=== PATIENT | female | born 2000 | race Caucasian/White ===

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

== ENCOUNTER 2019-08-23 23:10 | Emergency (ER) | payer OTHER ==
[2019-08-23 23:21] VITALS: BP 138/72; PULSE 56; RESP 18; TEMP 98
[2019-08-23] MEDS ORDERED: predniSONE 20 MG TAB PO STA (23:42)
[2019-08-23] MEDS ORDERED: ACETAMINOPHEN TAB 325 MG TAB PO STA (23:43)
[2019-08-23] MEDS ORDERED: IBUPROFEN 400 MG TAB PO STA (23:43)
--- NOTE | 2019-08-23 23:59 | XR ---
EXAMINATION TYPE: XR pelvis AP view DATE OF EXAM: 08/23/2019 COMPARISON: NONE HISTORY: Fall in the ice. Pain. TECHNIQUE: Single view FINDINGS: Pelvic ring is intact. Proximal femurs and hip joints appear normal. Sacroiliac joints appe ar normal. IMPRESSION: Normal pelvis.
--- NOTE | 2019-08-24 | XR ---
EXAMINATION TYPE: XR lumbar spine 2 or 3V DATE OF EXAM: 08/23/2019 COMPARISON: NONE HISTORY: Fall on the ice. Pain. TECHNIQUE: 3 views FINDINGS: Lumbar vertebra have normal alignment. Posterior elements are intact. Sacroiliac joints killian ear normal. There is no compression fracture. IMPRESSION: Negative lumbar spine exam. No fracture.
--- NOTE | 2019-08-24 00:02 | ED ---
Lower Extremity Injury HPI - General Chief Complaint: Extremity Injury, Lower Stated Complaint: Bilateral Leg Pain Time Seen by Provider: 08/23/19 23:34 Source: patient Mode of arrival: ambulatory Limitations: no limitations - History of Present Illness Initial Comments: 18-year-old female presenting today for low back pain pain that radiates down both legs. Patient states that she felt ice a week ago. She states the past 2 days she has had pain that radiates down the legs to the toes. Patient denies any hip knee ankle pain. Denies any injury to the neck or upper back. Patient denies any nausea vomiting headaches. Patient denies loss of bowel bladder control urinary retention loss of sensation weakness the lower extremity guardian who is bedside states she has been walking a week and has not made any complaints until tonight. She denies any new injuries trauma or falls. Denies fevers. Patient denies history of IV drug use. Remaining review of systems negative upon arrival patient appears well no signs acute distress she is able 20 without difficulty. Patient's guardian is concerned patient is malingering. - Related Data Home Medications Medication Instructions Recorded Confirmed ARIPiprazole [Abilify] 15 mg PO HS 05/04/17 05/04/17 Citalopram Hydrobromide [CeleXA] 20 mg PO HS 05/04/17 05/04/17 medroxyPROGESTERone [Depo-Provera] 150 mg IM Q84D 05/04/17 05/04/17 Previous Rx's Medication Instructions Recorded Clotrimazole Cream [Lotrimin Cream] 1 applic TOPICAL BID 14 Days #1 04/18/18 tube Allergies Allergy/AdvReac Type Severity Reaction Status Date / Time amphetamine [From Adderall] AdvReac Unknown Verified 03/17/18 19:03 dextroamphetamine AdvReac Unknown Verified 03/17/18 19:03 [From Adderall] Review of Systems ROS Statement: Those systems with pertinent positive or pertinent negative responses have been documented in the HPI. ROS Other: All systems not noted in ROS Statement are negative. Past Medical History Past Medical History: No Reported History History of Any Multi-Drug Resistant Organisms: None Reported Past Surgical History: No Surgical Hx Reported Past Psychological History: ADD/ADHD, Anxiety, Bipolar, Depression, PTSD Smoking Status: Current every day smoker Past Alcohol Use History: Rare Past Drug Use History: None Reported General Exam - General Exam Comments Initial Comments: General: The patient is awake and alert, in no distress, and does not appear acutely ill. Eye: +3mm pupils are equal, round and reactive to light, extra-ocular movements are intact. No nystagmus. There is normal conjunctiva bilaterally. No signs of icterus. Neck: The neck is supple, there is no tenderness or JVD. Cardiovascular: There is a regular rate and rhythm. No murmur, rub or gallop is appreciated. Respiratory: Lungs are clear to auscultation, respirations are non-labored, breath sounds are equal. No wheezes, stridor, rales, or rhonchi. Musculoskeletal: Normal inspection cervical thoracic and lumbar spine no ecc hymosis or areas of swelling. There is mild midline tenderness to palpation of the upper lumbar spine. Paravertebral tenderness in of the lumbar spine no tenderness midline or paravertebral the thoracic or cervical spine. Normal ROM of the lower extremity bilaterally, no tenderness. Negative logroll negative straight leg raise Strength 5/5 of the lower extremity is equal comparison bilaterally, patient is able to ambulate and weight-bear without difficulty. Sensation intact of the lower extremity is equal comparison bilaterally. DP pulses equal bilaterally 2+. NO lower extremity swelling. Neurological: A&O x 3. CN II-XII intact grossly, There are no obvious motor or sensory deficits. Coordination appears grossly intact. Speech is normal. Skin: Skin is warm and dry and no rashes or lesions are noted. Psychiatric: Cooperative, appropriate mood & affect, normal judgment. Limitations: no limitations Course Vital Signs 08/23/19 23:14 Temperature 98.0 F Pulse Rate 56 L Respiratory 18 Rate Blood Pressure 138/72 Medical Decision Making - Medical Decision Making 18-year-old female presents today for chief complaint of bilateral leg pain and low back pain after fall. X-ray negative for osseous process. Patient is neurovascularly intact. No signs clinically or on history taking cauda equina. Patient denies any loss of bowel bladder control. Patient provided steroid and Tylenol in the emergency department. I recommend outpatient primary care follow-up in 2 days return parameters as discussed with patient's guardian for loss of bowel bladder control urinary retention loss of sensation or weakness of the lower extremities as well as any vomiting or fevers. Both patient and guarding around these return Torres patient was discharged appearing well Disposition Clinical Impression: Low back pain, Fall, Radiculopathy, Bilateral leg pain Disposition: HOME SELF-CARE Condition: Good Instructions (If sedation given, give patient instructions): Lumbar Radiculopathy (ED) Additional Instructions: Please use medication as discussed. Please follow-up with family doctor in the next 2 days. Please return to emergency room if the symptoms increase or worsen or for any other concerns. Is patient prescribed a controlled substance at d/c from ED?: No Referrals: None,Stated [REFERRING] - 1-[address] [facility] [NON-STAFF] - 1-2 days Time of Disposition: 00:02
== END 2019-08-24 00:15 | disposition home or self-care (01) ==
LOC: EEVIPCON 23:10 → EC 23:10
DX: M54.10 Radiculopathy, site unspecified (principal); F41.9 Anxiety disorder, unspecified; F32.9 Major depressive disorder, single episode, unspecified; F43.10 Post-traumatic stress disorder, unspecified; F17.200 Nicotine dependence, unspecified, uncomplicated; Z79.3 Long term (current) use of hormonal contraceptives; Z79.899 Other long term (current) drug therapy; Z88.8 Allergy status to other drugs, medicaments and biological substances
CPT/HCPCS: 72100; 72170; 99283

== ENCOUNTER 2020-02-16 01:02 | Emergency (ER) | payer MEDICARE, OTHER ==
[2020-02-16 01:17] VITALS: TEMP 98.1
--- NOTE | 2020-02-16 01:33 | ED ---
Abdominal Pain HPI - General Chief Complaint: Abdominal Pain Stated Complaint: abd pain Time Seen by Provider: 02/16/20 01:11 Source: patient, EMS, RN notes reviewed, old records reviewed Mode of arrival: EMS Limitations: no limitations - History of Present Illness Initial Comments: This is a 19-year-old female DF for evaluation of suprapubic abdominal pain. Some dysuria. Mild nausea no vomiting no fevers. No recent change in bowel habits. No change in medications patient does admit to positive sexual activity patient is no significant medical history takes no medications except psychiatric medications MD Complaint: abdominal pain -: days(s) Location: suprapubic Radiation: suprapubic Migration to: suprapubic Severity: moderate Severity scale (1-10): 7 Quality: aching Consistency: constant Improves With: nothing Worsens With: nothing Associated Symptoms: nausea, dysuria - Related Data Home Medications Medication Instructions Recorded Confirmed ARIPiprazole [Abilify] 15 mg PO HS 05/04/17 05/04/17 Citalopram Hydrobromide [CeleXA] 20 mg PO HS 05/04/17 05/04/17 medroxyPROGESTERone [Depo-Provera] 150 mg IM Q84D 05/04/17 05/04/17 Previous Rx's Medication Instructions Recorded Clotrimazole Cream [Lotrimin Cream] 1 applic TOPICAL BID 14 Days #1 04/18/18 tube Nitrofurantoin Monohyd/M-Cryst 100 mg PO Q12HR #14 cap 02/16/20 [Macrobid] Allergies Allergy/AdvReac Type Severity Reaction Status Date / Time amphetamine [From Adderall] AdvReac Unknown Verified 02/16/20 01:12 dextroamphetamine AdvReac Unknown Verified 02/16/20 01:12 [From Adderall] Review of Systems ROS Statement: Those systems with pertinent positive or pertinent negative responses have been documented in the HPI. ROS Other: All systems not noted in ROS Statement are negative. Past Medical History Past Medical History: No Reported History History of Any Multi-Drug Resistant Organisms: None Reported Past Surgical History: No Surgical Hx Reported Past Psychological History: ADD/ADHD, Anxiety, Bipolar, Depression, PTSD Smoking Status: Never smoker Past Alcohol Use History: Rare Past Drug Use History: None Reported General Exam Limitations: no limitations General appearance: alert, in no apparent distress, anxious Head exam: Present: atraumatic, normocephalic, normal inspection Eye exam: Present: normal appearance, PERRL, EOMI. Absent: scleral icterus, conjunctival injection, periorbital swelling ENT exam: Present: normal exam, mucous membranes moist Neck exam: Present: normal inspection. Absent: tenderness, meningismus, lymphadenopathy Respiratory exam: Present: normal lung sounds bilaterally. Absent: respiratory distress, wheezes, rales, rhonchi, stridor Cardiovascular Exam: Present: normal rhythm, tachycardia, normal heart sounds. Absent: systolic murmur, diastolic murmur, rubs, gallop, clicks GI/Abdominal exam: Present: soft, normal bowel sounds. Absent: distended, tenderness, guarding, rebound, rigid Extremities exam: Present: normal inspection, full ROM, normal capillary refill. Absent: tenderness, pedal edema, joint swelling, calf tenderness Back exam: Present: normal inspection Neurological exam: Present: alert, oriented X3, CN II-XII intact Psychiatric exam: Present: normal affect, normal mood Skin exam: Present: warm, dry, intact, normal color. Absent: rash Course Vital Signs 02/16/20 02/16/20 01:12 02:35 Temperature 98.1 F 98.1 F Pulse Rate 117 H 99 Respiratory 16 17 Rate Blood Pressure 138/91 121/70 O2 Sat by Pulse 96 97 Oximetry - Reevaluation(s) Reevaluation #1: Medical record is reviewed Patient symptoms are resolved Patient informed results were discharge Medical Decision Making - Medical Decision Making 19 female DF for evaluation of abdominal pain positive urinary tract infection place on antibiotics and can be discharged home - Lab Data Lab Results 02/16/20 02/16/20 02/16/20 Range/Units 01:27 01:27 01:51 Urine Color Yellow Urine Appearance Cloudy H (Clear) Urine pH 6.5 (5.0-8.0) Ur Specific [place] 1.013 (1.001-1.035) Urine Protein 1+ H (Negative) Urine Glucose (UA) Negative (Negative) Urine Ketones Negative (Negative) Urine Blood Small H (Negative) Urine Nitrite Negative (Negative) Urine Bilirubin Negative (Negative) Urine Urobilinogen <2.0 (<2.0) mg/dL Ur Leukocyte Esterase Large H (Negative) Urine RBC 25 H (0-5) /hpf Urine WBC >182 H (0-5) /hpf Urine WBC Clumps Moderate H (None) /hpf Ur Squamous Epith Cells 12 H (0-4) /hpf Urine Bacteria Rare H (None) /hpf Urine Yeast (Budding) Many H (None) /hpf Urine HCG, Qual Not Detected (Not Detectd) Chlamydia Source Urine Chlamydia DNA (PCR) Negative (Neg,Equiv) N. gonorrhoeae Source Urine N.gonorrhoeae DNA Probe Negative (Neg,Equiv) Disposition Clinical Impression: Abdominal pain, UTI (urinary tract infection) Disposition: HOME SELF-CARE Condition: Good Instructions (If sedation given, give patient instructions): Urinary Tract Infection in Women (ED), Abdominal Pain (ED) Prescriptions: Nitrofurantoin Monohyd/M-Cryst [Macrobid] 100 mg PO Q12HR #14 cap Is patient prescribed a controlled substance at d/c from ED?: No Referrals: Ahsan Tomlinson MD [Primary Care Provider] - 1-2 days
[2020-02-16 01:37] LABS: Appearance,Urine Cloudy (Clear); Bacteria,Urine Rare /hpf; Bilirubin,Urine Negative (Negative); Blood,Urine Small (Negative); Budding Yeast,Urine Many /hpf; Color,Urine Yellow; Glucose,Urine (UA) Negative (Negative); Ketones,Urine Negative (Negative); Leukocyte Esterase,Urine Large (Negative); Nitrite,Urine Negative (Negative); PH, Urine 6.5 (5.0-8.0); Protein,Urine 1+ (Negative); RBC,Urine 25 /hpf (0-5); Specific Gravity,Urine 1.013 (1.001-1.035); Squamous Epithelial Cell,Urine 12 /hpf (0-4); Urobilinogen,Urine <2.0 mg/dL (<2.0); WBC,Urine >182 /hpf (0-5)
--- NOTE | 2020-02-16 02:05 | XR ---
EXAMINATION TYPE: XR KUB DATE OF EXAM: 02/16/2020 COMPARISON: NONE HISTORY: Abdominal pain TECHNIQUE: 2 views FINDINGS: There is no sign of intestinal obstruction or pneumoperitoneum. Fecal pattern is normal. Th ere is no evidence of a mass. There are no pathologic calcifications over the kidneys. Lung bases are clear. IMPRESSION: Nonacute abdomen.
[2020-02-16] MEDS ORDERED: NITROFURANTOIN MONOHYD/M-CRYST 100 MG CAP PO STA (02:06)
[2020-02-16] MEDS ORDERED: cefTRIAXone 250 MG VIAL IM STA (02:06)
[2020-02-16] MEDS ORDERED: AZITHROMYCIN 500 MG TAB PO STA (02:06)
[2020-02-16 02:39] VITALS: BP 121/70; PULSE 99; RESP 17
[2020-02-18 15:49] LABS: C. trachomatis,PCR Negative (Neg,Equiv); Chlamydia trachomatis Source Urine; N. gonorrhoeae,PCR Negative (Neg,Equiv); Neisseria Source Urine
== END 2020-02-16 02:39 | disposition home or self-care (01) ==
LOC: EC 01:02
DX: N39.0 Urinary tract infection, site not specified (principal); R11.0 Nausea; F41.9 Anxiety disorder, unspecified; F32.9 Major depressive disorder, single episode, unspecified; F43.10 Post-traumatic stress disorder, unspecified; Z79.3 Long term (current) use of hormonal contraceptives; Z79.899 Other long term (current) drug therapy; Z88.8 Allergy status to other drugs, medicaments and biological substances
CPT/HCPCS: 81001; 81025; 87491; 87591; 87086; 87077; 87186; 74018; 99284; 96372; J0696

== ENCOUNTER 2020-04-23 17:44 | Emergency (ER) | payer MEDICARE, OTHER ==
--- NOTE | 2020-04-23 17:52 | ED ---
Psych HPI - General Stated Complaint: Mental Health Time Seen by Provider: 04/23/20 17:44 Source: patient, EMS, RN notes reviewed Mode of arrival: EMS - History of Present Illness Initial Comments: This is a 19-year-old female with a history depression who states she's been feeling depressed and suicidal for past 2 days. She does state that his multiple issues involved and is no particular she was setting it off. She denies any drugs or alcohol. She is also not sure when her last menstrual. Was but denies any possibility . No Other complaints at this time MD Complaint: suicidal ideation, feels depressed - Related Data Home Medications Medication Instructions Recorded Confirmed ARIPiprazole [Abilify] 15 mg PO HS 05/04/17 05/04/17 Citalopram Hydrobromide [CeleXA] 20 mg PO HS 05/04/17 05/04/17 medroxyPROGESTERone [Depo-Provera] 150 mg IM Q84D 05/04/17 05/04/17 Previous Rx's Medication Instructions Recorded Clotrimazole Cream [Lotrimin Cream] 1 applic TOPICAL BID 14 Days #1 04/18/18 tube Nitrofurantoin Monohyd/M-Cryst 100 mg PO Q12HR #14 cap 02/16/20 [Macrobid] Allergies Allergy/AdvReac Type Severity Reaction Status Date / Time amphetamine [From Adderall] AdvReac Unknown Verified 04/23/20 17:59 dextroamphetamine AdvReac Unknown Verified 04/23/20 17:59 [From Adderall] Review of Systems ROS Statement: Those systems with pertinent positive or pertinent negative responses have been documented in the HPI. ROS Other: All systems not noted in ROS Statement are negative. Past Medical History Past Medical History: No Reported History History of Any Multi-Drug Resistant Organisms: None Reported Past Surgical History: No Surgical Hx Reported Past Psychological History: ADD/ADHD, Anxiety, Bipolar, Depression, PTSD Smoking Status: Never smoker Past Alcohol Use History: Rare Past Drug Use History: None Reported General Exam - General Exam Comments Initial Comments: Is a well-developed well-nourished awake alert oriented 3 female General appearance: alert, in no apparent distress Head exam: Present: atraumatic, normocephalic, normal inspection Eye exam: Present: normal appearance, PERRL, EOMI. Absent: scleral icterus, conjunctival injection, periorbital swelling ENT exam: Present: normal exam, mucous membranes moist Neck exam: Present: normal inspection. Absent: tenderness, meningismus, lymphadenopathy Respiratory exam: Present: normal lung sounds bilaterally. Absent: respiratory distress, wheezes, rales, rhonchi, stridor Cardiovascular Exam: Present: regular rate, normal rhythm, normal heart sounds. Absent: systolic murmur, diastolic murmur, rubs, gallop, clicks GI/Abdominal exam: Present: soft, normal bowel sounds. Absent: distended, tenderness, guarding, rebound, rigid Extremities exam: Present: normal inspection, full ROM, normal capillary refill. Absent: tenderness, pedal edema, joint swelling, calf tenderness Back exam: Present: normal inspection Neurological exam: Present: alert, oriented X3, CN II-XII intact Psychiatric exam: Present: depressed, flat affect, suicidal ideation Skin exam: Present: warm, dry, intact, normal color. Absent: rash Course Vital Signs 04/23/20 17:56 Temperature 98.2 F Pulse Rate 114 H Respiratory 18 Rate Blood Pressure 133/86 O2 Sat by Pulse 92 L Oximetry Medical Decision Making - Medical Decision Making The patient was evaluated by the psychiatric service found not to be wrist herself or anyone else he will be discharged with outpatient treatment plan - Lab Data Lab Results 04/23/20 04/23/20 Range/Units 18:55 18:55 Urine HCG, Qual Not Detected (Not Detectd) Urine Opiates Screen Not Detected (NotDetected) Ur Oxycodone Screen Not Detected (NotDetected) Urine Methadone Screen Not Detected (NotDetected) Ur Propoxyphene Screen Not Detected (NotDetected) Ur Barbiturates Screen Not Detected (NotDetected) U Tricyclic Antidepress Not Detected (NotDetected) Ur Phencyclidine Scrn Not Detected (NotDetected) Ur Amphetamines Screen Not Detected (NotDetected) U Methamphetamines Scrn Not Detected (NotDetected) U Benzodiazepines Scrn Not Detected (NotDetected) Urine Cocaine Screen Not Detected (NotDetected) U Marijuana (THC) Screen Not Detected (NotDetected) Disposition Clinical Impression: Depression, Adjustment reaction of adult life Disposition: HOME SELF-CARE Condition: Good Instructions (If sedation given, give patient instructions): Depression (ED), Mood Disorders (ED), Stress (ED) Is patient prescribed a controlled substance at d/c from ED?: No Referrals: Ahsan Tomlinson MD [Primary Care Provider] - 1-2 days
[2020-04-23 18:00] VITALS: BP 133/86; RESP 18; TEMP 98.2
[2020-04-23 19:33] LABS: Amphetamine Screen,Urine Not Detected (NotDetected); Barbiturate Screen,Urine Not Detected (NotDetected); Benzodiazepines Screen,Urine Not Detected (NotDetected); Cocaine Screen,Urine Not Detected (NotDetected); Methadone Screen, Urine Not Detected (NotDetected); Opiate Screen,Urine Not Detected (NotDetected); Oxycodone Screen, Urine Not Detected (NotDetected); Phencyclidine Screen,Urine Not Detected (NotDetected); Tricyclic Antidepressant,Urine Not Detected (NotDetected); Urn Cannabinoid Scrn Not Detected (NotDetected)
[2020-04-23 20:29] VITALS: PULSE 102
== END 2020-04-23 20:28 | disposition home or self-care (01) ==
LOC: EC 17:44
DX: F43.20 Adjustment disorder, unspecified (principal); F31.9 Bipolar disorder, unspecified; R45.851 Suicidal ideations; F43.10 Post-traumatic stress disorder, unspecified; F41.9 Anxiety disorder, unspecified; Z79.899 Other long term (current) drug therapy; Z79.3 Long term (current) use of hormonal contraceptives; Z88.8 Allergy status to other drugs, medicaments and biological substances
CPT/HCPCS: 80306; 81025; 99285

== ENCOUNTER 2020-05-07 19:20 | Emergency (ER) | payer MEDICARE, OTHER ==
[2020-05-07 19:39] VITALS: BP 139/90; PULSE 109; RESP 20; TEMP 98.5
[2020-05-07 20:05] LABS: Appearance,Urine Clear (Clear); Bacteria,Urine Rare /hpf; Bilirubin,Urine Negative (Negative); Blood,Urine Moderate (Negative); Color,Urine Yellow; Glucose,Urine (UA) Negative (Negative); Ketones,Urine Negative (Negative); Leukocyte Esterase,Urine Negative (Negative); Mucus,Urine Rare /hpf; Nitrite,Urine Negative (Negative); Protein,Urine Negative (Negative); RBC,Urine 1 /hpf (0-5); Squamous Epithelial Cell,Urine 3 /hpf (0-4); Urobilinogen,Urine <2.0 mg/dL (<2.0); WBC,Urine 3 /hpf (0-5)
--- NOTE | 2020-05-07 20:39 | XR ---
EXAMINATION TYPE: XR lumbar spine 2 or 3V DATE OF EXAM: 05/07/2020 COMPARISON: 08/23/2019 HISTORY: Back pain TECHNIQUE: 3 views FINDINGS: Lumbar vertebra have normal spacing and alignment. Posterior elements are intact. Sacroilia c joints appear normal. There is no evidence of a fracture. IMPRESSION: Normal lumbar spine exam.
--- NOTE | 2020-05-07 20:48 | ED ---
Back Pain HPI - General Chief Complaint: Back Pain/Injury Stated Complaint: Back Pain Time Seen by Provider: 05/07/20 19:24 Source: EMS Limitations: no limitations - History of Present Illness Initial Comments: 19YO female presenting today for cc of test, low back pain. States she always has low back pain but wanted to be sure that today it is not due to . she states she stopped taking her birthday control a few days ago because she wanted to be . she states she started to have light bleeding and wanted to be sure this was no due to either.patient has no lose bowel bladder control, no falls or trauma. denies IVDU, fevers, cancer. 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 Patient denies loss of sensation or weakness of the lE. Patient has no additional complaints and appears well nontoxic on arrival. - Related Data Home Medications Medication Instructions Recorded Confirmed ARIPiprazole [Abilify] 15 mg PO HS 05/04/17 05/04/17 Citalopram Hydrobromide [CeleXA] 20 mg PO HS 05/04/17 05/04/17 medroxyPROGESTERone [Depo-Provera] 150 mg IM Q84D 05/04/17 05/04/17 Previous Rx's Medication Instructions Recorded Clotrimazole Cream [Lotrimin Cream] 1 applic TOPICAL BID 14 Days #1 04/18/18 tube Nitrofurantoin Monohyd/M-Cryst 100 mg PO Q12HR #14 cap 02/16/20 [Macrobid] Allergies Allergy/AdvReac Type Severity Reaction Status Date / Time amphetamine [From Adderall] AdvReac Unknown Verified 05/07/20 19:30 dextroamphetamine AdvReac Unknown Verified 05/07/20 19:30 [From Adderall] Review of Systems ROS Statement: Those systems with pertinent positive or pertinent negative responses have been documented in the HPI. ROS Other: All systems not noted in ROS Statement are negative. Past Medical History Past Medical History: No Reported History History of Any Multi-Drug Resistant Organisms: None Reported Past Surgical History: No Surgical Hx Reported Past Psychological History: ADD/ADHD, Anxiety, Bipolar, Depression, PTSD Smoking Status: Never smoker Past Alcohol Use History: Rare Past Drug Use History: None Reported General Exam - General Exam Comments Initial Comments: General: The patient is awake and alert, in no distress, and does not appear acutely ill. Eye: Pupils are equal, round and reactive to light, extra-ocular movements are intact. No nystagmus. There is normal conjunctiva bilaterally. No signs of icterus. Cardiovascular: There is a regular rate and rhythm. No murmur, rub or gallop is appreciated. Respiratory: Lungs are clear to auscultation, respirations are non-labored, breath sounds are equal. No wheezes, stridor, rales, or rhonchi. Gastrointestinal: Soft, non-distended, non-tender abdomen without masses or organomegaly noted. There is no rebound or guarding present Musculoskeletal: Normal ROM, no tenderness. Strength 5/5. Sensation intact. Radial pulses equal bilaterally 2+. Neurological: A&O x 3. CN II-XII intact, There are no obvious motor or sensory deficits. Coordination appears grossly intact. Speech is normal. Skin: Skin is warm and dry and no rashes or lesions are noted. Psychiatric: Cooperative, appropriate mood & affect, normal judgment. Limitations: no limitations Course Vital Signs 05/07/20 19:31 Temperature 98.5 F Pulse Rate 109 H Respiratory 20 Rate Blood Pressure 139/90 O2 Sat by Pulse 98 Oximetry Medical Decision Making - Medical Decision Making XR (-) No PE findings or history concerning for cauda equina. Patient HCG (-). Patietn discharged appearing well, guardian contacted by nurse Jones. Patient agreeable to care plan as well as attending Dr. Horner - Lab Data Lab Results 05/07/20 05/07/20 Range/Units 19:44 19:47 Urine Color Yellow Urine Appearance Clear (Clear) Urine pH 6.0 (5.0-8.0) Ur Specific [place] 1.020 (1.001-1.035) Urine Protein Negative (Negative) Urine Glucose (UA) Negative (Negative) Urine Ketones Negative (Negative) Urine Blood Moderate H (Negative) Urine Nitrite Negative (Negative) Urine Bilirubin Negative (Negative) Urine Urobilinogen <2.0 (<2.0) mg/dL Ur Leukocyte Esterase Negative (Negative) Urine RBC 1 (0-5) /hpf Urine WBC 3 (0-5) /hpf Ur Squamous Epith Cells 3 (0-4) /hpf Urine Bacteria Rare H (None) /hpf Urine Mucus Rare H (None) /hpf Urine HCG, Qual Not Detected (Not Detectd) Disposition Clinical Impression: Low back pain, Concern about unplanned without diagnosis Disposition: HOME SELF-CARE Condition: Good Instructions (If sedation given, give patient instructions): Acute Low Back Pain (ED) Additional Instructions: Please use medication as discussed. Please follow-up with family doctor in the next 2 days of symptoms have not improved. Please return to emergency room if the symptoms increase or worsen or for any other concerns. Is patient prescribed a controlled substance at d/c from ED?: No Referrals: None,Stated [Primary Care Provider] - 1-2 days Time of Disposition: 20:49
== END 2020-05-07 21:01 | disposition home or self-care (01) ==
LOC: EC 19:20 → EEVIPCON 19:20 → EC 21:01
DX: M54.5 Low back pain (principal); F31.9 Bipolar disorder, unspecified; F41.9 Anxiety disorder, unspecified; F43.10 Post-traumatic stress disorder, unspecified; Z79.3 Long term (current) use of hormonal contraceptives; Z79.899 Other long term (current) drug therapy; Z88.8 Allergy status to other drugs, medicaments and biological substances
CPT/HCPCS: 72100; 81001; 81025; 99284

== ENCOUNTER 2020-05-17 21:10 | Emergency (ER) | payer MEDICARE, OTHER ==
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
[2020-05-17 23:04] VITALS: BP 127/73; PULSE 78; RESP 18; TEMP 98.6
== END 2020-05-17 22:46 | disposition home or self-care (01) ==
LOC: EC 21:10
DX: R45.851 Suicidal ideations (principal); F31.9 Bipolar disorder, unspecified; F43.10 Post-traumatic stress disorder, unspecified; F41.9 Anxiety disorder, unspecified; Z79.899 Other long term (current) drug therapy; Z79.3 Long term (current) use of hormonal contraceptives; Z88.8 Allergy status to other drugs, medicaments and biological substances
CPT/HCPCS: 99285

== ENCOUNTER 2020-05-24 18:38 | Emergency (ER) | payer MEDICARE, OTHER ==
[2020-05-24 19:29] VITALS: RESP 18
[2020-05-24] MEDS ORDERED: SODIUM CHLORIDE 0.9% 500 ML 500 ML IV STA (19:55)
--- NOTE | 2020-05-24 20:10 | ED ---
General Adult HPI - General Chief complaint: Recheck/Abnormal Lab/Rx Stated complaint: Seizures Time Seen by Provider: 05/24/20 19:33 Source: EMS, RN notes reviewed, old records reviewed Mode of arrival: EMS Limitations: no limitations - History of Present Illness Initial comments: 19-year-old female patient ED for evaluation of seizures. Patient reports that the last year she has been multiple having tonic-clonic seizures which she believes are related to the psychiatric medications Celexa that she takes. Patient reports that she has never been diagnosed with a seizure and is not on any antiepileptics.she reports that she had a witnessed tonic-clonic seizure today of unknown duration. Reports that she had a very small amount of urinary incontinence during this period. She denies hitting her head or neck. Denies any other complaints. Systemic: Pt denies fatigue, fever/chills, rash. Pt denies weakness, night sweats, weight loss. Neuro: Pt denies headache, visual disturbances, syncope or pre-syncope. HEENT: Pt denies ocular discharge or irritation, otalgia, rhinorrhea, pharyngitis or notable lymphadenopathy. Cardiopulmonary: Pt denies chest pain, SOB, heart palpitations, dyspnea on exertion. Abdominal/GI: Pt denies abdominal pain, n/v/d. : Pt denies dysuria, burning w/ urination, frequency/urgency. Denies new onset urinary or bowel incontinence. MSK: Pt denies myalgia, loss of strength or function in extremities. Neuro: Pt denies new onset weakness, paresthesias. - Related Data Home Medications Medication Instructions Recorded Confirmed ARIPiprazole [Abilify] 15 mg PO HS 05/04/17 05/17/20 Chlorhexidine Gluconate [Peridex] 15 ml PO BID 05/17/20 05/17/20 Ciprofloxacin HCl [Cipro] 500 mg PO Q12HR 05/17/20 05/17/20 Citalopram Hydrobromide [CeleXA] 40 mg PO DAILY 05/17/20 05/17/20 Cyclobenzaprine [Flexeril] 5 mg PO Q4H PRN 05/17/20 05/17/20 Isibloom 1 tab PO DAILY 05/17/20 05/17/20 Omeprazole 20 mg PO DAILY 05/17/20 05/17/20 Prazosin [Minipress] 1 mg PO BID 05/17/20 05/17/20 metroNIDAZOLE [Flagyl] 500 mg PO TID 05/17/20 05/17/20 Allergies Allergy/AdvReac Type Severity Reaction Status Date / Time amphetamine [From Adderall] AdvReac Unknown Verified 05/24/20 19:29 dextroamphetamine AdvReac Unknown Verified 05/24/20 19:29 [From Adderall] Review of Systems ROS Statement: Those systems with pertinent positive or pertinent negative responses have been documented in the HPI. ROS Other: All systems not noted in ROS Statement are negative. Past Medical History Past Medical History: No Reported History History of Any Multi-Drug Resistant Organisms: None Reported Past Surgical History: No Surgical Hx Reported Past Psychological History: ADD/ADHD, Anxiety, Bipolar, Depression, PTSD Smoking Status: Current every day smoker Past Alcohol Use History: Rare Past Drug Use History: None Reported General Exam - General Exam Comments Initial Comments: Constitutional: NAD, AOX3, Pt has pleasant affect. HEENT: NC/AT, trachea midline, neck supple, no lymphadenopathy. Posterior pharynx non erythematous, without exudates. External ears appear normal, without discharge. Mucous membranes moist. Eyes PERRLA, EOM intact. There is no scleral icterus. No pallor noted. Cardiopulmonary: RRR, no murmurs, rubs or gallops, no JVD noted. Lungs CTAB in anterior and posterior méndez. No peripheral edema. Abdominal exam: Abdomen soft and non-distended. Abdomen non-tender to palpation in all 4 quadrants. Bowel sounds active in LLQ. No hepatosplenomegaly. No ecchymosis Neuro: CN II-XII intact. No nuchal rigidity. No raccon eyes, no cordoba sign, no hemotympanum. No cervical spinal tenderness. MSK: Full active ROM in upper and lower extremities, 5/5 stregnth. Limitations: no limitations Course Vital Signs 05/24/20 05/24/20 19:26 21:45 Temperature 98.1 F Pulse Rate 98 80 Respiratory 18 18 Rate Blood Pressure 140/91 130/69 O2 Sat by Pulse 97 98 Oximetry Medical Decision Making - Medical Decision Making 19-year-old female patient to ED for evaluation of seizure. Patient port that she had a witnessed tonic-clonic seizure. Patient reports that for the last year since she has been on Celexa she has had multiple tonic-clonic seizures. Reports that she never sought treatment for this. She states that she never d iagnosed with a seizure disorder. Patient ports that she had a tonic clonic seizures today unknown duration was witnessed. Patient would not oriented 3. Neurologic exam is intact. Laboratory investigations mild cytosis PTT brain negative. EKG nonischemic. Patient placed on 1 g of Keppra. Will be transferred to [facility] for neurology evaluation. Legal guardian was contacted and is in agreement. Case discussed with Dr Chowdary. Accepting physician Dr. Aleman, Odalis Sheldon. - Lab Data Result diagrams: 05/24/20 20:12 05/24/20 20:12 Lab Results 05/24/20 05/24/20 05/24/20 Range/Units 20:12 20:12 20:12 WBC 13.9 H (4.0-11.0) k/uL RBC 4.88 (3.80-5.40) m/uL Hgb 14.4 (11.4-16.0) gm/dL Hct 44.7 (34.0-46.0) % MCV 91.6 (80.0-100.0) fL MCH 29.4 (25.0-35.0) pg MCHC 32.1 (31.0-37.0) g/dL RDW 13.6 (11.5-15.5) % Plt Count 466 H (150-450) k/uL Neutrophils % 62 % Lymphocytes % 30 % Monocytes % 3 % Eosinophils % 3 % Basophils % 0 % Neutrophils # 8.6 H (1.3-7.7) k/uL Lymphocytes # 4.2 (1.0-4.8) k/uL Monocytes # 0.4 (0-1.0) k/uL Eosinophils # 0.4 (0-0.7) k/uL Basophils # 0.1 (0-0.2) k/uL Sodium 137 (137-145) mmol/L Potassium 4.5 (3.5-5.1) mmol/L Chloride 105 (98-107) mmol/L Carbon Dioxide 25 (22-30) mmol/L Anion Gap 7 mmol/L BUN 9 (7-17) mg/dL Creatinine 0.84 (0.52-1.04) mg/dL Est GFR (CKD-EPI)AfAm >90 (>60 ml/min/1.73 sqM) Est GFR (CKD-EPI)NonAf >90 (>60 ml/min/1.73 sqM) Glucose 117 H (74-99) mg/dL Plasma Lactic Acid Danny (0.7-2.0) mmol/L Calcium 9.6 (8.4-10.2) mg/dL Total Bilirubin 0.2 (0.2-1.3) mg/dL AST 16 (14-36) U/L ALT 14 (4-34) U/L Alkaline Phosphatase 87 (38-126) U/L Total Protein 7.2 (6.3-8.2) g/dL Albumin 4.1 (3.5-5.0) g/dL Urine Color Light Yellow Urine Appearance Cloudy H (Clear) Urine pH 7.0 (5.0-8.0) Ur Specific [place] 1.007 (1.001-1.035) Urine Protein Negative (Negative) Urine Glucose (UA) Negative (Negative) Urine Ketones Negative (Negative) Urine Blood Negative (Negative) Urine Nitrite Negative (Negative) Urine Bilirubin Negative (Negative) Urine Urobilinogen <2.0 (<2.0) mg/dL Ur Leukocyte Esterase Negative (Negative) Urine WBC 1 (0-5) /hpf Ur Squamous Epith Cells 2 (0-4) /hpf Amorphous Sediment Few H (None) /hpf Urine Bacteria Occasional H (None) /hpf Urine Mucus Rare H (None) /hpf Urine HCG, Qual (Not Detectd) Urine Opiates Screen Not Detected (NotDetected) Ur Oxycodone Screen Not Detected (NotDetected) Urine Methadone Screen Not Detected (NotDetected) Ur Propoxyphene Screen Not Detected (NotDetected) Ur Barbiturates Screen Not Detected (NotDetected) U Tricyclic Antidepress Not Detected (NotDetected) Ur Phencyclidine Scrn Not Detected (NotDetected) Ur Amphetamines Screen Not Detected (NotDetected) U Methamphetamines Scrn Not Detected (NotDetected) U Benzodiazepines Scrn Not Detected (NotDetected) Urine Cocaine Screen Not Detected (NotDetected) U Marijuana (THC) Screen Not Detected (NotDetected) 05/24/20 05/24/20 Range/Units 20:12 20:12 WBC (4.0-11.0) k/uL RBC (3.80-5.40) m/uL Hgb (11.4-16.0) gm/dL Hct (34.0-46.0) % MCV (80.0-100.0) fL MCH (25.0-35.0) pg MCHC (31.0-37.0) g/dL RDW (11.5-15.5) % Plt Count (150-450) k/uL Neutrophils % % Lymphocytes % % Monocytes % % Eosinophils % % Basophils % % Neutrophils # (1.3-7.7) k/uL Lymphocytes # (1.0-4.8) k/uL Monocytes # (0-1.0) k/uL Eosinophils # (0-0.7) k/uL Basophils # (0-0.2) k/uL Sodium (137-145) mmol/L Potassium (3.5-5.1) mmol/L Chloride (98-107) mmol/L Carbon Dioxide (22-30) mmol/L Anion Gap mmol/L BUN (7-17) mg/dL Creatinine (0.52-1.04) mg/dL Est GFR (CKD-EPI)AfAm (>60 ml/min/1.73 sqM) Est GFR (CKD-EPI)NonAf (>60 ml/min/1.73 sqM) Glucose (74-99) mg/dL Plasma Lactic Acid Danny 0.9 (0.7-2.0) mmol/L Calcium (8.4-10.2) mg/dL Total Bilirubin (0.2-1.3) mg/dL AST (14-36) U/L ALT (4-34) U/L Alkaline Phosphatase (38-126) U/L Total Protein (6.3-8.2) g/dL Albumin (3.5-5.0) g/dL Urine Color Urine Appearance (Clear) Urine pH (5.0-8.0) Ur Specific [place] (1.001-1.035) Urine Protein (Negative) Urine Glucose (UA) (Negative) Urine Ketones (Negative) Urine Blood (Negative) Urine Nitrite (Negative) Urine Bilirubin (Negative) Urine Urobilinogen (<2.0) mg/dL Ur Leukocyte Esterase (Negative) Urine WBC (0-5) /hpf Ur Squamous Epith Cells (0-4) /hpf Amorphous Sediment (None) /hpf Urine Bacteria (None) /hpf Urine Mucus (None) /hpf Urine HCG, Qual Not Detected (Not Detectd) Urine Opiates Screen (NotDetected) Ur Oxycodone Screen (NotDetected) Urine Methadone Screen (NotDetected) Ur Propoxyphene Screen (NotDetected) Ur Barbiturates Screen (NotDetected) U Tricyclic Antidepress (NotDetected) Ur Phencyclidine Scrn (NotDetected) Ur Amphetamines Screen (NotDetected) U Methamphetamines Scrn (NotDetected) U Benzodiazepines Scrn (NotDetected) Urine Cocaine Screen (NotDetected) U Marijuana (THC) Screen (NotDetected) - EKG Data -: EKG Interpreted by Me (and Dr Chowdary) EKG Comments: ventricular rate 78, OK interval 134, QRS 70, QT/QTC 388/442. Normal sinus rhythm, normal EKG, no concern for acute ischemia at this time. Disposition Clinical Impression: Seizure Disposition: OTHER INSTITUTION NOT DEFINED Condition: Serious Is patient prescribed a controlled substance at d/c from ED?: No Referrals: Patrica Camacho MD [Primary Care Provider] - 1-2 days - Out of Hospital Transfer - Req. Specs Out of Hospital Transfer - Requested Specifics: Other Emergency Center ([facility])
[2020-05-24] MEDS ORDERED: levETIRAcetam IV 1,000 MG in SALINE 1 100ML.BAG IVPB STA (20:25)
[2020-05-24 20:40] LABS: Basophils # (A) 0.1 k/uL (0-0.2); Basophils % (A) 0 %; Eosinophils # (A) 0.4 k/uL (0-0.7); Eosinophils % (A) 3 %; HCT 44.7 % (34.0-46.0); HGB 14.4 gm/dL (11.4-16.0); Lymphocytes # (A) 4.2 k/uL (1.0-4.8); Lymphocytes % (A) 30 %; MCH 29.4 pg (25.0-35.0); MCHC 32.1 g/dL (31.0-37.0); MCV 91.6 fL (80.0-100.0); Mean Platelet Volume 6.1; Monocytes # (A) 0.4 k/uL (0-1.0); Monocytes % (A) 3 %; Neutrophils # (A) 8.6 k/uL (1.3-7.7); Neutrophils % (A) 62 %; Platelet Count 466 k/uL (150-450); RBC 4.88 m/uL (3.80-5.40); RDW 13.6 % (11.5-15.5); WBC 13.9 k/uL (4.0-11.0)
[2020-05-24 20:43] LABS: Amorphous Sediment,Urine Few /hpf; Appearance,Urine Cloudy (Clear); Bacteria,Urine Occasional /hpf; Bilirubin,Urine Negative (Negative); Blood,Urine Negative (Negative); Color,Urine Light Yellow; Glucose,Urine (UA) Negative (Negative); Ketones,Urine Negative (Negative); Leukocyte Esterase,Urine Negative (Negative); Mucus,Urine Rare /hpf; Nitrite,Urine Negative (Negative); Protein,Urine Negative (Negative); Specific Gravity,Urine 1.007 (1.001-1.035); Squamous Epithelial Cell,Urine 2 /hpf (0-4); Urobilinogen,Urine <2.0 mg/dL (<2.0); WBC,Urine 1 /hpf (0-5)
[2020-05-24 20:52] LABS: ALT 14 U/L (4-34); AST 16 U/L (14-36); African American GFR (CKD) >90 (>60 ml/min/1.73 sqM); Albumin 4.1 g/dL (3.5-5.0); Alkaline Phosphatase 87 U/L (38-126); Amphetamine Screen,Urine Not Detected (NotDetected); Anion Gap 7 mmol/L; Barbiturate Screen,Urine Not Detected (NotDetected); Benzodiazepines Screen,Urine Not Detected (NotDetected); Blood Urea Nitrogen 9 mg/dL (7-17); Calcium 9.6 mg/dL (8.4-10.2); Carbon Dioxide 25 mmol/L (22-30); Chloride 105 mmol/L (98-107); Cocaine Screen,Urine Not Detected (NotDetected); Glucose 117 mg/dL (74-99); Methadone Screen, Urine Not Detected (NotDetected); Non-African American GFR(CKD) >90 (>60 ml/min/1.73 sqM); Opiate Screen,Urine Not Detected (NotDetected); Oxycodone Screen, Urine Not Detected (NotDetected); Phencyclidine Screen,Urine Not Detected (NotDetected); Potassium 4.5 mmol/L (3.5-5.1); Sodium 137 mmol/L (137-145); Total Bilirubin 0.2 mg/dL (0.2-1.3); Total Protein 7.2 g/dL (6.3-8.2); Tricyclic Antidepressant,Urine Not Detected (NotDetected); Urn Cannabinoid Scrn Not Detected (NotDetected)
--- NOTE | 2020-05-24 21:20 | CT ---
EXAMINATION TYPE: CT brain wo con DATE OF EXAM: 05/24/2020 COMPARISON: None HISTORY: seizure CT DLP: 1099.4 mGycm Automated exposure control for dose reduction was used. Ventricles and sulci appear normal. There is no mass effect nor midline shift. There is no sign of in tracranial hemorrhage. Calvarium is intact. There is no evidence of cerebral edema. IMPRESSION: Normal unenhanced head CT scan.
[2020-05-24 23:32] VITALS: BP 120/76; PULSE 71; TEMP 98.4
== END 2020-05-24 23:32 | disposition other institution (70) ==
LOC: EC 18:38
DX: R56.9 Unspecified convulsions (principal); F41.9 Anxiety disorder, unspecified; F31.9 Bipolar disorder, unspecified; F43.10 Post-traumatic stress disorder, unspecified; F90.9 Attention-deficit hyperactivity disorder, unspecified type; F17.200 Nicotine dependence, unspecified, uncomplicated; Z79.899 Other long term (current) drug therapy; Z88.8 Allergy status to other drugs, medicaments and biological substances
CPT/HCPCS: 36415; 93005; 80053; 83605; 85025; 81001; 81025; 80306; 70450; 99285; 96365; 96361; J1953

== ENCOUNTER 2020-05-26 15:21 | Emergency (ER) | payer MEDICARE, OTHER ==
[2020-05-26] MEDS ORDERED: SODIUM CHLORIDE 0.9% 1,000 ML IV STA (15:44)
--- NOTE | 2020-05-26 15:48 | ED ---
Seizure HPI - General Chief Complaint: Seizure Stated Complaint: seizures Time Seen by Provider: 05/26/20 15:44 Source: patient, Caregiver Mode of arrival: ambulatory Limitations: no limitations - History of Present Illness Initial Comments: Patient is a 19-year-old female with psychiatric a presenting to the emergency department with a chief complaint of a seizure. Patient states that she was in emergency department 3 days ago with transfer to [facility] for further evaluation. Patient states she was started on an anti-epilepsy medi cation in addition to her Celexa that she takes for depression. Patient states she was discharged from the hospital around noon today, and then developed 3 seizures while she was back to the [facility] home. Patient states that this was witnessed by her friend and she had what appeared to be tonic-clonic seizures. Patient unaware how long they lasted nor did her friend. Patient said she felt tired after. Denies any urination while having the supposes seizures. I spoke with the patient's guardian,China Ibarra, who states that the patient has questionable seizures. Patient had EEG testing at [facility] and there is no concrete decision regarding epilepsy or actual seizures. The guardian also requested EPS evaluation due to the patient's psychiatric history. I also spoke with the [facility] facility staff was supposedly witnessed the seizure and apparently the patient was sunshine back on the bed and waving her hand only with no tonic-clonic activity. This lasted for less than 5 minutes and the patient had no postictal activity. - Related Data Home Medications Medication Instructions Recorded Confirmed ARIPiprazole [Abilify] 15 mg PO DAILY@0800 05/04/17 05/26/20 Chlorhexidine Gluconate [Peridex] 15 ml PO BID@0800,209905/17/20 05/26/20 Citalopram Hydrobromide [CeleXA] 40 mg PO DAILY@0800 05/17/20 05/26/20 Cyclobenzaprine [Flexeril] 10 mg PO HS@2100 PRN 05/17/20 05/26/20 Isibloom 1 tab PO DAILY@0800 05/17/20 05/26/20 Omeprazole 20 mg PO BID@0800,2100 05/17/20 05/26/20 Prazosin [Minipress] 2 mg PO HS@2100 05/17/20 05/26/20 Calcium Carbonate [Calcium] 600 mg PO DAILY@0800 05/26/20 05/26/20 Cholecalciferol [Vitamin D3 (25 5,000 unit PO DAILY@0800 05/26/20 05/26/20 Mcg = 1000 Iu)] Cyclobenzaprine [Flexeril] 5 mg PO TID PRN 05/26/20 05/26/20 Ibuprofen [Motrin] 800 mg PO TID-W/MEALS PRN 05/26/20 05/26/20 Allergies Allergy/AdvReac Type Severity Reaction Status Date / Time amphetamine [From Adderall] AdvReac Unknown Verified 05/26/20 17:55 dextroamphetamine AdvReac Unknown Verified 05/26/20 17:55 [From Adderall] Review of Systems ROS Statement: Those systems with pertinent positive or pertinent negative responses have been documented in the HPI. ROS Other: All systems not noted in ROS Statement are negative. Past Medical History Past Medical History: No Reported History History of Any Multi-Drug Resistant Organisms: None Reported Past Surgical History: No Surgical Hx Reported Past Psychological History: ADD/ADHD, Anxiety, Bipolar, Depression, PTSD Smoking Status: Current every day smoker Past Alcohol Use History: Rare Past Drug Use History: Marijuana General Exam Limitations: no limitations General appearance: alert, in no apparent distress, obese Head exam: Present: atraumatic, normocephalic, normal inspection Eye exam: Present: normal appearance, PERRL, EOMI Pupils: Present: normal accommodation ENT exam: Present: normal exam, normal oropharynx (No signs of trauma to the tongue), mucous membranes moist, TM's normal bilaterally, normal external ear exam Neck exam: Present: normal inspection, tenderness, full ROM Respiratory exam: Present: normal lung sounds bilaterally. Absent: respiratory distress, wheezes, rales, rhonchi, stridor, chest wall tenderness, accessory muscle use Cardiovascular Exam: Present: regular rate, normal rhythm, normal heart sounds GI/Abdominal exam: Present: soft. Absent: distended, tenderness, guarding Extremities exam: Present: normal inspection, full ROM, normal capillary refill. Absent: tenderness, pedal edema, joint swelling Back exam: Present: normal inspection, full ROM. Absent: tenderness, CVA tenderness (R), CVA tenderness (L) Neurological exam: Present: alert, oriented X3, CN II-XII intact, normal gait Psychiatric exam: Present: normal affect, normal mood Skin exam: Present: warm, dry, intact, normal color. Absent: rash Course Vital Signs 05/26/20 05/26/20 15:32 18:14 Temperature 98.5 F 98.1 F Pulse Rate 129 H 86 Respiratory 20 18 Rate Blood Pressure 116/87 124/74 O2 Sat by Pulse 99 100 Oximetry Medical Decision Making - Medical Decision Making Patient is a 19-year-old female presenting to the emergency department with a chief complaint of seizures. Physical examination is unremarkable. There is no signs of trauma to the tongue after disposes seizures. Patient did not lose bladder control during his seizures either. I spoke with the guardian, [facility] facility staff who witnessed the apparent seizure in reviewed the discharge papers from [facility]. CBC and CMP is unremarkable. Lactic acid within normal limits. 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 Patient was evaluated per the request of the guardian. EPS value the patient. Patient was cleared for discharge. She already has an appointment with neurology in 2 weeks per the [facility] staff manager pet who I spoke on the phone with. Strict return parameters were thoroughly discussed the patient is understanding and agreeable. Case discussed with physician. - Lab Data Result diagrams: 05/26/20 16:21 05/26/20 16:21 Lab Results 05/26/20 05/26/20 05/26/20 Range/Units 16:21 16:21 16:21 WBC 13.7 H (4.0-11.0) k/uL RBC 4.90 (3.80-5.40) m/uL Hgb 15.1 (11.4-16.0) gm/dL Hct 44.6 (34.0-46.0) % MCV 90.9 (80.0-100.0) fL MCH 30.7 (25.0-35.0) pg MCHC 33.8 (31.0-37.0) g/dL RDW 13.1 (11.5-15.5) % Plt Count 432 (150-450) k/uL Neutrophils % 69 % Lymphocytes % 24 % Monocytes % 3 % Eosinophils % 3 % Basophils % 1 % Neutrophils # 9.4 H (1.3-7.7) k/uL Lymphocytes # 3.3 (1.0-4.8) k/uL Monocytes # 0.4 (0-1.0) k/uL Eosinophils # 0.4 (0-0.7) k/uL Basophils # 0.1 (0-0.2) k/uL Sodium 137 (137-145) mmol/L Potassium 4.0 (3.5-5.1) mmol/L Chloride 105 (98-107) mmol/L Carbon Dioxide 24 (22-30) mmol/L Anion Gap 8 mmol/L BUN 12 (7-17) mg/dL Creatinine 0.95 (0.52-1.04) mg/dL Est GFR (CKD-EPI)AfAm >90 (>60 ml/min/1.73 sqM) Est GFR (CKD-EPI)NonAf 87 (>60 ml/min/1.73 sqM) Glucose 118 H (74-99) mg/dL Plasma Lactic Acid Danny 1.5 (0.7-2.0) mmol/L Calcium 10.2 (8.4-10.2) mg/dL Total Bilirubin 0.2 (0.2-1.3) mg/dL AST 17 (14-36) U/L ALT 17 (4-34) U/L Alkaline Phosphatase 98 (38-126) U/L Total Protein 7.7 (6.3-8.2) g/dL Albumin 4.4 (3.5-5.0) g/dL Disposition Clinical Impression: Seizure Disposition: HOME SELF-CARE Condition: Stable Instructions (If sedation given, give patient instructions): Recurrent Seizures in Adults (ED) Additional Instructions: Follow-up with neurology. Return to emergency department if symptoms worsen. Continue taking antiepileptic prescribed medication. Is patient prescribed a controlled substance at d/c from ED?: No Referrals: Patrica Camacho MD [Primary Care Provider] - 1-2 days Time of Disposition: 18:05
[2020-05-26 16:30] LABS: Basophils # (A) 0.1 k/uL (0-0.2); Basophils % (A) 1 %; Eosinophils # (A) 0.4 k/uL (0-0.7); Eosinophils % (A) 3 %; HCT 44.6 % (34.0-46.0); HGB 15.1 gm/dL (11.4-16.0); Lymphocytes # (A) 3.3 k/uL (1.0-4.8); Lymphocytes % (A) 24 %; MCH 30.7 pg (25.0-35.0); MCHC 33.8 g/dL (31.0-37.0); MCV 90.9 fL (80.0-100.0); Mean Platelet Volume 6.1; Monocytes # (A) 0.4 k/uL (0-1.0); Monocytes % (A) 3 %; Neutrophils # (A) 9.4 k/uL (1.3-7.7); Neutrophils % (A) 69 %; Platelet Count 432 k/uL (150-450); RDW 13.1 % (11.5-15.5); WBC 13.7 k/uL (4.0-11.0)
[2020-05-26 16:38] LABS: ALT 17 U/L (4-34); AST 17 U/L (14-36); African American GFR (CKD) >90 (>60 ml/min/1.73 sqM); Albumin 4.4 g/dL (3.5-5.0); Alkaline Phosphatase 98 U/L (38-126); Anion Gap 8 mmol/L; Blood Urea Nitrogen 12 mg/dL (7-17); Calcium 10.2 mg/dL (8.4-10.2); Carbon Dioxide 24 mmol/L (22-30); Chloride 105 mmol/L (98-107); Glucose 118 mg/dL (74-99); Non-African American GFR(CKD) 87 (>60 ml/min/1.73 sqM); Sodium 137 mmol/L (137-145); Total Bilirubin 0.2 mg/dL (0.2-1.3); Total Protein 7.7 g/dL (6.3-8.2)
[2020-05-26 18:25] VITALS: BP 124/74; PULSE 86; RESP 18; TEMP 98.1
== END 2020-05-26 18:33 | disposition home or self-care (01) ==
LOC: EC 15:21
DX: R56.9 Unspecified convulsions (principal); F17.200 Nicotine dependence, unspecified, uncomplicated; F41.9 Anxiety disorder, unspecified; E66.9 Obesity, unspecified; F31.9 Bipolar disorder, unspecified; F90.9 Attention-deficit hyperactivity disorder, unspecified type; Z79.899 Other long term (current) drug therapy; Z88.8 Allergy status to other drugs, medicaments and biological substances; Z68.34 Body mass index [BMI] 34.0-34.9, adult
CPT/HCPCS: 36415; 80053; 83605; 85025; 93005; 96360; 99284

== ENCOUNTER 2020-05-27 16:06 | Emergency (ER) | payer MEDICARE, OTHER ==
[2020-05-27 16:13] VITALS: RESP 18
[2020-05-27] MEDS ORDERED: SODIUM CHLORIDE 0.9% 500 ML 500 ML IV STA (16:22)
[2020-05-27] MEDS ORDERED: LORazepam 2 MG/ML INJ IV STA (16:22)
[2020-05-27 18:04] LABS: Glucose,Whole Blood 113 mg/dL (75-99)
--- NOTE | 2020-05-27 18:08 | ED ---
General Adult HPI - General Chief complaint: Seizure Stated complaint: seizures Time Seen by Provider: 05/27/20 16:14 Source: patient, EMS, RN notes reviewed, old records reviewed Mode of arrival: EMS Limitations: no limitations - History of Present Illness Initial comments: 19-year-old female patient past history of psychiatric disorder and possible seizure disorder presents to ED for evaluation. Patient reportedly had a seizure at home. Denies hitting her head or her neck. She does have a legal guardian. Patient's legal guardian is requesting that they do an EPS evaluation because there is some question regarding the seizure is true or psychiatric in nature. Patient seen in this emergency department yesterday for the same compl aint. Denies any acute complaints and is alert and oriented 3. Systemic: Pt denies fatigue, fever/chills, rash. Pt denies weakness, night sweats, weight loss. Neuro: Pt denies headache, visual disturbances, syncope or pre-syncope. HEENT: Pt denies ocular discharge or irritation, otalgia, rhinorrhea, pharyngitis or notable lymphadenopathy. Cardiopulmonary: Pt denies chest pain, SOB, heart palpitations, dyspnea on exertion. Abdominal/GI: Pt denies abdominal pain, n/v/d. : Pt denies dysuria, burning w/ urination, frequency/urgency. Denies new onset urinary or bowel incontinence. MSK: Pt denies myalgia, loss of strength or function in extremities. Neuro: Pt denies new onset weakness, paresthesias. - Related Data Home Medications Medication Instructions Recorded Confirmed ARIPiprazole [Abilify] 15 mg PO DAILY@0800 05/04/17 05/26/20 Chlorhexidine Gluconate [Peridex] 15 ml PO BID@0800,209905/17/20 05/26/20 Citalopram Hydrobromide [CeleXA] 40 mg PO DAILY@0800 05/17/20 05/26/20 Cyclobenzaprine [Flexeril] 10 mg PO HS@2100 PRN 05/17/20 05/26/20 Isibloom 1 tab PO DAILY@0800 05/17/20 05/26/20 Omeprazole 20 mg PO BID@0800,2100 05/17/20 05/26/20 Prazosin [Minipress] 2 mg PO HS@2100 05/17/20 05/26/20 Calcium Carbonate [Calcium] 600 mg PO DAILY@0800 05/26/20 05/26/20 Cholecalciferol [Vitamin D3 (25 5,000 unit PO DAILY@0800 05/26/20 05/26/20 Mcg = 1000 Iu)] Cyclobenzaprine [Flexeril] 5 mg PO TID PRN 05/26/20 05/26/20 Ibuprofen [Motrin] 800 mg PO TID-W/MEALS PRN 05/26/20 05/26/20 Allergies Allergy/AdvReac Type Severity Reaction Status Date / Time amphetamine [From Adderall] AdvReac Unknown Verified 05/26/20 17:55 dextroamphetamine AdvReac Unknown Verified 05/26/20 17:55 [From Adderall] Review of Systems ROS Statement: Those systems with pertinent positive or pertinent negative responses have been documented in the HPI. ROS Other: All systems not noted in ROS Statement are negative. Past Medical History Past Medical History: No Reported History History of Any Multi-Drug Resistant Organisms: None Reported Past Surgical History: No Surgical Hx Reported Past Psychological History: ADD/ADHD, Anxiety, Bipolar, Depression, PTSD Smoking Status: Current every day smoker Past Alcohol Use History: Rare Past Drug Use History: Marijuana General Exam - General Exam Comments Initial Comments: Constitutional: NAD, AOX3, Pt has pleasant affect. HEENT: NC/AT, trachea midline, neck supple, no lymphadenopathy. External ears appear normal, without discharge. Mucous membranes moist. Eyes PERRLA, EOM intact. There is no scleral icterus. No pallor noted. Cardiopulmonary: RRR, no murmurs, rubs or gallops, no JVD noted. Lungs CTAB in anterior and posterior méndez. No peripheral edema. Abdominal exam: Abdomen soft and non-distended. Abdomen non-tender to palpation in all 4 quadrants. Bowel sounds active in LLQ. No hepatosplenomegaly. No ecchymosis Neuro: CN II-XII intact. No nuchal rigidity. No raccon eyes, no cordoba sign, no hemotympanum. No cervical spinal tenderness. MSK: Full active ROM in upper and lower extremities, 5/5 stregnth. Limitations: no limitations Course Vital Signs 05/27/20 05/27/20 16:08 18:33 Temperature 98.2 F 99.1 F Pulse Rate 89 85 Respiratory 18 18 Rate Blood Pressure 125/80 129/80 O2 Sat by Pulse 96 98 Oximetry Medical Decision Making - Medical Decision Making 19-year-old female patient ED for possible seizure versus pseudoseizure. I did observe patient with some rhythmic moving of her hands which are not consistent with a tonic-clonic seizure. Upon tactile stimulation patient stopped this was aox 3. No postictal period. Physical exam is otherwise unremarkable. Laboratory investigations reviewed from yesterday. Glucose is 113. EKG is nonischemic. Patient was evaluated EPS may clear her for discharge. Patient will follow up with PCP tomorrow and return to ED with any worsening symptoms. Case discussed with Dr. Vega. - Lab Data Result diagrams: 05/27/20 16:22 05/27/20 16:22 Lab Results 05/27/20 05/27/20 05/27/20 Range/Units 16:22 16:22 18:02 WBC 13.9 H (4.0-11.0) k/uL RBC 4.64 (3.80-5.40) m/uL Hgb 13.9 (11.4-16.0) gm/dL Hct 42.8 (34.0-46.0) % MCV 92.2 (80.0-100.0) fL MCH 29.9 (25.0-35.0) pg MCHC 32.4 (31.0-37.0) g/dL RDW 13.0 (11.5-15.5) % Plt Count 420 (150-450) k/uL Neutrophils % 66 % Lymphocytes % 27 % Monocytes % 3 % Eosinophils % 3 % Basophils % 1 % Neutrophils # 9.2 H (1.3-7.7) k/uL Lymphocytes # 3.7 (1.0-4.8) k/uL Monocytes # 0.4 (0-1.0) k/uL Eosinophils # 0.4 (0-0.7) k/uL Basophils # 0.1 (0-0.2) k/uL Sodium 137 (137-145) mmol/L Potassium 4.1 (3.5-5.1) mmol/L Chloride 106 (98-107) mmol/L Carbon Dioxide 23 (22-30) mmol/L Anion Gap 8 mmol/L BUN 7 (7-17) mg/dL Creatinine 0.69 (0.52-1.04) mg/dL Est GFR (CKD-EPI)AfAm >90 (>60 ml/min/1.73 sqM) Est GFR (CKD-EPI)NonAf >90 (>60 ml/min/1.73 sqM) Glucose 102 H (74-99) mg/dL POC Glucose (mg/dL) 113 H (75-99) mg/dL POC Glu Dock Pumper ID Norman Malhotra Calcium 9.7 (8.4-10.2) mg/dL Total Bilirubin 0.2 (0.2-1.3) mg/dL AST 15 (14-36) U/L ALT 15 (4-34) U/L Alkaline Phosphatase 86 (38-126) U/L Total Protein 7.0 (6.3-8.2) g/dL Albumin 3.9 (3.5-5.0) g/dL - EKG Data -: EKG Interpreted by Me (and Dr. Crawford ) EKG Comments: Ventricular rate 86, AL interval 138, QRS 70, QT/QTc 364/435. Normal sinus rhythm, normal EKG, no concern for acute ischemia. Disposition Clinical Impression: Seizure-like activity Disposition: HOME SELF-CARE Condition: Stable Instructions (If sedation given, give patient instructions): Recurrent Seizures in Adults (ED) Additional Instructions: Follow up with PCP and neurologist tomorrow. Return to ED with any worsening symptoms. Is patient prescribed a controlled substance at d/c from ED?: No Referrals: Patrica Camacho MD [Primary Care Provider] - 1-2 days
[2020-05-27 18:21] LABS: Basophils # (A) 0.1 k/uL (0-0.2); Basophils % (A) 1 %; Eosinophils # (A) 0.4 k/uL (0-0.7); Eosinophils % (A) 3 %; HCT 42.8 % (34.0-46.0); HGB 13.9 gm/dL (11.4-16.0); Lymphocytes # (A) 3.7 k/uL (1.0-4.8); Lymphocytes % (A) 27 %; MCH 29.9 pg (25.0-35.0); MCHC 32.4 g/dL (31.0-37.0); MCV 92.2 fL (80.0-100.0); Mean Platelet Volume 6.3; Monocytes # (A) 0.4 k/uL (0-1.0); Monocytes % (A) 3 %; Neutrophils # (A) 9.2 k/uL (1.3-7.7); Neutrophils % (A) 66 %; Platelet Count 420 k/uL (150-450); RBC 4.64 m/uL (3.80-5.40); WBC 13.9 k/uL (4.0-11.0)
[2020-05-27 18:33] LABS: ALT 15 U/L (4-34); AST 15 U/L (14-36); African American GFR (CKD) >90 (>60 ml/min/1.73 sqM); Albumin 3.9 g/dL (3.5-5.0); Alkaline Phosphatase 86 U/L (38-126); Anion Gap 8 mmol/L; Blood Urea Nitrogen 7 mg/dL (7-17); Calcium 9.7 mg/dL (8.4-10.2); Carbon Dioxide 23 mmol/L (22-30); Chloride 106 mmol/L (98-107); Glucose 102 mg/dL (74-99); Non-African American GFR(CKD) >90 (>60 ml/min/1.73 sqM); Potassium 4.1 mmol/L (3.5-5.1); Sodium 137 mmol/L (137-145); Total Bilirubin 0.2 mg/dL (0.2-1.3)
[2020-05-27 18:35] VITALS: BP 129/80; PULSE 85; TEMP 99.1
== END 2020-05-27 18:34 | disposition home or self-care (01) ==
LOC: EC 16:06
DX: R56.9 Unspecified convulsions (principal); F17.200 Nicotine dependence, unspecified, uncomplicated; F41.9 Anxiety disorder, unspecified; F31.9 Bipolar disorder, unspecified; F90.9 Attention-deficit hyperactivity disorder, unspecified type; F43.10 Post-traumatic stress disorder, unspecified; Z79.899 Other long term (current) drug therapy; Z88.8 Allergy status to other drugs, medicaments and biological substances
CPT/HCPCS: 36415; 80053; 85025; 93005; 96360; 96361; 99285

== ENCOUNTER 2020-05-29 17:34 | Emergency (ER) | payer MEDICARE, OTHER ==
[2020-05-29 18:53] LABS: Glucose,Whole Blood 88 mg/dL (75-99)
[2020-05-29 19:24] LABS: Appearance,Urine Clear (Clear); Bilirubin,Urine Negative (Negative); Blood,Urine Negative (Negative); Color,Urine Light Yellow; Glucose,Urine (UA) Negative (Negative); Ketones,Urine Negative (Negative); Leukocyte Esterase,Urine Negative (Negative); Nitrite,Urine Negative (Negative); PH, Urine 5.5 (5.0-8.0); Protein,Urine Negative (Negative); Specific Gravity,Urine 1.008 (1.001-1.035); Urobilinogen,Urine <2.0 mg/dL (<2.0)
[2020-05-29 19:32] LABS: Amphetamine Screen,Urine Not Detected (NotDetected); Barbiturate Screen,Urine Not Detected (NotDetected); Benzodiazepines Screen,Urine Not Detected (NotDetected); Cocaine Screen,Urine Not Detected (NotDetected); Methadone Screen, Urine Not Detected (NotDetected); Opiate Screen,Urine Not Detected (NotDetected); Oxycodone Screen, Urine Not Detected (NotDetected); Phencyclidine Screen,Urine Not Detected (NotDetected); Tricyclic Antidepressant,Urine Not Detected (NotDetected); Urn Cannabinoid Scrn Not Detected (NotDetected)
--- NOTE | 2020-05-29 19:49 | ED ---
Seizure HPI - General Chief Complaint: Seizure Stated Complaint: Seizures Time Seen by Provider: 05/29/20 18:32 Source: Caregiver Mode of arrival: wheelchair Limitations: physical limitation - History of Present Illness Initial Comments: Patient is a 19-year-old female presenting to the emergency Department with complaints of seizures. This is patient's fourth visit in 6 days for same complaint. Patient's guardian is requesting a psych consultation. She states she is fully awake during these "seizures." She said she gets mad because her mother won't talk to her. Patient has had multiple workups with no acute findings. She denies any suicidal or homicidal thoughts. He denies any pain today, no chest pain, no shortness of breath. She denies any abdominal pain, nausea, vomiting, dizziness. She has no further complaints at this time. Upon arrival to the ER her vitals are stable. - Related Data Home Medications Medication Instructions Recorded Confirmed ARIPiprazole [Abilify] 15 mg PO DAILY@0800 05/04/17 05/26/20 Chlorhexidine Gluconate [Peridex] 15 ml PO BID@0800,209905/17/20 05/26/20 Citalopram Hydrobromide [CeleXA] 40 mg PO DAILY@0800 05/17/20 05/26/20 Cyclobenzaprine [Flexeril] 10 mg PO HS@2100 PRN 05/17/20 05/26/20 Isibloom 1 tab PO DAILY@0800 05/17/20 05/26/20 Omeprazole 20 mg PO BID@0800,2100 05/17/20 05/26/20 Prazosin [Minipress] 2 mg PO HS@2100 05/17/20 05/26/20 Calcium Carbonate [Calcium] 600 mg PO DAILY@0800 05/26/20 05/26/20 Cholecalciferol [Vitamin D3 (25 5,000 unit PO DAILY@0800 05/26/20 05/26/20 Mcg = 1000 Iu)] Cyclobenzaprine [Flexeril] 5 mg PO TID PRN 05/26/20 05/26/20 Ibuprofen [Motrin] 800 mg PO TID-W/MEALS PRN 05/26/20 05/26/20 Allergies Allergy/AdvReac Type Severity Reaction Status Date / Time amphetamine [From Adderall] AdvReac Unknown Verified 05/29/20 17:41 dextroamphetamine AdvReac Unknown Verified 05/29/20 17:41 [From Adderall] Review of Systems ROS Statement: Those systems with pertinent positive or pertinent negative responses have been documented in the HPI. ROS Other: All systems not noted in ROS Statement are negative. Past Medical History Past Medical History: No Reported History Additional Past Medical History / Comment(s): psuedoseizures, History of Any Multi-Drug Resistant Organisms: None Reported Past Surgical History: No Surgical Hx Reported Past Psychological History: ADD/ADHD, Anxiety, Bipolar, Depression, PTSD Smoking Status: Current every day smoker Past Alcohol Use History: Rare Past Drug Use History: Marijuana General Exam - General Exam Comments Initial Comments: GENERAL: Patient is well-developed and well-nourished. Patient is nontoxic and in no acute distress. HEAD: Atraumatic, normocephalic. EYES: Pupils equal round and reactive to light, extraocular movements intact, sclera anicteric, conjunctiva are normal. Eyelids were unremarkable. ENT: TMs normal, nares patent, oropharynx clear without exudates. Moist mucous membranes. NECK: Normal range of motion, supple without lymphadenopathy or JVD. LUNGS: Unlabored respirations. Breath sounds clear to auscultation bilaterally and equal. No wheezes rales or rhonchi. HEART: Regular rate and rhythm without murmurs, rubs or gallops. ABDOMEN: Soft, nontender, normoactive bowel sounds. No guarding, no rebound. No masses appreciated. : Deferred MUSCULOSKELETAL: Normal extremities with adequate strength and normal range of motion, no pitting or edema. No clubbing or cyanosis. NEUROLOGICAL: Patient is alert and oriented x 3. Motor and sensory are also intact. Cranial nerves II through XII grossly intact. Symmetrical smile. Normal speech, normal gait. PSYCH: Normal mood, normal affect. SKIN: Warm, Dry, normal turgor, no rashes or lesions noted. Limitations: physical limitation Course Vital Signs 05/29/20 17:37 Temperature 98.4 F Pulse Rate 103 H Respiratory 18 Rate Blood Pressure 146/91 O2 Sat by Pulse 98 Oximetry Medical Decision Making - Medical Decision Making Patient is a 19-year-old female here for "seizures." This is patient's fourth visit in 6 days for same complaint. She's had multiple workups, transvers to another hospital with no acute findings. People that witnessed these "seizures" states she is fully awake and talking during these episodes. They believe she is making these up for attention. Her caregiver is requesting a psych consult today. She does admit to occasional marijuana use, no alcohol or other drug use. She was evaluated by psych. Patient states she gets mad at because her mother's and talking to her so she does these "episodes." She denies any suicidal or homicidal thoughts. Patient was cleared by psych and is stable for discharge. They discussed many coping techniques. She can follow up with [facility] outpatient or her PCP. Patient is agreement with this plan of care. - Lab Data Lab Results 05/29/20 05/29/20 Range/Units 18:48 18:50 POC Glucose (mg/dL) 88 (75-99) mg/dL POC Glu Plate Preparer ID Bette Peralta Urine Color Light Yellow Urine Appearance Clear (Clear) Urine pH 5.5 (5.0-8.0) Ur Specific Kellogg 1.008 (1.001-1.035) Urine Protein Negative (Negative) Urine Glucose (UA) Negative (Negative) Urine Ketones Negative (Negative) Urine Blood Negative (Negative) Urine Nitrite Negative (Negative) Urine Bilirubin Negative (Negative) Urine Urobilinogen <2.0 (<2.0) mg/dL Ur Leukocyte Esterase Negative (Negative) Urine Opiates Screen Not Detected (NotDetected) Ur Oxycodone Screen Not Detected (NotDetected) Urine Methadone Screen Not Detected (NotDetected) Ur Propoxyphene Screen Not Detected (NotDetected) Ur Barbiturates Screen Not Detected (NotDetected) U Tricyclic Antidepress Not Detected (NotDetected) Ur Phencyclidine Scrn Not Detected (NotDetected) Ur Amphetamines Screen Not Detected (NotDetected) U Methamphetamines Scrn Not Detected (NotDetected) U Benzodiazepines Scrn Not Detected (NotDetected) Urine Cocaine Screen Not Detected (NotDetected) U Marijuana (THC) Screen Not Detected (NotDetected) Disposition Clinical Impression: Seizure-like activity, Anxiety Disposition: HOME SELF-CARE Condition: Stable Instructions (If sedation given, give patient instructions): Normal Exam (ED) Additional Instructions: Please return to the Emergency Department if symptoms worsen or any other concerns. Follow-up the [facility] or PCP. Is patient prescribed a controlled substance at d/c from ED?: No Referrals: Patrica Camacho MD [Primary Care Provider] - 1-2 days
[2020-05-29 21:10] VITALS: BP 139/79; PULSE 85; RESP 16; TEMP 98.1
== END 2020-05-29 21:10 | disposition home or self-care (01) ==
LOC: EC 17:34
DX: F41.9 Anxiety disorder, unspecified (principal); R56.9 Unspecified convulsions; F32.9 Major depressive disorder, single episode, unspecified; F43.10 Post-traumatic stress disorder, unspecified; F17.200 Nicotine dependence, unspecified, uncomplicated; Z79.3 Long term (current) use of hormonal contraceptives; Z79.899 Other long term (current) drug therapy; Z88.8 Allergy status to other drugs, medicaments and biological substances
CPT/HCPCS: 36415; 80306; 81003; 81025; 82075; 99285

== ENCOUNTER 2020-08-06 17:07 | Emergency (ER) | payer MEDICARE, OTHER ==
[2020-08-06 17:28] VITALS: BP 130/64; PULSE 88; RESP 18; TEMP 97.7
--- NOTE | 2020-08-06 17:34 | ED ---
Lower Extremity Injury HPI - General Source: patient, RN notes reviewed Mode of arrival: wheelchair Limitations: no limitations <Dhruv Merlos - Last Filed: 08/06/20 18:09> <Kelly Salgado - Last Filed: 08/10/20 00:13> - General Chief Complaint: Extremity Injury, Lower Stated Complaint: fall/ankle injury Time Seen by Provider: 08/06/20 17:21 - History of Present Illness Initial Comments: This a 19-year-old female presents emergency Department chief complaint left ankle injury. Patient states she twisted her ankle. Patient states that it hurts in the lateral portion of the left ankle no other injuries no foot pain. Patient denies any prior surgeries or fractures or left ankle. (Dhruv Merlos) - Related Data Home Medications Medication Instructions Recorded Confirmed ARIPiprazole [Abilify] 15 mg PO DAILY@0800 05/04/17 05/26/20 Chlorhexidine Gluconate [Peridex] 15 ml PO BID@0800,2100 05/17/20 05/26/20 Citalopram Hydrobromide [CeleXA] 40 mg PO DAILY@0800 05/17/20 05/26/20 Cyclobenzaprine [Flexeril] 10 mg PO HS@2100 PRN 05/17/20 05/26/20 Isibloom 1 tab PO DAILY@0800 05/17/20 05/26/20 Omeprazole 20 mg PO BID@0800,2100 05/17/20 05/26/20 Prazosin [Minipress] 2 mg PO HS@2100 05/17/20 05/26/20 Calcium Carbonate [Calcium] 600 mg PO DAILY@0800 05/26/20 05/26/20 Cholecalciferol [Vitamin D3 (25 5,000 unit PO DAILY@0800 05/26/20 05/26/20 Mcg = 1000 Iu)] Cyclobenzaprine [Flexeril] 5 mg PO TID PRN 05/26/20 05/26/20 Ibuprofen [Motrin] 800 mg PO TID-W/MEALS PRN 05/26/20 05/26/20 Allergies Allergy/AdvReac Type Severity Reaction Status Date / Time amphetamine [From Adderall] AdvReac Unknown Verified 08/06/20 17:21 dextroamphetamine AdvReac Unknown Verified 08/06/20 17:21 [From Adderall] Review of Systems ROS Other: All systems not noted in ROS Statement are negative. <Dhruv Merlos - Last Filed: 08/06/20 18:09> ROS Other: All systems not noted in ROS Statement are negative. <Kelly Salgado - Last Filed: 08/10/20 00:13> ROS Statement: Those systems with pertinent positive or pertinent negative responses have been documented in the HPI. Past Medical History Past Medical History: No Reported History Additional Past Medical History / Comment(s): psuedoseizures, History of Any Multi-Drug Resistant Organisms: None Reported Past Surgical History: No Surgical Hx Reported Past Psychological History: ADD/ADHD, Anxiety, Bipolar, Depression, PTSD Smoking Status: Current every day smoker Past Alcohol Use History: Rare Past Drug Use History: Marijuana <Dhruv Merlos - Last Filed: 08/06/20 18:09> General Exam Limitations: no limitations General appearance: alert, in no apparent distress Head exam: Present: atraumatic, normocephalic, normal inspection Neck exam: Present: normal inspection. Absent: tenderness, meningismus, lymphadenopathy Respiratory exam: Present: normal lung sounds bilaterally. Absent: respiratory distress, wheezes, rales, rhonchi, stridor Cardiovascular Exam: Present: regular rate, normal rhythm, normal heart sounds. Absent: systolic murmur, diastolic murmur, rubs, gallop, clicks Extremities exam: Present: other (Left ankle is tenderness on the lateral malleolar region, mild swelling neurovascular intact no distal foot tenderness no proximal tib-fib tenderness) <Dhruv Merlos - Last Filed: 08/06/20 18:09> Course Vital Signs 08/06/20 17:19 Temperature 97.7 F Pulse Rate 88 Respiratory 18 Rate Blood Pressure 130/64 O2 Sat by Pulse 99 Oximetry Medical Decision Making <Dhruv Merlos - Last Filed: 08/06/20 18:09> <Kelly Salgado - Last Filed: 08/10/20 00:13> - Medical Decision Making X-ray shows no acute osseous lesion. Patient is a left ankle sprain. Patient discharged in stable condition. (Dhruv Merlos) I was available for consultation in the emergency department. The history and physical exam were done by the midlevel provider. I was consulted for this patients care. I reviewed the case with the midlevel provider and based on their presentation of the patient, I agree with the assessment, medical decision making and plan of care as documented. Chart was dictated using [employer] dictation software. Attempts were made to correct any dictation errors however some typographical errors may persist. Patient was seen during a [facility] due to the Covid-19 pa ndemic. (Kelly Salgado) Disposition Is patient prescribed a controlled substance at d/c from ED?: No Time of Disposition: 18:10 <Dhruv Merlos - Last Filed: 08/06/20 18:09> <Kelly Salgado - Last Filed: 08/10/20 00:13> Clinical Impression: Left ankle sprain Disposition: HOME SELF-CARE Condition: Stable Instructions (If sedation given, give patient instructions): Ankle Sprain (ED) Additional Instructions: Please return to the Emergency Department if symptoms worsen or any other concerns. Referrals: Patrica Camacho MD [Primary Care Provider] - 1-2 days Dhruv Renteria DO [Doctor of Osteopathic Medicine] - 1-2 days
--- NOTE | 2020-08-06 18:08 | XR ---
EXAMINATION TYPE: XR ankle complete LT DATE OF EXAM: 08/06/2020 COMPARISON: NONE HISTORY: Pain TECHNIQUE: 3 views FINDINGS: Ankle mortise is anatomic. I see no fracture nor dislocation. IMPRESSION: Negative left ankle exam. No fracture.
== END 2020-08-06 18:39 | disposition home or self-care (01) ==
LOC: EC 17:07
DX: S93.402A Sprain of unspecified ligament of left ankle, initial encounter (principal); F32.9 Major depressive disorder, single episode, unspecified; F43.10 Post-traumatic stress disorder, unspecified; F41.9 Anxiety disorder, unspecified; F17.200 Nicotine dependence, unspecified, uncomplicated; Z79.899 Other long term (current) drug therapy; Z79.3 Long term (current) use of hormonal contraceptives; Z88.8 Allergy status to other drugs, medicaments and biological substances; W19.XXXA Unspecified fall, initial encounter; Y92.009 Unspecified place in unspecified non-institutional (private) residence as the place of occurrence of the external cause
CPT/HCPCS: 99283

== ENCOUNTER 2020-08-21 19:20 | Emergency (ER) | payer MEDICARE, OTHER ==
[2020-08-21 19:34] VITALS: BP 164/90; PULSE 99; RESP 18; TEMP 98
--- NOTE | 2020-08-21 19:52 | ED ---
General Adult HPI - General Chief complaint: Psychiatric Symptoms Stated complaint: Mental health Time Seen by Provider: 08/21/20 19:21 Source: patient, police, EMS Mode of arrival: EMS Limitations: no limitations - History of Present Illness Initial comments: Dictation was produced using [employer] dictation software. please excuse any grammatical, word or spelling errors. This patient was cared for during a federal and state declared state of citlali rgency secondary to Covid 19 Chief Complaint: 19-year-old male presents with suicidal ideation. History of Present Illness: 19-year-old female she is brought in by [place] [employer]. Patient is suicidal because her boyfriend was threatening to break up with her so she went to the bridge and threatened to jump. Patient states she has some chest pain. She is rather a poor historian and uncooperative Unable to obtain secondary to patient being uncooperative PHYSICAL EXAM: General Impression: Alert, tearful, actively crying HEENT: Normocephalic atraumatic, extra-ocular movements intact, pupils equal and reactive to light bilaterally, mucous membranes moist. Cardiovascular: Heart regular rate and rhythm Chest: no retractions, no tachypnea Abdomen: abdomen soft, non-tender, non-distended, no organomegaly Musculoskeletal: Pulses present and equal in all extremities, no peripheral edema Motor: no focal deficits noted Neurological: CN II-XII grossly intact, no focal motor or sensory deficits noted Skin: Intact with no visualized rashes Psych: Crying ED course: 19 y Old female presents with suicidal behavior. Vital signs upon arrival are within acceptable limits. EKG interpretation: Ventricular rate 72, normal sinus rhythm,. 124, QRS 70, QTc 438. No NV prolongation, no QTC prolongation, no ST or T-wave changes noted. Overall, this EKG is unremarkable Abdomen evaluation obtained. Mild leukocytosis of 14.8 likely secondary to stress. Metabolic panel is negative. No acidosis. Urine hCG is negative. Drug screen is negative. Patient was medically for EPS evaluation. EPS recommends discharge. Patient clinically stable. She has outpatient follow-up. - Related Data Home Medications Medication Instructions Recorded Confirmed ARIPiprazole [Abilify] 15 mg PO DAILY@0800 05/04/17 08/21/20 Citalopram Hydrobromide [CeleXA] 40 mg PO DAILY@0800 05/17/20 08/21/20 Cyclobenzaprine [Flexeril] 10 mg PO HS@2099 PRN 05/17/20 08/21/20 Omeprazole 20 mg PO BID@0800,209905/17/20 08/21/20 Prazosin [Minipress] 2 mg PO HS@209905/17/20 08/21/20 Calcium Carbonate [Calcium] 600 mg PO DAILY@0800 05/26/20 08/21/20 Cyclobenzaprine [Flexeril] 5 mg PO TID PRN 05/26/20 08/21/20 Ibuprofen [Motrin] 800 mg PO TID-W/MEALS PRN 05/26/20 08/21/20 Cholecalciferol (Vitamin D3) 125 mcg PO DAILY@0800 08/21/20 08/21/20 [Vitamin D3 (5000 Iu)] Terbinafine 1% Cream [LamISIL] 1 applic TOPICAL HS@209908/21/20 08/21/20 busPIRone HCL 10 mg PO BID@0800,209908/21/20 08/21/20 lamoTRIgine [LaMICtal] 50 mg PO BID@0800,209908/21/20 08/21/20 Allergies Allergy/AdvReac Type Severity Reaction Status Date / Time amphetamine [From Adderall] AdvReac Unknown Verified 08/21/20 20:50 dextroamphetamine AdvReac Unknown Verified 08/21/20 20:50 [From Adderall] Review of Systems ROS Statement: Those systems with pertinent positive or pertinent negative responses have been documented in the HPI. ROS Other: All systems not noted in ROS Statement are negative. Past Medical History Past Medical History: No Reported History Additional Past Medical History / Comment(s): psuedoseizures, History of Any Multi-Drug Resistant Organisms: None Reported Past Surgical History: No Surgical Hx Reported Past Psychological History: ADD/ADHD, Anxiety, Bipolar, Depression, PTSD Smoking Status: Current every day smoker Past Alcohol Use History: Rare Past Drug Use History: Marijuana General Exam Limitations: no limitations Course Vital Signs 08/21/20 19:22 Temperature 98 F Pulse Rate 99 Respiratory 18 Rate Blood Pressure 164/90 O2 Sat by Pulse 99 Oximetry Medical Decision Making - Lab Data Result diagrams: 08/21/20 20:22 08/21/20 20:22 Lab Results 08/21/20 08/21/20 08/21/20 Range/Units 20:22 20:22 20:25 WBC 14.8 H (4.0-11.0) k/uL RBC 4.53 (3.80-5.40) m/uL Hgb 13.6 (11.4-16.0) gm/dL Hct 40.2 (34.0-46.0) % MCV 88.6 (80.0-100.0) fL MCH 30.0 (25.0-35.0) pg MCHC 33.9 (31.0-37.0) g/dL RDW 13.5 (11.5-15.5) % Plt Count 398 (150-450) k/uL MPV 6.4 Neutrophils % 72 % Lymphocytes % 22 % Monocytes % 4 % Eosinophils % 1 % Basophils % 0 % Neutrophils # 10.7 H (1.3-7.7) k/uL Lymphocytes # 3.2 (1.0-4.8) k/uL Monocytes # 0.6 (0-1.0) k/uL Eosinophils # 0.1 (0-0.7) k/uL Basophils # 0.0 (0-0.2) k/uL Sodium 139 (137-145) mmol/L Potassium 4.2 (3.5-5.1) mmol/L Chloride 107 (98-107) mmol/L Carbon Dioxide 24 (22-30) mmol/L Anion Gap 8 mmol/L BUN 10 (7-17) mg/dL Creatinine 0.78 (0.52-1.04) mg/dL Est GFR (CKD-EPI)AfAm >90 (>60 ml/min/1.73 sqM) Est GFR (CKD-EPI)NonAf >90 (>60 ml/min/1.73 sqM) Glucose 113 H (74-99) mg/dL Calcium 9.5 (8.4-10.2) mg/dL Urine HCG, Qual Not Detected (Not Detectd) Urine Opiates Screen (NotDetected) Ur Oxycodone Screen (NotDetected) Urine Methadone Screen (NotDetected) Ur Propoxyphene Screen (NotDetected) Ur Barbiturates Screen (NotDetected) U Tricyclic Antidepress (NotDetected) Ur Phencyclidine Scrn (NotDetected) Ur Amphetamines Screen (NotDetected) U Methamphetamines Scrn (NotDetected) U Benzodiazepines Scrn (NotDetected) Urine Cocaine Screen (NotDetected) U Marijuana (THC) Screen (NotDetected) 08/21/20 Range/Units 20:25 WBC (4.0-11.0) k/uL RBC (3.80-5.40) m/uL Hgb (11.4-16.0) gm/dL Hct (34.0-46.0) % MCV (80.0-100.0) fL MCH (25.0-35.0) pg MCHC (31.0-37.0) g/dL RDW (11.5-15.5) % Plt Count (150-450) k/uL MPV Neutrophils % % Lymphocytes % % Monocytes % % Eosinophils % % Basophils % % Neutrophils # (1.3-7.7) k/uL Lymphocytes # (1.0-4.8) k/uL Monocytes # (0-1.0) k/uL Eosinophils # (0-0.7) k/uL Basophils # (0-0.2) k/uL Sodium (137-145) mmol/L Potassium (3.5-5.1) mmol/L Chloride (98-107) mmol/L Carbon Dioxide (22-30) mmol/L Anion Gap mmol/L BUN (7-17) mg/dL Creatinine (0.52-1.04) mg/dL Est GFR (CKD-EPI)AfAm (>60 ml/min/1.73 sqM) Est GFR (CKD-EPI)NonAf (>60 ml/min/1.73 sqM) Glucose (74-99) mg/dL Calcium (8.4-10.2) mg/dL Urine HCG, Qual (Not Detectd) Urine Opiates Screen Not Detected (NotDetected) Ur Oxycodone Screen Not Detected (NotDetected) Urine Methadone Screen Not Detected (NotDetected) Ur Propoxyphene Screen Not Detected (NotDetected) Ur Barbiturates Screen Not Detected (NotDetected) U Tricyclic Antidepress Not Detected (NotDetected) Ur Phencyclidine Scrn Not Detected (NotDetected) Ur Amphetamines Screen Not Detected (NotDetected) U Methamphetamines Scrn Not Detected (NotDetected) U Benzodiazepines Scrn Not Detected (NotDetected) Urine Cocaine Screen Not Detected (NotDetected) U Marijuana (THC) Screen Not Detected (NotDetected) Disposition Clinical Impression: Suicidal behavior Disposition: HOME SELF-CARE Condition: Good Instructions (If sedation given, give patient instructions): Help Prevent Suicide (ED) Is patient prescribed a controlled substance at d/c from ED?: No Referrals: Patrica Camacho MD [Primary Care Provider] - 1-2 days Time of Disposition: 21:25
[2020-08-21 20:31] LABS: Basophils % (A) 0 %; Eosinophils # (A) 0.1 k/uL (0-0.7); Eosinophils % (A) 1 %; HCT 40.2 % (34.0-46.0); HGB 13.6 gm/dL (11.4-16.0); Lymphocytes # (A) 3.2 k/uL (1.0-4.8); Lymphocytes % (A) 22 %; MCHC 33.9 g/dL (31.0-37.0); MCV 88.6 fL (80.0-100.0); Mean Platelet Volume 6.4; Monocytes # (A) 0.6 k/uL (0-1.0); Monocytes % (A) 4 %; Neutrophils # (A) 10.7 k/uL (1.3-7.7); Neutrophils % (A) 72 %; Platelet Count 398 k/uL (150-450); RBC 4.53 m/uL (3.80-5.40); RDW 13.5 % (11.5-15.5); WBC 14.8 k/uL (4.0-11.0)
[2020-08-21 20:42] LABS: African American GFR (CKD) >90 (>60 ml/min/1.73 sqM); Anion Gap 8 mmol/L; Blood Urea Nitrogen 10 mg/dL (7-17); Calcium 9.5 mg/dL (8.4-10.2); Carbon Dioxide 24 mmol/L (22-30); Chloride 107 mmol/L (98-107); Glucose 113 mg/dL (74-99); Non-African American GFR(CKD) >90 (>60 ml/min/1.73 sqM); Potassium 4.2 mmol/L (3.5-5.1); Sodium 139 mmol/L (137-145)
[2020-08-21 20:44] LABS: Amphetamine Screen,Urine Not Detected (NotDetected); Barbiturate Screen,Urine Not Detected (NotDetected); Benzodiazepines Screen,Urine Not Detected (NotDetected); Cocaine Screen,Urine Not Detected (NotDetected); Methadone Screen, Urine Not Detected (NotDetected); Opiate Screen,Urine Not Detected (NotDetected); Oxycodone Screen, Urine Not Detected (NotDetected); Phencyclidine Screen,Urine Not Detected (NotDetected); Tricyclic Antidepressant,Urine Not Detected (NotDetected); Urn Cannabinoid Scrn Not Detected (NotDetected)
== END 2020-08-21 22:06 | disposition home or self-care (01) ==
LOC: EC 19:20
DX: R45.89 Other symptoms and signs involving emotional state (principal); R07.9 Chest pain, unspecified; D72.829 Elevated white blood cell count, unspecified; Z32.02 Encounter for pregnancy test, result negative; F90.9 Attention-deficit hyperactivity disorder, unspecified type; F41.9 Anxiety disorder, unspecified; F31.9 Bipolar disorder, unspecified; F17.200 Nicotine dependence, unspecified, uncomplicated; Z79.899 Other long term (current) drug therapy; Z88.8 Allergy status to other drugs, medicaments and biological substances
CPT/HCPCS: 36415; 80048; 80306; 81025; 82075; 85025; 93005; 99285

== ENCOUNTER → 2020-09-18 | Outpatient (CLI) | payer MEDICARE, OTHER ==
--- NOTE | 2020-09-19 02:07 | MR ---
EXAMINATION TYPE: MR ankle LT wo con DATE OF EXAM: 09/18/2020 COMPARISON: None HISTORY: Left ankel pain for over a month. Multiplanar multiecho imaging of the left ankle was performed without contrast. Achilles tendon is intact. Plantar fascia appears normal. Ankle mortise is anatomic. There is normal appearance of the medial flexor tendons of the ankle. There is some increased soft tissue fluid signa l posterior to the lower fibula. There is minimal subcutaneous edema over the lateral distal fibula. There is increased fluid signal around the peroneal tendon which also appears to have some small area s of increased fluid signal that is posterior to the lateral malleolus.. There is no evidence of a fr acture. Subtalar joint appears normal. The bones of the midfoot appear intact. Extensor tendons appea r intact. The collateral ligaments are intact. IMPRESSION: Subcutaneous edema and soft tissue edema lateral and posterior to the lower fibula. There is probably some degree of peroneal tendinitis posterior to the lower fibula. No evidence of ligament tear. No fracture.
== END | disposition home or self-care (01) ==
LOC: RADMRIMAIN 20:40
PROVIDERS: ATTEND Orthopaedic Surgery
DX: M79.89 Other specified soft tissue disorders (principal)

== ENCOUNTER 2020-09-27 20:51 | Emergency (ER) | payer MEDICARE, OTHER ==
[2020-09-27 20:59] VITALS: BP 122/86; PULSE 75; RESP 18; TEMP 98
[2020-09-27] MEDS ORDERED: KETOROLAC 15 MG/ML 1 ML VIAL IVP STA (21:33)
[2020-09-27 21:52] LABS: Appearance,Urine Clear (Clear); Bilirubin,Urine Negative (Negative); Blood,Urine Negative (Negative); Color,Urine Yellow; Glucose,Urine (UA) Negative (Negative); Ketones,Urine Negative (Negative); Leukocyte Esterase,Urine Negative (Negative); Nitrite,Urine Negative (Negative); Protein,Urine Negative (Negative); Specific Gravity,Urine 1.018 (1.001-1.035); Urobilinogen,Urine <2.0 mg/dL (<2.0)
--- NOTE | 2020-09-27 22:01 | ED ---
Back Pain HPI - General Chief Complaint: Back Pain/Injury Stated Complaint: back pain Time Seen by Provider: 09/27/20 20:55 Source: EMS Limitations: no limitations - History of Present Illness Initial Comments: 19-year-old female past medical history of pseudoseizures who presents emergency Department report of back pain. Patient reports to 2 weeks worth of lumbar back pain without radiation. Denies any inciting trauma. Denies any associated pain to include abdominal pain. No changes in her bowel or bladder habits. Denies any fevers or chills. She has been taking Motrin without any improvement. No numbness, tingling or weakness into her lower extremities. Denies any chest pain or shortness of breath. Patient denies any IV drug use. No concern for . No saddle anesthesia. No bowel or bladder incontinence. No other alleviating, precipitating or modifying factors - Related Data Home Medications Medication Instructions Recorded Confirmed ARIPiprazole [Abilify] 15 mg PO DAILY@79905/04/17 09/27/20 Citalopram Hydrobromide [CeleXA] 40 mg PO DAILY@79905/17/20 09/27/20 Cyclobenzaprine [Flexeril] 10 mg PO HS@2099 PRN 05/17/20 09/27/20 Omeprazole 20 mg PO BID@799,209905/17/20 09/27/20 Prazosin [Minipress] 2 mg PO HS@209905/17/20 09/27/20 Calcium Carbonate [Calcium] 600 mg PO DAILY@79905/26/20 09/27/20 Cyclobenzaprine [Flexeril] 5 mg PO TID PRN 05/26/20 09/27/20 Ibuprofen [Motrin] 800 mg PO TID-W/MEALS PRN 05/26/20 09/27/20 Cholecalciferol (Vitamin D3) 125 mcg PO DAILY@79908/21/20 09/27/20 [Vitamin D3 (5000 Iu)] Terbinafine 1% Cream [LamISIL] 1 applic TOPICAL HS@209908/21/20 09/27/20 lamoTRIgine [LaMICtal] 50 mg PO BID@08,209908/21/20 09/27/20 Emtricitabine/Tenofovir (Tdf) 1 tab PO DAILY@79909/27/20 09/27/20 [Truvada 200 mg-300 mg Tablet] Isibloom 1 tab PO DAILY@0800 09/27/20 09/27/20 Raltegravir Potassium [Isentress] 400 mg PO BID@0800,2100 09/27/20 09/27/20 busPIRone HCL 15 mg PO BID@0800,2100 09/27/20 09/27/20 Previous Rx's Medication Instructions Recorded Naproxen [Naprosyn] 250 mg PO BID #30 tab 09/27/20 Allergies Allergy/AdvReac Type Severity Reaction Status Date / Time amphetamine [From Adderall] AdvReac Unknown Verified 09/27/20 22:23 dextroamphetamine AdvReac Unknown Verified 09/27/20 22:23 [From Adderall] Review of Systems ROS Statement: Those systems with pertinent positive or pertinent negative responses have been documented in the HPI. ROS Other: All systems not noted in ROS Statement are negative. Past Medical History Past Medical History: No Reported History Additional Past Medical History / Comment(s): psuedoseizures, History of Any Multi-Drug Resistant Organisms: None Reported Past Surgical History: No Surgical Hx Reported Past Psychological History: ADD/ADHD, Anxiety, Bipolar, Depression, PTSD Smoking Status: Current every day smoker Past Alcohol Use History: Rare Past Drug Use History: Marijuana General Exam Limitations: no limitations Course Vital Signs 09/27/20 20:53 Temperature 98 F Pulse Rate 75 Respiratory 18 Rate Blood Pressure 122/86 O2 Sat by Pulse 99 Oximetry Medical Decision Making - Medical Decision Making Upon arrival patient was placed into room 12. A thorough history and physical exam was performed. No signs of saddle anesthesia. Laboratory studies were conducted and reviewed. Patient did go for a lumbar spine and chest x-ray. No acute process identified. Patient is visualized walking around in the emergency department. Requesting something to eat. Patient was given a dose of Toradol reports improvement in her pain. At this time patient will be discharged home with a prescription for Naprosyn. Take it as directed. Patient also has muscle relaxants at home. Follow up with her primary care doctor in 2-4 days. Return to the emergency room for any worsening symptoms. Patient was discharged with the location - Lab Data Lab Results 09/27/20 09/27/20 Range/Units 21:49 21:49 Urine Color Yellow Urine Appearance Clear (Clear) Urine pH 6.0 (5.0-8.0) Ur Specific [place] 1.018 (1.001-1.035) Urine Protein Negative (Negative) Urine Glucose (UA) Negative (Negative) Urine Ketones Negative (Negative) Urine Blood Negative (Negative) Urine Nitrite Negative (Negative) Urine Bilirubin Negative (Negative) Urine Urobilinogen <2.0 (<2.0) mg/dL Ur Leukocyte Esterase Negative (Negative) Urine HCG, Qual Not Detected (Not Detectd) Disposition Clinical Impression: Back pain Disposition: HOME SELF-CARE Condition: Stable Instructions (If sedation given, give patient instructions): Acute Low Back Pain (ED) Additional Instructions: Please take the pain medication as directed. Follow up with your primary care doctor. Return to the emergency room for any new or worsening symptoms Prescriptions: Naproxen [Naprosyn] 250 mg PO BID #30 tab Is patient prescribed a controlled substance at d/c from ED?: No Referrals: Patrica Camacho MD [Primary Care Provider] - 1-2 days Time of Disposition: 22:34
--- NOTE | 2020-09-27 22:14 | XR ---
EXAMINATION TYPE: XR chest 2V DATE OF EXAM: 09/27/2020 COMPARISON: NONE HISTORY: Back pain TECHNIQUE: 2 views FINDINGS: Heart and mediastinum are normal. Lungs are clear. Diaphragm is normal. Bony thorax appears normal. IMPRESSION: Normal chest.
--- NOTE | 2020-09-27 22:16 | XR ---
EXAMINATION TYPE: XR lumbosacral spine min 4V DATE OF EXAM: 09/27/2020 COMPARISON: 05/07/2020 HISTORY: Low back pain for 2 weeks TECHNIQUE: 5 views FINDINGS: Lumbar vertebra have normal alignment. Posterior elements are intact. Disc spaces are bunny l. There is no compression fracture. Sacroiliac joints are normal. IMPRESSION: Negative lumbar spine exam. No fracture. No change.
== END 2020-09-27 22:44 | disposition home or self-care (01) ==
LOC: EC 20:51
DX: M54.5 Low back pain (principal); F17.200 Nicotine dependence, unspecified, uncomplicated; F32.9 Major depressive disorder, single episode, unspecified; F41.9 Anxiety disorder, unspecified; F12.90 Cannabis use, unspecified, uncomplicated; Z79.1 Long term (current) use of non-steroidal anti-inflammatories (NSAID); Z79.899 Other long term (current) drug therapy
CPT/HCPCS: 81003; 81025; 72110; 71046; 99284; 96374; J1885

== ENCOUNTER 2020-09-29 17:42 | Inpatient (IN) | payer MEDICARE, MEDICAID ==
[2020-09-29 19:28] LABS: Basophils # (A) 0.1 k/uL (0-0.2); Basophils % (A) 1 %; Eosinophils # (A) 0.4 k/uL (0-0.7); Eosinophils % (A) 3 %; HCT 39.4 % (34.0-46.0); HGB 13.6 gm/dL (11.4-16.0); Lymphocytes # (A) 3.4 k/uL (1.0-4.8); Lymphocytes % (A) 29 %; MCH 30.4 pg (25.0-35.0); MCHC 34.5 g/dL (31.0-37.0); MCV 88.1 fL (80.0-100.0); Mean Platelet Volume 6.1; Monocytes # (A) 0.5 k/uL (0-1.0); Monocytes % (A) 4 %; Neutrophils # (A) 7.6 k/uL (1.3-7.7); Neutrophils % (A) 63 %; Platelet Count 432 k/uL (150-450); RBC 4.47 m/uL (3.80-5.40); RDW 13.1 % (11.5-15.5)
--- NOTE | 2020-09-29 19:29 | ED ---
Psych HPI - General Chief Complaint: Psychiatric Symptoms Stated Complaint: Suicide Attempt Time Seen by Provider: 09/29/20 17:50 Source: patient, police, EMS Mode of arrival: EMS - History of Present Illness Initial Comments: Patient is a 19-year-old female who presents to the emergency department after she attempted suicide. Patient was at her halfway when she tied a shoelace around her neck. States that she was attempting to kill herself. Patient admits to depression. She denies any headaches or visual changes. No numbness, tingling or weakness in her x-rays. Denies any neck pain. Patient does have ligature manuel around her neck. No other alleviating, Perceptin or modifying factors - Related Data Home Medications Medication Instructions Recorded Confirmed ARIPiprazole [Abilify] 15 mg PO DAILY@0800 05/04/17 09/29/20 Citalopram Hydrobromide [CeleXA] 40 mg PO DAILY@79905/17/20 09/29/20 Cyclobenzaprine [Flexeril] 10 mg PO HS@2099 PRN 05/17/20 09/29/20 Omeprazole 20 mg PO BID@799,209905/17/20 09/29/20 Prazosin [Minipress] 2 mg PO HS@209905/17/20 09/29/20 Calcium Carbonate [Calcium] 600 mg PO DAILY@79905/26/20 09/29/20 Cyclobenzaprine [Flexeril] 5 mg PO TID PRN 05/26/20 09/29/20 Ibuprofen [Motrin] 800 mg PO TID-W/MEALS PRN 05/26/20 09/29/20 Cholecalciferol (Vitamin D3) 125 mcg PO DAILY@0808/21/20 09/29/20 [Vitamin D3 (5000 Iu)] Terbinafine 1% Cream [LamISIL] 1 applic TOPICAL HS@209908/21/20 09/29/20 lamoTRIgine [LaMICtal] 50 mg PO BID@08,209908/21/20 09/29/20 Emtricitabine/Tenofovir (Tdf) 1 tab PO DAILY@0800 09/27/20 09/29/20 [Truvada 200 mg-300 mg Tablet] Isibloom 1 tab PO DAILY@79909/27/20 09/29/20 Raltegravir Potassium [Isentress] 400 mg PO BID@0800,209909/27/20 09/29/20 busPIRone HCL 15 mg PO BID@0800,209909/27/20 09/29/20 Naproxen [Naprosyn] 250 mg PO BID@0800,2100 09/29/20 09/29/20 Allergies Allergy/AdvReac Type Severity Reaction Status Date / Time amphetamine [From Adderall] AdvReac Unknown Verified 09/30/20 00:22 dextroamphetamine AdvReac Unknown Verified 09/30/20 00:22 [From Adderall] Review of Systems ROS Statement: Those systems with pertinent positive or pertinent negative responses have been documented in the HPI. ROS Other: All systems not noted in ROS Statement are negative. Past Medical History Past Medical History: No Reported History Additional Past Medical History / Comment(s): psuedoseizures, History of Any Multi-Drug Resistant Organisms: None Reported Past Surgical History: No Surgical Hx Reported Past Psychological History: ADD/ADHD, Anxiety, Bipolar, Depression, PTSD Smoking Status: Current every day smoker Past Alcohol Use History: Rare Past Drug Use History: Marijuana General Exam Limitations: no limitations General appearance: alert, in no apparent distress Head exam: Present: atraumatic, normocephalic, normal inspection Eye exam: Present: normal appearance, PERRL, EOMI. Absent: scleral icterus, conjunctival injection, periorbital swelling ENT exam: Present: normal exam, mucous membranes moist Neck exam: Present: normal inspection. Absent: tenderness, meningismus, lymphadenopathy Respiratory exam: Present: normal lung sounds bilaterally. Absent: respiratory distress, wheezes, rales, rhonchi, stridor Cardiovascular Exam: Present: regular rate, normal rhythm, normal heart sounds. Absent: systolic murmur, diastolic murmur, rubs, gallop, clicks GI/Abdominal exam: Present: soft, normal bowel sounds. Absent: distended, tende rness, guarding, rebound, rigid Extremities exam: Present: normal inspection, full ROM, normal capillary refill. Absent: tenderness, pedal edema, joint swelling, calf tenderness Back exam: Present: normal inspection Neurological exam: Present: alert, oriented X3, CN II-XII intact Psychiatric exam: Present: depressed Skin exam: Present: warm, dry, intact, abrasion (around neck). Absent: rash Course Vital Signs 09/29/20 09/29/20 09/29/20 17:50 18:07 20:00 Temperature 98.1 F Pulse Rate 107 H Respiratory 18 18 18 Rate Blood Pressure 124/86 O2 Sat by Pulse 97 Oximetry Medical Decision Making - Medical Decision Making Upon arrival patient was placed into room 13. A thorough history and physical exam was performed. Lab studies were conducted and the patient went for CT angiography of her neck. Laboratory studies demonstrate rib fracture in her urine. She was given a dose of Keflex. CTA is negative for any vascular injury. Results are discussed the patient. She is evaluated by EPS and agrees the patient is to be admitted to the mental health unit. Patient was then transferred upstairs in stable condition - Lab Data Result diagrams: 09/30/20 10:42 09/30/20 10:42 Lab Results 09/29/20 09/29/20 09/29/20 Range/Units 19:10 19:10 19:10 WBC (4.0-11.0) k/uL RBC (3.80-5.40) m/uL Hgb (11.4-16.0) gm/dL Hct (34.0-46.0) % MCV (80.0-100.0) fL MCH (25.0-35.0) pg MCHC (31.0-37.0) g/dL RDW (11.5-15.5) % Plt Count (150-450) k/uL MPV Neutrophils % % Lymphocytes % % Monocytes % % Eosinophils % % Basophils % % Neutrophils # (1.3-7.7) k/uL Lymphocytes # (1.0-4.8) k/uL Monocytes # (0-1.0) k/uL Eosinophils # (0-0.7) k/uL Basophils # (0-0.2) k/uL Sodium (137-145) mmol/L Potassium (3.5-5.1) mmol/L Chloride (98-107) mmol/L Carbon Dioxide (22-30) mmol/L Anion Gap mmol/L BUN (7-17) mg/dL Creatinine (0.52-1.04) mg/dL Est GFR (CKD-EPI)AfAm (>60 ml/min/1.73 sqM) Est GFR (CKD-EPI)NonAf (>60 ml/min/1.73 sqM) Glucose (74-99) mg/dL Calcium (8.4-10.2) mg/dL Total Bilirubin (0.2-1.3) mg/dL AST (14-36) U/L ALT (4-34) U/L Alkaline Phosphatase (38-126) U/L Total Protein (6.3-8.2) g/dL Albumin (3.5-5.0) g/dL Urine Color Light Yellow Urine Appearance Cloudy H (Clear) Urine pH 6.5 (5.0-8.0) Ur Specific [place] 1.010 (1.001-1.035) Urine Protein Negative (Negative) Urine Glucose (UA) Negative (Negative) Urine Ketones Negative (Negative) Urine Blood Negative (Negative) Urine Nitrite Negative (Negative) Urine Bilirubin Negative (Negative) Urine Urobilinogen <2.0 (<2.0) mg/dL Ur Leukocyte Esterase Negative (Negative) Urine RBC 1 (0-5) /hpf Urine WBC 1 (0-5) /hpf Ur Squamous Epith Cells 3 (0-4) /hpf Amorphous Sediment Rare H (None) /hpf Urine Bacteria Rare H (None) /hpf Urine Mucus Rare H (None) /hpf Urine HCG, Qual Not Detected (Not Detectd) Urine Opiates Screen Not Detected (NotDetected) Ur Oxycodone Screen Not Detected (NotDetected) Urine Methadone Screen Not Detected (NotDetected) Ur Propoxyphene Screen Not Detected (NotDetected) Ur Barbiturates Screen Not Detected (NotDetected) U Tricyclic Antidepress Not Detected (NotDetected) Ur Phencyclidine Scrn Not Detected (NotDetected) Ur Amphetamines Screen Not Detected (NotDetected) U Methamphetamines Scrn Not Detected (NotDetected) U Benzodiazepines Scrn Not Detected (NotDetected) Urine Cocaine Screen Not Detected (NotDetected) U Marijuana (THC) Screen Not Detected (NotDetected) 09/29/20 09/29/20 Range/Units 19:20 19:20 WBC 12.0 H (4.0-11.0) k/uL RBC 4.47 (3.80-5.40) m/uL Hgb 13.6 (11.4-16.0) gm/dL Hct 39.4 (34.0-46.0) % MCV 88.1 (80.0-100.0) fL MCH 30.4 (25.0-35.0) pg MCHC 34.5 (31.0-37.0) g/dL RDW 13.1 (11.5-15.5) % Plt Count 432 (150-450) k/uL MPV 6.1 Neutrophils % 63 % Lymphocytes % 29 % Monocytes % 4 % Eosinophils % 3 % Basophils % 1 % Neutrophils # 7.6 (1.3-7.7) k/uL Lymphocytes # 3.4 (1.0-4.8) k/uL Monocytes # 0.5 (0-1.0) k/uL Eosinophils # 0.4 (0-0.7) k/uL Basophils # 0.1 (0-0.2) k/uL Sodium 136 L (137-145) mmol/L Potassium 4.2 (3.5-5.1) mmol/L Chloride 104 (98-107) mmol/L Carbon Dioxide 25 (22-30) mmol/L Anion Gap 7 mmol/L BUN 10 (7-17) mg/dL Creatinine 0.82 (0.52-1.04) mg/dL Est GFR (CKD-EPI)AfAm >90 (>60 ml/min/1.73 sqM) Est GFR (CKD-EPI)NonAf >90 (>60 ml/min/1.73 sqM) Glucose 81 (74-99) mg/dL Calcium 9.5 (8.4-10.2) mg/dL Total Bilirubin 0.2 (0.2-1.3) mg/dL AST 18 (14-36) U/L ALT 17 (4-34) U/L Alkaline Phosphatase 84 (38-126) U/L Total Protein 6.8 (6.3-8.2) g/dL Albumin 4.1 (3.5-5.0) g/dL Urine Color Urine Appearance (Clear) Urine pH (5.0-8.0) Ur Specific [place] (1.001-1.035) Urine Protein (Negative) Urine Glucose (UA) (Negative) Urine Ketones (Negative) Urine Blood (Negative) Urine Nitrite (Negative) Urine Bilirubin (Negative) Urine Urobilinogen (<2.0) mg/dL Ur Leukocyte Esterase (Negative) Urine RBC (0-5) /hpf Urine WBC (0-5) /hpf Ur Squamous Epith Cells (0-4) /hpf Amorphous Sediment (None) /hpf Urine Bacteria (None) /hpf Urine Mucus (None) /hpf Urine HCG, Qual (Not Detectd) Urine Opiates Screen (NotDetected) Ur Oxycodone Screen (NotDetected) Urine Methadone Screen (NotDetected) Ur Propoxyphene Screen (NotDetected) Ur Barbiturates Screen (NotDetected) U Tricyclic Antidepress (NotDetected) Ur Phencyclidine Scrn (NotDetected) Ur Amphetamines Screen (NotDetected) U Methamphetamines Scrn (NotDetected) U Benzodiazepines Scrn (NotDetected) Urine Cocaine Screen (NotDetected) U Marijuana (THC) Screen (NotDetected) - EKG Data EKG Comments: EKG demonstrates normal sinus rhythm with a ventricular rate of 94. DC interval 138. QRS 72. QTC 447. No acute ST segment elevations or depressions Disposition Clinical Impression: Suicidal ideation Disposition: TRANSFER TO PSYCH HOSP/UNIT Condition: Serious Is patient prescribed a controlled substance at d/c from ED?: No
[2020-09-29 19:41] LABS: ALT 17 U/L (4-34); AST 18 U/L (14-36); African American GFR (CKD) >90 (>60 ml/min/1.73 sqM); Albumin 4.1 g/dL (3.5-5.0); Alkaline Phosphatase 84 U/L (38-126); Anion Gap 7 mmol/L; Blood Urea Nitrogen 10 mg/dL (7-17); Calcium 9.5 mg/dL (8.4-10.2); Carbon Dioxide 25 mmol/L (22-30); Chloride 104 mmol/L (98-107); Glucose 81 mg/dL (74-99); Non-African American GFR(CKD) >90 (>60 ml/min/1.73 sqM); Potassium 4.2 mmol/L (3.5-5.1); Sodium 136 mmol/L (137-145); Total Bilirubin 0.2 mg/dL (0.2-1.3); Total Protein 6.8 g/dL (6.3-8.2)
[2020-09-29 19:42] LABS: Amorphous Sediment,Urine Rare /hpf; Appearance,Urine Cloudy (Clear); Bacteria,Urine Rare /hpf; Bilirubin,Urine Negative (Negative); Blood,Urine Negative (Negative); Color,Urine Light Yellow; Glucose,Urine (UA) Negative (Negative); Ketones,Urine Negative (Negative); Leukocyte Esterase,Urine Negative (Negative); Mucus,Urine Rare /hpf; Nitrite,Urine Negative (Negative); PH, Urine 6.5 (5.0-8.0); Protein,Urine Negative (Negative); RBC,Urine 1 /hpf (0-5); Squamous Epithelial Cell,Urine 3 /hpf (0-4); Urobilinogen,Urine <2.0 mg/dL (<2.0); WBC,Urine 1 /hpf (0-5)
[2020-09-29 19:43] LABS: Amphetamine Screen,Urine Not Detected (NotDetected); Benzodiazepines Screen,Urine Not Detected (NotDetected); Cocaine Screen,Urine Not Detected (NotDetected); Opiate Screen,Urine Not Detected (NotDetected); Phencyclidine Screen,Urine Not Detected (NotDetected); Tricyclic Antidepressant,Urine Not Detected (NotDetected); Urn Cannabinoid Scrn Not Detected (NotDetected)
[2020-09-29 19:44] LABS: Barbiturate Screen,Urine Not Detected (NotDetected); Methadone Screen, Urine Not Detected (NotDetected); Oxycodone Screen, Urine Not Detected (NotDetected)
[2020-09-29] MEDS ORDERED: CEPHALEXIN 500 MG CAP PO STA (20:15)
--- NOTE | 2020-09-29 20:33 | CT ---
EXAMINATION TYPE: CT angio neck DATE OF EXAM: 09/29/2020 COMPARISON: None HISTORY: Suicide attempt, ligature manuel. CT DLP: 476.3 mGycm Automated exposure control for dose reduction was used. CONTRAST: Performed with IV Contrast, patient injected with 65 mL of Isovue 370. Images obtained from the aortic arch to the sella turcica with IV contrast and 3-D post processed sp ges. There is normal branching pattern of the great vessels on the aortic arch. There is arterial flow in both subclavian arteries. There is arterial flow in the common internal and external carotid arteries bilaterally. There is arterial flow in both vertebral arteries. There is normal contrast opacificati on of the venous sinuses at the skull base. There is arterial flow in the vertebrobasilar artery syst em. I see no evidence of carotid or vertebral artery aneurysm or dissection. The carotid artery bifur cations are widely patent. There is normal contrast opacification of the jugular veins. Cervical soft tissues appear intact. IMPRESSION: Negative CT angiogram of the neck.
[2020-09-29] MEDS ORDERED: MAGNESIUM HYDROXIDE 2,400 MG/10 ML CUP PO PRN (20:38)
[2020-09-29] MEDS ORDERED: LORazepam 2 MG/ML INJ IM PRN (22:00)
[2020-09-29] MEDS ORDERED: HALOPERIDOL LACTATE 5 MG/ML 1 ML VIAL IM PRN (22:00)
[2020-09-29] MEDS ORDERED: haloperidoL 5 MG TAB PO PRN (22:00)
[2020-09-30] MEDS: busPIRone HCl 5 MG TAB PO SCH ×3 (00:25→20:01)
[2020-09-30] MEDS: lamoTRIgine 25 MG TAB PO SCH ×3 (00:25→20:00)
[2020-09-30] MEDS: PRAZOSIN 1 MG CAP PO SCH ×2 (00:26→20:01)
[2020-09-30] MEDS: CYCLOBENZAPRINE 5 MG TAB PO PRN (00:26)
[2020-09-30] MEDS ORDERED: ISIBLOOM PO SCH (08:00)
[2020-09-30] MEDS: CITALOPRAM HYDROBROMIDE 20 MG TAB PO SCH (08:02)
[2020-09-30] MEDS: ARIPiprazole 15 MG TAB PO SCH (08:02)
[2020-09-30] MEDS: CALCIUM CARBONATE 500 MG CHEWABLE PO SCH (08:02)
[2020-09-30] MEDS: CHOLECALCIFEROL 25 MCG (1000 IU) TABLET PO SCH (08:02)
[2020-09-30] MEDS ORDERED: RALTEGRAVIR POTASSIUM 400 MG TABLET PO SCH (09:15)
[2020-09-30] MEDS: DESOGESTREL PO SCH (10:12)
[2020-09-30] MEDS: ETHINYL ESTRADIOL PO SCH (10:12)
[2020-09-30] MEDS: TRUVADA PO SCH (10:12)
[2020-09-30] MEDS: ISENTRESS 400 MG PO SCH ×2 (10:12→19:59)
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
[2020-09-30] MEDS ORDERED: TRUVADA PO SCH ×2 (11:00)
[2020-09-30 11:10] LABS: Basophils % (A) 1 %; Eosinophils # (A) 0.2 k/uL (0-0.7); Eosinophils % (A) 2 %; HCT 40.1 % (34.0-46.0); HGB 13.3 gm/dL (11.4-16.0); Lymphocytes # (A) 2.7 k/uL (1.0-4.8); Lymphocytes % (A) 37 %; MCH 29.9 pg (25.0-35.0); MCHC 33.1 g/dL (31.0-37.0); MCV 90.3 fL (80.0-100.0); Mean Platelet Volume 6.3; Monocytes # (A) 0.3 k/uL (0-1.0); Monocytes % (A) 4 %; Neutrophils % (A) 56 %; Platelet Count 364 k/uL (150-450); RBC 4.44 m/uL (3.80-5.40); RDW 13.3 % (11.5-15.5); WBC 7.2 k/uL (4.0-11.0)
--- NOTE | 2020-09-30 11:18 | P.CONS ---
History of Present Illness - Reason for Consult Consult date: 09/30/20 - History of Present Illness This is a 19-year-old female patient of Dr. Camacho with a past medical history of pseudoseizure, osteopenia, ADHD, anxiety, bipolar, depression, PTSD, current every day smoker since the age of 12 1/2 a pack to 1 pack a day. Patient states that she attempted to hang herself once at school and again at her intermediate due to hating her life. Patient is on prophylactic for prevention of HIV due to a recent rate. She has been taking the medications for the last 2-3 weeks. Patient denies any chest pain, abdominal pain, difficulty breathing, syncope, lightheadedness. Patient denies any nausea vomiting diarrhea or constipation. Urinalysis negative, urine DRUG screen negative. She denies any medical concerns at this time. She IS seen on the mental health unit REVIEW OF SYSTEMS Constitutional: No fever, no chills, no night sweats. Denies weight change. Reports generalized fatigue. Reports daytime sleepiness. EENT: No headache. No blurred vision or double vision, no loss of vision. No loss of Hearing, no ringing in the ears, no dizziness. No nasal drainage or congestion. No epistaxis. No sore throat. Lungs: No shortness of breath, cough, no sputum production. No wheezing. Cardiovascular: No chest pain, no lower extremity edema. No palpitations. No paroxysmal nocturnal dyspnea. No orthopnea. No lightheadedness or dizziness. No syncopal episodes. Abdominal: No abdominal pain. No nausea, vomiting. No diarrhea. No constipation. No bloody or tarry stools.. Reports loss of appetite. Genitourinary: No dysuria, increased frequency, urgency. No urinary retention. Musculoskeletal: No myalgias. No muscle weakness, no gait dysfunction, no frequent falls. No back pain. No neck pain. Integumentary: No wounds, no lesions. No rash or pruritus. Neurologic: No aphasia. No facial droop. No change in mentation. No head injury. No headache. No paralysis. No paresthesia. Psychiatric: Reports depression. Reports anxiety. Reports excessive sleeping. Reports suicidal ideation Endocrine: No abnormal blood sugars. No weight change. No excessive sweating or thirst. No cold intolerance. SOCIAL HISTORY Patient has been a smoking since the age of 12, half a pack to a full pack a day, no illicit drug use, no alcohol use, no marijuana use. Patient is a student and. Patient lives in a intermediate FAMILY HISTORY Mother is 38 healthy, dad is in the 40s is also healthy. Has one brother and sister who are also healthy. She has no children. PHYSICAL EXAMINATION General Appearance: Alert, cooperative, no distress, appears stated age. Neck HEENT: Supple, no lymphadenopathy, no thyroid enlargement, no carotid bruits. Lungs: Clear to auscultation without crackles or wheezes no rhonchi, no deformity. Chest Wall: Chest wall normal expansion with deep inspiration no tenderness and no deformity was found on exam, no costochondral pain or discomfort. Heart: Regular rate and rhythm, S1, S2 normal, no murmur, rub or gallop. Back: Symmetric, no curvature, ROM normal, no CVA tenderness. Abdomen: Soft, non-tender, no rebound or rigidity, no hepatosplenomegaly. Extremities: Extremities normal, atraumatic, no cyanosis or edema. Pulses: 2+ and symmetric. Skin: Skin color, texture, tugor normal, no rashes or lesions. Neurologic: Alert oriented x3 cranial nerves II through XII intact, no motor deficit, no abnormal balance or gait ASSESSMENT AND PLAN 1. Suicidal ideation with suicidal attempt by hanging 2. History of depression 3. History of ADHD 4. History of posttraumatic stress syndrome 5. Osteopenia 6. Developmental disability Discharge plan: Patient to follow-up with Dr. Camacho following discharge from the mental health unit Impression and plan of care have been directed as dictated by the signing physician. Suzette Hawkins nurse practitioner acting as scribe for signing physician. Past Medical History Past Medical History: No Reported History Additional Past Medical History / Comment(s): psuedoseizures, History of Any Multi-Drug Resistant Organisms: None Reported Past Surgical History: No Surgical Hx Reported Past Anesthesia/Blood Transfusion Reactions: No Reported Reaction Past Psychological History: ADD/ADHD, Anxiety, Bipolar, Depression, PTSD Smoking Status: Current every day smoker Past Alcohol Use History: Rare Past Drug Use History: Marijuana Medications and Allergies Home Medications Medication Instructions Recorded Confirmed Type ARIPiprazole [Abilify] 15 mg PO DAILY@0800 05/04/17 09/29/20 History Citalopram Hydrobromide [CeleXA] 40 mg PO DAILY@0800 05/17/20 09/29/20 History Cyclobenzaprine [Flexeril] 10 mg PO HS@2099 PRN 05/17/20 09/29/20 History Omeprazole 20 mg PO BID@0800,209905/17/20 09/29/20 History Prazosin [Minipress] 2 mg PO HS@209905/17/20 09/29/20 History Calcium Carbonate [Calcium] 600 mg PO DAILY@0800 05/26/20 09/29/20 History Cyclobenzaprine [Flexeril] 5 mg PO TID PRN 05/26/20 09/29/20 History Ibuprofen [Motrin] 800 mg PO TID-W/MEALS PRN 05/26/20 09/29/20 History Cholecalciferol (Vitamin D3) 125 mcg PO DAILY@0800 08/21/20 09/29/20 History [Vitamin D3 (5000 Iu)] Terbinafine 1% Cream [LamISIL] 1 applic TOPICAL HS@209908/21/20 09/29/20 History lamoTRIgine [LaMICtal] 50 mg PO BID@0800,209908/21/20 09/29/20 History Emtricitabine/Tenofovir (Tdf) 1 tab PO DAILY@0800 09/27/20 09/29/20 History [Truvada 200 mg-300 mg Tablet] Isibloom 1 tab PO DAILY@0800 09/27/20 09/29/20 History Raltegravir Potassium [Isentress] 400 mg PO BID@0800,209909/27/20 09/29/20 History busPIRone HCL 15 mg PO BID@0800,209909/27/20 09/29/20 History Naproxen [Naprosyn] 250 mg PO BID@0800,209909/29/20 09/29/20 History Allergies Allergy/AdvReac Type Severity Reaction Status Date / Time amphetamine [From Adderall] AdvReac Unknown Verified 09/30/20 00:22 dextroamphetamine AdvReac Unknown Verified 09/30/20 00:22 [From Adderall] Physical Exam Vitals: Vital Signs Temp Pulse Pulse Resp BP BP Pulse Ox 09/30/20 09:30 97.7 F 09/30/20 00:04 97.6 F 102 H 18 113/83 09/29/20 20:00 18 09/29/20 18:07 18 09/29/20 17:50 98.1 F 107 H 18 124/86 97 Intake and Output 09/29/20 09/30/20 09/30/20 22:59 06:59 14:59 Other: Weight 97.522 kg 97.522 kg Results CBC & Chem 7: 09/30/20 10:42 09/29/20 19:20 Labs: Abnormal Lab Results - Last 24 Hours (Table) 09/29/20 09/29/20 09/29/20 Range/Units 19:10 19:20 19:20 WBC 12.0 H (4.0-11.0) k/uL Sodium 136 L (137-145) mmol/L Urine Appearance Cloudy H (Clear) Amorphous Sediment Rare H (None) /hpf Urine Bacteria Rare H (None) /hpf Urine Mucus Rare H (None) /hpf
[2020-09-30 11:24] LABS: ALT 18 U/L (4-34); AST 19 U/L (14-36); African American GFR (CKD) >90 (>60 ml/min/1.73 sqM); Alkaline Phosphatase 80 U/L (38-126); Anion Gap 8 mmol/L; Blood Urea Nitrogen 9 mg/dL (7-17); Calcium 9.6 mg/dL (8.4-10.2); Carbon Dioxide 25 mmol/L (22-30); Chloride 106 mmol/L (98-107); Cholesterol 133 mg/dL (<200); Glucose 125 mg/dL (74-99); HDL Cholesterol 41 mg/dL (40-60); LDL Cholesterol,Calculated 68 mg/dL (0-99); Non-African American GFR(CKD) 89 (>60 ml/min/1.73 sqM); Potassium 4.2 mmol/L (3.5-5.1); Sodium 139 mmol/L (137-145); Total Bilirubin 0.2 mg/dL (0.2-1.3); Total Protein 6.6 g/dL (6.3-8.2); Triglycerides 118 mg/dL (<150)
[2020-09-30] MEDS: IBUPROFEN 800 MG TAB PO PRN ×2 (12:44→20:18)
[2020-10-01] MEDS: CALCIUM CARBONATE 500 MG CHEWABLE PO SCH (08:20)
[2020-10-01] MEDS: busPIRone HCl 5 MG TAB PO SCH ×2 (08:20→21:15)
[2020-10-01] MEDS: CITALOPRAM HYDROBROMIDE 20 MG TAB PO SCH (08:20)
[2020-10-01] MEDS: ARIPiprazole 15 MG TAB PO SCH (08:20)
[2020-10-01] MEDS: DESOGESTREL PO SCH (08:21)
[2020-10-01] MEDS: CHOLECALCIFEROL 25 MCG (1000 IU) TABLET PO SCH (08:21)
[2020-10-01] MEDS: ISENTRESS 400 MG PO SCH ×2 (08:21→21:14)
[2020-10-01] MEDS: lamoTRIgine 25 MG TAB PO SCH ×2 (08:21→21:15)
[2020-10-01] MEDS: ETHINYL ESTRADIOL PO SCH (08:21)
[2020-10-01] MEDS: TRUVADA PO SCH (08:21)
[2020-10-01] MEDS: IBUPROFEN 800 MG TAB PO PRN (08:22)
[2020-10-01] MEDS: CYCLOBENZAPRINE 5 MG TAB PO PRN (11:53)
[2020-10-01] MEDS: ACETAMINOPHEN TAB 325 MG TAB PO PRN (11:53)
[2020-10-01] MEDS: MAG HYDROX/AL HYDROX/SIMETH 30 ML CUP PO PRN (13:36)
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
[2020-10-01] MEDS: PRAZOSIN 1 MG CAP PO SCH (21:15)
[2020-10-02] MEDS: IBUPROFEN 800 MG TAB PO PRN ×2 (08:26→21:32)
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
[2020-10-02] MEDS: busPIRone HCl 5 MG TAB PO SCH ×2 (10:13→21:29)
[2020-10-02] MEDS: ARIPiprazole 15 MG TAB PO SCH (10:13)
[2020-10-02] MEDS: CHOLECALCIFEROL 25 MCG (1000 IU) TABLET PO SCH (10:14)
[2020-10-02] MEDS: CITALOPRAM HYDROBROMIDE 20 MG TAB PO SCH (10:15)
[2020-10-02] MEDS: ISENTRESS 400 MG PO SCH ×2 (10:15→21:30)
[2020-10-02] MEDS: lamoTRIgine 25 MG TAB PO SCH ×2 (10:15→21:29)
[2020-10-02] MEDS: CALCIUM CARBONATE 500 MG CHEWABLE PO SCH (10:15)
[2020-10-02] MEDS: TRUVADA PO SCH (10:16)
[2020-10-02] MEDS: DESOGESTREL PO SCH (10:20)
[2020-10-02] MEDS: ETHINYL ESTRADIOL PO SCH (10:20)
[2020-10-02] MEDS ORDERED: ARIPiprazole 15 MG TAB PO STA (10:58)
[2020-10-02] MEDS: NICOTINE 21MG/24HR PATCH TRANSDERM SCH (11:05)
[2020-10-02] MEDS: LORazepam 1 MG TAB PO PRN (12:47)
[2020-10-02] MEDS ORDERED: ONDANSETRON 4 MG TAB PO PRN (14:40)
[2020-10-02] MEDS: PRAZOSIN 1 MG CAP PO SCH (21:28)
[2020-10-03 03:59] LABS: Urine Alcohol Negative (Negative); Urine Barbiturate Negative (Negative); Urine Cocaine Negative (Negative); Urine Methadone Negative (Negative); Urine Opiates Negative (Negative); Urine Phencyclidine Negative (Negative)
[2020-10-03 07:11] VITALS: RESP 16
[2020-10-03] MEDS: LORazepam 1 MG TAB PO PRN ×2 (07:16→14:38)
[2020-10-03] MEDS: busPIRone HCl 5 MG TAB PO SCH (09:02)
[2020-10-03] MEDS: NICOTINE 21MG/24HR PATCH TRANSDERM SCH (09:02)
[2020-10-03] MEDS: CHOLECALCIFEROL 25 MCG (1000 IU) TABLET PO SCH (09:03)
[2020-10-03] MEDS: ISENTRESS 400 MG PO SCH ×2 (09:04→20:02)
[2020-10-03] MEDS: CITALOPRAM HYDROBROMIDE 20 MG TAB PO SCH (09:04)
[2020-10-03] MEDS: lamoTRIgine 25 MG TAB PO SCH ×2 (09:04→20:02)
[2020-10-03] MEDS: ETHINYL ESTRADIOL PO SCH (09:05)
[2020-10-03] MEDS: TRUVADA PO SCH (09:05)
[2020-10-03] MEDS: DESOGESTREL PO SCH (09:05)
[2020-10-03] MEDS: CALCIUM CARBONATE 500 MG CHEWABLE PO SCH (10:09)
--- NOTE | 2020-10-03 10:32 | P.PN ---
Progress Note - Text Progress Note Date: 10/03/20 Interval History: Patient was seen resting in bed and was agreeable to speak with policy writer sales in her room. The patient states that she is feeling better today. She reports that her anxiety continues to be elevated and that she is experiencing some sedation and side effects of her medications. Despite this, the patient is not reporting any suicidal or homicidal ideation, intention, and/or plan. She denying any self harming urges at this time. She is not reporting any auditory or visual hallucinations. He denies any paranoia or delusions. She is been adherent with medications. The patient states that the weighted blanket is helping her anxiety significantly. The patient states that she is not attending this morning's group because she is feeling tired. Despite this, the patient does not endorse any significant issues with sleep or appetite. She does report that she had nightmares last night. Mental Status Exam: General Appearance: Patient appears to be stated age is alert, directable, and cooperative. The patient has colored hair, obese body habitus, and is dressed in her home close. Behavior: Appropriate eye contact. Patient is lying in bed without any agitated behavior. She is currently covering herself with her weighted blanket. Speech: Patient's speech is nonpressured. Spontaneous, with normal rate, tone, volume, and fluency. Mood/Affect: Mood is mildly improving, affect is congruent and constricted. Suicidality/Homicidality: The patient denies both suicidal or homicidal ideation, intention, and/or plan. Perceptions: Patient denies any visual hallucinations and denies any auditory hallucinations Though content/process: There is no evidence of any delusional thought content and thought process is linear and goal-directed. Memory and concentration: AOX3, grossly intact for the purposes of this session Judgment and insight: Improving mildly Assessment Major depressive disorder, recurrent, severe Posttraumatic stress disorder Developmental disability Plan: -Patient continues to meet criteria for inpatient psychiatric admission for symptom stabilization and safety. Patient has signed adult voluntary form and medication consent and was placed in patient's chart. -Medications: Continue Abilify to 20 mg by mouth daily for mood augmentation Increase BuSpar to 20 mg by mouth twice a day for anxiety Continue citalopram 40 mg by mouth daily for depression/anxiety Continue Lamictal 50 mg by mouth twice a day for mood stabilization Continue prazosin to 4 mg by mouth at bedtime for PTSD related nightmares -When necessary Ativan and Haldol for agitation/aggression. -SW on board for discharge planning. Encouraged the patient to participate in milieu.
[2020-10-03] MEDS: ACETAMINOPHEN TAB 325 MG TAB PO PRN (15:26)
[2020-10-03] MEDS: CYCLOBENZAPRINE 5 MG TAB PO PRN (15:26)
[2020-10-03 15:54] VITALS: BP 124/80; PULSE 108
[2020-10-03] MEDS: MAG HYDROX/AL HYDROX/SIMETH 30 ML CUP PO PRN (18:35)
[2020-10-03] MEDS: PRAZOSIN 1 MG CAP PO SCH (20:01)
[2020-10-03] MEDS: busPIRone HCl 10 MG TAB PO SCH (20:02)
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
[2020-10-04] MEDS: NICOTINE 21MG/24HR PATCH TRANSDERM SCH (09:17)
[2020-10-04] MEDS: DESOGESTREL PO SCH (09:18)
[2020-10-04] MEDS: TRUVADA PO SCH (09:18)
[2020-10-04] MEDS: ETHINYL ESTRADIOL PO SCH (09:18)
[2020-10-04] MEDS: ISENTRESS 400 MG PO SCH (09:18)
[2020-10-04] MEDS: IBUPROFEN 800 MG TAB PO PRN (09:19)
[2020-10-04] MEDS: busPIRone HCl 10 MG TAB PO SCH (09:20)
[2020-10-04] MEDS: CHOLECALCIFEROL 25 MCG (1000 IU) TABLET PO SCH (09:20)
[2020-10-04] MEDS: CITALOPRAM HYDROBROMIDE 20 MG TAB PO SCH (09:20)
[2020-10-04] MEDS: lamoTRIgine 25 MG TAB PO SCH (09:20)
[2020-10-04] MEDS: CALCIUM CARBONATE 500 MG CHEWABLE PO SCH (09:20)
[2020-10-04 12:39] VITALS: TEMP 97.8
== END 2020-10-04 13:00 | disposition home or self-care (01) | DRG 885 ==
LOC: EC 17:42 → 3MHU 20:37
PROVIDERS: ADMIT Psychiatry & Neurology Psychiatry; ATTEND Psychiatry & Neurology Psychiatry
DX: F31.4 Bipolar disorder, current episode depressed, severe, without psychotic features (principal); R45.851 Suicidal ideations; F44.5 Conversion disorder with seizures or convulsions; F43.10 Post-traumatic stress disorder, unspecified; F90.9 Attention-deficit hyperactivity disorder, unspecified type; Z20.822 Contact with and (suspected) exposure to COVID-19; M85.80 Other specified disorders of bone density and structure, unspecified site; F89 Unspecified disorder of psychological development; E66.9 Obesity, unspecified; Z68.32 Body mass index [BMI] 32.0-32.9, adult; F17.210 Nicotine dependence, cigarettes, uncomplicated; Z71.6 Tobacco abuse counseling; Z79.899 Other long term (current) drug therapy; Z79.1 Long term (current) use of non-steroidal anti-inflammatories (NSAID); Z88.8 Allergy status to other drugs, medicaments and biological substances
CPT/HCPCS: 36415; 70498; 71046; 72110; 80053; 80061; 80306; 81001; 81003; 81025; 83036; 84443; 85025; 87635; 93005; 96374; 99284; 99285

== ENCOUNTER 2020-12-28 00:38 | Emergency (ER) | payer MEDICARE, OTHER ==
[2020-12-28] MEDS ORDERED: IBUPROFEN 800 MG TAB PO STA (00:43)
[2020-12-28] MEDS ORDERED: ACETAMINOPHEN TAB 500 MG TAB PO STA (00:43)
--- NOTE | 2020-12-28 00:43 | ED ---
Lower Extremity Injury HPI - General Stated Complaint: Foot Pain Time Seen by Provider: 12/28/20 00:40 - Related Data Home Medications Medication Instructions Recorded Confirmed Cyclobenzaprine [Flexeril] 10 mg PO HS@2100 PRN 05/17/20 09/29/20 Omeprazole 20 mg PO BID@0800,2100 05/17/20 09/29/20 Calcium Carbonate [Calcium] 600 mg PO DAILY@0800 05/26/20 09/29/20 Cyclobenzaprine [Flexeril] 5 mg PO TID PRN 05/26/20 09/29/20 Cholecalciferol (Vitamin D3) 125 mcg PO DAILY@0800 08/21/20 09/29/20 [Vitamin D3 (5000 Iu)] Terbinafine 1% Cream [LamISIL] 1 applic TOPICAL HS@209908/21/20 09/29/20 Emtricitabine/Tenofovir (Tdf) 1 tab PO DAILY@0800 09/27/20 09/29/20 [Truvada 200 mg-300 mg Tablet] Isibloom 1 tab PO DAILY@0800 09/27/20 09/29/20 Raltegravir Potassium [Isentress] 400 mg PO BID@0800,2100 09/27/20 09/29/20 Previous Rx's Medication Instructions Recorded ARIPiprazole [Abilify] 20 mg PO DAILY@0800 30 Days tab 10/04/20 Citalopram Hydrobromide [CeleXA] 40 mg PO DAILY@0800 30 Days tab 10/04/20 Nicotine 21Mg/24Hr Patch [Habitrol] 1 patch TRANSDERM DAILY 30 Days 10/04/20 patch Prazosin [Minipress] 4 mg PO HS@2099 30 Days cap 10/04/20 busPIRone HCl [Buspar] 20 mg PO BID@0800,2100 30 Days tab 10/04/20 lamoTRIgine [LaMICtal] 50 mg PO BID@0800,2100 30 Days tab 10/04/20 Allergies Allergy/AdvReac Type Severity Reaction Status Date / Time amphetamine [From Adderall] AdvReac Unknown Verified 12/28/20 01:14 dextroamphetamine AdvReac Unknown Verified 12/28/20 01:14 [From Adderall] Review of Systems ROS Statement: Those systems with pertinent positive or pertinent negative responses have been documented in the HPI. ROS Other: All systems not noted in ROS Statement are negative. Past Medical History Past Medical History: No Reported History Additional Past Medical History / Comment(s): psuedoseizures, History of Any Multi-Drug Resistant Organisms: None Reported Past Surgical History: No Surgical Hx Reported Past Anesthesia/Blood Transfusion Reactions: No Reported Reaction Past Psychological History: ADD/ADHD, Anxiety, Bipolar, Depression, PTSD Smoking Status: Current every day smoker Past Alcohol Use History: Rare Past Drug Use History: Marijuana Disposition Clinical Impression: Right foot pain, Ankle sprain Disposition: [facility] Instructions (If sedation given, give patient instructions): Ankle Sprain (ED), Foot Sprain (ED), Foot Contusion (ED) Is patient prescribed a controlled substance at d/c from ED?: No Referrals: Patrica Camacho MD [Primary Care Provider] - 1-2 days
--- NOTE | 2020-12-28 01:31 | XR ---
EXAM: XR Right Ankle Complete, 3 or More Views CLINICAL HISTORY: ITS. REASON XR Reason: fall TECHNIQUE: Frontal, lateral and oblique views of the right ankle. COMPARISON: No relevant prior studies available. FINDINGS: Bones/joints: Unremarkable. No acute fracture. No dislocation. Soft tissues: Mild soft tissue edema. No radiopaque foreign body. IMPRESSION: No fracture or dislocation.
--- NOTE | 2020-12-28 01:32 | XR ---
EXAM: XR Right Foot Complete, 3 or More Views CLINICAL HISTORY: ITS. REASON XR Reason: fall TECHNIQUE: Frontal, lateral and oblique views of the right foot. COMPARISON: No relevant prior studies available. FINDINGS: Bones/joints: Unremarkable. No acute fracture. No dislocation. Soft tissues: Mild edema. No radiopaque foreign body. IMPRESSION: No fracture or dislocation.
== END 2020-12-28 02:10 ==
LOC: EC 00:38
DX: S93.401A Sprain of unspecified ligament of right ankle, initial encounter (principal); F32.9 Major depressive disorder, single episode, unspecified; F17.200 Nicotine dependence, unspecified, uncomplicated; F12.90 Cannabis use, unspecified, uncomplicated; X58.XXXA Exposure to other specified factors, initial encounter
CPT/HCPCS: 99283

== ENCOUNTER 2021-01-09 16:21 | Emergency (ER) | payer MEDICARE, OTHER ==
[2021-01-09 16:33] VITALS: BP 136/94; PULSE 98; RESP 18; TEMP 98.6
--- NOTE | 2021-01-09 17:34 | ED ---
Psych HPI - General Source: patient, EMS, RN notes reviewed Mode of arrival: EMS Limitations: no limitations <Dhruv Merlos - Last Filed: 01/09/21 17:33> <Jak Shelby - Last Filed: 01/09/21 20:15> - General Chief Complaint: Psychiatric Symptoms Stated Complaint: Suicidal Time Seen by Provider: 01/09/21 16:25 - History of Present Illness Initial Comments: 20-year-old female presents emergency Department with chief complaint of depression, suicidal ideation. Patient states that she is upset because nita huerta would not give her her phone she states the guarding is taking her formula from her and she wants to talk to somebody in [facility]. Patient states that this makes her very upset. Denies any alcohol or drug use. Patient reportedly attempted to take a shoelace and tried to tie around her neck but never completed this. (Dhruv Merlos) - Related Data Home Medications Medication Instructions Recorded Confirmed Cyclobenzaprine [Flexeril] 10 mg PO HS@209905/17/20 01/09/21 Omeprazole 20 mg PO BID@0800,209905/17/20 01/09/21 Calcium Carbonate [Calcium] 600 mg PO DAILY@0800 05/26/20 01/09/21 Cyclobenzaprine [Flexeril] 5 mg PO TID PRN 05/26/20 01/09/21 Cholecalciferol (Vitamin D3) 125 mcg PO DAILY@0800 08/21/20 01/09/21 [Vitamin D3 (5000 Iu)] Isibloom 1 tab PO DAILY@0800 09/27/20 01/09/21 Ibuprofen [Motrin] 800 mg PO TID-W/MEALS PRN 01/09/21 01/09/21 Prazosin HCl 4 mg PO HS@199901/09/21 01/09/21 Previous Rx's Medication Instructions Recorded ARIPiprazole [Abilify] 20 mg PO DAILY@0800 30 Days tab 10/04/20 Citalopram Hydrobromide [CeleXA] 40 mg PO DAILY@0800 30 Days tab 10/04/20 busPIRone HCl [Buspar] 20 mg PO BID@0800,2099 30 Days tab 10/04/20 lamoTRIgine [LaMICtal] 50 mg PO BID@0800,2099 30 Days tab 10/04/20 Allergies Allergy/AdvReac Type Severity Reaction Status Date / Time amphetamine [From Adderall] AdvReac Unknown Verified 01/09/21 17:21 dextroamphetamine AdvReac Unknown Verified 01/09/21 17:21 [From Adderall] Review of Systems ROS Other: All systems not noted in ROS Statement are negative. <Dhruv Merlos - Last Filed: 01/09/21 17:33> ROS Other: All systems not noted in ROS Statement are negative. <Jak Shelby - Last Filed: 01/09/21 20:15> ROS Statement: Those systems with pertinent positive or pertinent negative responses have been documented in the HPI. Past Medical History Past Medical History: No Reported History Additional Past Medical History / Comment(s): psuedoseizures, History of Any Multi-Drug Resistant Organisms: None Reported Past Surgical History: No Surgical Hx Reported Past Anesthesia/Blood Transfusion Reactions: No Reported Reaction Past Psychological History: ADD/ADHD, Anxiety, Bipolar, Depression, PTSD Smoking Status: Current every day smoker Past Alcohol Use History: Rare Past Drug Use History: Marijuana <Dhruv Merlos - Last Filed: 01/09/21 17:33> General Exam Limitations: no limitations General appearance: alert, in no apparent distress Head exam: Present: atraumatic, normocephalic, normal inspection Eye exam: Present: normal appearance, PERRL, EOMI. Absent: scleral icterus, conjunctival injection, periorbital swelling ENT exam: Present: mucous membranes moist. Absent: normal exam (Poor dentition), normal oropharynx Neck exam: Present: normal inspection, full ROM. Absent: tenderness, meningismus, lymphadenopathy Respiratory exam: Present: normal lung sounds bilaterally. Absent: respiratory distress, wheezes, rales, rhonchi, stridor Cardiovascular Exam: Present: regular rate, normal rhythm, normal heart sounds. Absent: systolic murmur, diastolic murmur, rubs, gallop, clicks Neurological exam: Present: alert Psychiatric exam: Present: agitated Skin exam: Present: warm, dry, intact, normal color. Absent: rash <Dhruv Merlos - Last Filed: 01/09/21 17:33> Course Vital Signs 01/09/21 16:26 Temperature 98.6 F Pulse Rate 98 Respiratory 18 Rate Blood Pressure 136/94 O2 Sat by Pulse 95 Oximetry Medical Decision Making - Lab Data Lab Results 01/09/21 Range/Units 18:07 Urine Opiates Screen Not Detected (NotDetected) Ur Oxycodone Screen Not Detected (NotDetected) Urine Methadone Screen Not Detected (NotDetected) Ur Propoxyphene Screen Not Detected (NotDetected) Ur Barbiturates Screen Not Detected (NotDetected) U Tricyclic Antidepress Not Detected (NotDetected) Ur Phencyclidine Scrn Not Detected (NotDetected) Ur Amphetamines Screen Not Detected (NotDetected) U Methamphetamines Scrn Not Detected (NotDetected) U Benzodiazepines Scrn Not Detected (NotDetected) Urine Cocaine Screen Not Detected (NotDetected) U Marijuana (THC) Screen Not Detected (NotDetected) Disposition <Dhruv Merlos M - Last Filed: 01/09/21 17:33> Is patient prescribed a controlled substance at d/c from ED?: No <Jak Shelby - Last Filed: 01/09/21 20:15> Clinical Impression: Suicidal ideation Disposition: HOME SELF-CARE Condition: Fair Instructions (If sedation given, give patient instructions): Help Prevent Suicide (ED) Referrals: Patrica Camacho MD [Primary Care Provider] - 1-2 days
[2021-01-09 18:33] LABS: Amphetamine Screen,Urine Not Detected (NotDetected); Barbiturate Screen,Urine Not Detected (NotDetected); Benzodiazepines Screen,Urine Not Detected (NotDetected); Cocaine Screen,Urine Not Detected (NotDetected); Methadone Screen, Urine Not Detected (NotDetected); Opiate Screen,Urine Not Detected (NotDetected); Oxycodone Screen, Urine Not Detected (NotDetected); Phencyclidine Screen,Urine Not Detected (NotDetected); Tricyclic Antidepressant,Urine Not Detected (NotDetected); Urn Cannabinoid Scrn Not Detected (NotDetected)
== END 2021-01-09 20:22 | disposition home or self-care (01) ==
LOC: EC 16:21
DX: R45.851 Suicidal ideations (principal); R45.1 Restlessness and agitation; F31.9 Bipolar disorder, unspecified; F41.9 Anxiety disorder, unspecified; F90.9 Attention-deficit hyperactivity disorder, unspecified type; F17.200 Nicotine dependence, unspecified, uncomplicated; F12.90 Cannabis use, unspecified, uncomplicated; Z79.899 Other long term (current) drug therapy
CPT/HCPCS: 80306; 82075; 99285

== ENCOUNTER 2021-02-09 17:04 | Emergency (ER) | payer MEDICARE, OTHER ==
[2021-02-09 17:12] VITALS: RESP 18; TEMP 98.8
[2021-02-09] MEDS ORDERED: SODIUM CHLORIDE 0.9% 1,000 ML IV STA (17:32)
--- NOTE | 2021-02-09 17:37 | ED ---
General Adult HPI - General Chief complaint: Abdominal Pain Stated complaint: abd pain Source: patient, RN notes reviewed, old records reviewed Mode of arrival: EMS Limitations: no limitations - History of Present Illness Initial comments: 20-year-old white female patient presents to the emergency room with complaints of nausea and vomiting for the past 3 days. Patient states that she does have some right lower abdominal pain with vomiting but denies any fevers or diarrhea. States that today she was able to eat a little without vomiting but if she tries to eat more she will vomit. She states that she smokes 4 cigarettes a day, denies any alcohol use, does admit to occasionally smoking marijuana. She states that the only medicine she takes is for her depression and anxiety but she doesn't know the names. She also states she takes control pills. States has not had sexual activity in a month. Denies any vaginal bleeding or vaginal discharge. Patient denies any abdominal surgeries -: days(s) (3) Radiation: abdomen Severity scale (1-10): 9 Quality: aching Consistency: intermittent Improves with: none Worsens with: eating Associated Symptoms: nausea/vomiting Treatments Prior to Arrival: none - Related Data Home Medications Medication Instructions Recorded Confirmed Cyclobenzaprine [Flexeril] 10 mg PO HS@209905/17/20 02/09/21 Omeprazole 20 mg PO BID@08,199905/17/20 02/09/21 Calcium Carbonate [Calcium] 600 mg PO DAILY@0800 05/26/20 02/09/21 Cyclobenzaprine [Flexeril] 5 mg PO TID PRN 05/26/20 02/09/21 Cholecalciferol (Vitamin D3) 125 mcg PO DAILY@0800 08/21/20 02/09/21 [Vitamin D3 (5000 Iu)] Isibloom 1 tab PO DAILY@0800 09/27/20 02/09/21 Ibuprofen [Motrin] 800 mg PO AC-TID PRN 01/09/21 02/09/21 Prazosin HCl 4 mg PO HS@199901/09/21 02/09/21 Citalopram Hydrobromide [CeleXA] 40 mg PO DAILY@0800 02/09/21 02/09/21 busPIRone HCl [Buspar] 20 mg PO BID@08,199902/09/21 02/09/21 guaiFENesin [Mucinex] 600 mg PO Q12H PRN 02/09/21 02/09/21 lamoTRIgine [LaMICtal] 50 mg PO BID@0800,199902/09/21 02/09/21 Previous Rx's Medication Instructions Recorded ARIPiprazole [Abilify] 20 mg PO DAILY@0800 30 Days tab 10/04/20 Allergies Allergy/AdvReac Type Severity Reaction Status Date / Time amphetamine [From Adderall] AdvReac Unknown Verified 02/09/21 20:37 dextroamphetamine AdvReac Unknown Verified 02/09/21 20:37 [From Adderall] Review of Systems ROS Statement: Those systems with pertinent positive or pertinent negative responses have been documented in the HPI. ROS Other: All systems not noted in ROS Statement are negative. Past Medical History Past Medical History: No Reported History Additional Past Medical History / Comment(s): psuedoseizures, History of Any Multi-Drug Resistant Organisms: None Reported Past Surgical History: No Surgical Hx Reported Past Anesthesia/Blood Transfusion Reactions: No Reported Reaction Past Psychological History: ADD/ADHD, Anxiety, Bipolar, Depression, PTSD Smoking Status: Current every day smoker Past Alcohol Use History: Rare Past Drug Use History: Marijuana General Exam Limitations: no limitations General appearance: alert, in no apparent distress Head exam: Present: atraumatic, normocephalic, normal inspection Eye exam: Present: normal appearance, PERRL, EOMI. Absent: scleral icterus, conjunctival injection, periorbital swelling Pupils: Present: normal accommodation ENT exam: Present: normal exam, normal oropharynx, mucous membranes moist Neck exam: Present: normal inspection, full ROM. Absent: tenderness, meningismus, lymphadenopathy, thyromegaly Respiratory exam: Present: normal lung sounds bilaterally. Absent: respiratory distress, wheezes, rales, rhonchi, stridor, chest wall tenderness, accessory muscle use, decreased breath sounds, prolonged expiratory Cardiovascular Exam: Present: normal rhythm, tachycardia, normal heart sounds. Absent: systolic murmur, diastolic murmur, rubs, gallop, clicks GI/Abdominal exam: Present: soft, normal bowel sounds. Absent: distended, tenderness, guarding, rebound, rigid, mass Extremities exam: Present: normal inspection, full ROM, normal capillary refill. Absent: tenderness, pedal edema, joint swelling, calf tenderness Back exam: Present: normal inspection, full ROM. Absent: tenderness, CVA tenderness (R), CVA tenderness (L), muscle spasm, paraspinal tenderness, vertebral tenderness, rash noted Neurological exam: Present: alert, oriented X3, CN II-XII intact Psychiatric exam: Present: normal affect, normal mood Skin exam: Present: warm, dry, intact, normal color. Absent: rash, cyanosis, diaphoretic, erythema, petechiae, pallor, mottled Course Vital Signs 02/09/21 02/09/21 02/09/21 17:08 18:12 20:00 Temperature 98.8 F Pulse Rate 107 H 85 71 Respiratory 18 18 18 Rate Blood Pressure 137/95 143/89 118/77 O2 Sat by Pulse 95 95 Oximetry Medical Decision Making - Medical Decision Making WBC is 16.4, hemoglobin and hematocrit is 14 and 42 respectively, electrolytes are unremarkable. Urine is negative for or UTI. CT the abdomen and pelvis shows a heterogenous bill circumscribed left ovary likely dermoid. Loops of bowel within the abdomen are normal, appendix is normal, liver spleen pancreas gallbladder and adrenal glands are normal. No masses or hydronephrosis cysts or renal stones identified within the kidneys. The right ovary was not visualized on CT. Transvaginal ultrasound shows a heterogeneous left adnexa similar to CT findings. The right ovary is obscured by overlying bowel gas. Upon reevaluation the patient states that she does not have right lower quadrant pain has resolved. She no longer has any nausea. She denies any vaginal discharge or vaginal bleeding. She was offered a pelvic exam which she refused. She was given strict parameters to return to the emergency room for any increasing pain, fevers or return of nausea and vomiting. Case discussed with Dr. Salgado and Dr. Interiano. - Lab Data Result diagrams: 02/09/21 17:52 02/09/21 17:52 Lab Results 02/09/21 02/09/21 02/09/21 Range/Units 17:52 17:52 17:52 WBC 16.4 H (3.8-10.6) k/uL RBC 4.88 (3.80-5.40) m/uL Hgb 14.0 (11.4-16.0) gm/dL Hct 42.6 (34.0-46.0) % MCV 87.3 (80.0-100.0) fL MCH 28.8 (25.0-35.0) pg MCHC 32.9 (31.0-37.0) g/dL RDW 13.8 (11.5-15.5) % Plt Count 399 (150-450) k/uL MPV 6.4 Neutrophils % 67 % Lymphocytes % 25 % Monocytes % 4 % Eosinophils % 2 % Basophils % 1 % Neutrophils # 11.0 H (1.3-7.7) k/uL Lymphocytes # 4.1 (1.0-4.8) k/uL Monocytes # 0.6 (0-1.0) k/uL Eosinophils # 0.4 (0-0.7) k/uL Basophils # 0.1 (0-0.2) k/uL Sodium (137-145) mmol/L Potassium (3.5-5.1) mmol/L Chloride (98-107) mmol/L Carbon Dioxide (22-30) mmol/L Anion Gap mmol/L BUN (7-17) mg/dL Creatinine (0.52-1.04) mg/dL Est GFR (CKD-EPI)AfAm (>60 ml/min/1.73 sqM) Est GFR (CKD-EPI)NonAf (>60 ml/min/1.73 sqM) Glucose (74-99) mg/dL Calcium (8.4-10.2) mg/dL Total Bilirubin (0.2-1.3) mg/dL AST (14-36) U/L ALT (4-34) U/L Alkaline Phosphatase (38-126) U/L Total Protein (6.3-8.2) g/dL Albumin (3.5-5.0) g/dL Amylase (30-110) U/L Lipase (23-300) U/L Urine Color Yellow Urine Appearance Clear (Clear) Urine pH 6.0 (5.0-8.0) Ur Specific [place] 1.035 (1.001-1.035) Urine Protein 1+ H (Negative) Urine Glucose (UA) Negative (Negative) Urine Ketones Negative (Negative) Urine Blood Negative (Negative) Urine Nitrite Negative (Negative) Urine Bilirubin Negative (Negative) Urine Urobilinogen 2.0 (<2.0) mg/dL Ur Leukocyte Esterase Negative (Negative) Urine RBC 2 (0-5) /hpf Urine WBC 1 (0-5) /hpf Ur Squamous Epith Cells 2 (0-4) /hpf Urine Mucus Few H (None) /hpf Urine HCG, Qual Not Detected (Not Detectd) 02/09/21 Range/Units 17:52 WBC (3.8-10.6) k/uL RBC (3.80-5.40) m/uL Hgb (11.4-16.0) gm/dL Hct (34.0-46.0) % MCV (80.0-100.0) fL MCH (25.0-35.0) pg MCHC (31.0-37.0) g/dL RDW (11.5-15.5) % Plt Count (150-450) k/uL MPV Neutrophils % % Lymphocytes % % Monocytes % % Eosinophils % % Basophils % % Neutrophils # (1.3-7.7) k/uL Lymphocytes # (1.0-4.8) k/uL Monocytes # (0-1.0) k/uL Eosinophils # (0-0.7) k/uL Basophils # (0-0.2) k/uL Sodium 140 (137-145) mmol/L Potassium 3.8 (3.5-5.1) mmol/L Chloride 107 (98-107) mmol/L Carbon Dioxide 23 (22-30) mmol/L Anion Gap 10 mmol/L BUN 8 (7-17) mg/dL Creatinine 0.83 (0.52-1.04) mg/dL Est GFR (CKD-EPI)AfAm >90 (>60 ml/min/1.73 sqM) Est GFR (CKD-EPI)NonAf >90 (>60 ml/min/1.73 sqM) Glucose 100 H (74-99) mg/dL Calcium 9.9 (8.4-10.2) mg/dL Total Bilirubin 0.1 L (0.2-1.3) mg/dL AST 18 (14-36) U/L ALT 22 (4-34) U/L Alkaline Phosphatase 118 (38-126) U/L Total Protein 7.1 (6.3-8.2) g/dL Albumin 4.3 (3.5-5.0) g/dL Amylase 50 (30-110) U/L Lipase 79 (23-300) U/L Urine Color Urine Appearance (Clear) Urine pH (5.0-8.0) Ur Specific [place] (1.001-1.035) Urine Protein (Negative) Urine Glucose (UA) (Negative) Urine Ketones (Negative) Urine Blood (Negative) Urine Nitrite (Negative) Urine Bilirubin (Negative) Urine Urobilinogen (<2.0) mg/dL Ur Leukocyte Esterase (Negative) Urine RBC (0-5) /hpf Urine WBC (0-5) /hpf Ur Squamous Epith Cells (0-4) /hpf Urine Mucus (None) /hpf Urine HCG, Qual (Not Detectd) Disposition Clinical Impression: Abdominal pain Disposition: HOME SELF-CARE Condition: Fair Instructions (If sedation given, give patient instructions): Abdominal Pain (ED) Additional Instructions: Return to the emergency room if any increased pain, return of nausea or vomiting, or fever. Is patient prescribed a controlled substance at d/c from ED?: No Referrals: Patrica Camacho MD [Primary Care Provider] - 1-2 days Time of Disposition: 21:38
[2021-02-09 18:21] LABS: Basophils # (A) 0.1 k/uL (0-0.2); Basophils % (A) 1 %; Eosinophils # (A) 0.4 k/uL (0-0.7); Eosinophils % (A) 2 %; HCT 42.6 % (34.0-46.0); Lymphocytes # (A) 4.1 k/uL (1.0-4.8); Lymphocytes % (A) 25 %; MCH 28.8 pg (25.0-35.0); MCHC 32.9 g/dL (31.0-37.0); MCV 87.3 fL (80.0-100.0); Mean Platelet Volume 6.4; Monocytes # (A) 0.6 k/uL (0-1.0); Monocytes % (A) 4 %; Neutrophils % (A) 67 %; Platelet Count 399 k/uL (150-450); RBC 4.88 m/uL (3.80-5.40); RDW 13.8 % (11.5-15.5); WBC 16.4 k/uL (3.8-10.6)
[2021-02-09 18:24] LABS: Appearance,Urine Clear (Clear); Bilirubin,Urine Negative (Negative); Blood,Urine Negative (Negative); Color,Urine Yellow; Glucose,Urine (UA) Negative (Negative); Ketones,Urine Negative (Negative); Leukocyte Esterase,Urine Negative (Negative); Mucus,Urine Few /hpf; Nitrite,Urine Negative (Negative); Protein,Urine 1+ (Negative); RBC,Urine 2 /hpf (0-5); Specific Gravity,Urine 1.035 (1.001-1.035); Squamous Epithelial Cell,Urine 2 /hpf (0-4); WBC,Urine 1 /hpf (0-5)
[2021-02-09 18:31] LABS: ALT 22 U/L (4-34); AST 18 U/L (14-36); African American GFR (CKD) >90 (>60 ml/min/1.73 sqM); Albumin 4.3 g/dL (3.5-5.0); Alkaline Phosphatase 118 U/L (38-126); Amylase 50 U/L (30-110); Anion Gap 10 mmol/L; Blood Urea Nitrogen 8 mg/dL (7-17); Calcium 9.9 mg/dL (8.4-10.2); Carbon Dioxide 23 mmol/L (22-30); Chloride 107 mmol/L (98-107); Glucose 100 mg/dL (74-99); Lipase 79 U/L (23-300); Non-African American GFR(CKD) >90 (>60 ml/min/1.73 sqM); Potassium 3.8 mmol/L (3.5-5.1); Sodium 140 mmol/L (137-145); Total Bilirubin 0.1 mg/dL (0.2-1.3); Total Protein 7.1 g/dL (6.3-8.2)
--- NOTE | 2021-02-09 20:03 | CT ---
EXAMINATION TYPE: CT abdomen pelvis wo con DATE OF EXAM: 02/09/2021 COMPARISON: None INDICATION: abdominal pain and nausea x 2 days. DLP: 776.6 mGycm, Automated exposure control for dose reduction was used. CONTRAST: None Study performed without Oral Contrast TECHNIQUE: Axial images were obtained from above the diaphragm to the pubic rami in the axial plane a t 5 mm thick sections. Reconstructed images are reviewed on the computer in the coronal plane. FINDINGS: Limited CT sections are obtained the lung bases. The lung bases are clear. CT ABDOMEN: Liver: Normal Spleen: Normal Pancreas: Normal Adrenal glands: The adrenal glands are normal. Gallbladder: Decompressed Kidneys: No masses are evident. No hydronephrosis is present. No cysts are present. No renal stone s are identified. Aorta: Normal Inferior vena cava: Normal. CT PELVIS: Loops of bowel within the abdomen and pelvis are normal. Studies without oral contrast limiting b owel evaluation. Appendix: Normal as visualized. Urinary bladder: Normal. Genitourinary structures: Uterus appears normal. Right ovary is not identified. Left ovary is a heter ogenous complex area containing fat and calcium densities and heterogenous. Findings are likely relat ed to a dermoid. Osseous structures: No suspicious lytic or sclerotic lesions. IMPRESSIONS: 1. Heterogenous ill circumscribed left ovary likely a dermoid.
[2021-02-09] MEDS ORDERED: KETOROLAC 15 MG/ML 1 ML VIAL IVP STA (20:08)
[2021-02-09 20:31] VITALS: BP 118/77; PULSE 71
--- NOTE | 2021-02-09 21:19 | US ---
EXAMINATION TYPE: US transvaginal DATE OF EXAM: 02/09/2021 COMPARISON: NONE CLINICAL HISTORY: right lower abd pain. Pain F?u to ct scan TECHNIQUE: Transvaginal (TV). EXAM MEASUREMENTS: Uterus: 6.7 x 3.0 x 3.5 cm Endometrial Stripe: .3 cm Right Ovary: obscured by bowel gas Left Ovary: No ovarian tissue seen due to large complex structure 1. Uterus: Anteverted wnl 2. Endometrium: wnl 3. Right Ovary: Obscured by overlying bowel gas 4. Left Ovary: Obscured by complex area 5. Bilateral Adnexa: Complex structure visualized measuring 6.5 x 5.4 x6.0 cm. 6. Posterior cul-de-sac: wnl IMPRESSION: 1. Heterogenous area within the left adnexa corresponds to the finding on the CT examination. Finding s can be compatible with dermoid.
== END 2021-02-09 21:54 | disposition home or self-care (01) ==
LOC: EC 17:04
DX: R10.31 Right lower quadrant pain (principal); R11.2 Nausea with vomiting, unspecified; F31.9 Bipolar disorder, unspecified; F41.9 Anxiety disorder, unspecified; F90.9 Attention-deficit hyperactivity disorder, unspecified type; F12.90 Cannabis use, unspecified, uncomplicated; F17.210 Nicotine dependence, cigarettes, uncomplicated
CPT/HCPCS: 36415; 80053; 82150; 83690; 85025; 81001; 81025; 76830; 74176; 99284; 96374; 96361 ×2; J1885

== ENCOUNTER 2021-02-27 22:09 | Emergency (ER) | payer MEDICARE, OTHER ==
[2021-02-27 22:18] VITALS: TEMP 98.2
[2021-02-27] MEDS ORDERED: SODIUM CHLORIDE 0.9% 1,000 ML IV STA (22:26)
[2021-02-27 23:19] LABS: ALT 21 U/L (4-34); AST 20 U/L (14-36); African American GFR (CKD) >90 (>60 ml/min/1.73 sqM); Alkaline Phosphatase 102 U/L (38-126); Anion Gap 11 mmol/L; Blood Urea Nitrogen 10 mg/dL (7-17); Calcium 9.8 mg/dL (8.4-10.2); Carbon Dioxide 19 mmol/L (22-30); Chloride 105 mmol/L (98-107); Glucose 114 mg/dL (74-99); Magnesium 1.8 mg/dL (1.6-2.3); Non-African American GFR(CKD) >90 (>60 ml/min/1.73 sqM); Phosphorus 3.7 mg/dL (2.5-4.5); Potassium 3.9 mmol/L (3.5-5.1); Sodium 135 mmol/L (137-145); Total Bilirubin 0.1 mg/dL (0.2-1.3); Total Protein 6.6 g/dL (6.3-8.2)
[2021-02-27 23:27] LABS: Appearance,Urine Cloudy (Clear); Bacteria,Urine Many /hpf; Bilirubin,Urine Negative (Negative); Blood,Urine Negative (Negative); Color,Urine Yellow; Glucose,Urine (UA) Negative (Negative); Ketones,Urine Trace (Negative); Leukocyte Esterase,Urine Moderate (Negative); Mucus,Urine Few /hpf; Nitrite,Urine Positive (Negative); PH, Urine 5.5 (5.0-8.0); Protein,Urine Trace (Negative); RBC,Urine 2 /hpf (0-5); Squamous Epithelial Cell,Urine 24 /hpf (0-4); Urobilinogen,Urine <2.0 mg/dL (<2.0); WBC,Urine 21 /hpf (0-5)
--- NOTE | 2021-02-27 23:40 | ED ---
Seizure HPI - General Chief Complaint: Seizure Stated Complaint: Seizure Time Seen by Provider: 02/27/21 22:26 Source: patient Mode of arrival: ambulatory Limitations: no limitations - History of Present Illness Initial Comments: 20-year-old female with history of seizures presents to emergency department a chief complaint of a seizure. Patient states she lives in [facility] and while she was eating sour patch kids, she felt her vision go dark. States that she "passed out". Patient reports she was down for unknown period of time. States when the ambulance arrived, she felt at her baseline. She denies any biting of the tongue or urinating herself. States she is not taking any medications for seizures. States she has not had a seizure in quite some time. She denies any fevers, chills, cough, URI like symptoms. Denies any urinary or vaginal symptoms. No concern for . - Related Data Home Medications Medication Instructions Recorded Confirmed RX: Cyclobenzaprine [Flexeril] 10 mg PO HS@209905/17/20 02/27/21 RX: Omeprazole 20 mg PO BID@0800,199905/17/20 02/27/21 RX: Calcium Carbonate [Calcium] 600 mg PO DAILY@00 05/26/20 02/27/21 RX: Cyclobenzaprine [Flexeril] 5 mg PO TID PRN 05/26/20 02/27/21 RX: Cholecalciferol (Vitamin D3) 125 mcg PO DAILY@0800 08/21/20 02/27/21 [Vitamin D3 (5000 Iu)] Isibloom 1 tab PO DAILY@79909/27/20 02/27/21 Ibuprofen [Motrin] 800 mg PO AC-TID PRN 01/09/21 02/27/21 RX: Prazosin HCl 4 mg PO HS@199901/09/21 02/27/21 Citalopram Hydrobromide [CeleXA] 40 mg PO DAILY@79902/09/21 02/27/21 RX: busPIRone HCl [Buspar] 20 mg PO BID@0800,199902/09/21 02/27/21 RX: lamoTRIgine [LaMICtal] 50 mg PO BID@0800,199902/09/21 02/27/21 guaiFENesin [Mucinex] 600 mg PO Q12H PRN 02/09/21 02/27/21 Previous Rx's Medication Instructions Recorded RX: ARIPiprazole [Abilify] 20 mg PO DAILY@0800 30 Days tab 10/04/20 Allergies Allergy/AdvReac Type Severity Reaction Status Date / Time amphetamine [From Adderall] AdvReac Unknown Verified 02/27/21 23:06 dextroamphetamine AdvReac Unknown Verified 02/27/21 23:06 [From Adderall] Review of Systems ROS Statement: Those systems with pertinent positive or pertinent negative responses have been documented in the HPI. ROS Other: All systems not noted in ROS Statement are negative. Past Medical History Past Medical History: No Reported History Additional Past Medical History / Comment(s): psuedoseizures, History of Any Multi-Drug Resistant Organisms: None Reported Past Surgical History: No Surgical Hx Reported Past Anesthesia/Blood Transfusion Reactions: No Reported Reaction Past Psychological History: ADD/ADHD, Anxiety, Bipolar, Depression, PTSD Smoking Status: Current every day smoker Past Alcohol Use History: Rare Past Drug Use History: Marijuana General Exam Limitations: no limitations General appearance: alert, in no apparent distress, obese Head exam: Present: atraumatic, normocephalic, normal inspection Eye exam: Present: normal appearance, PERRL, EOMI Pupils: Present: normal accommodation ENT exam: Present: normal exam, normal oropharynx, mucous membranes moist Neck exam: Present: normal inspection, full ROM. Absent: tenderness Respiratory exam: Present: normal lung sounds bilaterally. Absent: respiratory distress Cardiovascular Exam: Present: regular rate, normal rhythm, normal heart sounds. Absent: systolic murmur Extremities exam: Present: normal inspection, full ROM, normal capillary refill. Absent: tenderness, pedal edema, joint swelling, calf tenderness Back exam: Present: normal inspection, full ROM. Absent: tenderness Neurological exam: Present: alert, oriented X3, CN II-XII intact, normal gait Psychiatric exam: Present: normal affect, normal mood Skin exam: Present: warm, dry, intact, normal color Course Vital Signs 02/27/21 22:12 Temperature 98.2 F Pulse Rate 96 Respiratory 18 Rate Blood Pressure 126/74 O2 Sat by Pulse 96 Oximetry Medical Decision Making - Medical Decision Making 20-year-old female with history of seizures presents to emergency department a chief complaint of a seizure. No biting of the tongue. No urinating herself. Patient is alert and oriented 3. Patient was given IV fluids. CBC shows mild leukocytosis of 13.5 K. Lactic acid within normal limits. Not . UA positive for urinary tract infection with elevated leukocyte esterase, white blood cells and positive nitrates. Will give 1 g Rocephin. We'll discharge with Keflex. Strict return parameters were thoroughly discussed with patient is a sitting agreeable. Case discussed with - Lab Data Result diagrams: 02/27/21 22:41 02/27/21 22:41 Lab Results 02/27/21 02/27/21 02/27/21 Range/Units 22:41 22:41 22:41 WBC 15.4 H (3.8-10.6) k/uL RBC 4.41 (3.80-5.40) m/uL Hgb 13.3 (11.4-16.0) gm/dL Hct 39.5 (34.0-46.0) % MCV 89.5 (80.0-100.0) fL MCH 30.0 (25.0-35.0) pg MCHC 33.6 (31.0-37.0) g/dL RDW 13.7 (11.5-15.5) % Plt Count 438 (150-450) k/uL MPV 6.5 Neutrophils % 67 % Lymphocytes % 26 % Monocytes % 4 % Eosinophils % 2 % Basophils % 0 % Neutrophils # 10.3 H (1.3-7.7) k/uL Lymphocytes # 4.0 (1.0-4.8) k/uL Monocytes # 0.5 (0-1.0) k/uL Eosinophils # 0.3 (0-0.7) k/uL Basophils # 0.1 (0-0.2) k/uL Sodium (137-145) mmol/L Potassium (3.5-5.1) mmol/L Chloride (98-107) mmol/L Carbon Dioxide (22-30) mmol/L Anion Gap mmol/L BUN (7-17) mg/dL Creatinine (0.52-1.04) mg/dL Est GFR (CKD-EPI)AfAm (>60 ml/min/1.73 sqM) Est GFR (CKD-EPI)NonAf (>60 ml/min/1.73 sqM) Glucose (74-99) mg/dL Plasma Lactic Acid Danny (0.7-2.0) mmol/L Calcium (8.4-10.2) mg/dL Phosphorus (2.5-4.5) mg/dL Magnesium (1.6-2.3) mg/dL Total Bilirubin (0.2-1.3) mg/dL AST (14-36) U/L ALT (4-34) U/L Alkaline Phosphatase (38-126) U/L Total Protein (6.3-8.2) g/dL Albumin (3.5-5.0) g/dL Urine Color Yellow Urine Appearance Cloudy H (Clear) Urine pH 5.5 (5.0-8.0) Ur Specific [place] 1.030 (1.001-1.035) Urine Protein Trace H (Negative) Urine Glucose (UA) Negative (Negative) Urine Ketones Trace H (Negative) Urine Blood Negative (Negative) Urine Nitrite Positive H (Negative) Urine Bilirubin Negative (Negative) Urine Urobilinogen <2.0 (<2.0) mg/dL Ur Leukocyte Esterase Moderate H (Negative) Urine RBC 2 (0-5) /hpf Urine WBC 21 H (0-5) /hpf Ur Squamous Epith Cells 24 H (0-4) /hpf Urine Bacteria Many H (None) /hpf Urine Mucus Few H (None) /hpf Urine HCG, Qual Not Detected (Not Detectd) 02/27/21 02/27/21 Range/Units 22:41 22:41 WBC (3.8-10.6) k/uL RBC (3.80-5.40) m/uL Hgb (11.4-16.0) gm/dL Hct (34.0-46.0) % MCV (80.0-100.0) fL MCH (25.0-35.0) pg MCHC (31.0-37.0) g/dL RDW (11.5-15.5) % Plt Count (150-450) k/uL MPV Neutrophils % % Lymphocytes % % Monocytes % % Eosinophils % % Basophils % % Neutrophils # (1.3-7.7) k/uL Lymphocytes # (1.0-4.8) k/uL Monocytes # (0-1.0) k/uL Eosinophils # (0-0.7) k/uL Basophils # (0-0.2) k/uL Sodium 135 L (137-145) mmol/L Potassium 3.9 (3.5-5.1) mmol/L Chloride 105 (98-107) mmol/L Carbon Dioxide 19 L (22-30) mmol/L Anion Gap 11 mmol/L BUN 10 (7-17) mg/dL Creatinine 0.80 (0.52-1.04) mg/dL Est GFR (CKD-EPI)AfAm >90 (>60 ml/min/1.73 sqM) Est GFR (CKD-EPI)NonAf >90 (>60 ml/min/1.73 sqM) Glucose 114 H (74-99) mg/dL Plasma Lactic Acid Danny 1.9 (0.7-2.0) mmol/L Calcium 9.8 (8.4-10.2) mg/dL Phosphorus 3.7 (2.5-4.5) mg/dL Magnesium 1.8 (1.6-2.3) mg/dL Total Bilirubin 0.1 L (0.2-1.3) mg/dL AST 20 (14-36) U/L ALT 21 (4-34) U/L Alkaline Phosphatase 102 (38-126) U/L Total Protein 6.6 (6.3-8.2) g/dL Albumin 4.0 (3.5-5.0) g/dL Urine Color Urine Appearance (Clear) Urine pH (5.0-8.0) Ur Specific [place] (1.001-1.035) Urine Protein (Negative) Urine Glucose (UA) (Negative) Urine Ketones (Negative) Urine Blood (Negative) Urine Nitrite (Negative) Urine Bilirubin (Negative) Urine Urobilinogen (<2.0) mg/dL Ur Leukocyte Esterase (Negative) Urine RBC (0-5) /hpf Urine WBC (0-5) /hpf Ur Squamous Epith Cells (0-4) /hpf Urine Bacteria (None) /hpf Urine Mucus (None) /hpf Urine HCG, Qual (Not Detectd) - EKG Data EKG Comments: Sinus rhythm Ventricular rate 97, OK 142, QRS 76, QTC 452. Disposition Clinical Impression: Urinary tract infection Disposition: HOME SELF-CARE Condition: Stable Instructions (If sedation given, give patient instructions): Urinary Tract I nfection in Women (DC) Additional Instructions: Please return to the Emergency Department if symptoms worsen or any other concerns. Is patient prescribed a controlled substance at d/c from ED?: No Referrals: Patrica Camacho MD [Primary Care Provider] - 1-2 days Time of Disposition: 00:20
[2021-02-27 23:55] LABS: Basophils # (A) 0.1 k/uL (0-0.2); Basophils % (A) 0 %; Eosinophils # (A) 0.3 k/uL (0-0.7); Eosinophils % (A) 2 %; HCT 39.5 % (34.0-46.0); HGB 13.3 gm/dL (11.4-16.0); Lymphocytes % (A) 26 %; MCHC 33.6 g/dL (31.0-37.0); MCV 89.5 fL (80.0-100.0); Mean Platelet Volume 6.5; Monocytes # (A) 0.5 k/uL (0-1.0); Monocytes % (A) 4 %; Neutrophils # (A) 10.3 k/uL (1.3-7.7); Neutrophils % (A) 67 %; Platelet Count 438 k/uL (150-450); RBC 4.41 m/uL (3.80-5.40); RDW 13.7 % (11.5-15.5); WBC 15.4 k/uL (3.8-10.6)
[2021-02-28] MEDS ORDERED: cefTRIAXone IN SWFI 1,000 MG/10 ML SYRINGE IVP STA
[2021-02-28 01:24] VITALS: BP 107/65; PULSE 95; RESP 18
== END 2021-02-28 01:32 | disposition home or self-care (01) ==
LOC: EC 22:09
DX: N39.0 Urinary tract infection, site not specified (principal); E66.9 Obesity, unspecified; F31.9 Bipolar disorder, unspecified; F41.9 Anxiety disorder, unspecified; F17.200 Nicotine dependence, unspecified, uncomplicated; F12.90 Cannabis use, unspecified, uncomplicated; Z79.1 Long term (current) use of non-steroidal anti-inflammatories (NSAID); Z79.899 Other long term (current) drug therapy; Z68.35 Body mass index [BMI] 35.0-35.9, adult
CPT/HCPCS: 36415; 80053; 81001; 81025; 83605; 83735; 84100; 85025; 87086; 93005; 96361; 96374; 99285

== ENCOUNTER 2021-02-28 09:19 | Emergency (ER) | payer MEDICARE, OTHER ==
[2021-02-28 09:29] VITALS: RESP 16; TEMP 97.4
[2021-02-28] MEDS ORDERED: SODIUM CHLORIDE 0.9% 1,000 ML IV STA (09:36)
--- NOTE | 2021-02-28 09:41 | ED ---
General Adult HPI - General Chief complaint: Seizure Stated complaint: Seizure Time Seen by Provider: 02/28/21 09:26 Source: patient Mode of arrival: ambulatory Limitations: no limitations - History of Present Illness Initial comments: Patient is a 20-year-old female with history of pseudoseizures, presenting to the emergency department via EMS with complaints of having 3-4 of these episodes prior to arrival. EMS states she was responsive to painful stimuli during these episodes. She describes it as staring off into space and starts to shake. She seems to remember these episodes. She did not have any falls, no tongue biting, no nausea or vomiting. Patient was seen in the ER yesterday for same complaint, diagnosed with the UTI, prescribed Keflex. She has not picked up this medication yet. She denies any fevers or chills, no dizziness or lightheadedness, no chest pain or shortness of breath. She denies any abdominal pain no nausea or vomiting. She has no further complaints. Her vitals are stable upon arrival. - Related Data Home Medications Medication Instructions Recorded Confirmed Cyclobenzaprine [Flexeril] 10 mg PO HS@209905/17/20 02/28/21 Omeprazole 20 mg PO BID@08,199905/17/20 02/28/21 Calcium Carbonate [Calcium] 600 mg PO DAILY@79905/26/20 02/28/21 Cyclobenzaprine [Flexeril] 5 mg PO TID PRN 05/26/20 02/28/21 Cholecalciferol (Vitamin D3) 125 mcg PO DAILY@0800 08/21/20 02/28/21 [Vitamin D3 (5000 Iu)] Isibloom 1 tab PO DAILY@79909/27/20 02/28/21 Ibuprofen [Motrin] 800 mg PO TID-W/MEALS PRN 01/09/21 02/28/21 Prazosin HCl 4 mg PO HS@199901/09/21 02/28/21 Citalopram Hydrobromide [CeleXA] 40 mg PO DAILY@79902/09/21 02/28/21 busPIRone HCl [Buspar] 20 mg PO BID@0800,199902/09/21 02/28/21 guaiFENesin [Mucinex] 600 mg PO Q12H PRN 02/09/21 02/28/21 lamoTRIgine [LaMICtal] 50 mg PO BID@0800,199902/09/21 02/28/21 Sulfamethox-Tmp 800-160Mg [Bactrim 1 tab PO Q12HR 02/28/21 02/28/21 Ds] Previous Rx's Medication Instructions Recorded ARIPiprazole [Abilify] 20 mg PO DAILY@0800 30 Days tab 10/04/20 Allergies Allergy/AdvReac Type Severity Reaction Status Date / Time amphetamine [From Adderall] AdvReac Unknown Verified 02/28/21 10:15 dextroamphetamine AdvReac Unknown Verified 02/28/21 10:15 [From Adderall] Review of Systems ROS Statement: Those systems with pertinent positive or pertinent negative responses have been documented in the HPI. ROS Other: All systems not noted in ROS Statement are negative. Past Medical History Past Medical History: No Reported History Additional Past Medical History / Comment(s): psuedoseizures, History of Any Multi-Drug Resistant Organisms: None Reported Past Surgical History: No Surgical Hx Reported Past Anesthesia/Blood Transfusion Reactions: No Reported Reaction Past Psychological History: ADD/ADHD, Anxiety, Bipolar, Depression, PTSD Smoking Status: Current every day smoker Past Alcohol Use History: Rare Past Drug Use History: Marijuana General Exam - General Exam Comments Initial Comments: GENERAL: Patient is well-developed and well-nourished. Patient is nontoxic and in no acute distress. HEAD: Atraumatic, normocephalic. EYES: Pupils equal round and reactive to light, extraocular movements intact, sclera anicteric, conjunctiva are normal. Eyelids were unremarkable. ENT: TMs normal, nares patent, oropharynx clear without exudates. Moist mucous membranes. NECK: Normal range of motion, supple without lymphadenopathy or JVD. LUNGS: Unlabored respirations. Breath sounds clear to auscultation bilaterally and equal. No wheezes rales or rhonchi. HEART: Regular rate and rhythm without murmurs, rubs or gallops. ABDOMEN: Soft, nontender, normoactive bowel sounds. No guarding, no rebound. No masses appreciated. : Deferred MUSCULOSKELETAL: Normal extremities with adequate strength and normal range of motion, no pitting or edema. No clubbing or cyanosis. NEUROLOGICAL: Patient is alert and oriented x 3. Motor and sensory are also intact. Cranial nerves II through XII grossly intact. Symmetrical smile. Normal speech, normal gait. PSYCH: Normal mood, normal affect. SKIN: Warm, Dry, normal turgor, no rashes or lesions noted. Limitations: no limitations Course Vital Signs 02/28/21 02/28/21 09:24 10:03 Temperature 97.4 F L Pulse Rate 103 H 89 Respiratory 16 16 Rate Blood Pressure 132/83 123/89 O2 Sat by Pulse 99 99 Oximetry EKG Findings - EKG Comments: EKG Findings:: Sinus tach otherwise normal ECG, no signs of acute ST segment elevation. Ventricular rate 102, interval 146, QT 356. Similar to previous on 02/27/2021. Medical Decision Making - Medical Decision Making Patient is a 20-year-old female with history of pseudoseizures, presenting via EMS with a few seizures or episodes this morning. She describes it as staring off into space and then she starts shaking. She seems to remember everything about these episodes, she is not on medication for seizures. She's been evaluated many times in our facility for the seizures, no acute findings. Patient was evaluated yesterday for same complaint, diagnosed the UTI, put on Keflex. Labs today were rechecked, are within normal limits, white count has improved and is now normal. Patient has been resting currently, no seizure activity here. I discussed with her that she is stable for discharge. I did urge her to go chart picker her antibiotic for her UTI. She states she will go pick it up this morning. I recommended following up with her PCP. She is agreeable as planned care and is stable for discharge. Case discussed with Dr. Boyle. - Lab Data Result diagrams: 02/28/21 09:52 02/28/21 09:52 Lab Results 02/28/21 02/28/21 Range/Units 09:52 09:52 WBC 9.6 (3.8-10.6) k/uL RBC 4.47 (3.80-5.40) m/uL Hgb 13.5 (11.4-16.0) gm/dL Hct 39.7 (34.0-46.0) % MCV 89.0 (80.0-100.0) fL MCH 30.2 (25.0-35.0) pg MCHC 34.0 (31.0-37.0) g/dL RDW 13.3 (11.5-15.5) % Plt Count 390 (150-450) k/uL MPV 6.4 Neutrophils % 63 % Lymphocytes % 28 % Monocytes % 3 % Eosinophils % 4 % Basophils % 1 % Neutrophils # 6.1 (1.3-7.7) k/uL Lymphocytes # 2.7 (1.0-4.8) k/uL Monocytes # 0.3 (0-1.0) k/uL Eosinophils # 0.4 (0-0.7) k/uL Basophils # 0.1 (0-0.2) k/uL Sodium 136 L (137-145) mmol/L Potassium 4.1 (3.5-5.1) mmol/L Chloride 108 H (98-107) mmol/L Carbon Dioxide 21 L (22-30) mmol/L Anion Gap 7 mmol/L BUN 7 (7-17) mg/dL Creatinine 0.71 (0.52-1.04) mg/dL Est GFR (CKD-EPI)AfAm >90 (>60 ml/min/1.73 sqM) Est GFR (CKD-EPI)NonAf >90 (>60 ml/min/1.73 sqM) Glucose 105 H (74-99) mg/dL Calcium 9.5 (8.4-10.2) mg/dL Total Bilirubin 0.2 (0.2-1.3) mg/dL AST 21 (14-36) U/L ALT 19 (4-34) U/L Alkaline Phosphatase 98 (38-126) U/L Total Protein 6.2 L (6.3-8.2) g/dL Albumin 3.6 (3.5-5.0) g/dL Disposition Clinical Impression: Pseudoseizure Disposition: HOME SELF-CARE Condition: Stable Instructions (If sedation given, give patient instructions): Normal Exam (ED) Additional Instructions: Please return to the Emergency Department if symptoms worsen or any other concerns. Please chart picker your prescription for your antibiotics, start those today as prescribed. Follow-up with your family doctor. Is patient prescribed a controlled substance at d/c from ED?: No Referrals: Patrica Camacho MD [Primary Care Provider] - 1-2 days Time of Disposition: 10:51
[2021-02-28 10:01] LABS: Basophils # (A) 0.1 k/uL (0-0.2); Basophils % (A) 1 %; Eosinophils # (A) 0.4 k/uL (0-0.7); Eosinophils % (A) 4 %; HCT 39.7 % (34.0-46.0); HGB 13.5 gm/dL (11.4-16.0); Lymphocytes # (A) 2.7 k/uL (1.0-4.8); Lymphocytes % (A) 28 %; MCH 30.2 pg (25.0-35.0); Mean Platelet Volume 6.4; Monocytes # (A) 0.3 k/uL (0-1.0); Monocytes % (A) 3 %; Neutrophils # (A) 6.1 k/uL (1.3-7.7); Neutrophils % (A) 63 %; Platelet Count 390 k/uL (150-450); RBC 4.47 m/uL (3.80-5.40); RDW 13.3 % (11.5-15.5); WBC 9.6 k/uL (3.8-10.6)
[2021-02-28 10:04] VITALS: PULSE 89
[2021-02-28 10:20] LABS: ALT 19 U/L (4-34); AST 21 U/L (14-36); African American GFR (CKD) >90 (>60 ml/min/1.73 sqM); Albumin 3.6 g/dL (3.5-5.0); Alkaline Phosphatase 98 U/L (38-126); Anion Gap 7 mmol/L; Blood Urea Nitrogen 7 mg/dL (7-17); Calcium 9.5 mg/dL (8.4-10.2); Carbon Dioxide 21 mmol/L (22-30); Chloride 108 mmol/L (98-107); Glucose 105 mg/dL (74-99); Non-African American GFR(CKD) >90 (>60 ml/min/1.73 sqM); Potassium 4.1 mmol/L (3.5-5.1); Sodium 136 mmol/L (137-145); Total Bilirubin 0.2 mg/dL (0.2-1.3); Total Protein 6.2 g/dL (6.3-8.2)
[2021-02-28 11:02] VITALS: BP 123/79
== END 2021-02-28 11:11 | disposition home or self-care (01) ==
LOC: EC 09:19
DX: R56.9 Unspecified convulsions (principal); F31.9 Bipolar disorder, unspecified; F41.9 Anxiety disorder, unspecified; F90.9 Attention-deficit hyperactivity disorder, unspecified type; F17.200 Nicotine dependence, unspecified, uncomplicated; F12.90 Cannabis use, unspecified, uncomplicated; Z79.1 Long term (current) use of non-steroidal anti-inflammatories (NSAID); Z79.899 Other long term (current) drug therapy
CPT/HCPCS: 36415; 80053; 85025; 93005; 96360; 99284

== ENCOUNTER 2021-03-04 21:10 | Emergency (ER) | payer MEDICARE, OTHER ==
[2021-03-04 21:18] VITALS: BP 132/84; PULSE 107; RESP 20; TEMP 98.4
--- NOTE | 2021-03-04 21:46 | ED ---
Psych HPI - General Chief Complaint: Psychiatric Symptoms Stated Complaint: Mental health Time Seen by Provider: 03/04/21 21:27 Source: patient Mode of arrival: ambulatory - Related Data Home Medications Medication Instructions Recorded Confirmed Cyclobenzaprine [Flexeril] 10 mg PO HS@209905/17/20 02/28/21 Omeprazole 20 mg PO BID@0800,199905/17/20 02/28/21 Calcium Carbonate [Calcium] 600 mg PO DAILY@0800 05/26/20 02/28/21 Cyclobenzaprine [Flexeril] 5 mg PO TID PRN 05/26/20 02/28/21 Cholecalciferol (Vitamin D3) 125 mcg PO DAILY@0800 08/21/20 02/28/21 [Vitamin D3 (5000 Iu)] Isibloom 1 tab PO DAILY@0800 09/27/20 02/28/21 Ibuprofen [Motrin] 800 mg PO TID-W/MEALS PRN 01/09/21 02/28/21 Prazosin HCl 4 mg PO HS@199901/09/21 02/28/21 Citalopram Hydrobromide [CeleXA] 40 mg PO DAILY@0800 02/09/21 02/28/21 busPIRone HCl [Buspar] 20 mg PO BID@0800,199902/09/21 02/28/21 guaiFENesin [Mucinex] 600 mg PO Q12H PRN 02/09/21 02/28/21 lamoTRIgine [LaMICtal] 50 mg PO BID@0800,199902/09/21 02/28/21 Sulfamethox-Tmp 800-160Mg [Bactrim 1 tab PO Q12HR 02/28/21 02/28/21 Ds] Previous Rx's Medication Instructions Recorded ARIPiprazole [Abilify] 20 mg PO DAILY@0800 30 Days tab 10/04/20 Allergies Allergy/AdvReac Type Severity Reaction Status Date / Time amphetamine [From Adderall] AdvReac Unknown Verified 03/04/21 21:18 dextroamphetamine AdvReac Unknown Verified 03/04/21 21:18 [From Adderall] Review of Systems ROS Statement: Those systems with pertinent positive or pertinent negative responses have been documented in the HPI. ROS Other: All systems not noted in ROS Statement are negative. Past Medical History Past Medical History: No Reported History Additional Past Medical History / Comment(s): psuedoseizures, History of Any Multi-Drug Resistant Organisms: None Reported Past Surgical History: No Surgical Hx Reported Past Anesthesia/Blood Transfusion Reactions: No Reported Reaction Past Psychological History: ADD/ADHD, Anxiety, Bipolar, Depression, PTSD Smoking Status: Current every day smoker Past Alcohol Use History: Rare Past Drug Use History: Marijuana General Exam Limitations: no limitations Course Vital Signs 03/04/21 21:14 Temperature 98.4 F Pulse Rate 107 H Respiratory 20 Rate Blood Pressure 132/84 O2 Sat by Pulse 96 Oximetry Disposition Clinical Impression: Developmental disability, Posttraumatic stress disorder, Major depressive disorder, recurrent episode, severe Disposition: HOME SELF-CARE Condition: Fair Instructions (If sedation given, give patient instructions): Mood Disorders (ED) Is patient prescribed a controlled substance at d/c from ED?: No Referrals: Patrica Camacho MD [Primary Care Provider] - 1-2 days
== END 2021-03-04 22:59 | disposition home or self-care (01) ==
LOC: EC 21:10
DX: F33.2 Major depressive disorder, recurrent severe without psychotic features (principal); F89 Unspecified disorder of psychological development; F43.10 Post-traumatic stress disorder, unspecified; F90.9 Attention-deficit hyperactivity disorder, unspecified type; F41.9 Anxiety disorder, unspecified; F17.200 Nicotine dependence, unspecified, uncomplicated; F12.90 Cannabis use, unspecified, uncomplicated
CPT/HCPCS: 82075; 99284

== ENCOUNTER 2021-04-19 20:03 | Emergency (ER) | payer MEDICARE, OTHER ==
[2021-04-19 20:11] VITALS: BP 124/81; PULSE 97; RESP 18; TEMP 98.1
--- NOTE | 2021-04-19 20:33 | ED ---
Wound/Laceration HPI - General Chief Complaint: Wound/Laceration Stated Complaint: LT foot injury Time Seen by Provider: 04/19/21 20:11 Source: patient, EMS Mode of arrival: EMS Limitations: no limitations - History of Present Illness Initial Comments: 20-year-old female presents to emergency with chief complaint of left foot injury. Patient reports incident occurred about one hour prior to arrival. Patient reports she was walking with her tennis shoes on and stepped on a metal nail. Patient reports he went through the plantar aspect of her foot although she is unaware how deep it actually went. She reports it is painful where the nail went through but she denies any paresthesias and is stable to wiggle her toes without any difficulties. States her tetanus is up-to-date. Patient reports she is on multiple psychiatric medications. - Related Data Home Medications Medication Instructions Recorded Confirmed Cyclobenzaprine [Flexeril] 10 mg PO HS@209905/17/20 02/28/21 Omeprazole 20 mg PO BID@08,199905/17/20 02/28/21 Calcium Carbonate [Calcium] 600 mg PO DAILY@0800 05/26/20 02/28/21 Cyclobenzaprine [Flexeril] 5 mg PO TID PRN 05/26/20 02/28/21 Cholecalciferol (Vitamin D3) 125 mcg PO DAILY@0800 08/21/20 02/28/21 [Vitamin D3 (5000 Iu)] Isibloom 1 tab PO DAILY@0800 09/27/20 02/28/21 Ibuprofen [Motrin] 800 mg PO TID-W/MEALS PRN 01/09/21 02/28/21 Prazosin HCl 4 mg PO HS@199901/09/21 02/28/21 Citalopram Hydrobromide [CeleXA] 40 mg PO DAILY@0800 02/09/21 02/28/21 busPIRone HCl [Buspar] 20 mg PO BID@0800,199902/09/21 02/28/21 guaiFENesin [Mucinex] 600 mg PO Q12H PRN 02/09/21 02/28/21 lamoTRIgine [LaMICtal] 50 mg PO BID@0800,199902/09/21 02/28/21 Sulfamethox-Tmp 800-160Mg [Bactrim 1 tab PO Q12HR 02/28/21 02/28/21 Ds] Previous Rx's Medication Instructions Recorded ARIPiprazole [Abilify] 20 mg PO DAILY@0800 30 Days tab 10/04/20 Ciprofloxacin HCl [Cipro] 500 mg PO Q12HR #14 tablet 04/19/21 Allergies Allergy/AdvReac Type Severity Reaction Status Date / Time amphetamine [From Adderall] AdvReac Unknown Verified 03/04/21 21:18 dextroamphetamine AdvReac Unknown Verified 03/04/21 21:18 [From Adderall] Review of Systems ROS Statement: Those systems with pertinent positive or pertinent negative responses have been documented in the HPI. ROS Other: All systems not noted in ROS Statement are negative. Past Medical History Past Medical History: No Reported History Additional Past Medical History / Comment(s): psuedoseizures, History of Any Multi-Drug Resistant Organisms: None Reported Past Surgical History: No Surgical Hx Reported Past Anesthesia/Blood Transfusion Reactions: No Reported Reaction Past Psychological History: ADD/ADHD, Anxiety, Bipolar, Depression, PTSD Smoking Status: Current every day smoker Past Alcohol Use History: Rare Past Drug Use History: Marijuana General Exam Limitations: no limitations General appearance: alert, in no apparent distress Head exam: Present: atraumatic, normocephalic, normal inspection Eye exam: Present: normal appearance, PERRL, EOMI Pupils: Present: normal accommodation ENT exam: Present: normal exam, normal oropharynx, mucous membranes moist Neck exam: Present: normal inspection, full ROM. Absent: tenderness Respiratory exam: Present: normal lung sounds bilaterally. Absent: respiratory distress, rhonchi, stridor Cardiovascular Exam: Present: regular rate, normal rhythm, normal heart sounds. Absent: systolic murmur Extremities exam: Present: full ROM (Moving toes without difficulties. Sensation intact in the left foot), tenderness (Minimal tenderness at the puncture site), normal capillary refill, other (Palpable DP and PT bilaterally). Absent: normal inspection (Small puncture wound on the plantar aspect of the left foot not bleeding at this time.), pedal edema, joint swelling, calf tenderness Back exam: Present: normal inspection, full ROM Neurological exam: Present: alert, oriented X3 Psychiatric exam: Present: normal affect Skin exam: Present: warm, dry, intact, normal color Course Vital Signs 09/23/21 20:05 Temperature 98.1 F Pulse Rate 97 Respiratory 18 Rate Blood Pressure 124/81 O2 Sat by Pulse 97 Oximetry Medical Decision Making - Medical Decision Making 20-year-old female presents to emergency with chief complaint of left foot injury. On physical examination, the puncture wound is over the midfoot. X-ray reveals a punctate opacity over the first toe. This does not correlate clinically. I suspect this is an artifact, patient did have dirty feet. EKG showed a QT of 430. Considering that the patient is on multiple psychiatric medications I do have concern for QT prolongation considering she will need to be started on a fluoroquinolone. I consulted with inpatient pharmacy who recommended the patient may be admitted for IV antibiotics if she has QT prolongation. I discussed the case with Dr. Ji who believes a 7 day course of fluoroquinolones will be appropriate for the patient. She will be started a seven-day course of ciprofloxacin. Return parameters discussed the pa claudiant was understanding and agreeable. Disposition Clinical Impression: Nail entering through skin Disposition: HOME SELF-CARE Condition: Stable Instructions (If sedation given, give patient instructions): Ciprofloxacin (By mouth) Additional Instructions: Take prescribed medication as directed. Return to emergency department if symptoms worsen. Prescriptions: Ciprofloxacin HCl [Cipro] 500 mg PO Q12HR #14 tablet Is patient prescribed a controlled substance at d/c from ED?: No Referrals: Patrica Camacho MD [Primary Care Provider] - 1-2 days Time of Disposition: 21:19
--- NOTE | 2021-04-19 21:25 | XR ---
EXAMINATION TYPE: XR foot complete LT DATE OF EXAM: 04/19/2021 CLINICAL HISTORY: Stepped on nail. TECHNIQUE: Frontal, lateral, and oblique images of the left foot are obtained. COMPARISON: None FINDINGS: There is no acute fracture/dislocation evident in the left foot. The joint spaces in the left foot appear within normal limits. The overlying soft tissue appears unremarkable. Punctate radiopacity over the soft tissues of the medial first toe. IMPRESSION: There is no acute fracture or dislocation in the left foot. Punctate radiopacity over th e soft tissues of the medial first toe. Correlate for foreign body.
== END 2021-04-19 21:40 | disposition home or self-care (01) ==
LOC: EC 20:03
DX: S91.332A Puncture wound without foreign body, left foot, initial encounter (principal); F90.9 Attention-deficit hyperactivity disorder, unspecified type; F41.9 Anxiety disorder, unspecified; F31.9 Bipolar disorder, unspecified; F43.12 Post-traumatic stress disorder, chronic; F17.200 Nicotine dependence, unspecified, uncomplicated; F12.90 Cannabis use, unspecified, uncomplicated; W45.0XXA Nail entering through skin, initial encounter
CPT/HCPCS: 93005; 99284

== ENCOUNTER 2021-04-25 08:51 | Emergency (ER) | payer MEDICARE, OTHER ==
[2021-04-25 08:59] VITALS: BP 104/70; PULSE 95; RESP 18; TEMP 98.3
--- NOTE | 2021-04-25 09:51 | ED ---
Anxiety HPI - General Chief Complaint: Anxiety Stated Complaint: Possible Seizure Time Seen by Provider: 04/25/21 09:09 Source: patient, EMS, RN notes reviewed Mode of arrival: EMS Limitations: no limitations - History of Present Illness Initial Comments: 20-year-old female presents emergency dept via EMS from school after shaking episode. Patient's guardian states this is a recurrent issue patient has a history of a severe anxiety, pseudoseizures. Patient is asymptomatic currently denies chest pain shortness breath headache dizziness no nausea vomiting has no shaking currently. - Related Data Home Medications: Home Medications Medication Instructions Recorded Confirmed Cyclobenzaprine [Flexeril] 10 mg PO HS@209905/17/20 02/28/21 Omeprazole 20 mg PO BID@0800,199905/17/20 02/28/21 Calcium Carbonate [Calcium] 600 mg PO DAILY@0800 05/26/20 02/28/21 Cyclobenzaprine [Flexeril] 5 mg PO TID PRN 05/26/20 02/28/21 Cholecalciferol (Vitamin D3) 125 mcg PO DAILY@0800 08/21/20 02/28/21 [Vitamin D3 (5000 Iu)] Isibloom 1 tab PO DAILY@0809/27/20 02/28/21 Ibuprofen [Motrin] 800 mg PO TID-W/MEALS PRN 01/09/21 02/28/21 Prazosin HCl 4 mg PO HS@199901/09/21 02/28/21 Citalopram Hydrobromide [CeleXA] 40 mg PO DAILY@0800 02/09/21 02/28/21 busPIRone HCl [Buspar] 20 mg PO BID@08,199902/09/21 02/28/21 guaiFENesin [Mucinex] 600 mg PO Q12H PRN 02/09/21 02/28/21 lamoTRIgine [LaMICtal] 50 mg PO BID@0800,199902/09/21 02/28/21 Sulfamethox-Tmp 800-160Mg [Bactrim 1 tab PO Q12HR 02/28/21 02/28/21 Ds] Previous Rx's Medication Instructions Recorded ARIPiprazole [Abilify] 20 mg PO DAILY@0800 30 Days tab 10/04/20 Ciprofloxacin HCl [Cipro] 500 mg PO Q12HR #14 tablet 04/19/21 Allergies/Adverse Reactions: Allergies Allergy/AdvReac Type Severity Reaction Status Date / Time amphetamine [From Adderall] AdvReac Unknown Verified 04/25/21 08:55 dextroamphetamine AdvReac Unknown Verified 04/25/21 08:55 [From Adderall] Review of Systems ROS Statement: Those systems with pertinent positive or pertinent negative responses have been documented in the HPI. ROS Other: All systems not noted in ROS Statement are negative. Past Medical History Past Medical History: No Reported History Additional Past Medical History / Comment(s): psuedoseizures, History of Any Multi-Drug Resistant Organisms: None Reported Past Surgical History: No Surgical Hx Reported Past Anesthesia/Blood Transfusion Reactions: No Reported Reaction Past Psychological History: ADD/ADHD, Anxiety, Bipolar, Depression, PTSD Smoking Status: Current every day smoker Past Alcohol Use History: None Reported Past Drug Use History: None Reported, Marijuana General Exam Limitations: no limitations General appearance: alert, in no apparent distress Head exam: Present: atraumatic, normocephalic, normal inspection Eye exam: Present: normal appearance, PERRL, EOMI. Absent: scleral icterus, conjunctival injection, periorbital swelling ENT exam: Present: normal exam, mucous membranes moist Neck exam: Present: full ROM Respiratory exam: Present: normal lung sounds bilaterally. Absent: respiratory distress, wheezes, rales, rhonchi, stridor Cardiovascular Exam: Present: regular rate, normal rhythm, normal heart sounds. Absent: systolic murmur, diastolic murmur, rubs, gallop, clicks GI/Abdominal exam: Present: soft, normal bowel sounds. Absent: distended, tenderness, guarding, rebound, rigid Neurological exam: Present: alert Skin exam: Present: warm, dry, intact, normal color. Absent: rash Course Vital Signs 04/25/21 08:55 Temperature 98.3 F Pulse Rate 95 Respiratory 18 Rate Blood Pressure 104/70 O2 Sat by Pulse 95 Oximetry Medical Decision Making - Medical Decision Making Patient acute anxiety, panic attack is asymptomatic we discharged in stable condition. Disposition Clinical Impression: Acute anxiety Disposition: HOME SELF-CARE Condition: Stable Instructions (If sedation given, give patient instructions): Generalized Anxiety Disorder (ED) Additional Instructions: Please return to the Emergency Department if symptoms worsen or any other concerns. Is patient prescribed a controlled substance at d/c from ED?: No Referrals: Patrica Camacho MD [Primary Care Provider] - 1-2 days Time of Disposition: 09:51
== END 2021-04-25 10:05 | disposition home or self-care (01) ==
LOC: EC 08:51
DX: F41.9 Anxiety disorder, unspecified (principal); F90.9 Attention-deficit hyperactivity disorder, unspecified type; F31.9 Bipolar disorder, unspecified; F43.10 Post-traumatic stress disorder, unspecified; F17.200 Nicotine dependence, unspecified, uncomplicated
CPT/HCPCS: 99283

== ENCOUNTER 2021-05-05 19:17 | Emergency (ER) | payer MEDICARE, OTHER ==
[2021-05-05 19:42] VITALS: BP 120/81; PULSE 86; RESP 18; TEMP 98.8
--- NOTE | 2021-05-05 19:53 | ED ---
General Adult HPI - General Chief complaint: Seizure Stated complaint: poss seizure Time Seen by Provider: 05/05/21 19:32 Source: patient Mode of arrival: EMS Limitations: no limitations - History of Present Illness Initial comments: 20-year-old female patient presents to the emergency department today for evaluation of possible seizure. Friend is present and states she took a hit of her nicotine mod twice. States she has never used one before. States this triggered a seizure. States they were able to lower her to the ground, no falls, no injuries. States she had head shaking for about 4 minutes. Patient was brought in by EMS. Patient states she is feeling tired. She denies chance of . Denies any recent illnesses or head injury. Has been taking her medications as directed. She is currently staying at [facility]. - Related Data Home Medications Medication Instructions Recorded Confirmed Cyclobenzaprine [Flexeril] 10 mg PO HS@209905/17/20 02/28/21 Omeprazole 20 mg PO BID@08,199905/17/20 02/28/21 Calcium Carbonate [Calcium] 600 mg PO DAILY@0800 05/26/20 02/28/21 Cyclobenzaprine [Flexeril] 5 mg PO TID PRN 05/26/20 02/28/21 Cholecalciferol (Vitamin D3) 125 mcg PO DAILY@0800 08/21/20 02/28/21 [Vitamin D3 (5000 Iu)] Isibloom 1 tab PO DAILY@0800 09/27/20 02/28/21 Ibuprofen [Motrin] 800 mg PO TID-W/MEALS PRN 01/09/21 02/28/21 Prazosin HCl 4 mg PO HS@199901/09/21 02/28/21 Citalopram Hydrobromide [CeleXA] 40 mg PO DAILY@0800 02/09/21 02/28/21 busPIRone HCl [Buspar] 20 mg PO BID@08,199902/09/21 02/28/21 guaiFENesin [Mucinex] 600 mg PO Q12H PRN 02/09/21 02/28/21 lamoTRIgine [LaMICtal] 50 mg PO BID@0800,199902/09/21 02/28/21 Sulfamethox-Tmp 800-160Mg [Bactrim 1 tab PO Q12HR 02/28/21 02/28/21 Ds] Previous Rx's Medication Instructions Recorded ARIPiprazole [Abilify] 20 mg PO DAILY@0800 30 Days tab 10/04/20 Ciprofloxacin HCl [Cipro] 500 mg PO Q12HR #14 tablet 04/19/21 Allergies Allergy/AdvReac Type Severity Reaction Status Date / Time amphetamine [From Adderall] AdvReac Unknown Verified 04/25/21 08:55 dextroamphetamine AdvReac Unknown Verified 04/25/21 08:55 [From Adderall] Review of Systems ROS Statement: Those systems with pertinent positive or pertinent negative responses have been documented in the HPI. ROS Other: All systems not noted in ROS Statement are negative. Past Medical History Past Medical History: No Reported History Additional Past Medical History / Comment(s): psuedoseizures, History of Any Multi-Drug Resistant Organisms: None Reported Past Surgical History: No Surgical Hx Reported Past Anesthesia/Blood Transfusion Reactions: No Reported Reaction Past Psychological History: ADD/ADHD, Anxiety, Bipolar, Depression, PTSD Smoking Status: Current every day smoker Past Alcohol Use History: None Reported Past Drug Use History: None Reported, Marijuana General Exam Limitations: no limitations General appearance: alert, in no apparent distress, other (This is a well- developed, well-nourished adult female patient in no acute distress. Vital signs upon presentation are temperature 98.8F, pulse 86, respirations 18, blood pressure 120/81, pulse ox 99% on room air.) Eye exam: Present: normal appearance, PERRL, EOMI. Absent: scleral icterus, conjunctival injection, nystagmus, periorbital swelling ENT exam: Present: normal exam, normal oropharynx, mucous membranes moist Respiratory exam: Present: normal lung sounds bilaterally. Absent: respiratory distress, wheezes, rales, rhonchi, stridor Cardiovascular Exam: Present: regular rate, normal rhythm, normal heart sounds. Absent: systolic murmur, diastolic murmur, rubs, gallop, clicks GI/Abdominal exam: Present: soft, normal bowel sounds. Absent: distended, tenderness, guarding, rebound, rigid Neurological exam: Present: alert, oriented X3, CN II-XII intact Psychiatric exam: Present: normal affect, normal mood Skin exam: Present: warm, dry, intact, normal color. Absent: rash Course Vital Signs 05/05/21 19:37 Temperature 98.8 F Pulse Rate 86 Respiratory 18 Rate Blood Pressure 120/81 O2 Sat by Pulse 99 Oximetry Medical Decision Making - Medical Decision Making 20-year-old female patient past medical history significant for multiple mental health conditions, pseudoseizures presents to the emergency department today for evaluation after possibly having a seizure. During my physical examination is to read patient did start to have another "seizure". Patient had rhythmic head movement and straightening of her left arm. Patient was brought out of the seizure with verbal and slight painful stimulation. She immediately was able to answer my questions. It is felt these episodes are triggered by anxiety. She'll be discharged to follow-up with the primary care physician and her neurologist for recheck as soon as possible. Return parameters discussed in detail. She verbalizes understanding and agrees with this plan. Case discussed with my attending Dr. Ji. Disposition Clinical Impression: Pseudoseizures Disposition: HOME SELF-CARE Condition: Good Instructions (If sedation given, give patient instructions): Nonepileptic Seizures (ED) Additional Instructions: Follow-up with your neurologist and primary care physician for recheck as soon as possible. Get rest. Increase fluids. Avoid using the nicotine mod in the future. Return for any new, worsening, or concerning symptoms. Is patient prescribed a controlled substance at d/c from ED?: No Referrals: Patrica Camacho MD [Primary Care Provider] - 1-2 days Time of Disposition: 19:53
== END 2021-05-05 20:12 | disposition home or self-care (01) ==
LOC: EC 19:17
DX: R56.9 Unspecified convulsions (principal); F31.9 Bipolar disorder, unspecified; F41.9 Anxiety disorder, unspecified; F17.200 Nicotine dependence, unspecified, uncomplicated; Z79.1 Long term (current) use of non-steroidal anti-inflammatories (NSAID); Z79.899 Other long term (current) drug therapy
CPT/HCPCS: 99284

== ENCOUNTER 2021-05-07 03:11 | Emergency (ER) | payer MEDICARE, OTHER ==
[2021-05-07 03:22] VITALS: RESP 18
--- NOTE | 2021-05-07 03:30 | ED ---
Seizure HPI - General Chief Complaint: Seizure Stated Complaint: Poss seizure Time Seen by Provider: 05/07/21 03:13 Source: patient, RN notes reviewed, old records reviewed Mode of arrival: wheelchair Limitations: no limitations - History of Present Illness Initial Comments: This is a 20-year-old female to the emergency room today. Patient presents with her friend for seizure, seizure-like the waiting room. Patient's pharmacist in the hospital and discharged earlier propping patient come back and be evaluated. Recurrent seizure with history of pseudoseizures. The time patient arrived to her hospital bed the seizure has stopped and she is awake and alert MD Complaint: seizure, possible seizure -: minutes(s) Description of Episode: loss of consciousness, tonic-clonic movement -: second(s) Witnessed: yes - by bystander, yes - by EMS Trauma: No Seizure History: known seizure disorder Place: home Possible Precipitating Event: none Associated Symptoms: denies other symptoms Treatments Prior to Arrival: none - Related Data Home Medications Medication Instructions Recorded Confirmed Cyclobenzaprine [Flexeril] 10 mg PO HS@209905/17/20 02/28/21 Omeprazole 20 mg PO BID@08,199905/17/20 02/28/21 Calcium Carbonate [Calcium] 600 mg PO DAILY@79905/26/20 02/28/21 Cyclobenzaprine [Flexeril] 5 mg PO TID PRN 05/26/20 02/28/21 Cholecalciferol (Vitamin D3) 125 mcg PO DAILY@0800 08/21/20 02/28/21 [Vitamin D3 (5000 Iu)] Isibloom 1 tab PO DAILY@79909/27/20 02/28/21 Ibuprofen [Motrin] 800 mg PO TID-W/MEALS PRN 01/09/21 02/28/21 Prazosin HCl 4 mg PO HS@199901/09/21 02/28/21 Citalopram Hydrobromide [CeleXA] 40 mg PO DAILY@79902/09/21 02/28/21 busPIRone HCl [Buspar] 20 mg PO BID@799,199902/09/21 02/28/21 guaiFENesin [Mucinex] 600 mg PO Q12H PRN 02/09/21 02/28/21 lamoTRIgine [LaMICtal] 50 mg PO BID@799,199902/09/21 02/28/21 Sulfamethox-Tmp 800-160Mg [Bactrim 1 tab PO Q12HR 02/28/21 02/28/21 Ds] Previous Rx's Medication Instructions Recorded ARIPiprazole [Abilify] 20 mg PO DAILY@0800 30 Days tab 10/04/20 Ciprofloxacin HCl [Cipro] 500 mg PO Q12HR #14 tablet 04/19/21 Allergies Allergy/AdvReac Type Severity Reaction Status Date / Time amphetamine [From Adderall] AdvReac Unknown Verified 05/07/21 03:22 dextroamphetamine AdvReac Unknown Verified 05/07/21 03:22 [From Adderall] Review of Systems ROS Statement: Those systems with pertinent positive or pertinent negative responses have been documented in the HPI. ROS Other: All systems not noted in ROS Statement are negative. Past Medical History Past Medical History: No Reported History Additional Past Medical History / Comment(s): psuedoseizures, History of Any Multi-Drug Resistant Organisms: None Reported Past Surgical History: No Surgical Hx Reported Past Anesthesia/Blood Transfusion Reactions: No Reported Reaction Past Psychological History: ADD/ADHD, Anxiety, Bipolar, Depression, PTSD Smoking Status: Current every day smoker Past Alcohol Use History: None Reported Past Drug Use History: None Reported, Marijuana General Exam General appearance: alert, in no apparent distress Head exam: Present: atraumatic, normocephalic, normal inspection Eye exam: Present: normal appearance, PERRL, EOMI. Absent: scleral icterus, conjunctival injection, periorbital swelling ENT exam: Present: normal exam, mucous membranes moist Neck exam: Present: normal inspection. Absent: tenderness, meningismus, lymphadenopathy Respiratory exam: Present: normal lung sounds bilaterally. Absent: respiratory distress, wheezes, rales, rhonchi, stridor Cardiovascular Exam: Present: regular rate, normal rhythm, normal heart sounds. Absent: systolic murmur, diastolic murmur, rubs, gallop, clicks GI/Abdominal exam: Present: soft, normal bowel sounds. Absent: distended, tenderness, guarding, rebound, rigid Extremities exam: Present: normal inspection, full ROM, normal capillary refill. Absent: tenderness, pedal edema, joint swelling, calf tenderness Back exam: Present: normal inspection Neurological exam: Present: alert, oriented X3, CN II-XII intact Psychiatric exam: Present: normal affect, normal mood Skin exam: Present: warm, dry, intact, normal color. Absent: rash Course Vital Signs 05/07/21 05/07/21 03:18 04:23 Temperature 98 F Pulse Rate 99 92 Respiratory 18 18 Rate Blood Pressure 132/82 126/76 O2 Sat by Pulse 97 98 Oximetry - Reevaluation(s) Reevaluation #1: 05/07/21 04:31 Medical record is reviewed Reevaluation #2: 05/07/21 04:31 Patient has no recurrent seizures here in the ER Medical Decision Making - Medical Decision Making 1 female DF for evaluation of seizure recurrent pseudoseizure. No seizure here in the ER patient can be discharged home - EKG Data -: EKG Interpreted by Me (EKG shows sinus a 82 DE 142 QRS 66 QTc 427) Disposition Clinical Impression: Pseudoseizures, Generalized seizure Disposition: HOME SELF-CARE Condition: Fair Instructions (If sedation given, give patient instructions): Seizure/Epilepsy Discharge Instructions & Follow-Up, Recurrent Seizures in Adults (ED) Is patient prescribed a controlled substance at d/c from ED?: No Referrals: Patrica Camacho MD [Primary Care Provider] - 1-2 days
[2021-05-07] MEDS ORDERED: hydrOXYzine pamoate 25 MG CAP PO STA (04:30)
[2021-05-07 05:17] VITALS: BP 127/68; PULSE 86; TEMP 98.6
== END 2021-05-07 05:17 | disposition home or self-care (01) ==
LOC: EC 03:11
DX: G40.909 Epilepsy, unspecified, not intractable, without status epilepticus (principal); F41.9 Anxiety disorder, unspecified; F90.9 Attention-deficit hyperactivity disorder, unspecified type; F17.200 Nicotine dependence, unspecified, uncomplicated; Z79.1 Long term (current) use of non-steroidal anti-inflammatories (NSAID); F31.9 Bipolar disorder, unspecified
CPT/HCPCS: 93005; 99283

== ENCOUNTER 2021-07-12 18:35 | Emergency (ER) | payer MEDICARE, OTHER ==
[2021-07-12 18:45] VITALS: BP 119/86; RESP 19; TEMP 97.6
--- NOTE | 2021-07-12 19:29 | ED ---
General Adult HPI - General Chief complaint: Recheck/Abnormal Lab/Rx Stated complaint: Head Pain Time Seen by Provider: 07/12/21 19:11 Source: patient, RN notes reviewed Mode of arrival: ambulatory Limitations: no limitations - History of Present Illness Initial comments: 20-year-old female with a past medical history of pseudoseizures presents to the emergency room by ambulance without any complaints. Patient states she was meeting a friend in the park as it is an unusually warm day. The friend did not show up so patient was sleeping in the park. Patient stays at [facility] and has a safe place to go. Patient states she did get her Covid vaccine yesterday and has a minimal headache but nothing abnormal. Denies any other complaints. Patient states she does not need to be here and does not want any medical care at this time.Patient has no other complaints at this time including shortness of breath, chest pain, abdominal pain, nausea or vomiting, headache, or visual changes. - Related Data Home Medications Medication Instructions Recorded Confirmed Cyclobenzaprine [Flexeril] 10 mg PO HS@209905/17/20 02/28/21 Omeprazole 20 mg PO BID@08,199905/17/20 02/28/21 Calcium Carbonate [Calcium] 600 mg PO DAILY@79905/26/20 02/28/21 Cyclobenzaprine [Flexeril] 5 mg PO TID PRN 05/26/20 02/28/21 Cholecalciferol (Vitamin D3) 125 mcg PO DAILY@0800 08/21/20 02/28/21 [Vitamin D3 (5000 Iu)] Isibloom 1 tab PO DAILY@79909/27/20 02/28/21 Ibuprofen [Motrin] 800 mg PO TID-W/MEALS PRN 01/09/21 02/28/21 Prazosin HCl 4 mg PO HS@199901/09/21 02/28/21 Citalopram Hydrobromide [CeleXA] 40 mg PO DAILY@79902/09/21 02/28/21 busPIRone HCl [Buspar] 20 mg PO BID@0800,199902/09/21 02/28/21 guaiFENesin [Mucinex] 600 mg PO Q12H PRN 02/09/21 02/28/21 lamoTRIgine [LaMICtal] 50 mg PO BID@08,199902/09/21 02/28/21 Sulfamethox-Tmp 800-160Mg [Bactrim 1 tab PO Q12HR 02/28/21 02/28/21 Ds] Previous Rx's Medication Instructions Recorded ARIPiprazole [Abilify] 20 mg PO DAILY@0800 30 Days tab 10/04/20 Ciprofloxacin HCl [Cipro] 500 mg PO Q12HR #14 tablet 04/19/21 Allergies Allergy/AdvReac Type Severity Reaction Status Date / Time amphetamine [From Adderall] AdvReac Unknown Verified 07/12/21 18:45 dextroamphetamine AdvReac Unknown Verified 07/12/21 18:45 [From Adderall] Review of Systems ROS Statement: Those systems with pertinent positive or pertinent negative responses have been documented in the HPI. ROS Other: All systems not noted in ROS Statement are negative. Past Medical History Past Medical History: No Reported History Additional Past Medical History / Comment(s): psuedoseizures, History of Any Multi-Drug Resistant Organisms: None Reported Past Surgical History: No Surgical Hx Reported Past Anesthesia/Blood Transfusion Reactions: No Reported Reaction Past Psychological History: ADD/ADHD, Anxiety, Bipolar, Depression, PTSD Smoking Status: Current every day smoker Past Alcohol Use History: None Reported Past Drug Use History: Marijuana General Exam Limitations: no limitations General appearance: alert, in no apparent distress Head exam: Present: atraumatic Eye exam: Present: normal appearance, PERRL, EOMI. Absent: scleral icterus, conjunctival injection ENT exam: Present: normal exam, mucous membranes moist Neck exam: Present: normal inspection, full ROM. Absent: tenderness Respiratory exam: Present: normal lung sounds bilaterally. Absent: respiratory distress, wheezes Cardiovascular Exam: Present: regular rate, normal rhythm, normal heart sounds GI/Abdominal exam: Present: soft, normal bowel sounds. Absent: distended, tenderness Neurological exam: Present: alert, oriented X3, normal gait Course Vital Signs 07/12/21 18:37 Temperature 97.6 F Pulse Rate 121 H Respiratory 19 Rate Blood Pressure 119/86 O2 Sat by Pulse 96 Oximetry Medical Decision Making - Medical Decision Making Vitals are stable. Patient initially tachycardic with a heart rate of 121 however this improved significantly to 101. Patient was brought in by ambulance but does not want to be here. She has no significant symptoms. Only minimal headache after getting her COVID-19 vaccine yesterday. Patient is requesting discharge. She states she has a safe place to go at [facility]. Disposition Clinical Impression: Normal exam Disposition: HOME SELF-CARE Condition: Good Instructions (If sedation given, give patient instructions): Normal Exam (ED) Additional Instructions: Please follow up with primary care in 1-2 days. Return to the ER for any worsening symptoms. Is patient prescribed a controlled substance at d/c from ED?: No Referrals: Patrica Camacho MD [Primary Care Provider] - 1-2 days Time of Disposition: 19:28
[2021-07-12 20:16] VITALS: PULSE 101
== END 2021-07-12 20:00 | disposition home or self-care (01) ==
LOC: EC 18:35
DX: R51.9 Headache, unspecified (principal); F31.9 Bipolar disorder, unspecified; F41.9 Anxiety disorder, unspecified; F90.9 Attention-deficit hyperactivity disorder, unspecified type; F17.200 Nicotine dependence, unspecified, uncomplicated; Z79.899 Other long term (current) drug therapy
CPT/HCPCS: 99284

== ENCOUNTER 2021-09-13 15:30 | Emergency (ER) | payer MEDICARE, OTHER ==
[2021-09-13 16:05] VITALS: BP 105/73; PULSE 104; RESP 20; TEMP 98.9
--- NOTE | 2021-09-13 17:07 | ED ---
Abdominal Pain HPI - General Chief Complaint: Abdominal Pain Stated Complaint: abd pain Time Seen by Provider: 09/13/21 16:41 Source: patient Mode of arrival: ambulatory Limitations: no limitations - History of Present Illness Initial Comments: Patient is a 20-year-old female who presents to the emergency department with a chief complaint of abdominal pain. Patient reports the pain started yesterday afternoon in the umbilical region. There is radiation to the left lower quadrant. The pain is constant and shooting in nature. She did not take anyth ing for pain. Patient denies fever, chills, generalized weakness, headache, shortness of breath, chest pain, palpitations, dizziness, nausea, vomiting, diarrhea, dysuria, and increased urinary urgency/freqeuncy. Last bowel movement was today, nonbloody. Last menstrual period is unknown. Patient reports that there is no chance that she could be . - Related Data Home Medications Medication Instructions Recorded Confirmed Cyclobenzaprine [Flexeril] 10 mg PO HS@209905/17/20 02/28/21 Omeprazole 20 mg PO BID@08,199905/17/20 02/28/21 Calcium Carbonate [Calcium] 600 mg PO DAILY@79905/26/20 02/28/21 Cyclobenzaprine [Flexeril] 5 mg PO TID PRN 05/26/20 02/28/21 Cholecalciferol (Vitamin D3) 125 mcg PO DAILY@0800 08/21/20 02/28/21 [Vitamin D3 (5000 Iu)] Isibloom 1 tab PO DAILY@79909/27/20 02/28/21 Ibuprofen [Motrin] 800 mg PO TID-W/MEALS PRN 01/09/21 02/28/21 Prazosin HCl 4 mg PO HS@199901/09/21 02/28/21 Citalopram Hydrobromide [CeleXA] 40 mg PO DAILY@79902/09/21 02/28/21 busPIRone HCl [Buspar] 20 mg PO BID@08,199902/09/21 02/28/21 guaiFENesin [Mucinex] 600 mg PO Q12H PRN 02/09/21 02/28/21 lamoTRIgine [LaMICtal] 50 mg PO BID@08,199902/09/21 02/28/21 Sulfamethox-Tmp 800-160Mg [Bactrim 1 tab PO Q12HR 02/28/21 02/28/21 Ds] Previous Rx's Medication Instructions Recorded ARIPiprazole [Abilify] 20 mg PO DAILY@0800 30 Days tab 10/04/20 Ciprofloxacin HCl [Cipro] 500 mg PO Q12HR #14 tablet 04/19/21 Allergies Allergy/AdvReac Type Severity Reaction Status Date / Time amphetamine [From Adderall] AdvReac Unknown Verified 09/13/21 16:05 dextroamphetamine AdvReac Unknown Verified 09/13/21 16:05 [From Adderall] Review of Systems ROS Statement: Those systems with pertinent positive or pertinent negative responses have been documented in the HPI. ROS Other: All systems not noted in ROS Statement are negative. Past Medical History Past Medical History: No Reported History Additional Past Medical History / Comment(s): psuedoseizures, History of Any Multi-Drug Resistant Organisms: None Reported Past Surgical History: No Surgical Hx Reported Past Anesthesia/Blood Transfusion Reactions: No Reported Reaction Past Psychological History: ADD/ADHD, Anxiety, Bipolar, Depression, PTSD Smoking Status: Current every day smoker Past Alcohol Use History: None Reported Past Drug Use History: Marijuana General Exam Limitations: no limitations General appearance: alert, in no apparent distress Head exam: Present: atraumatic, normocephalic, normal inspection Eye exam: Present: normal appearance, PERRL, EOMI. Absent: scleral icterus, conjunctival injection, periorbital swelling Neck exam: Present: normal inspection Respiratory exam: Present: normal lung sounds bilaterally. Absent: respiratory distress, wheezes, rales, rhonchi, stridor Cardiovascular Exam: Present: regular rate, normal rhythm, normal heart sounds. Absent: systolic murmur, diastolic murmur, rubs, gallop, clicks GI/Abdominal exam: Present: soft, tenderness (periumblical and LLQ). Absent: distended, guarding, rebound, rigid Neurological exam: Present: alert, oriented X3, CN II-XII intact Psychiatric exam: Present: normal affect, normal mood Skin exam: Present: warm, dry, intact, normal color. Absent: rash Course Vital Signs 09/13/21 16:02 Temperature 98.9 F Pulse Rate 104 H Respiratory 20 Rate Blood Pressure 105/73 O2 Sat by Pulse 99 Oximetry Medical Decision Making - Medical Decision Making Patient is a 20-year-old female who presents with perimbulical pain. Thorough history and examination were performed. Urine HCG is negative. Urinalysis shows moderate leukocyte esterase and 22 WBCs, contaminated by 10 squamous cells. CBC and CMP are unremarkable. Patient given Toradol for pain. On reevaluation pain has improved markedly. Results discussed the patient. Patient will be discharged and is instructed to follow up with primary care provider in one to 2 days. Return parameters discussed. Dr. Crawford is my attending. - Lab Data Result diagrams: 09/13/21 17:00 09/13/21 17:00 Lab Results 09/13/21 09/13/21 09/13/21 Range/Units 17:00 17:00 17:00 WBC 9.8 (3.8-10.6) k/uL RBC 4.50 (3.80-5.40) m/uL Hgb 13.4 (11.4-16.0) gm/dL Hct 40.9 (34.0-46.0) % MCV 90.9 (80.0-100.0) fL MCH 29.8 (25.0-35.0) pg MCHC 32.7 (31.0-37.0) g/dL RDW 13.7 (11.5-15.5) % Plt Count 379 (150-450) k/uL MPV 6.5 Neutrophils % 59 % Lymphocytes % 34 % Monocytes % 4 % Eosinophils % 2 % Basophils % 1 % Neutrophils # 5.8 (1.3-7.7) k/uL Lymphocytes # 3.3 (1.0-4.8) k/uL Monocytes # 0.4 (0-1.0) k/uL Eosinophils # 0.2 (0-0.7) k/uL Basophils # 0.1 (0-0.2) k/uL Sodium 137 (137-145) mmol/L Potassium 3.9 (3.5-5.1) mmol/L Chloride 105 (98-107) mmol/L Carbon Dioxide 22 (22-30) mmol/L Anion Gap 10 mmol/L BUN 12 (7-17) mg/dL Creatinine 0.97 (0.52-1.04) mg/dL Est GFR (CKD-EPI)AfAm >90 (>60 ml/min/1.73 sqM) Est GFR (CKD-EPI)NonAf 84 (>60 ml/min/1.73 sqM) Glucose 103 H (74-99) mg/dL Calcium 9.4 (8.4-10.2) mg/dL Total Bilirubin 0.3 (0.2-1.3) mg/dL AST 25 (14-36) U/L ALT 21 (4-34) U/L Alkaline Phosphatase 86 (38-126) U/L Total Protein 6.5 (6.3-8.2) g/dL Albumin 3.7 (3.5-5.0) g/dL Lipase 50 (23-300) U/L Urine Color Yellow Urine Appearance Cloudy H (Clear) Urine pH 6.0 (5.0-8.0) Ur Specific [place] 1.030 (1.001-1.035) Urine Protein Trace H (Negative) Urine Glucose (UA) Negative (Negative) Urine Ketones Negative (Negative) Urine Blood Negative (Negative) Urine Nitrite Negative (Negative) Urine Bilirubin Negative (Negative) Urine Urobilinogen 2.0 (<2.0) mg/dL Ur Leukocyte Esterase Moderate H (Negative) Urine RBC 7 H (0-5) /hpf Urine WBC 22 H (0-5) /hpf Ur Squamous Epith Cells 10 H (0-4) /hpf Hyaline Casts 1 (0-2) /lpf Urine Mucus Few H (None) /hpf Urine HCG, Qual (Not Detectd) 09/13/21 Range/Units 17:00 WBC (3.8-10.6) k/uL RBC (3.80-5.40) m/uL Hgb (11.4-16.0) gm/dL Hct (34.0-46.0) % MCV (80.0-100.0) fL MCH (25.0-35.0) pg MCHC (31.0-37.0) g/dL RDW (11.5-15.5) % Plt Count (150-450) k/uL MPV Neutrophils % % Lymphocytes % % Monocytes % % Eosinophils % % Basophils % % Neutrophils # (1.3-7.7) k/uL Lymphocytes # (1.0-4.8) k/uL Monocytes # (0-1.0) k/uL Eosinophils # (0-0.7) k/uL Basophils # (0-0.2) k/uL Sodium (137-145) mmol/L Potassium (3.5-5.1) mmol/L Chloride (98-107) mmol/L Carbon Dioxide (22-30) mmol/L Anion Gap mmol/L BUN (7-17) mg/dL Creatinine (0.52-1.04) mg/dL Est GFR (CKD-EPI)AfAm (>60 ml/min/1.73 sqM) Est GFR (CKD-EPI)NonAf (>60 ml/min/1.73 sqM) Glucose (74-99) mg/dL Calcium (8.4-10.2) mg/dL Total Bilirubin (0.2-1.3) mg/dL AST (14-36) U/L ALT (4-34) U/L Alkaline Phosphatase (38-126) U/L Total Protein (6.3-8.2) g/dL Albumin (3.5-5.0) g/dL Lipase (23-300) U/L Urine Color Urine Appearance (Clear) Urine pH (5.0-8.0) Ur Specific [place] (1.001-1.035) Urine Protein (Negative) Urine Glucose (UA) (Negative) Urine Ketones (Negative) Urine Blood (Negative) Urine Nitrite (Negative) Urine Bilirubin (Negative) Urine Urobilinogen (<2.0) mg/dL Ur Leukocyte Esterase (Negative) Urine RBC (0-5) /hpf Urine WBC (0-5) /hpf Ur Squamous Epith Cells (0-4) /hpf Hyaline Casts (0-2) /lpf Urine Mucus (None) /hpf Urine HCG, Qual Not Detected (Not Detectd) Disposition Clinical Impression: Abdominal pain Disposition: HOME SELF-CARE Condition: Good Instructions (If sedation given, give patient instructions): Abdominal Pain (ED) Additional Instructions: Follow-up with primary care provider in one to 2 days. Return to the emergency department if you experience new, concerning, or worsening symptoms Is patient prescribed a controlled substance at d/c from ED?: No Referrals: Patrica Camacho MD [Primary Care Provider] - 1-2 days Time of Disposition: 18:59
[2021-09-13 17:15] LABS: Appearance,Urine Cloudy (Clear); Bilirubin,Urine Negative (Negative); Blood,Urine Negative (Negative); Color,Urine Yellow; Glucose,Urine (UA) Negative (Negative); Hyaline Casts,Urine 1 /lpf (0-2); Ketones,Urine Negative (Negative); Leukocyte Esterase,Urine Moderate (Negative); Mucus,Urine Few /hpf; Nitrite,Urine Negative (Negative); Protein,Urine Trace (Negative); RBC,Urine 7 /hpf (0-5); Squamous Epithelial Cell,Urine 10 /hpf (0-4); WBC,Urine 22 /hpf (0-5)
[2021-09-13 17:17] LABS: Basophils # (A) 0.1 k/uL (0-0.2); Basophils % (A) 1 %; Eosinophils # (A) 0.2 k/uL (0-0.7); Eosinophils % (A) 2 %; HCT 40.9 % (34.0-46.0); HGB 13.4 gm/dL (11.4-16.0); Lymphocytes # (A) 3.3 k/uL (1.0-4.8); Lymphocytes % (A) 34 %; MCH 29.8 pg (25.0-35.0); MCHC 32.7 g/dL (31.0-37.0); MCV 90.9 fL (80.0-100.0); Mean Platelet Volume 6.5; Monocytes # (A) 0.4 k/uL (0-1.0); Monocytes % (A) 4 %; Neutrophils # (A) 5.8 k/uL (1.3-7.7); Neutrophils % (A) 59 %; Platelet Count 379 k/uL (150-450); RDW 13.7 % (11.5-15.5); WBC 9.8 k/uL (3.8-10.6)
[2021-09-13 17:26] LABS: ALT 21 U/L (4-34); AST 25 U/L (14-36); African American GFR (CKD) >90 (>60 ml/min/1.73 sqM); Albumin 3.7 g/dL (3.5-5.0); Alkaline Phosphatase 86 U/L (38-126); Anion Gap 10 mmol/L; Blood Urea Nitrogen 12 mg/dL (7-17); Calcium 9.4 mg/dL (8.4-10.2); Carbon Dioxide 22 mmol/L (22-30); Chloride 105 mmol/L (98-107); Glucose 103 mg/dL (74-99); Lipase 50 U/L (23-300); Non-African American GFR(CKD) 84 (>60 ml/min/1.73 sqM); Potassium 3.9 mmol/L (3.5-5.1); Sodium 137 mmol/L (137-145); Total Bilirubin 0.3 mg/dL (0.2-1.3); Total Protein 6.5 g/dL (6.3-8.2)
[2021-09-13] MEDS ORDERED: KETOROLAC 15 MG/ML 1 ML VIAL IVP STA (17:42)
== END 2021-09-13 19:07 | disposition home or self-care (01) ==
LOC: EC 15:30
DX: R10.33 Periumbilical pain (principal); F90.9 Attention-deficit hyperactivity disorder, unspecified type; F41.9 Anxiety disorder, unspecified; F31.9 Bipolar disorder, unspecified; F43.10 Post-traumatic stress disorder, unspecified; F17.200 Nicotine dependence, unspecified, uncomplicated; F12.90 Cannabis use, unspecified, uncomplicated; Z88.1 Allergy status to other antibiotic agents
CPT/HCPCS: 99284; 96374; 36415; 80053; 83690; 85025; 81001; 81025; 87086; J1885

== ENCOUNTER → 2021-10-25 | Outpatient (CLI) | payer MEDICARE, OTHER | END | disposition home or self-care (01) | LOC: LABWHC1 09:05 | PROVIDERS: ATTEND Psychiatry & Neurology Neurology | DX: F44.5 Conversion disorder with seizures or convulsions (principal) | CPT/HCPCS: 36415; 80175 ==

== ENCOUNTER 2021-11-18 20:00 | Inpatient (IN) | payer MEDICARE, MEDICAID ==
[2021-11-18 21:16] VITALS: RESP 18
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
[2021-11-18 22:27] LABS: Amorphous Sediment,Urine Rare /hpf; Appearance,Urine Cloudy (Clear); Bacteria,Urine Few /hpf; Bilirubin,Urine Negative (Negative); Blood,Urine Negative (Negative); Color,Urine Yellow; Glucose,Urine (UA) Negative (Negative); Hyaline Casts,Urine 1 /lpf (0-2); Ketones,Urine Negative (Negative); Leukocyte Esterase,Urine Moderate (Negative); Mucus,Urine Occasional /hpf; Nitrite,Urine Negative (Negative); PH, Urine 6.5 (5.0-8.0); Protein,Urine Trace (Negative); RBC,Urine 5 /hpf (0-5); Specific Gravity,Urine 1.027 (1.001-1.035); Squamous Epithelial Cell,Urine 12 /hpf (0-4); Urobilinogen,Urine <2.0 mg/dL (<2.0); WBC,Urine 44 /hpf (0-5)
[2021-11-18 22:47] LABS: Amphetamine Screen,Urine Not Detected (NotDetected); Barbiturate Screen,Urine Not Detected (NotDetected); Benzodiazepines Screen,Urine Not Detected (NotDetected); Cocaine Screen,Urine Not Detected (NotDetected); Methadone Screen, Urine Not Detected (NotDetected); Opiate Screen,Urine Not Detected (NotDetected); Oxycodone Screen, Urine Not Detected (NotDetected); Phencyclidine Screen,Urine Not Detected (NotDetected); Tricyclic Antidepressant,Urine Not Detected (NotDetected); Urn Cannabinoid Scrn Not Detected (NotDetected)
[2021-11-19] MEDS ORDERED: MAG HYDROX/AL HYDROX/SIMETH 30 ML CUP PO PRN (01:23)
[2021-11-19] MEDS ORDERED: MAGNESIUM HYDROXIDE 2,400 MG/10 ML CUP PO PRN (01:23)
[2021-11-19] MEDS ORDERED: HALOPERIDOL LACTATE 5 MG/ML 1 ML VIAL IM PRN (01:23)
[2021-11-19] MEDS ORDERED: haloperidoL 5 MG TAB PO PRN (01:29)
[2021-11-19] MEDS ORDERED: LORazepam 2 MG/ML INJ IM PRN (01:31)
[2021-11-19] MEDS: LORazepam 1 MG TAB PO PRN (03:03)
[2021-11-19 08:47] LABS: ALT 22 U/L (4-34); AST 17 U/L (14-36); African American GFR (CKD) >90 (>60 ml/min/1.73 sqM); Albumin 3.6 g/dL (3.5-5.0); Alkaline Phosphatase 103 U/L (38-126); Anion Gap 6 mmol/L; Blood Urea Nitrogen 7 mg/dL (7-17); Calcium 9.2 mg/dL (8.4-10.2); Carbon Dioxide 22 mmol/L (22-30); Chloride 106 mmol/L (98-107); Glucose 97 mg/dL (74-99); Non-African American GFR(CKD) >90 (>60 ml/min/1.73 sqM); Potassium 4.4 mmol/L (3.5-5.1); Sodium 134 mmol/L (137-145); Total Bilirubin 0.3 mg/dL (0.2-1.3); Total Protein 6.6 g/dL (6.3-8.2)
[2021-11-19 08:49] LABS: Basophils % (A) 0 %; Eosinophils # (A) 0.2 k/uL (0-0.7); Eosinophils % (A) 2 %; HGB 13.5 gm/dL (11.4-16.0); Lymphocytes # (A) 4.2 k/uL (1.0-4.8); Lymphocytes % (A) 43 %; MCH 30.2 pg (25.0-35.0); MCV 91.3 fL (80.0-100.0); Mean Platelet Volume 6.9; Monocytes # (A) 0.3 k/uL (0-1.0); Monocytes % (A) 3 %; Neutrophils # (A) 4.7 k/uL (1.3-7.7); Neutrophils % (A) 49 %; Platelet Count 441 k/uL (150-450); RBC 4.49 m/uL (3.80-5.40); RDW 13.8 % (11.5-15.5); WBC 9.7 k/uL (3.8-10.6)
[2021-11-19] MEDS ORDERED: CYCLOBENZAPRINE 5 MG TAB PO PRN (12:12)
[2021-11-19] MEDS ORDERED: IBUPROFEN 800 MG TAB PO PRN (12:12)
[2021-11-19] MEDS ORDERED: guaiFENesin 600 MG TABLET.ER PO PRN (12:12)
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
[2021-11-19] MEDS ORDERED: CITALOPRAM HYDROBROMIDE 20 MG TAB ONE (13:42)
[2021-11-19] MEDS: CITALOPRAM HYDROBROMIDE 20 MG TAB PO SCH (13:50)
[2021-11-19] MEDS: NICOTINE 14MG/24HR PATCH TRANSDERM SCH (16:23)
[2021-11-19] MEDS: lamoTRIgine 25 MG TAB PO SCH (20:15)
[2021-11-19] MEDS: PRAZOSIN 1 MG CAP PO SCH (20:15)
[2021-11-19] MEDS: busPIRone HCl 10 MG TAB PO SCH (20:16)
[2021-11-19] MEDS: CYCLOBENZAPRINE 5 MG TAB PO SCH (20:16)
[2021-11-19] MEDS ORDERED: traZODone HCL 50 MG TAB PO SCH (21:00)
[2021-11-20] MEDS: NICOTINE 14MG/24HR PATCH TRANSDERM SCH (07:51)
[2021-11-20] MEDS: lamoTRIgine 25 MG TAB PO SCH ×2 (07:51→21:01)
[2021-11-20] MEDS: PANTOPRAZOLE 40 MG TABLET PO SCH (07:52)
[2021-11-20] MEDS: busPIRone HCl 10 MG TAB PO SCH ×2 (07:52→21:01)
[2021-11-20] MEDS: CITALOPRAM HYDROBROMIDE 20 MG TAB PO SCH (07:52)
[2021-11-20] MEDS: CALCIUM CARBONATE 500 MG CHEWABLE PO SCH (07:52)
[2021-11-20] MEDS: CHOLECALCIFEROL 125 MCG (5000 IU) TABLET PO SCH (07:53)
[2021-11-20] MEDS: ISIBLOOM PO SCH (07:55)
[2021-11-20 09:25] LABS: Chol/HDL Ratio 2.94 Ratio; LDL Cholesterol,Calculated 52.1 mg/dL (0.0-131.0)
--- NOTE | 2021-11-20 10:39 | P.PN ---
Progress Note - Text Progress Note Date: 11/20/21 Interval History: Patient was seen laying in bed and was directable and agreeable to speak with senior medical writer. Patient appeared to be somewhat tired this morning. She states that she is doing okay and slept fairly throughout the night. She thanked senior medical writer for letting her have her unicorn at her side. She states that she is okay with taking the medications. She was fairly concrete during conversation. She states that she is doing better in terms of her mood and anxiety today. She denied any overnight complaints. She states that she feels "sad about what happened" regarding the suicide attempt and alluded to it being situational. At this time patient denies any suicidal or homical ideations, intent or plan. Patient denies any auditory, visual hallucinations and denies any paranoia or delusions. Patient denies any side effects from the medications and has been compliant with meds. Mental Status Exam: General Appearance: Patient appears to be overweight, has short hair, stated age is alert, attempts to cooperate. Behavior: Patient is calmly seated without any agitated behavior. Speech: Patient's speech is fluent and nonpressured. [place]. Mood/Affect: Mood is improving mildly, affect is congruent Suicidality/Homicidality: Patient denies having any suicidal or homicidal oj ation intent or plan. Perceptions: Patient denies any visual hallucinations and denies any auditory hallucinations Though content/process: [place], poverty of content. No paranoia or delusions. Memory and concentration: AOX3, grossly intact for the purposes of this session Judgment and insight: Chronically limited, improving mildly IMPRESSIONS: Depressive disorder unspecified, rule out adjustment disorder versus major depressive disorder Anxiety disorder unspecified, rule out PTSD Intellectual disability Nicotine dependence Plan: -Patient continues to meet criteria for inpatient psychiatric admission for symptom stabilization and safety. Patient has not signed adult voluntary form and was placed in patient's chart. -Medications: Continue with Abilify 20 mg daily for mood stabilization/mood adjunct, Celexa 40 mg daily for mood/anxiety, Minipress 4 mg daily at bedtime for nightmares, BuSpar 20 mg twice a day for anxiety, decreased trazodone to 25 mg daily at bedtime for insomnia/mood. -When necessary Ativan and Haldol for agitation/aggression. -NRT - nicotine patch -SW on board for discharge planning. Encouraged the patient to participate in milieu. Currently awaiting deferral with state's attorney and court date.likely discharge in 1-2 days back to [facility].
--- NOTE | 2021-11-20 14:00 | P.MDCNMH ---
History of Present Illness H&P Date: 11/20/21 This is a 21-year-old female patient of Dr. Camacho with a past medical history of pseudoseizure, osteopenia, ADHD, anxiety, bipolar, depression, PTSD, current every day smoker since the age of 12 1/2 a pack to 1 pack a day. Patient states that she attempted to hang herself at her prison with a show lace. Patient denies any chest pain, abdominal pain, difficulty breathing, syncope, lightheadedness. Patient denies any nausea vomiting diarrhea or constipation. She has been afebrile and vital signs stable. CBC and CMP unremarkable. Triglycerides 195, cholesterol 138, LDL 52, HDL 46. TSH 2.940. Urinalysis is contaminated specimen. She denies any medical concerns at this time. She is seen on the mental health unit REVIEW OF SYSTEMS Constitutional: No fever, no chills, no night sweats. Denies weight change. Reports generalized fatigue. Reports daytime sleepiness. EENT: No headache. No blurred vision or double vision, no loss of vision. No loss of Hearing, no ringing in the ears, no dizziness. No nasal drainage or congestion. No epistaxis. No sore throat. Lungs: No shortness of breath, cough, no sputum production. No wheezing. Cardiovascular: No chest pain, no lower extremity edema. No palpitations. No paroxysmal nocturnal dyspnea. No orthopnea. No lightheadedness or dizziness. No syncopal episodes. Abdominal: No abdominal pain. No nausea, vomiting. No diarrhea. No constipation. No bloody or tarry stools.. Reports loss of appetite. Genitourinary: No dysuria, increased frequency, urgency. No urinary retention. Musculoskeletal: No myalgias. No muscle weakness, no gait dysfunction, no frequent falls. No back pain. No neck pain. Integumentary: No wounds, no lesions. No rash or pruritus. Neurologic: No aphasia. No facial droop. No change in mentation. No head injury. No headache. No paralysis. No paresthesia. Psychiatric: Reports depression. Reports anxiety. Reports excessive sleeping. Reports suicidal ideation Endocrine: No abnormal blood sugars. No weight change. No excessive sweating or thirst. No cold intolerance. SOCIAL HISTORY Patient has been a smoking since the age of 12, half a pack to a full pack a day, no illicit drug use, no alcohol use, no marijuana use. Patient is a student and. Patient lives in a prison FAMILY HISTORY Mother is 38 healthy, dad is in the 40s is also healthy. Has one brother and sister who are also healthy. She has no children. PHYSICAL EXAMINATION General Appearance: Alert, cooperative, no distress, appears stated age. Neck HEENT: Supple, no lymphadenopathy, no thyroid enlargement, no carotid bruits. Lungs: Clear to auscultation without crackles or wheezes no rhonchi, no deformity. Chest Wall: Chest wall normal expansion with deep inspiration no tenderness and no deformity was found on exam, no costochondral pain or discomfort. Heart: Regular rate and rhythm, S1, S2 normal, no murmur, rub or gallop. Back: Symmetric, no curvature, ROM normal, no CVA tenderness. Abdomen: Soft, non-tender, no rebound or rigidity, no hepatosplenomegaly. Extremities: Extremities normal, atraumatic, no cyanosis or edema. Pulses: 2+ and symmetric. Skin: Skin color, texture, tugor normal, no rashes or lesions. Neurologic: Alert oriented x3 cranial nerves II through XII intact, no motor deficit, no abnormal balance or gait ASSESSMENT AND PLAN 1. Suicidal ideation with suicidal attempt by hanging 2. History of depression 3. History of ADHD 4. History of posttraumatic stress syndrome 5. Osteopenia 6. Developmental disability Discharge plan: Patient to follow-up with Dr. Camacho following discharge from the mental health unit Impression and plan of care have been directed as dictated by the signing physician. Nina Jay nurse practitioner acting as scribe for signing physician. Past Medical History Past Medical History: No Reported History Additional Past Medical History / Comment(s): psuedoseizures, History of Any Multi-Drug Resistant Organisms: None Reported Past Surgical History: No Surgical Hx Reported Past Anesthesia/Blood Transfusion Reactions: No Reported Reaction Past Psychological History: ADD/ADHD, Anxiety, Bipolar, Depression, PTSD Smoking Status: Current every day smoker Past Alcohol Use History: None Reported Past Drug Use History: Marijuana Medications and Allergies Home Medications Medication Instructions Recorded Confirmed Type Cyclobenzaprine [Flexeril] 10 mg PO HS@2100 05/17/20 02/28/21 History Omeprazole 20 mg PO BID@0800,199905/17/20 02/28/21 History Calcium Carbonate [Calcium] 600 mg PO DAILY@0800 05/26/20 02/28/21 History Cyclobenzaprine [Flexeril] 5 mg PO TID PRN 05/26/20 02/28/21 History Cholecalciferol (Vitamin D3) 125 mcg PO DAILY@0800 08/21/20 02/28/21 History [Vitamin D3 (5000 Iu)] Isibloom 1 tab PO DAILY@0809/27/20 02/28/21 History ARIPiprazole [Abilify] 20 mg PO DAILY@0800 30 Days tab 10/04/20 02/28/21 Rx Ibuprofen [Motrin] 800 mg PO TID-W/MEALS PRN 01/09/21 02/28/21 History Prazosin HCl 4 mg PO HS@199901/09/21 02/28/21 History Citalopram Hydrobromide [CeleXA] 40 mg PO DAILY@0800 02/09/21 02/28/21 History busPIRone HCl [Buspar] 20 mg PO BID@799,199902/09/21 02/28/21 History guaiFENesin [Mucinex] 600 mg PO Q12H PRN 02/09/21 02/28/21 History lamoTRIgine [LaMICtal] 50 mg PO BID@799,199902/09/21 02/28/21 History Sulfamethox-Tmp 800-160Mg [Bactrim 1 tab PO Q12HR 02/28/21 02/28/21 History Ds] Ciprofloxacin HCl [Cipro] 500 mg PO Q12HR #14 tablet 04/19/21 Rx Allergies Allergy/AdvReac Type Severity Reaction Status Date / Time amphetamine [From Adderall] AdvReac Unknown Verified 09/13/21 16:05 dextroamphetamine AdvReac Unknown Verified 09/13/21 16:05 [From Adderall] Cranial Nerve Examination - Cranial Nerves Cranial Nerve I- Olfactory: Intact Cranial Nerve II- Optic: Intact Cranial Nerve III- Oculomotor: Intact Cranial Nerve IV- Trochlear: Intact Cranial Nerve V- Trigeminal: Intact Cranial Nerve - Abducens: Intact Cranial Nerve VII- Facial: Intact Cranial Nerve VIII- Auditory: Intact Cranial Nerve IX- Glossopharyngeal: Intact Cranial Nerve X- Vagus: Intact Cranial Nerve XI- Accessory: Intact Cranial Nerve XII- Hypoglossal: Intact Results CBC & Chem 7: 11/19/21 07:17 11/19/21 07:17 Labs: Abnormal Lab Results - Last 24 Hours (Table) 11/19/21 Range/Units 07:17 Sodium 134 L (137-145) mmol/L Microbiology - Last 24 Hours (Table) 11/18/21 22:12 Urine Culture - Preliminary Urine,Voided
[2021-11-20] MEDS: PRAZOSIN 1 MG CAP PO SCH (21:01)
[2021-11-20] MEDS: traZODone HCL 50 MG TAB PO SCH (21:02)
[2021-11-20] MEDS: CYCLOBENZAPRINE 5 MG TAB PO SCH (21:02)
[2021-11-21] MEDS: NICOTINE 14MG/24HR PATCH TRANSDERM SCH (08:35)
[2021-11-21] MEDS: CALCIUM CARBONATE 500 MG CHEWABLE PO SCH (08:35)
[2021-11-21] MEDS: busPIRone HCl 10 MG TAB PO SCH ×2 (08:36→20:48)
[2021-11-21] MEDS: PANTOPRAZOLE 40 MG TABLET PO SCH (08:36)
[2021-11-21] MEDS: CHOLECALCIFEROL 125 MCG (5000 IU) TABLET PO SCH (08:36)
[2021-11-21] MEDS: CITALOPRAM HYDROBROMIDE 20 MG TAB PO SCH (08:36)
[2021-11-21] MEDS: lamoTRIgine 25 MG TAB PO SCH ×2 (08:36→20:48)
[2021-11-21] MEDS: ACETAMINOPHEN TAB 325 MG TAB PO PRN ×2 (08:38→21:06)
[2021-11-21] MEDS: ISIBLOOM PO SCH (08:56)
--- NOTE | 2021-11-21 10:38 | P.PN ---
Progress Note - Text Progress Note Date: 11/21/21 Interval History: Patient was seen wandering the hallways today and was directable and agreeable to speak with expert medical writer. She states that she is doing okay and slept fairly throughout the night. She claims that the unicorn has been helping her sleep at nighttime referring to her stuffed animal. She states that she is sad about not being able to "go to [place] to be with my mom" however states that she is doing better overall in terms of her mood and anxiety. She was requesting to have her BuSpar increased. She states that she is trying to go to groups and interact with other people on the unit. She claims that she is not feeling suicidal any longer and regrets doing what she did. She is agreeable to continue with treatment. She was fairly concrete during conversation. At this time patient denies any suicidal or homical ideations, intent or plan. Patient denies any auditory, visual hallucinations and denies any paranoia or delusions. Patient denies any side effects from the medications and has been compliant with meds. Mental Status Exam: General Appearance: Patient appears to be overweight, has short hair, stated age is alert, attempts to cooperate. Behavior: Patient is calmly seated without any agitated behavior. Speech: Patient's speech is fluent and nonpressured. [place]. Mood/Affect: Mood is improving mildly, affect is congruent Suicidality/Homicidality: Patient denies having any suicidal or homicidal ideation intent or plan. Perceptions: Patient denies any visual hallucinations and denies any auditory hallucinations Though content/process: [place], poverty of content. No paranoia or delusions. Memory and concentration: AOX3, grossly intact for the purposes of this session Judgment and insight: Chronically limited, improving mildly IMPRESSIONS: Depressive disorder unspecified, rule out adjustment disorder versus major depressive disorder Anxiety disorder unspecified, rule out PTSD Intellectual disability Nicotine dependence Plan: -Patient continues to meet criteria for inpatient psychiatric admission for symptom stabilization and safety. Patient has not signed adult voluntary form and was placed in patient's chart. -Medications: Continue with Abilify 20 mg daily for mood stabilization/mood adjunct, Celexa 40 mg daily for mood/anxiety, Minipress 4 mg daily at bedtime for nightmares, increase BuSpar 30 mg twice a day for anxiety, trazodone to 25 mg daily at bedtime for insomnia/mood. -When necessary Ativan and Haldol for agitation/aggression. -NRT - nicotine patch -SW on board for discharge planning. Encouraged the patient to participate in milieu. Currently awaiting deferral with banking attorney and court date, deferral set for friday. if patient defers then discharge that day back to [facility].
[2021-11-21] MEDS: LORazepam 1 MG TAB PO PRN (13:59)
[2021-11-21] MEDS: CYCLOBENZAPRINE 5 MG TAB PO SCH (20:48)
[2021-11-21] MEDS: PRAZOSIN 1 MG CAP PO SCH (20:48)
[2021-11-21] MEDS: traZODone HCL 50 MG TAB PO SCH (20:49)
[2021-11-22] MEDS: PANTOPRAZOLE 40 MG TABLET PO SCH (08:48)
[2021-11-22] MEDS: busPIRone HCl 10 MG TAB PO SCH ×2 (08:48→21:06)
[2021-11-22] MEDS: lamoTRIgine 25 MG TAB PO SCH ×2 (08:48→21:06)
[2021-11-22] MEDS: CITALOPRAM HYDROBROMIDE 20 MG TAB PO SCH (08:49)
[2021-11-22] MEDS: CALCIUM CARBONATE 500 MG CHEWABLE PO SCH (08:49)
[2021-11-22] MEDS: CHOLECALCIFEROL 125 MCG (5000 IU) TABLET PO SCH (08:49)
[2021-11-22] MEDS: NICOTINE 14MG/24HR PATCH TRANSDERM SCH (08:50)
[2021-11-22] MEDS: ISIBLOOM PO SCH (08:50)
[2021-11-22] MEDS ORDERED: hydrOXYzine pamoate 25 MG CAP PO PRN (09:17)
[2021-11-22] MEDS ORDERED: hydrOXYzine pamoate 25 MG CAP PO ONE (09:17)
--- NOTE | 2021-11-22 09:46 | P.PN ---
Progress Note - Text Progress Note Date: 11/22/21 Interval History: Patient was seen wandering the hallways today and was directable and agreeable to speak with communications writer. Patient had several pieces of paper in her hand and was asking communications writer about the petition and certificate that she was given. She adamantly claimed that she will not hurt anybody else however did acknowledge that she did tie a shoelace around her neck in a suicide attempt. She claims that she is nervous that "I might go to skilled nursing" and states that she does not want to go through the court process. Guest History Clerk had to reassure patient about the deferral option and that she will not be going to skilled nursing. She claims that she is feeling anxious during the day being on the unit and was claiming that she wants to go home. She states that she slept fairly throughout the night. She claims that she is going to groups and attempting to participate. We went over breathing exercises and techniques for distress tolerance. She claims that her mood is "fine" and denying any depression today. She states that she misses her mother. She was fairly concrete during conversation. At this time patient denies any suicidal or homical ideations, intent or plan. Patient denies any auditory, visual hallucinations and denies any paranoia or delusions. Patient denies any side effects from the medications and has been compliant with meds. Mental Status Exam: General Appearance: Patient appears to be overweight, has short hair, stated age is alert, attempts to cooperate. Behavior: Patient is calmly seated without any agitated behavior. Speech: Patient's speech is fluent and nonpressured. [place]. Mood/Affect: Mood is improving mildly, affect is congruent Suicidality/Homicidality: Patient denies having any suicidal or homicidal ideation intent or plan. Perceptions: Patient denies any visual hallucinations and denies any auditory hallucinations Though content/process: [place], poverty of content. No paranoia or delusions. Memory and concentration: AOX3, grossly intact for the purposes of this session Judgment and insight: Chronically limited, improving mildly IMPRESSIONS: Depressive disorder unspecified, rule out adjustment disorder versus major depressive disorder Anxiety disorder unspecified, rule out PTSD Intellectual disability Nicotine dependence Plan: -Patient continues to meet criteria for inpatient psychiatric admission for symptom stabilization and safety. Patient has not signed adult voluntary form and was placed in patient's chart. -Medications: Continue with Abilify 20 mg daily for mood stabilization/mood adjunct, Celexa 40 mg daily for mood/anxiety, Minipress 4 mg daily at bedtime for nightmares, BuSpar 30 mg twice a day for anxiety, trazodone to 25 mg daily at bedtime for insomnia/mood. Added Vistaril when necessary for anxiety. -When necessary Ativan and Haldol for agitation/aggression. -NRT - nicotine patch -SW on board for discharge planning. Encouraged the patient to participate in milieu. Deferral set for friday, if patient defers then discharge tomorrow back to [facility].
[2021-11-22] MEDS: ACETAMINOPHEN TAB 325 MG TAB PO PRN (17:01)
[2021-11-22] MEDS: CYCLOBENZAPRINE 5 MG TAB PO SCH (21:06)
[2021-11-22] MEDS: traZODone HCL 50 MG TAB PO SCH (21:06)
[2021-11-22] MEDS: PRAZOSIN 1 MG CAP PO SCH (21:07)
[2021-11-23 06:43] VITALS: BP 146/69; PULSE 113; TEMP 97.9
[2021-11-23] MEDS: CITALOPRAM HYDROBROMIDE 20 MG TAB PO SCH (09:05)
[2021-11-23] MEDS: busPIRone HCl 10 MG TAB PO SCH (09:06)
[2021-11-23] MEDS: PANTOPRAZOLE 40 MG TABLET PO SCH (09:06)
[2021-11-23] MEDS: CHOLECALCIFEROL 125 MCG (5000 IU) TABLET PO SCH (09:07)
[2021-11-23] MEDS: CALCIUM CARBONATE 500 MG CHEWABLE PO SCH (09:07)
[2021-11-23] MEDS: ISIBLOOM PO SCH (09:07)
[2021-11-23] MEDS: lamoTRIgine 25 MG TAB PO SCH (09:08)
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
== END 2021-11-23 13:45 | disposition home or self-care (01) | DRG 881 ==
LOC: EC 20:00 → 3MHU 11-19 01:14
PROVIDERS: ADMIT Psychiatry & Neurology Psychiatry; ATTEND Psychiatry & Neurology Psychiatry
DX: F32.A Depression, unspecified (principal); F17.200 Nicotine dependence, unspecified, uncomplicated; F31.9 Bipolar disorder, unspecified; F43.10 Post-traumatic stress disorder, unspecified; F79 Unspecified intellectual disabilities; G47.00 Insomnia, unspecified; Z79.899 Other long term (current) drug therapy; Z20.822 Contact with and (suspected) exposure to COVID-19
CPT/HCPCS: 80053; 80061; 80306; 81001; 81025; 82075; 83036; 84443; 85025; 87086; 87635; 99285

== ENCOUNTER 2021-11-23 18:16 | Emergency (ER) | payer MEDICARE, OTHER ==
[2021-11-23 18:27] VITALS: RESP 18; TEMP 98
--- NOTE | 2021-11-23 18:29 | ED ---
Psych HPI - General Chief Complaint: Psychiatric Symptoms Stated Complaint: mental health Time Seen by Provider: 11/23/21 18:19 Source: patient, RN notes reviewed Mode of arrival: ambulatory - History of Present Illness Initial Comments: 21-year-old female history of major depression into lax will disability nicotine dependence post traumatic stress disorder who was brought in by EMS today complaining of being kicked out of school and not feeling well. She is very tearful and initially a poor communicator. She was just discharged from the inpatient mental health unit which she was treated for major depression. No reports of fevers chills nausea vomiting sweats. MD Complaint: feels depressed - Related Data Home Medications Medication Instructions Recorded Confirmed Cholecalciferol (Vitamin D3) 125 mcg PO DAILY@0800 08/21/20 02/28/21 [Vitamin D3 (5000 Iu)] Isibloom 1 tab PO DAILY@0800 09/27/20 02/28/21 Ibuprofen [Motrin] 800 mg PO TID-W/MEALS PRN 01/09/21 02/28/21 Previous Rx's Medication Instructions Recorded ARIPiprazole [Abilify] 20 mg PO DAILY@0800 30 Days tab 11/23/21 Calcium Carbonate [Tums] 500 mg PO DAILY@0800 30 Days 11/23/21 Citalopram Hydrobromide [CeleXA] 40 mg PO DAILY@0800 30 Days tab 11/23/21 Cyclobenzaprine [Flexeril] 5 mg PO TID PRN 30 Days tab 11/23/21 Omeprazole 20 mg PO BID@799,1999 30 Days cap 11/23/21 Prazosin HCl 4 mg PO HS@1999 30 Days cap 11/23/21 busPIRone HCl [Buspar] 30 mg PO BID 30 Days tab 11/23/21 hydrOXYzine pamoate [Vistaril] 25 mg PO DAILY PRN 30 Days cap 11/23/21 lamoTRIgine [LaMICtal] 50 mg PO BID@00,1999 30 Days tab 11/23/21 traZODone HCL [Desyrel] 25 mg PO HS 30 Days tab 11/23/21 Allergies Allergy/AdvReac Type Severity Reaction Status Date / Time amphetamine [From Adderall] AdvReac Unknown Verified 11/23/21 18:27 dextroamphetamine AdvReac Unknown Verified 11/23/21 18:27 [From Adderal] Review of Systems ROS Statement: Those systems with pertinent positive or pertinent negative responses have been documented in the HPI. ROS Other: All systems not noted in ROS Statement are negative. Past Medical History Past Medical History: No Reported History Additional Past Medical History / Comment(s): psuedoseizures, History of Any Multi-Drug Resistant Organisms: None Reported Past Surgical History: No Surgical Hx Reported Past Anesthesia/Blood Transfusion Reactions: No Reported Reaction Past Psychological History: ADD/ADHD, Anxiety, Bipolar, Depression, PTSD Smoking Status: Current every day smoker Past Alcohol Use History: None Reported Past Drug Use History: Marijuana General Exam - General Exam Comments Initial Comments: This is a well-developed well-nourished awake alert female who is crying during the interview. Limitations: no limitations General appearance: alert, anxious Head exam: Present: atraumatic, normocephalic, normal inspection Eye exam: Present: normal appearance, PERRL, EOMI. Absent: scleral icterus, conjunctival injection, periorbital swelling ENT exam: Present: normal exam, mucous membranes moist Neck exam: Present: normal inspection. Absent: tenderness, meningismus, lym phadenopathy Respiratory exam: Present: normal lung sounds bilaterally. Absent: respiratory distress, wheezes, rales, rhonchi, stridor Cardiovascular Exam: Present: regular rate, normal rhythm, normal heart sounds. Absent: systolic murmur, diastolic murmur, rubs, gallop, clicks GI/Abdominal exam: Present: soft, normal bowel sounds. Absent: distended, tenderness, guarding, rebound, rigid Extremities exam: Present: normal inspection, full ROM, normal capillary refill. Absent: tenderness, pedal edema, joint swelling, calf tenderness Back exam: Present: normal inspection Neurological exam: Present: alert, oriented X3, CN II-XII intact Psychiatric exam: Present: depressed, anxious Skin exam: Present: warm, dry, intact, normal color. Absent: rash Course Vital Signs 11/23/21 18:20 Temperature 98 F Pulse Rate 103 H Respiratory 18 Rate Blood Pressure 142/97 O2 Sat by Pulse 96 Oximetry Medical Decision Making - Medical Decision Making The patient was evaluated by psychiatric service and will be discharged she is currently not wrist herself or anyone else he has a safety plan in place. Disposition Clinical Impression: Adjustment reaction of adult life Disposition: HOME SELF-CARE Condition: Good Instructions (If sedation given, give patient instructions): Mood Disorders (ED) Is patient prescribed a controlled substance at d/c from ED?: No Referrals: Patrica Camacho MD [Primary Care Provider] - 1-2 days
[2021-11-23 21:11] VITALS: BP 137/84; PULSE 92
== END 2021-11-23 21:14 | disposition home or self-care (01) ==
LOC: EC 18:16
DX: F43.20 Adjustment disorder, unspecified (principal); F90.9 Attention-deficit hyperactivity disorder, unspecified type; F41.9 Anxiety disorder, unspecified; F31.9 Bipolar disorder, unspecified; F43.10 Post-traumatic stress disorder, unspecified; F17.200 Nicotine dependence, unspecified, uncomplicated; F12.90 Cannabis use, unspecified, uncomplicated; Z88.1 Allergy status to other antibiotic agents; Z79.899 Other long term (current) drug therapy
CPT/HCPCS: 82075; 99284

== ENCOUNTER 2022-03-16 20:25 | Emergency (ER) | payer MEDICARE, OTHER ==
[2022-03-16 20:33] VITALS: PULSE 77; TEMP 98.1
[2022-03-16] MEDS ORDERED: KETOROLAC 15 MG/ML 1 ML VIAL IVP STA (21:18)
[2022-03-16] MEDS ORDERED: SODIUM CHLORIDE 0.9% 1,000 ML IV STA (21:18)
[2022-03-16 21:40] LABS: Basophils # (A) 0.1 k/uL (0-0.2); Basophils % (A) 0 %; Eosinophils # (A) 0.4 k/uL (0-0.7); Eosinophils % (A) 2 %; HCT 39.6 % (34.0-46.0); HGB 12.8 gm/dL (11.4-16.0); Lymphocytes # (A) 4.6 k/uL (1.0-4.8); Lymphocytes % (A) 29 %; MCH 29.2 pg (25.0-35.0); MCHC 32.3 g/dL (31.0-37.0); MCV 90.4 fL (80.0-100.0); Mean Platelet Volume 6.4; Monocytes # (A) 0.5 k/uL (0-1.0); Monocytes % (A) 3 %; Neutrophils # (A) 10.3 k/uL (1.3-7.7); Neutrophils % (A) 64 %; Platelet Count 392 k/uL (150-450); RBC 4.39 m/uL (3.80-5.40)
[2022-03-16 21:49] LABS: African American GFR (CKD) >90 (>60 ml/min/1.73 sqM); Anion Gap 10 mmol/L; Blood Urea Nitrogen 8 mg/dL (7-17); Calcium 9.2 mg/dL (8.4-10.2); Carbon Dioxide 21 mmol/L (22-30); Chloride 105 mmol/L (98-107); Glucose 95 mg/dL (74-99); Non-African American GFR(CKD) >90 (>60 ml/min/1.73 sqM); Sodium 136 mmol/L (137-145)
--- NOTE | 2022-03-16 22:09 | XR ---
EXAMINATION TYPE: XR chest 2V DATE OF EXAM: 03/16/2022 COMPARISON: 09/27/2020 HISTORY: Cough TECHNIQUE: FINDINGS: Heart and mediastinum are normal. Lungs are clear. Diaphragm is normal. Bony thorax is inta ct. IMPRESSION: Normal chest. No change.
--- NOTE | 2022-03-16 22:44 | ED ---
General Adult HPI - General Chief complaint: Shortness of Breath Stated complaint: Poss seizure Time Seen by Provider: 03/16/22 20:33 Source: EMS, RN notes reviewed, old records reviewed Mode of arrival: EMS Limitations: no limitations - History of Present Illness Initial comments: Patient is a 21-year-old female presents to [facility] department over concern for possible seizure per patient, however per EMS as well as staff, patient was inhaling a nicotine [place] extensively and became dizzy. She began having significant coughing spell. She was sent to the emergency department for evaluation from her correction. Patient says she recently members and thinks she had a seizure. Cannot recall events specifically. Denies biting her tongue or urinary incontinence. Denies chest pain. Denies shortness of breath. Denies abdominal pain, nausea, vomiting. Has a mild headache. States it is somewhat tight belt like distribution around her head. Has no other acute complaints at this time. Presents for further evaluation of this time. States she is not on any antiepileptic medications. - Related Data Home Medications Medication Instructions Recorded Confirmed Cholecalciferol (Vitamin D3) 125 mcg PO DAILY@0800 08/21/20 12/09/21 [Vitamin D3 (5000 Iu)] Isibloom 1 tab PO DAILY@0800 09/27/20 12/09/21 Calcium Carbonate [Calcium] 600 mg PO DAILY@0800 12/09/21 12/09/21 Suvorexant [Belsomra] 10 mg PO HS@199912/09/21 12/09/21 busPIRone HCL [Buspar] 30 mg PO BID@08,199912/09/21 12/09/21 traZODone HCL [Desyrel] 50 mg PO HS@199912/09/21 12/09/21 Previous Rx's Medication Instructions Recorded ARIPiprazole [Abilify] 20 mg PO DAILY@0800 30 Days tab 11/23/21 Citalopram Hydrobromide [CeleXA] 40 mg PO DAILY@0800 30 Days tab 11/23/21 Omeprazole 20 mg PO BID@0800,1999 30 Days cap 11/23/21 Prazosin HCl 4 mg PO HS@1999 30 Days cap 11/23/21 lamoTRIgine [LaMICtal] 50 mg PO BID@0800,1999 30 Days tab 11/23/21 Allergies Allergy/AdvReac Type Severity Reaction Status Date / Time amphetamine [From Adderall] AdvReac Unknown Verified 12/09/21 21:55 dextroamphetamine AdvReac Unknown Verified 12/09/21 21:55 [From Adderall] Review of Systems ROS Statement: Those systems with pertinent positive or pertinent negative responses have been documented in the HPI. Review of Systems: CONST: Denies fever EYES: Denies blurry vision ENT: Denies nasal congestion C/V: Denies Chest pain RESP: Denies shortness of breath GI: Denies abdominal pain : Denies dysuria SKIN: Denies rash. MSK: Denies joint pain. NEURO: Endorses headache ROS Other: All systems not noted in ROS Statement are negative. Past Medical History Past Medical History: No Reported History Additional Past Medical History / Comment(s): psuedoseizures, History of Any Multi-Drug Resistant Organisms: None Reported Past Surgical History: No Surgical Hx Reported Past Anesthesia/Blood Transfusion Reactions: No Reported Reaction Past Psychological History: ADD/ADHD, Anxiety, Bipolar, Depression, PTSD Smoking Status: Current every day smoker Past Alcohol Use History: None Reported Past Drug Use History: Marijuana General Exam - General Exam Comments Initial Comments: General: Appears in no acute distress. HEAD: Normal with no signs of head trauma. EYES: PERRLA, EOMI, conjunctiva normal, no discharge. ENT: Hearing grossly intact, normal oropharynx. RESPIRATORY: Clear breath sounds bilaterally. No wheezes, rales, or rhonchi. C/V: Regular rate and rhythm. S1 and S2 auscultated, no edema, peripheral pulses 2+ and intact throughout ABD: Abd is soft, nontender, nondistended EXT: Normal range of motion, no obvious deformity SKIN: No rashes or lesions observed on exposed skin. NEURO: Alert and oriented x 4. Cranial nerves II-XII intact. No focal sensory or strength deficits. GCS of 15. Limitations: no limitations Course Vital Signs 03/16/22 03/16/22 20:28 20:33 Temperature 98.1 F Pulse Rate 77 Respiratory 17 17 Rate Blood Pressure 139/97 O2 Sat by Pulse 99 Oximetry Medical Decision Making - Medical Decision Making Based on the patient's presentation and physical exam, I'm concerned for what sounds like a headache. Unknown if there is seizure but per EMS and staff doesn't appear that she had one. Patient states she may have had one. We will observe her for a period of time. We'll treat her headache. We'll obtain basic labs. She was in agreement this plan. Vital signs within normal limits. Laboratory studies are remarkable for mild leukocytosis of 16.0 which does have a history of elevated white blood cell count. No obvious source of infection. Chest x-ray shows no acute cardiopulmonary process. On reevaluation, patient is feeling improved. Vital signs remained stable. No breakthrough seizures. Believe it is safer to be discharged home. She was in agreement this plan. Ride will be arranged. I instructed the patient to follow up with their PCP in the next 1-3 days.. I explained that the patient should return to the emergency department if they experience any worsening symptoms. Strict return precautions were discussed with the patient. The patient expressed understanding of these instructions. I answered all questions that the patient had. The patient was discharged home in good condition with their prescriptions and follow up information. - Lab Data Result diagrams: 03/16/22 21:21 03/16/22 21:21 Lab Results 03/16/22 03/16/22 Range/Units 21:21 21:21 WBC 16.0 H (3.8-10.6) k/uL RBC 4.39 (3.80-5.40) m/uL Hgb 12.8 (11.4-16.0) gm/dL Hct 39.6 (34.0-46.0) % MCV 90.4 (80.0-100.0) fL MCH 29.2 (25.0-35.0) pg MCHC 32.3 (31.0-37.0) g/dL RDW 13.0 (11.5-15.5) % Plt Count 392 (150-450) k/uL MPV 6.4 Neutrophils % 64 % Lymphocytes % 29 % Monocytes % 3 % Eosinophils % 2 % Basophils % 0 % Neutrophils # 10.3 H (1.3-7.7) k/uL Lymphocytes # 4.6 (1.0-4.8) k/uL Monocytes # 0.5 (0-1.0) k/uL Eosinophils # 0.4 (0-0.7) k/uL Basophils # 0.1 (0-0.2) k/uL Sodium 136 L (137-145) mmol/L Potassium 4.0 (3.5-5.1) mmol/L Chloride 105 (98-107) mmol/L Carbon Dioxide 21 L (22-30) mmol/L Anion Gap 10 mmol/L BUN 8 (7-17) mg/dL Creatinine 0.76 (0.52-1.04) mg/dL Est GFR (CKD-EPI)AfAm >90 (>60 ml/min/1.73 sqM) Est GFR (CKD-EPI)NonAf >90 (>60 ml/min/1.73 sqM) Glucose 95 (74-99) mg/dL Calcium 9.2 (8.4-10.2) mg/dL Disposition Clinical Impression: Tobacco use Narrative: possible breakthrough seizure Disposition: HOME SELF-CARE Condition: Good Instructions (If sedation given, give patient instructions): How to Stop Smoking (ED) Is patient prescribed a controlled substance at d/c from ED?: No Referrals: Patrica Camacho MD [Primary Care Provider] - 1-2 days Time of Disposition: 22:45
[2022-03-16] MEDS ORDERED: ACETAMINOPHEN TAB 500 MG TAB PO STA (23:07)
[2022-03-16 23:45] VITALS: BP 129/59; RESP 15
== END 2022-03-16 23:49 | disposition home or self-care (01) ==
LOC: EC 20:25
DX: F17.200 Nicotine dependence, unspecified, uncomplicated (principal); R51.9 Headache, unspecified; R06.02 Shortness of breath; Z88.8 Allergy status to other drugs, medicaments and biological substances
CPT/HCPCS: 36415; 80048; 85025; 71046; 99285; 96374; 96361; J1885

== ENCOUNTER 2022-03-17 18:22 | Emergency (ER) | payer MEDICARE, OTHER ==
[2022-03-17 18:30] VITALS: BP 108/74; PULSE 83; RESP 16; TEMP 98
[2022-03-17] MEDS ORDERED: SODIUM CHLORIDE 0.9% 1,000 ML IV STA (19:22)
[2022-03-17 20:04] LABS: Basophils # (A) 0.1 k/uL (0-0.2); Basophils % (A) 1 %; Eosinophils # (A) 0.3 k/uL (0-0.7); Eosinophils % (A) 3 %; HCT 39.5 % (34.0-46.0); HGB 12.8 gm/dL (11.4-16.0); Lymphocytes # (A) 3.9 k/uL (1.0-4.8); Lymphocytes % (A) 35 %; MCH 29.7 pg (25.0-35.0); MCHC 32.4 g/dL (31.0-37.0); MCV 91.5 fL (80.0-100.0); Mean Platelet Volume 6.6; Monocytes # (A) 0.4 k/uL (0-1.0); Monocytes % (A) 4 %; Neutrophils # (A) 6.3 k/uL (1.3-7.7); Neutrophils % (A) 57 %; Platelet Count 420 k/uL (150-450); RBC 4.32 m/uL (3.80-5.40); RDW 13.1 % (11.5-15.5); WBC 11.2 k/uL (3.8-10.6)
[2022-03-17 20:16] LABS: ALT 16 U/L (4-34); African American GFR (CKD) >90 (>60 ml/min/1.73 sqM); Albumin 3.7 g/dL (3.5-5.0); Anion Gap 10 mmol/L; Blood Urea Nitrogen 10 mg/dL (7-17); Calcium 9.1 mg/dL (8.4-10.2); Carbon Dioxide 21 mmol/L (22-30); Chloride 106 mmol/L (98-107); Glucose 106 mg/dL (74-99); Non-African American GFR(CKD) >90 (>60 ml/min/1.73 sqM); Sodium 137 mmol/L (137-145); Total Bilirubin 0.2 mg/dL (0.2-1.3); Total Protein 6.5 g/dL (6.3-8.2)
[2022-03-17 20:21] LABS: AST 22 U/L (14-36); Alkaline Phosphatase 87 U/L (38-126); Potassium 4.3 mmol/L (3.5-5.1)
[2022-03-17] MEDS ORDERED: IBUPROFEN 600 MG TAB PO STA (21:56)
--- NOTE | 2022-03-17 21:57 | ED ---
General Adult HPI - General Chief complaint: Seizure Stated complaint: Fall Time Seen by Provider: 03/17/22 19:01 Source: patient, EMS, RN notes reviewed Mode of arrival: EMS Limitations: no limitations - History of Present Illness Initial comments: This is a 21-year-old female who presents to the emergency department for evaluation of seizure activity. Patient states her seizure was witnessed by another resident at the care home in which she resides. States this seizure occurred after vaping. She is uncertain of the length/duration of her seizure. Denies any injuries sustained during the seizure. Reports mild headache. Denies fever, chills, dizziness, neck pain, back pain, chest pain, shortness of breath, abdominal pain, nausea, vomiting, diarrhea, or dysuria. - Related Data Home Medications Medication Instructions Recorded Confirmed Cholecalciferol (Vitamin D3) 125 mcg PO DAILY@0800 08/21/20 12/09/21 [Vitamin D3 (5000 Iu)] Isibloom 1 tab PO DAILY@0800 09/27/20 12/09/21 Calcium Carbonate [Calcium] 600 mg PO DAILY@0800 12/09/21 12/09/21 Suvorexant [Belsomra] 10 mg PO HS@199912/09/21 12/09/21 busPIRone HCL [Buspar] 30 mg PO BID@08,199912/09/21 12/09/21 traZODone HCL [Desyrel] 50 mg PO HS@199912/09/21 12/09/21 Previous Rx's Medication Instructions Recorded ARIPiprazole [Abilify] 20 mg PO DAILY@0800 30 Days tab 11/23/21 Citalopram Hydrobromide [CeleXA] 40 mg PO DAILY@0800 30 Days tab 11/23/21 Omeprazole 20 mg PO BID@0800,1999 30 Days cap 11/23/21 Prazosin HCl 4 mg PO HS@1999 30 Days cap 11/23/21 lamoTRIgine [LaMICtal] 50 mg PO BID@00,1999 30 Days tab 11/23/21 Allergies Allergy/AdvReac Type Severity Reaction Status Date / Time amphetamine [From Adderall] AdvReac Unknown Verified 12/09/21 21:55 dextroamphetamine AdvReac Unknown Verified 12/09/21 21:55 [From Adderall] Review of Systems ROS Statement: Those systems with pertinent positive or pertinent negative responses have been documented in the HPI. ROS Other: All systems not noted in ROS Statement are negative. Past Medical History Past Medical History: No Reported History Additional Past Medical History / Comment(s): psuedoseizures, History of Any Multi-Drug Resistant Organisms: None Reported Past Surgical History: No Surgical Hx Reported Past Anesthesia/Blood Transfusion Reactions: No Reported Reaction Past Psychological History: ADD/ADHD, Anxiety, Bipolar, Depression, PTSD Smoking Status: Current every day smoker Past Alcohol Use History: None Reported Past Drug Use History: Marijuana General Exam Limitations: no limitations (Well-developed, well-nourished female in no acute distress. Initial temperature 98.0, pulse 83, respirations 16, blood pressure 108/74, pulse ox 96% on room air.) General appearance: alert, in no apparent distress Head exam: Present: atraumatic, normocephalic, normal inspection Eye exam: Present: normal appearance, PERRL, EOMI. Absent: scleral icterus, conjunctival injection, periorbital swelling ENT exam: Present: normal exam, normal oropharynx, mucous membranes moist Neck exam: Present: normal inspection, full ROM. Absent: tenderness, meningismus, lymphadenopathy Respiratory exam: Present: normal lung sounds bilaterally. Absent: respiratory distress, wheezes, rales, rhonchi, stridor, chest wall tenderness Cardiovascular Exam: Present: regular rate, normal rhythm, normal heart sounds. Absent: systolic murmur, diastolic murmur, rubs, gallop, clicks GI/Abdominal exam: Present: soft, normal bowel sounds. Absent: distended, tenderness, guarding, rebound, rigid Back exam: Present: normal inspection, full ROM. Absent: paraspinal tenderness, vertebral tenderness Neurological exam: Present: alert, oriented X3, CN II-XII intact, normal gait Expanded Patient oriented to: Present: person, place, time Speech: Present: fluid speech Cranial nerves: EOM's Intact: Normal, Nystagmus: Normal Motor strength exam: RUE: 5, LUE: 5, RLE: 5, LLE: 5 Eye Response: (4) open spontaneously Motor Response: (6) obeys commands Verbal Response: (5) oriented [place] Total: 15 Psychiatric exam: Present: flat affect Skin exam: Present: warm, dry, intact, normal color Course Vital Signs 08/21/22 08/21/22 18:26 22:57 Temperature 98.0 F Pulse Rate 83 Respiratory 16 16 Rate Blood Pressure 108/74 O2 Sat by Pulse 96 Oximetry - Reevaluation(s) Reevaluation #1: 03/17/22 21:57 Upon reassessment, patient reports feeling improved. He does have mild headache for which she will be given Motrin. Urinalysis is pending. Patient updated on plan of care to discharge home. She verbalizes understanding and agrees with this plan. Medical Decision Making - Medical Decision Making This is a 21-year-old female with a past medical history of pseudoseizures who presents to the emergency department for evaluation status post seizure activity this afternoon active abduction. Upon exam, patient is well-appearing and in no acute distress. She is neurologically intact with no focal deficits. There are no injuries sustained in the seizure. Laboratory studies were obtained and are unremarkable. She is given Motrin for mild headache with improvement. She will be discharged to return to the care home in which she resides. She is instructed to avoid inhaled substances. Encouraged to follow up with PCP for recheck as needed. Attending: Garrison. - Lab Data Result diagrams: 03/17/22 19:47 03/17/22 19:47 Lab Results 03/17/22 03/17/22 03/17/22 Range/Units 19:47 19:47 19:47 WBC 11.2 H (3.8-10.6) k/uL RBC 4.32 (3.80-5.40) m/uL Hgb 12.8 (11.4-16.0) gm/dL Hct 39.5 (34.0-46.0) % MCV 91.5 (80.0-100.0) fL MCH 29.7 (25.0-35.0) pg MCHC 32.4 (31.0-37.0) g/dL RDW 13.1 (11.5-15.5) % Plt Count 420 (150-450) k/uL MPV 6.6 Neutrophils % 57 % Lymphocytes % 35 % Monocytes % 4 % Eosinophils % 3 % Basophils % 1 % Neutrophils # 6.3 (1.3-7.7) k/uL Lymphocytes # 3.9 (1.0-4.8) k/uL Monocytes # 0.4 (0-1.0) k/uL Eosinophils # 0.3 (0-0.7) k/uL Basophils # 0.1 (0-0.2) k/uL Sodium 137 (137-145) mmol/L Potassium 4.3 (3.5-5.1) mmol/L Chloride 106 (98-107) mmol/L Carbon Dioxide 21 L (22-30) mmol/L Anion Gap 10 mmol/L BUN 10 (7-17) mg/dL Creatinine 0.80 (0.52-1.04) mg/dL Est GFR (CKD-EPI)AfAm >90 (>60 ml/min/1.73 sqM) Est GFR (CKD-EPI)NonAf >90 (>60 ml/min/1.73 sqM) Glucose 106 H (74-99) mg/dL Calcium 9.1 (8.4-10.2) mg/dL Total Bilirubin 0.2 (0.2-1.3) mg/dL AST 22 (14-36) U/L ALT 16 (4-34) U/L Alkaline Phosphatase 87 (38-126) U/L Total Protein 6.5 (6.3-8.2) g/dL Albumin 3.7 (3.5-5.0) g/dL Urine Color Light Yellow Urine Appearance Clear (Clear) Urine pH 6.0 (5.0-8.0) Ur Specific [place] 1.014 (1.001-1.035) Urine Protein Negative (Negative) Urine Glucose (UA) Negative (Negative) Urine Ketones Negative (Negative) Urine Blood Negative (Negative) Urine Nitrite Negative (Negative) Urine Bilirubin Negative (Negative) Urine Urobilinogen <2.0 (<2.0) mg/dL Ur Leukocyte Esterase Small H (Negative) Urine RBC 1 (0-5) /hpf Urine WBC 5 (0-5) /hpf Ur Squamous Epith Cells <1 (0-4) /hpf Urine Bacteria Few H (None) /hpf Urine Mucus Rare H (None) /hpf Urine HCG, Qual (Not Detectd) 03/17/22 Range/Units 22:00 WBC (3.8-10.6) k/uL RBC (3.80-5.40) m/uL Hgb (11.4-16.0) gm/dL Hct (34.0-46.0) % MCV (80.0-100.0) fL MCH (25.0-35.0) pg MCHC (31.0-37.0) g/dL RDW (11.5-15.5) % Plt Count (150-450) k/uL MPV Neutrophils % % Lymphocytes % % Monocytes % % Eosinophils % % Basophils % % Neutrophils # (1.3-7.7) k/uL Lymphocytes # (1.0-4.8) k/uL Monocytes # (0-1.0) k/uL Eosinophils # (0-0.7) k/uL Basophils # (0-0.2) k/uL Sodium (137-145) mmol/L Potassium (3.5-5.1) mmol/L Chloride (98-107) mmol/L Carbon Dioxide (22-30) mmol/L Anion Gap mmol/L BUN (7-17) mg/dL Creatinine (0.52-1.04) mg/dL Est GFR (CKD-EPI)AfAm (>60 ml/min/1.73 sqM) Est GFR (CKD-EPI)NonAf (>60 ml/min/1.73 sqM) Glucose (74-99) mg/dL Calcium (8.4-10.2) mg/dL Total Bilirubin (0.2-1.3) mg/dL AST (14-36) U/L ALT (4-34) U/L Alkaline Phosphatase (38-126) U/L Total Protein (6.3-8.2) g/dL Albumin (3.5-5.0) g/dL Urine Color Urine Appearance (Clear) Urine pH (5.0-8.0) Ur Specific [place] (1.001-1.035) Urine Protein (Negative) Urine Glucose (UA) (Negative) Urine Ketones (Negative) Urine Blood (Negative) Urine Nitrite (Negative) Urine Bilirubin (Negative) Urine Urobilinogen (<2.0) mg/dL Ur Leukocyte Esterase (Negative) Urine RBC (0-5) /hpf Urine WBC (0-5) /hpf Ur Squamous Epith Cells (0-4) /hpf Urine Bacteria (None) /hpf Urine Mucus (None) /hpf Urine HCG, Qual Not Detected (Not Detectd) Disposition Clinical Impression: Headache, History of pseudoseizure Disposition: HOME SELF-CARE Condition: Stable Instructions (If sedation given, give patient instructions): Acute Headache (ED) Additional Instructions: Increase fluids. Minimize stress and exposure to stimulants such as nicotine or caffeine. May take Tylenol or Motrin if needed for headache discomfort. Follow-up with your PCP for a recheck in 48 hours. Return to the emergency department with any new, worsening, or concerning symptoms. Is patient prescribed a controlled substance at d/c from ED?: No Referrals: Patrica Caamcho MD [Primary Care Provider] - 1-2 days Time of Disposition: 22:42
[2022-03-17 22:11] LABS: Appearance,Urine Clear (Clear); Bacteria,Urine Few /hpf; Bilirubin,Urine Negative (Negative); Blood,Urine Negative (Negative); Color,Urine Light Yellow; Glucose,Urine (UA) Negative (Negative); Ketones,Urine Negative (Negative); Leukocyte Esterase,Urine Small (Negative); Mucus,Urine Rare /hpf; Nitrite,Urine Negative (Negative); Protein,Urine Negative (Negative); RBC,Urine 1 /hpf (0-5); Specific Gravity,Urine 1.014 (1.001-1.035); Squamous Epithelial Cell,Urine <1 /hpf (0-4); Urobilinogen,Urine <2.0 mg/dL (<2.0); WBC,Urine 5 /hpf (0-5)
== END 2022-03-17 22:59 | disposition home or self-care (01) ==
LOC: EC 18:22
DX: R51.9 Headache, unspecified (principal); F17.200 Nicotine dependence, unspecified, uncomplicated; Z88.6 Allergy status to analgesic agent; Z88.8 Allergy status to other drugs, medicaments and biological substances
CPT/HCPCS: 36415; 80053; 81001; 81025; 85025; 96360; 99284

== ENCOUNTER 2022-07-08 15:52 | Emergency (ER) | payer MEDICARE, OTHER ==
[2022-07-08 16:07] VITALS: RESP 18
[2022-07-08] MEDS ORDERED: SODIUM CHLORIDE 0.9% 1,000 ML IV STA (16:24)
[2022-07-08 17:04] LABS: Basophils # (A) 0.1 k/uL (0-0.2); Basophils % (A) 1 %; Eosinophils # (A) 0.3 k/uL (0-0.7); Eosinophils % (A) 2 %; HCT 38.3 % (34.0-46.0); HGB 13.4 gm/dL (11.4-16.0); Lymphocytes # (A) 4.3 k/uL (1.0-4.8); Lymphocytes % (A) 30 %; MCH 30.2 pg (25.0-35.0); MCHC 34.9 g/dL (31.0-37.0); MCV 86.3 fL (80.0-100.0); Mean Platelet Volume 6.6; Monocytes # (A) 0.5 k/uL (0-1.0); Monocytes % (A) 3 %; Neutrophils # (A) 8.8 k/uL (1.3-7.7); Neutrophils % (A) 63 %; Platelet Count 454 k/uL (150-450); RBC 4.43 m/uL (3.80-5.40); WBC 14.1 k/uL (3.8-10.6)
[2022-07-08 17:27] LABS: ALT 19 U/L (4-34); AST 19 U/L (14-36); African American GFR (CKD) >90 (>60 ml/min/1.73 sqM); Albumin 4.2 g/dL (3.5-5.0); Alkaline Phosphatase 109 U/L (38-126); Anion Gap 9 mmol/L; Blood Urea Nitrogen 9 mg/dL (7-17); Calcium 9.5 mg/dL (8.4-10.2); Carbon Dioxide 25 mmol/L (22-30); Chloride 105 mmol/L (98-107); Creatine Kinase 74 U/L (30-135); Glucose 87 mg/dL (74-99); Non-African American GFR(CKD) 81 (>60 ml/min/1.73 sqM); Potassium 4.1 mmol/L (3.5-5.1); Sodium 139 mmol/L (137-145); Total Bilirubin 0.2 mg/dL (0.2-1.3)
[2022-07-08 20:11] LABS: Alcohol <10 mg/dL; Salicylate <1.0 mg/dL
[2022-07-08 20:17] LABS: Appearance,Urine Clear (Clear); Bilirubin,Urine Negative (Negative); Blood,Urine Negative (Negative); Color,Urine Yellow; Glucose,Urine (UA) Negative (Negative); Ketones,Urine 2+ (Negative); Leukocyte Esterase,Urine Negative (Negative); Nitrite,Urine Negative (Negative); PH, Urine 6.5 (5.0-8.0); Protein,Urine Negative (Negative); Specific Gravity,Urine 1.024 (1.001-1.035); Urobilinogen,Urine <2.0 mg/dL (<2.0)
--- NOTE | 2022-07-08 20:18 | XR ---
EXAMINATION TYPE: XR chest 1V DATE OF EXAM: 07/08/2022 7:58 PM COMPARISON: Chest radiograph from one day prior. TECHNIQUE: XR chest 1V Frontal view of the chest. CLINICAL INDICATION:Female, 21 years old with history of AMS; FINDINGS: Lungs/Pleura: There is no evidence of pleural effusion, focal consolidation, or pneumothorax. Pulmonary vascularity: Unremarkable. Heart/mediastinum: Cardiomediastinal silhouette is unremarkable. Musculoskeletal: No acute osseous pathology. IMPRESSION: No acute cardiopulmonary disease/process.
--- NOTE | 2022-07-08 20:22 | CT ---
EXAMINATION TYPE: CT brain wo con CT DLP: 1062.4 mGycm, Automated exposure control for dose reduction was used. DATE OF EXAM: 07/08/2022 8:04 PM COMPARISON: 05/24/2020. CLINICAL INDICATION:Female, 21 years old with history of AMS, TECHNIQUE: Brain: Axial CT images of the brain were obtained with coronal and sagittal reformats created and rev iewed. Contrast used: None. Oral contrast used: None. FINDINGS: Brain: Extra-axial spaces: No abnormal extra-axial fluid collections. Ventricular system: Within normal limits Cerebral parenchyma: No acute intraparenchymal hemorrhage or mass effect. The oliva-white junction is well differentiated. Cerebellum: Unremarkable. Mass effect: No evidence of midline shift. Intracranial vasculature: unremarkable Soft tissues: Normal. Calvarium/osseous structures: No depressed skull fracture. Paranasal sinuses and mastoid air cells: Mild scattered paranasal sinus disease. Visualized orbits: Orbital contents are intact. IMPRESSION: No acute intracranial process.
[2022-07-08 20:25] LABS: Amphetamine Screen,Urine Not Detected (NotDetected); Barbiturate Screen,Urine Not Detected (NotDetected); Benzodiazepines Screen,Urine Not Detected (NotDetected); Cocaine Screen,Urine Not Detected (NotDetected); Methadone Screen, Urine Not Detected (NotDetected); Opiate Screen,Urine Not Detected (NotDetected); Oxycodone Screen, Urine Not Detected (NotDetected); Phencyclidine Screen,Urine Not Detected (NotDetected); Tricyclic Antidepressant,Urine Not Detected (NotDetected); Urn Cannabinoid Scrn Not Detected (NotDetected)
--- NOTE | 2022-07-08 22:54 | ED ---
Neuro HPI - General Chief Complaint: Neuro Symptoms/Deficit Stated Complaint: mental health Time Seen by Provider: 07/08/22 15:56 Source: patient, EMS Mode of arrival: EMS Limitations: no limitations - History of Present Illness Is the patient presenting with stroke symptoms?: No Initial Comments: Patient is a 21-year-old female who presents to the emergency department for evaluation of twitching and possible altered mental status. Patient has history of intellectual disability and is a poor historian. I did speak with patient's guardian and nursing facility personally over the phone. Apparently there was noticed of twitching of her upper extremities today and some change in her speech in the form of stuttering possibly slurring. Patient's dose of Lamictal was adjusted on 07/02/22 from 25 mg twice a day to 3 times a day. Patient does not express any concerns. She denies fever, chills, headache, upper respiratory symptoms, chest pain, shortness of breath, abdominal pain, nausea, vomiting, burning with urination. - Related Data Home Medications: Home Medications Medication Instructions Recorded Confirmed Cholecalciferol (Vitamin D3) 125 mcg PO DAILY@0800 08/21/20 12/09/21 [Vitamin D3 (5000 Iu)] Isibloom 1 tab PO DAILY@0800 09/27/20 12/09/21 Calcium Carbonate [Calcium] 600 mg PO DAILY@0800 12/09/21 12/09/21 Suvorexant [Belsomra] 10 mg PO HS@199912/09/21 12/09/21 busPIRone HCL [Buspar] 30 mg PO BID@08,199912/09/21 12/09/21 traZODone HCL [Desyrel] 50 mg PO HS@199912/09/21 12/09/21 Previous Rx's Medication Instructions Recorded ARIPiprazole [Abilify] 20 mg PO DAILY@0800 30 Days tab 11/23/21 Citalopram Hydrobromide [CeleXA] 40 mg PO DAILY@0800 30 Days tab 11/23/21 Omeprazole 20 mg PO BID@0800,1999 30 Days cap 11/23/21 Prazosin HCl 4 mg PO HS@1999 30 Days cap 11/23/21 lamoTRIgine [LaMICtal] 50 mg PO BID@0800,1999 30 Days tab 11/23/21 Allergies/Adverse Reactions: Allergies Allergy/AdvReac Type Severity Reaction Status Date / Time amphetamine [From Adderall] AdvReac Unknown Verified 12/09/21 21:55 dextroamphetamine AdvReac Unknown Verified 12/09/21 21:55 [From Adderall] Review of Systems ROS Statement: Those systems with pertinent positive or pertinent negative responses have been documented in the HPI. ROS Other: All systems not noted in ROS Statement are negative. General Exam Limitations: no limitations General appearance: alert, in no apparent distress Head exam: Present: atraumatic, normocephalic, normal inspection Eye exam: Present: normal appearance, PERRL, EOMI. Absent: scleral icterus, conjunctival injection, periorbital swelling Neck exam: Present: normal inspection. Absent: tenderness, meningismus, lym phadenopathy Respiratory exam: Present: normal lung sounds bilaterally. Absent: respiratory distress, wheezes, rales, rhonchi, stridor Cardiovascular Exam: Present: regular rate, normal rhythm, normal heart sounds. Absent: systolic murmur, diastolic murmur, rubs, gallop, clicks Extremities exam: Present: other (Intermittent jerking of upper extremities.) Neurological exam: Present: alert, oriented X3, CN II-XII intact Expanded Cranial nerves: EOM's Intact: Normal, Tongue Deviation: Normal, Nystagmus: Normal, Facial Sensation: Normal, Facial Palsy with Forehead Movement: Normal, Facial Palsy without Forehead Movement: Normal Cerebellar function: Finger to Nose: Normal, Heel to [place]ickman: Normal, Romberg: Normal Upper motor neuron: Ed Neglect: Normal, Pronator Drift: Normal, Babinski Sign: Normal, Sensory Extinction: Normal Motor strength exam: RUE: 5, LUE: 5, RLE: 5, LLE: 5 Psychiatric exam: Present: normal affect, normal mood Skin exam: Present: warm, dry, intact, normal color. Absent: rash Stroke MDM - Lab Data Result diagrams: 07/08/22 16:45 07/08/22 16:45 Lab Results 07/08/22 07/08/22 07/08/22 Range/Units 16:45 16:45 16:45 WBC 14.1 H (3.8-10.6) k/uL RBC 4.43 (3.80-5.40) m/uL Hgb 13.4 (11.4-16.0) gm/dL Hct 38.3 (34.0-46.0) % MCV 86.3 (80.0-100.0) fL MCH 30.2 (25.0-35.0) pg MCHC 34.9 (31.0-37.0) g/dL RDW 13.0 (11.5-15.5) % Plt Count 454 H (150-450) k/uL MPV 6.6 Neutrophils % 63 % Lymphocytes % 30 % Monocytes % 3 % Eosinophils % 2 % Basophils % 1 % Neutrophils # 8.8 H (1.3-7.7) k/uL Lymphocytes # 4.3 (1.0-4.8) k/uL Monocytes # 0.5 (0-1.0) k/uL Eosinophils # 0.3 (0-0.7) k/uL Basophils # 0.1 (0-0.2) k/uL Sodium 139 (137-145) mmol/L Potassium 4.1 (3.5-5.1) mmol/L Chloride 105 (98-107) mmol/L Carbon Dioxide 25 (22-30) mmol/L Anion Gap 9 mmol/L BUN 9 (7-17) mg/dL Creatinine 1.00 (0.52-1.04) mg/dL Est GFR (CKD-EPI)AfAm >90 (>60 ml/min/1.73 sqM) Est GFR (CKD-EPI)NonAf 81 (>60 ml/min/1.73 sqM) Glucose 87 (74-99) mg/dL Plasma Lactic Acid Danny 0.7 (0.7-2.0) mmol/L Calcium 9.5 (8.4-10.2) mg/dL Total Bilirubin 0.2 (0.2-1.3) mg/dL AST 19 (14-36) U/L ALT 19 (4-34) U/L Alkaline Phosphatase 109 (38-126) U/L Ammonia (<30) umol/L Creatine Kinase 74 (30-135) U/L Total Protein 7.0 (6.3-8.2) g/dL Albumin 4.2 (3.5-5.0) g/dL Urine Color Urine Appearance (Clear) Urine pH (5.0-8.0) Ur Specific [place] (1.001-1.035) Urine Protein (Negative) Urine Glucose (UA) (Negative) Urine Ketones (Negative) Urine Blood (Negative) Urine Nitrite (Negative) Urine Bilirubin (Negative) Urine Urobilinogen (<2.0) mg/dL Ur Leukocyte Esterase (Negative) Salicylates mg/dL Urine Opiates Screen (NotDetected) Ur Oxycodone Screen (NotDetected) Urine Methadone Screen (NotDetected) Ur Propoxyphene Screen (NotDetected) Acetaminophen ug/mL Ur Barbiturates Screen (NotDetected) U Tricyclic Antidepress (NotDetected) Ur Phencyclidine Scrn (NotDetected) Ur Amphetamines Screen (NotDetected) U Methamphetamines Scrn (NotDetected) U Benzodiazepines Scrn (NotDetected) Urine Cocaine Screen (NotDetected) U Marijuana (THC) Screen (NotDetected) Serum Alcohol mg/dL 07/08/22 07/08/22 07/08/22 Range/Units 19:43 19:49 19:49 WBC (3.8-10.6) k/uL RBC (3.80-5.40) m/uL Hgb (11.4-16.0) gm/dL Hct (34.0-46.0) % MCV (80.0-100.0) fL MCH (25.0-35.0) pg MCHC (31.0-37.0) g/dL RDW (11.5-15.5) % Plt Count (150-450) k/uL MPV Neutrophils % % Lymphocytes % % Monocytes % % Eosinophils % % Basophils % % Neutrophils # (1.3-7.7) k/uL Lymphocytes # (1.0-4.8) k/uL Monocytes # (0-1.0) k/uL Eosinophils # (0-0.7) k/uL Basophils # (0-0.2) k/uL Sodium (137-145) mmol/L Potassium (3.5-5.1) mmol/L Chloride (98-107) mmol/L Carbon Dioxide (22-30) mmol/L Anion Gap mmol/L BUN (7-17) mg/dL Creatinine (0.52-1.04) mg/dL Est GFR (CKD-EPI)AfAm (>60 ml/min/1.73 sqM) Est GFR (CKD-EPI)NonAf (>60 ml/min/1.73 sqM) Glucose (74-99) mg/dL Plasma Lactic Acid Danny (0.7-2.0) mmol/L Calcium (8.4-10.2) mg/dL Total Bilirubin (0.2-1.3) mg/dL AST (14-36) U/L ALT (4-34) U/L Alkaline Phosphatase (38-126) U/L Ammonia (<30) umol/L Creatine Kinase (30-135) U/L Total Protein (6.3-8.2) g/dL Albumin (3.5-5.0) g/dL Urine Color Yellow Urine Appearance Clear (Clear) Urine pH 6.5 (5.0-8.0) Ur Specific [place] 1.024 (1.001-1.035) Urine Protein Negative (Negative) Urine Glucose (UA) Negative (Negative) Urine Ketones 2+ H (Negative) Urine Blood Negative (Negative) Urine Nitrite Negative (Negative) Urine Bilirubin Negative (Negative) Urine Urobilinogen <2.0 (<2.0) mg/dL Ur Leukocyte Esterase Negative (Negative) Salicylates <1.0 mg/dL Urine Opiates Screen Not Detected (NotDetected) Ur Oxycodone Screen Not Detected (NotDetected) Urine Methadone Screen Not Detected (NotDetected) Ur Propoxyphene Screen Not Detected (NotDetected) Acetaminophen ug/mL Ur Barbiturates Screen Not Detected (NotDetected) U Tricyclic Antidepress Not Detected (NotDetected) Ur Phencyclidine Scrn Not Detected (NotDetected) Ur Amphetamines Screen Not Detected (NotDetected) U Methamphetamines Scrn Not Detected (NotDetected) U Benzodiazepines Scrn Not Detected (NotDetected) Urine Cocaine Screen Not Detected (NotDetected) U Marijuana (THC) Screen Not Detected (NotDetected) Serum Alcohol <10 mg/dL 07/08/22 07/08/22 Range/Units 19:49 21:55 WBC (3.8-10.6) k/uL RBC (3.80-5.40) m/uL Hgb (11.4-16.0) gm/dL Hct (34.0-46.0) % MCV (80.0-100.0) fL MCH (25.0-35.0) pg MCHC (31.0-37.0) g/dL RDW (11.5-15.5) % Plt Count (150-450) k/uL MPV Neutrophils % % Lymphocytes % % Monocytes % % Eosinophils % % Basophils % % Neutrophils # (1.3-7.7) k/uL Lymphocytes # (1.0-4.8) k/uL Monocytes # (0-1.0) k/uL Eosinophils # (0-0.7) k/uL Basophils # (0-0.2) k/uL Sodium (137-145) mmol/L Potassium (3.5-5.1) mmol/L Chloride (98-107) mmol/L Carbon Dioxide (22-30) mmol/L Anion Gap mmol/L BUN (7-17) mg/dL Creatinine (0.52-1.04) mg/dL Est GFR (CKD-EPI)AfAm (>60 ml/min/1.73 sqM) Est GFR (CKD-EPI)NonAf (>60 ml/min/1.73 sqM) Glucose (74-99) mg/dL Plasma Lactic Acid Danny (0.7-2.0) mmol/L Calcium (8.4-10.2) mg/dL Total Bilirubin (0.2-1.3) mg/dL AST (14-36) U/L ALT (4-34) U/L Alkaline Phosphatase (38-126) U/L Ammonia 10 (<30) umol/L Creatine Kinase (30-135) U/L Total Protein (6.3-8.2) g/dL Albumin (3.5-5.0) g/dL Urine Color Urine Appearance (Clear) Urine pH (5.0-8.0) Ur Specific [place] (1.001-1.035) Urine Protein (Negative) Urine Glucose (UA) (Negative) Urine Ketones (Negative) Urine Blood (Negative) Urine Nitrite (Negative) Urine Bilirubin (Negative) Urine Urobilinogen (<2.0) mg/dL Ur Leukocyte Esterase (Negative) Salicylates mg/dL Urine Opiates Screen (NotDetected) Ur Oxycodone Screen (NotDetected) Urine Methadone Screen (NotDetected) Ur Propoxyphene Screen (NotDetected) Acetaminophen <10.0 ug/mL Ur Barbiturates Screen (NotDetected) U Tricyclic Antidepress (NotDetected) Ur Phencyclidine Scrn (NotDetected) Ur Amphetamines Screen (NotDetected) U Methamphetamines Scrn (NotDetected) U Benzodiazepines Scrn (NotDetected) Urine Cocaine Screen (NotDetected) U Marijuana (THC) Screen (NotDetected) Serum Alcohol mg/dL - Medical Decision Making This is a 21-year-old female presenting with muscle twitching and evaluation of speech changes. There is isolated intermittent jerking of the upper extremities during my evaluation otherwise no extra pyramidal symptoms or signs. No evidence of seizure-like activity. No focal deficit. Patient is alert and oriented 4. She does have stuttering and includes extra syllables in her speech, unsure of baseline. Laboratory studies obtained. Ammonia, salicylate, acetaminophen, alcohol level within normal limits. Urine drug screen normal. Urinalysis does not reveal evidence of infection. Chest x-ray obtained and interpreted by me which shows no acute process. CT of the brain without contrast obtained and interpreted by me which shows no acute intracranial process. At this time there are no diagnostic studies to explain patient's symptoms. She was observed closely in the emergency department and did not have any further episodes of twitching. Patient will be discharged back to her facility with instruction to follow-up with psychiatrist. Dr. Ji is my attending. Past Medical History Past Medical History: No Reported History Additional Past Medical History / Comment(s): psuedoseizures, History of Any Multi-Drug Resistant Organisms: None Reported Past Surgical History: No Surgical Hx Reported Past Anesthesia/Blood Transfusion Reactions: No Reported Reaction Past Psychological History: ADD/ADHD, Anxiety, Bipolar, Depression, PTSD Smoking Status: Current every day smoker Past Alcohol Use History: None Reported Past Drug Use History: Marijuana Course Vital Signs 07/08/22 07/08/22 07/08/22 16:02 18:01 23:09 Pulse Rate 84 63 80 Respiratory 18 18 18 Rate Blood Pressure 114/77 127/78 135/76 O2 Sat by Pulse 97 98 99 Oximetry Disposition Clinical Impression: Twitching, Intellectual disability, AMS (altered mental status), Alteration in speech Disposition: HOME SELF-CARE Condition: Good Instructions (If sedation given, give patient instructions): Altered Mental Status (ED) Additional Instructions: Today in the emergency department I did not find any reason for altered mental status. Follow-up with psychiatrist in 1-2 days. Return to the emergency Department patient experiences new, concerning, or worsening symptoms. Is patient prescribed a controlled substance at d/c from ED?: No Referrals: Patrica Camacho MD [Primary Care Provider] - 1-2 days Time of Disposition: 22:54
[2022-07-08 23:11] VITALS: BP 135/76; PULSE 80
== END 2022-07-08 23:11 | disposition home or self-care (01) ==
LOC: EC 15:52
DX: F79 Unspecified intellectual disabilities (principal); R41.82 Altered mental status, unspecified; F17.200 Nicotine dependence, unspecified, uncomplicated; F12.90 Cannabis use, unspecified, uncomplicated; F41.9 Anxiety disorder, unspecified; Z88.8 Allergy status to other drugs, medicaments and biological substances; Z79.899 Other long term (current) drug therapy
CPT/HCPCS: 36415; 80053; 80175; 82140; 82550; 83605; 85025; 81003; 80306; 80143; 80179; 71045; 70450; 99285; 96360; G0480; 80320

== ENCOUNTER 2022-11-05 21:16 | Emergency (ER) | payer MEDICARE, OTHER ==
[2022-11-05 21:32] VITALS: RESP 18; TEMP 98
[2022-11-05] MEDS ORDERED: SODIUM CHLORIDE 0.9% 1,000 ML IV STA (21:34)
--- NOTE | 2022-11-05 21:37 | ED ---
General Adult HPI - General Chief complaint: Alcohol Stated complaint: Seizure, Vomiting Time Seen by Provider: 11/05/22 21:21 Source: patient, RN notes reviewed Mode of arrival: EMS - History of Present Illness Initial comments: 21-year-old female with no significant past medical history presents the emergency department via EMS with a chief complaint of alcohol intoxication. History is limited due to patient making inaudible sounds however she seems to be able to follow commands. EMS reports patient was drinking alcohol at her long-term house however it is unsure of what kind of alcohol on how much. She is denying any pain. - Related Data Home Medications Medication Instructions Recorded Confirmed Cholecalciferol (Vitamin D3) 125 mcg PO DAILY@0800 08/21/20 12/09/21 [Vitamin D3 (5000 Iu)] Isibloom 1 tab PO DAILY@0800 09/27/20 12/09/21 Calcium Carbonate [Calcium] 600 mg PO DAILY@0800 12/09/21 12/09/21 Suvorexant [Belsomra] 10 mg PO HS@199912/09/21 12/09/21 busPIRone HCL [Buspar] 30 mg PO BID@0800,199912/09/21 12/09/21 traZODone HCL [Desyrel] 50 mg PO HS@199912/09/21 12/09/21 Previous Rx's Medication Instructions Recorded ARIPiprazole [Abilify] 20 mg PO DAILY@0800 30 Days tab 11/23/21 Citalopram Hydrobromide [CeleXA] 40 mg PO DAILY@0800 30 Days tab 11/23/21 Omeprazole 20 mg PO BID@0800,1999 30 Days cap 11/23/21 Prazosin HCl 4 mg PO HS@1999 30 Days cap 11/23/21 lamoTRIgine [LaMICtal] 50 mg PO BID@0800,1999 30 Days tab 11/23/21 Allergies Allergy/AdvReac Type Severity Reaction Status Date / Time amphetamine [From Adderall] AdvReac Unknown Verified 11/05/22 21:21 dextroamphetamine AdvReac Unknown Verified 11/05/22 21:21 [From Adderall] Review of Systems ROS Statement: Those systems with pertinent positive or pertinent negative responses have been documented in the HPI. ROS Other: All systems not noted in ROS Statement are negative. Past Medical History Past Medical History: No Reported History Additional Past Medical History / Comment(s): psuedoseizures, History of Any Multi-Drug Resistant Organisms: None Reported Past Surgical History: No Surgical Hx Reported Past Anesthesia/Blood Transfusion Reactions: No Reported Reaction Past Psychological History: ADD/ADHD, Anxiety, Bipolar, Depression, PTSD Smoking Status: Current every day smoker Past Alcohol Use History: None Reported Past Drug Use History: Marijuana General Exam General appearance: alert, in no apparent distress Head exam: Present: atraumatic, normocephalic, normal inspection Eye exam: Present: normal appearance, PERRL, EOMI. Absent: scleral icterus, conjunctival injection, periorbital swelling Pupils: Present: normal accommodation, mydriatic ENT exam: Present: normal exam, mucous membranes moist Neck exam: Present: normal inspection. Absent: tenderness, meningismus, lymphadenopathy Respiratory exam: Present: normal lung sounds bilaterally. Absent: respiratory distress, wheezes, rales, rhonchi, stridor Cardiovascular Exam: Present: regular rate, normal rhythm, normal heart sounds. Absent: systolic murmur, diastolic murmur, rubs, gallop, clicks GI/Abdominal exam: Present: soft, normal bowel sounds. Absent: distended, tenderness, guarding, rebound, rigid Extremities exam: Present: normal inspection, full ROM, normal capillary refill. Absent: tenderness, pedal edema, joint swelling, calf tenderness Back exam: Present: normal inspection Neurological exam: Present: alert, oriented X3, CN II-XII intact Psychiatric exam: Present: normal affect, normal mood Skin exam: Present: warm, dry, intact, normal color. Absent: rash Course Vital Signs 11/05/22 11/05/22 21:29 23:17 Temperature 98.0 F Pulse Rate 101 H 90 Respiratory 18 18 Rate Blood Pressure 128/88 130/76 O2 Sat by Pulse 95 96 Oximetry - Reevaluation(s) Reevaluation #1: 11/05/22 22:58 patient reevaluated. Patient is resting comfortably at this time. Reevaluation #2: 11/05/22 23:15 patient updated on results and reevaluated. Patient is answering questions appropriately at this time she is complaining of a headache. She reports that she smoked marijuana earlier today and drink some vodka. She is unsure of how much. EKG Findings - EKG Comments: EKG Findings:: I interpreted the following EKG performed at 21:18. Rate 11 1 bpm and sinus tachycardia. [place] interval 163, QRS duration 83, QT/QTC 341/407 Medical Decision Making - Medical Decision Making Was pt. sent in by a medical professional or institution (JOHANNA Poe, BUFFING WHEEL OPERATOR, urgent care, hospital, or residential...) When possible be specific @ -[No] Did you speak to anyone other than the patient for history (EMS, parent, family, police, friend...)? What history was obtained from this source @ -[No] Did you review nursing and triage notes (agree or disagree)? Why? @ -[I reviewed and agree with nursing and triage notes] Were old charts reviewed (outside hosp., previous admission, EMS record, old EKG, old radiological studies, urgent care reports/EKG's, residential records)? Report findings @ -[No old charts were reviewed] Differential Diagnosis (chest pain, altered mental status, abdominal pain women, abdominal pain men, vaginal bleeding, weakness, fever, dyspnea, syncope, headache, dizziness, GI bleed, back pain, seizure, CVA, palpatations, mental health, musculoskeletal)? @ -[not applicable] EKG interpreted by me (3pts min.). @ -[As above] X-rays interpreted by me (1pt min.). @ -[None done] CT interpreted by me (1pt min.). @ - the CT head and neck negative for any intracranial process U/S interpreted by me (1pt. min.). @ -[None done] What testing was considered but not performed or refused? (CT, X-rays, U/S, labs)? Why? @ -[None] What meds were considered but not given or refused? Why? @ -[None] Did you discuss the management of the patient with other professionals (professionals i.e. JOHANNA Poe, BUFFING WHEEL OPERATOR, lab, RT, psych nurse, social services, quill worker, teacher, medical scientific officer, caser in)? Give summary @ -[No] Was smoking cessation discussed for >3mins.? @ -[No] Was critical care preformed (if so, how long)? @ -[No] Were there social determinants of health that impacted care today? How? (Homelessness, low income, unemployed, alcoholism, drug addiction, transportation, low edu. Level, literacy, decrease access to med. care, alf, rehab)? @ -[No] Was there de-escalation of care discussed even if they declined (Discuss DNR or withdrawal of care, Hospice)? DNR status @ -[No] What co-morbidities impacted this encounter? (DM, HTN, Smoking, COPD, CAD, Cancer, CVA, ARF, Chemo, Hep., AIDS, mental health diagnosis, sleep apnea, morbid obesity)? @ -[None] Was patient admitted / discharged? Hospital course, mention meds given and route, prescriptions, significant lab abnormalities, going to OR and other pertinent info. @ - Undiagnosed new problem with uncertain prognosis? @ -Discharged. This is a 21 year-old female who presents to the emergency department with alcohol intoxication. Patient had a thorough history and physical exam performed while in the. Physical exam is essentially unrema rkable heart rate regular rate and rhythm, lungs clear to auscultation bilaterally abdomen is soft and nontender. patient had lab work and imaging performed which was essentially unremarkable. I discussed results in detail with the patient who verbalized understanding and all questions were addressed. She was given tylenol and IV fluids with symptomatic relief on the ED. sHe was discharged in stable condition. He was encouraged to follow up with his PCP in 1-2 days. Case discussed with Dr. Quiroz, [facility] who agrees with plan of careo] Drug Therapy requiring intensive monitoring for toxicity (Heparin, Nitro, Insulin, Cardizem)? @ -[No] Were any procedures done? @ -[No] Diagnosis/symptom? @ -alcohol intoxication Acute, or Chronic, or Acute on Chronic? @ -acute Uncomplicated (without systemic symptoms) or Complicated (systemic symptoms)? @ -uncomplicated Side effects of treatment? @ -[No] Exacerbation, Progression, or Severe Exacerbation? @ -[No] Poses a threat to life or bodily function? How? (Chest pain, USA, VT, pneumonia, PE, COPD, DKA, ARF, appy, cholecystitis, CVA, Diverticulitis, Homicidal, Suicidal, threat to staff... and all critical care pts) @ -low likelihood - Lab Data Result diagrams: 11/05/22 21:37 11/05/22 21:37 Lab Results 04/06/1911/05/22 11/05/22 Range/Units 21:37 21:37 21:37 WBC 11.6 H (3.8-10.6) k/uL RBC 4.43 (3.80-5.40) m/uL Hgb 13.2 (11.4-16.0) gm/dL Hct 38.9 (34.0-46.0) % MCV 87.7 (80.0-100.0) fL MCH 29.8 (25.0-35.0) pg MCHC 33.9 (31.0-37.0) g/dL RDW 13.4 (11.5-15.5) % Plt Count 331 (150-450) k/uL MPV 6.9 Neutrophils % 47 % Lymphocytes % 45 % Monocytes % 4 % Eosinophils % 2 % Basophils % 1 % Neutrophils # 5.4 (1.3-7.7) k/uL Lymphocytes # 5.2 H (1.0-4.8) k/uL Monocytes # 0.5 (0-1.0) k/uL Eosinophils # 0.2 (0-0.7) k/uL Basophils # 0.1 (0-0.2) k/uL Sodium 135 L (137-145) mmol/L Potassium 3.9 (3.5-5.1) mmol/L Chloride 106 (98-107) mmol/L Carbon Dioxide 20 L (22-30) mmol/L Anion Gap 9 mmol/L BUN 11 (7-17) mg/dL Creatinine 0.84 (0.52-1.04) mg/dL Est GFR (CKD-EPI)AfAm >90 (>60 ml/min/1.73 sqM) Est GFR (CKD-EPI)NonAf >90 (>60 ml/min/1.73 sqM) Glucose 96 (74-99) mg/dL Calcium 9.0 (8.4-10.2) mg/dL Magnesium 2.0 (1.6-2.3) mg/dL Urine Color Yellow Urine Appearance Clear (Clear) Urine pH 6.0 (5.0-8.0) Ur Specific [place] 1.034 (1.001-1.035) Urine Protein Trace H (Negative) Urine Glucose (UA) Negative (Negative) Urine Ketones Trace H (Negative) Urine Blood Negative (Negative) Urine Nitrite Negative (Negative) Urine Bilirubin 1+ H (Negative) Urine Urobilinogen 2.0 (<2.0) mg/dL Ur Leukocyte Esterase Trace H (Negative) Urine RBC 1 (0-5) /hpf Urine WBC 1 (0-5) /hpf Ur Squamous Epith Cells 2 (0-4) /hpf Calcium Oxalate Crystal Few H (None) /hpf Urine Bacteria Rare H (None) /hpf Hyaline Casts 1 (0-2) /lpf Urine Mucus Occasional H (None) /hpf Urine Opiates Screen Not Detected (NotDetected) Ur Oxycodone Screen Not Detected (NotDetected) Urine Methadone Screen Not Detected (NotDetected) Ur Propoxyphene Screen Not Detected (NotDetected) Ur Barbiturates Screen Not Detected (NotDetected) U Tricyclic Antidepress Not Detected (NotDetected) Ur Phencyclidine Scrn Not Detected (NotDetected) Ur Amphetamines Screen Not Detected (NotDetected) U Methamphetamines Scrn Not Detected (NotDetected) U Benzodiazepines Scrn Detected H (NotDetected) Urine Cocaine Screen Not Detected (NotDetected) U Marijuana (THC) Screen Detected H (NotDetected) Serum Alcohol 116 mg/dL Disposition Clinical Impression: Alcohol intoxication Disposition: HOME SELF-CARE Instructions (If sedation given, give patient instructions): Alcohol Intoxication (ED) Additional Instructions: Please return to the nearest emergency department if symptoms worsen or persist Is patient prescribed a controlled substance at d/c from ED?: No Referrals: None,Stated [Primary Care Provider] - 1-2 days Time of Disposition: 00:24
[2022-11-05 22:08] LABS: African American GFR (CKD) >90 (>60 ml/min/1.73 sqM); Anion Gap 9 mmol/L; Blood Urea Nitrogen 11 mg/dL (7-17); Carbon Dioxide 20 mmol/L (22-30); Chloride 106 mmol/L (98-107); Glucose 96 mg/dL (74-99); Non-African American GFR(CKD) >90 (>60 ml/min/1.73 sqM); Potassium 3.9 mmol/L (3.5-5.1); Sodium 135 mmol/L (137-145)
[2022-11-05 22:32] LABS: Alcohol 116 mg/dL; Appearance,Urine Clear (Clear); Bacteria,Urine Rare /hpf; Bilirubin,Urine 1+ (Negative); Blood,Urine Negative (Negative); Calcium Oxalate Crystals,Urine Few /hpf; Color,Urine Yellow; Glucose,Urine (UA) Negative (Negative); Hyaline Casts,Urine 1 /lpf (0-2); Ketones,Urine Trace (Negative); Leukocyte Esterase,Urine Trace (Negative); Mucus,Urine Occasional /hpf; Nitrite,Urine Negative (Negative); Protein,Urine Trace (Negative); RBC,Urine 1 /hpf (0-5); Specific Gravity,Urine 1.034 (1.001-1.035); Squamous Epithelial Cell,Urine 2 /hpf (0-4); WBC,Urine 1 /hpf (0-5)
[2022-11-05 22:36] LABS: Amphetamine Screen,Urine Not Detected (NotDetected); Barbiturate Screen,Urine Not Detected (NotDetected); Benzodiazepines Screen,Urine Detected (NotDetected); Cocaine Screen,Urine Not Detected (NotDetected); Methadone Screen, Urine Not Detected (NotDetected); Opiate Screen,Urine Not Detected (NotDetected); Oxycodone Screen, Urine Not Detected (NotDetected); Phencyclidine Screen,Urine Not Detected (NotDetected); Tricyclic Antidepressant,Urine Not Detected (NotDetected); Urn Cannabinoid Scrn Detected (NotDetected)
[2022-11-05 22:49] LABS: Basophils # (A) 0.1 k/uL (0-0.2); Basophils % (A) 1 %; Eosinophils # (A) 0.2 k/uL (0-0.7); Eosinophils % (A) 2 %; HCT 38.9 % (34.0-46.0); HGB 13.2 gm/dL (11.4-16.0); Lymphocytes # (A) 5.2 k/uL (1.0-4.8); Lymphocytes % (A) 45 %; MCH 29.8 pg (25.0-35.0); MCHC 33.9 g/dL (31.0-37.0); MCV 87.7 fL (80.0-100.0); Mean Platelet Volume 6.9; Monocytes # (A) 0.5 k/uL (0-1.0); Monocytes % (A) 4 %; Neutrophils # (A) 5.4 k/uL (1.3-7.7); Neutrophils % (A) 47 %; Platelet Count 331 k/uL (150-450); RBC 4.43 m/uL (3.80-5.40); RDW 13.4 % (11.5-15.5); WBC 11.6 k/uL (3.8-10.6)
[2022-11-05] MEDS ORDERED: IBUPROFEN 400 MG TAB PO STA (23:06)
[2022-11-05] MEDS ORDERED: ACETAMINOPHEN TAB 325 MG TAB PO STA (23:06)
[2022-11-05 23:18] VITALS: BP 130/76; PULSE 90
--- NOTE | 2022-11-06 00:17 | CT ---
EXAM: CT Head Without Intravenous Contrast CLINICAL HISTORY: ITS.REASON CT Reason: pain TECHNIQUE: Axial computed tomography images of the head/brain without intravenous contrast. CTDI is 45.2 mGy and DLP is 1063 mGy-cm. This CT exam was performed using one or more of the following dose reduction techniques: automated exposure control, adjustment of the mA and/or kV according to patient size, and/or use of iterative reconstruction technique. COMPARISON: 07/08/2022. FINDINGS: Brain: Unremarkable. No hemorrhage. No significant white matter disease. No edema. Ventricles: Unremarkable. No ventriculomegaly. Bones/joints: Unremarkable. No acute fracture. Soft tissues: Unremarkable. Sinuses: Unremarkable as visualized. No acute sinusitis. Mastoid air cells: Unremarkable as visualized. No mastoid effusion. IMPRESSION: Normal head/brain CT. EXAM: CT Cervical Spine Without Intravenous Contrast CLINICAL HISTORY: ITS.REASON CT Reason: pain TECHNIQUE: Axial computed tomography images of the cervical spine without intravenous contrast. CTDI is 18.3 mGy and DLP is 551 mGy-cm. This CT exam was performed using one or more of the following dose reduction techniques: automated exposure control, adjustment of the mA and/or kV according to patient size, and/or use of iterative reconstruction technique. COMPARISON: No relevant prior studies available. FINDINGS: Vertebrae: Unremarkable. No acute fracture. Discs/spinal canal/neural foramina: No acute findings. No spinal canal stenosis. Soft tissues: Unremarkable. IMPRESSION: Normal cervical spine CT.
== END 2022-11-06 00:40 | disposition home or self-care (01) ==
LOC: EC 21:16
DX: F10.129 Alcohol abuse with intoxication, unspecified (principal); F90.9 Attention-deficit hyperactivity disorder, unspecified type; F41.9 Anxiety disorder, unspecified; F31.9 Bipolar disorder, unspecified; F17.200 Nicotine dependence, unspecified, uncomplicated; F12.90 Cannabis use, unspecified, uncomplicated; Z79.899 Other long term (current) drug therapy; Z88.8 Allergy status to other drugs, medicaments and biological substances; Y90.5 Blood alcohol level of 100-119 mg/100 ml
CPT/HCPCS: 99285 ×2; 96360 ×2; 36415; 80048; 83735; 85025; 81001; 80306; 72125; 70450; G0480; 80320

== ENCOUNTER 2022-11-19 17:07 | Emergency (ER) | payer MEDICARE, OTHER ==
[2022-11-19 17:16] VITALS: BP 116/81; PULSE 105; RESP 19; TEMP 98.3
--- NOTE | 2022-11-19 17:21 | ED ---
General Adult HPI - General Chief complaint: Drug Screen Stated complaint: Cocaine Use Time Seen by Provider: 11/19/22 17:08 Source: patient, police, EMS, RN notes reviewed Mode of arrival: EMS Limitations: no limitations - History of Present Illness Initial comments: Patient is a pleasant 22-year-old female presenting to the emergency department after smoking crack cocaine for the first time. Patient also admits to smoking marijuana. Patient states she felt anxious and jittery and is starting to improved. Patient states the symptoms became so bad she almost passed out. Patient denies actually losing consciousness. No history of similar symptoms previously. Patient states she has never used crack cocaine in the past. Patient states she feels near normal at this time. - Related Data Home Medications Medication Instructions Recorded Confirmed Cholecalciferol (Vitamin D3) 125 mcg PO DAILY@0800 08/21/20 12/09/21 [Vitamin D3 (5000 Iu)] Isibloom 1 tab PO DAILY@0800 09/27/20 12/09/21 Calcium Carbonate [Calcium] 600 mg PO DAILY@0800 12/09/21 12/09/21 Suvorexant [Belsomra] 10 mg PO HS@199912/09/21 12/09/21 busPIRone HCL [Buspar] 30 mg PO BID@0800,199912/09/21 12/09/21 traZODone HCL [Desyrel] 50 mg PO HS@199912/09/21 12/09/21 Previous Rx's Medication Instructions Recorded ARIPiprazole [Abilify] 20 mg PO DAILY@0800 30 Days tab 11/23/21 Citalopram Hydrobromide [CeleXA] 40 mg PO DAILY@0800 30 Days tab 11/23/21 Omeprazole 20 mg PO BID@0800,1999 30 Days cap 11/23/21 Prazosin HCl 4 mg PO HS@1999 30 Days cap 11/23/21 lamoTRIgine [LaMICtal] 50 mg PO BID@0800,1999 30 Days tab 11/23/21 Allergies Allergy/AdvReac Type Severity Reaction Status Date / Time amphetamine [From Adderall] AdvReac Unknown Verified 11/19/22 17:19 dextroamphetamine AdvReac Unknown Verified 11/19/22 17:19 [From Adderall] Review of Systems ROS Statement: Those systems with pertinent positive or pertinent negative responses have been documented in the HPI. ROS Other: All systems not noted in ROS Statement are negative. Constitutional: Denies: fever Eyes: Denies: eye pain ENT: Denies: ear pain Respiratory: Denies: cough Cardiovascular: Denies: chest pain Endocrine: Denies: fatigue Gastrointestinal: Denies: abdominal pain Genitourinary: Denies: dysuria Musculoskeletal: Denies: back pain Skin: Denies: rash Neurological: Denies: weakness Psychiatric: Reports: as per HPI, anxiety Past Medical History Past Medical History: No Reported History Additional Past Medical History / Comment(s): psuedoseizures, History of Any Multi-Drug Resistant Organisms: None Reported Past Surgical History: No Surgical Hx Reported Past Anesthesia/Blood Transfusion Reactions: No Reported Reaction Past Psychological History: ADD/ADHD, Anxiety, Bipolar, Depression, PTSD Smoking Status: Current every day smoker Past Alcohol Use History: None Reported Past Drug Use History: Marijuana General Exam Limitations: no limitations General appearance: alert, in no apparent distress Head exam: Present: normocephalic Eye exam: Present: normal appearance Pupils: Present: miosis (Reactive) Neck exam: Present: normal inspection Respiratory exam: Present: normal lung sounds bilaterally Cardiovascular Exam: Present: regular rate, normal rhythm GI/Abdominal exam: Present: soft. Absent: tenderness Extremities exam: Present: normal inspection Neurological exam: Present: alert, oriented X3, CN II-XII intact. Absent: motor sensory deficit Psychiatric exam: Present: normal affect, normal mood Skin exam: Present: normal color Course Vital Signs 11/19/22 17:13 Temperature 98.3 F Pulse Rate 105 H Respiratory 19 Rate Blood Pressure 116/81 O2 Sat by Pulse 93 L Oximetry EKG Findings - EKG Results: EKG: interpreted by ERMD, sinus rhythm, normal axis, normal QRS, normal ST/T Medical Decision Making - Medical Decision Making Was pt. sent in by a medical professional or institution (, PA, WEBSITE DESIGNER, urgent care, hospital, or care home...) When possible be specific @ -No Did you speak to anyone other than the patient for history (EMS, parent, family, police, friend...)? What history was obtained from this source @ -EMS helps provide history that was confirmed by patient Did you review nursing and triage notes (agree or disagree)? Why? @ -I reviewed and agree with nursing and triage notes Were old charts reviewed (outside hosp., previous admission, EMS record, old E KG, old radiological studies, urgent care reports/EKG's, care home records)? Report findings @ -No old charts were reviewed Differential Diagnosis (chest pain, altered mental status, abdominal pain women, abdominal pain men, vaginal bleeding, weakness, fever, dyspnea, syncope, headache, dizziness, GI bleed, back pain, seizure, CVA, palpatations, mental hea lth)? @ -not applicable EKG interpreted by me (3pts min.). @ -As above X-rays interpreted by me (1pt min.). @ -None done CT interpreted by me (1pt min.). @ -None done U/S interpreted by me (1pt. min.). @ -None done What testing was considered but not performed or refused? (CT, X-rays, U/S, labs)? Why? @ -None What meds were considered but not given or refused? Why? @ -None Did you discuss the management of the patient with other professionals (professionals i.e. , PA, WEBSITE DESIGNER, lab, RT, psych nurse, social work supervisor, marketing senior recruiter, teacher, juvenile probation officer, case liner)? Give summary @ -No Was smoking cessation discussed for >3mins.? @ -No Was critical care preformed (if so, how long)? @ -No Were there social determinants of health that impacted care today? How? (Homelessness, low income, unemployed, alcoholism, drug addiction, transportation, low edu. Level, literacy, decrease access to med. care, penitentiary, rehab)? @ -No Was there de-escalation of care discussed even if they declined (Discuss DNR or withdrawal of care, Hospice)? DNR status @ -No What co-morbidities impacted this encounter? (DM, HTN, Smoking, COPD, CAD, Cancer, CVA, ARF, Chemo, Hep., AIDS, mental health diagnosis, sleep apnea, morbid obesity)? @ -None Was patient admitted / discharged? Hospital course, mention meds given and route, prescriptions, significant lab abnormalities, going to OR and other pertinent info. @ -Patient reevaluated with stable vital signs and acting appropriately. Patient will be discharged and discussions had regarding not using crack cocaine Undiagnosed new problem with uncertain prognosis? @ -No Drug Therapy requiring intensive monitoring for toxicity (Heparin, Nitro, Insulin, Cardizem)? @ -No Were any procedures done? @ -No Diagnosis/symptom? @ -Anxiety, crack cocaine use Acute, or Chronic, or Acute on Chronic? @ -Acute, acute Uncomplicated (without systemic symptoms) or Complicated (systemic symptoms)? @ -default Side effects of treatment? @ -No Exacerbation, Progression, or Severe Exacerbation? @ -No Poses a threat to life or bodily function? How? (Chest pain, [place], [place], pneumonia, PE, COPD, DKA, ARF, appy, cholecystitis, CVA, Diverticulitis, Homicidal, Suicidal, threat to staff... and all critical care pts) @ -No Disposition Clinical Impression: Anxiety, Crack cocaine use Disposition: HOME SELF-CARE Condition: Stable Instructions (If sedation given, give patient instructions): Cocaine Abuse (ED), Anxiety (ED) Additional Instructions: Please avoid all drug and crack and cocaine use. Please do follow-up with primary care physician in the next couple days for recheck. Return for increased heart rate, passing out, worsening or change in symptoms or other concerns. Is patient prescribed a controlled substance at d/c from ED?: No Referrals: Yousif Ortiz MD [STAFF PHYSICIAN] - 1-2 days Time of Disposition: 17:52
--- NOTE | 2022-11-19 17:54 | ED ---
Disposition Clinical Impression: Anxiety, Crack cocaine use Disposition: HOME SELF-CARE Condition: Stable Instructions (If sedation given, give patient instructions): Cocaine Abuse (ED), Anxiety (ED) Additional Instructions: Please avoid all drug and crack and cocaine use. Please do follow-up with primary care physician in the next couple days for recheck. Return for increased heart rate, passing out, worsening or change in symptoms or other concerns. Patient may take her evening medications as scheduled. Is patient prescribed a controlled substance at d/c from ED?: No Referrals: Yousif Ortiz MD [STAFF PHYSICIAN] - 1-2 days
== END 2022-11-19 18:10 | disposition home or self-care (01) ==
LOC: EC 17:07
DX: F41.9 Anxiety disorder, unspecified (principal); F14.90 Cocaine use, unspecified, uncomplicated; F17.200 Nicotine dependence, unspecified, uncomplicated; F31.9 Bipolar disorder, unspecified; Z79.899 Other long term (current) drug therapy; Z88.8 Allergy status to other drugs, medicaments and biological substances
CPT/HCPCS: 93005; 99283

== ENCOUNTER 2022-12-10 16:57 | Emergency (ER) | payer MEDICARE, OTHER ==
[2022-12-10 17:17] VITALS: TEMP 98.2
[2022-12-10 20:26] LABS: Appearance,Urine Turbid (Clear); Bilirubin,Urine Negative (Negative); Blood,Urine Large (Negative); Color,Urine Yellow; Glucose,Urine (UA) Negative (Negative); Ketones,Urine Negative (Negative); Leukocyte Esterase,Urine Small (Negative); Mucus,Urine Few /hpf; Nitrite,Urine Negative (Negative); Protein,Urine 1+ (Negative); Specific Gravity,Urine 1.018 (1.001-1.035); Squamous Epithelial Cell,Urine 5 /hpf (0-4); Urobilinogen,Urine <2.0 mg/dL (<2.0); WBC,Urine 4 /hpf (0-5)
[2022-12-10] MEDS ORDERED: cefTRIAXone 250 MG VIAL IM STA (20:32)
[2022-12-10] MEDS ORDERED: DOXYCYCLINE 100 MG CAP PO STA (20:33)
[2022-12-10] MEDS ORDERED: metroNIDAZOLE 500 MG TAB PO STA (20:34)
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
[2022-12-10] MEDS ORDERED: LIDOCAINE 1% INJ 10MG/ML (30 ML VIAL-PF) SQ ONE (20:54)
[2022-12-10 21:54] VITALS: BP 119/72; PULSE 82; RESP 14
[2022-12-11 03:42] LABS: HIV 2 AB Non-Reactive (Non-Reactive); HIV AB P24 Non-Reactive (Non-Reactive); HIV P24 AG Non-Reactive (Non-Reactive)
== END 2022-12-10 21:54 | disposition home or self-care (01) ==
LOC: EC 16:57
DX: Z11.3 Encounter for screening for infections with a predominantly sexual mode of transmission (principal); F41.9 Anxiety disorder, unspecified; F31.9 Bipolar disorder, unspecified; F17.200 Nicotine dependence, unspecified, uncomplicated; F12.90 Cannabis use, unspecified, uncomplicated; Z88.8 Allergy status to other drugs, medicaments and biological substances; Z79.899 Other long term (current) drug therapy
CPT/HCPCS: 36415; 81001; 81025; 87808; 87491; 87591; 87390; 99284; 96372; J2001; J0696

== ENCOUNTER 2023-01-08 15:41 | Emergency (ER) | payer MEDICARE, OTHER ==
[2023-01-08 15:52] VITALS: TEMP 98.9
[2023-01-08] MEDS ORDERED: LORazepam 2 MG/ML INJ IV PRN (16:13)
--- NOTE | 2023-01-08 16:47 | ED ---
General Adult HPI - General Chief complaint: Seizure Stated complaint: Seizure Time Seen by Provider: 01/08/23 16:09 Source: family Mode of arrival: EMS - History of Present Illness Initial comments: A 29-year-old female with history of seizures on Lamictal presents to the ED wit h a chief complaint of seizure. She states that her boyfriend called EMS due to her having "seizures". Patient does not recall this event. However, notes that she now has a headache which is 6 out of 10 in severity. States that she banged her head multiple times on the grass. Also notes neck pain as well. Patient states that she took her Lamictal a day late. She does not recall. No other c omplaints. Spoke to guardian. Per guardian, patient is monitored while she takes her medications. States that she does not believe she could have not taken her medications as prescribed as she is monitored when she takes her medications. It's that she gets 4 hours of free time throughout the day and notes that this seizure occurred during her free time. 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 - Related Data Home Medications Medication Instructions Recorded Confirmed Cholecalciferol (Vitamin D3) 125 mcg PO DAILY@0800 08/21/20 12/10/22 [Vitamin D3 (5000 Iu)] Isibloom 1 tab PO DAILY@0800 09/27/20 12/10/22 Calcium Carbonate [Calcium] 600 mg PO DAILY@0800 12/09/21 12/10/22 busPIRone HCL [Buspar] 30 mg PO BID@0800,199912/09/21 12/10/22 Ibuprofen [Motrin] 600 mg PO BID PRN 12/10/22 12/10/22 Zinc Oxide 20% Oint 1 applic TOPICAL BID PRN 12/10/22 12/10/22 lamoTRIgine [LaMICtal] 75 mg PO BID@0800,199912/10/22 12/10/22 traZODone HCL [Desyrel] 100 mg PO HS PRN 12/10/22 12/10/22 Previous Rx's Medication Instructions Recorded ARIPiprazole [Abilify] 20 mg PO DAILY@0800 30 Days tab 11/23/21 Citalopram Hydrobromide [CeleXA] 40 mg PO DAILY@0800 30 Days tab 11/23/21 Omeprazole 20 mg PO BID@0800,1999 30 Days cap 11/23/21 Prazosin HCl 4 mg PO HS@1999 30 Days cap 11/23/21 Doxycycline [Vibramycin] 100 mg PO BID 7 Days #14 capsule 12/10/22 levonorgestreL [Plan B One-Step] 1.5 mg PO ONCE #1 tablet 12/10/22 metroNIDAZOLE [Flagyl] 500 mg PO BID #14 tab 12/10/22 levonorgestreL [Plan B One-Step] 1.5 mg PO ONCE #1 tablet 12/11/22 Allergies Allergy/AdvReac Type Severity Reaction Status Date / Time amphetamine [From Adderall] Allergy Unknown Verified 01/08/23 15:52 dextroamphetamine Allergy Unknown Verified 01/08/23 15:52 [From Adderall] Review of Systems ROS Statement: Those systems with pertinent positive or pertinent negative responses have been documented in the HPI. ROS Other: All systems not noted in ROS Statement are negative. Past Medical History Past Medical History: No Reported History Additional Past Medical History / Comment(s): psuedoseizures History of Any Multi-Drug Resistant Organisms: None Reported Past Surgical History: No Surgical Hx Reported Past Anesthesia/Blood Transfusion Reactions: No Reported Reaction Past Psychological History: ADD/ADHD, Anxiety, Bipolar, Depression, PTSD Smoking Status: Current every day smoker Past Alcohol Use History: None Reported Past Drug Use History: Marijuana General Exam General appearance: alert, in no apparent distress Head exam: Present: atraumatic (No Light's sign or raccoon's eyes), normocephalic ENT exam: Present: other (No Intraoral trauma) Neck exam: Present: normal inspection, tenderness (H and admits to midline spinal tenderness to palpation however unable to elicit response on palpation) Cardiovascular Exam: Present: regular rate, normal rhythm GI/Abdominal exam: Present: soft Back exam: Present: normal inspection Neurological exam: Present: oriented X3 Skin exam: Present: warm, dry Course Vital Signs 01/08/23 01/08/23 01/08/23 15:48 15:53 18:28 Temperature 98.9 F Pulse Rate 86 66 Respiratory 16 18 Rate Blood Pressure 79/39 95/33 115/65 O2 Sat by Pulse 94 L 98 98 Oximetry Medical Decision Making - Medical Decision Making Was pt. sent in by a medical professional or institution ([facility], [facility], urgent care, hospital, or [facility]...) When possible be specific @ -No Did you speak to anyone other than the patient for history (EMS, parent, family, police, friend...)? What history was obtained from this source @ -Spoke to the nurse who noted EMS stated the patient had a seizure while and route however notes that during the seizure she was alert and oriented. Spoke to guardian who states that the patient takes her meds as prescribed and she is monitored while she does so. Did you review nursing and triage notes (agree or disagree)? Why? @ -I reviewed and agree with nursing and triage notes Were old charts reviewed (outside hosp., previous admission, EMS record, old E KG, old radiological studies, urgent care reports/EKG's, [facility] records)? Report findings @ -Charts reviewed showing history of pseudoseizures Differential Diagnosis (chest pain, altered mental status, abdominal pain women, abdominal pain men, vaginal bleeding, weakness, fever, dyspnea, syncope, headache, dizziness, GI bleed, back pain, seizure, CVA, palpatations, mental health, musculoskeletal)? @ -Differential Seizure: Recurrent seizure disorder, febrile seizure, alcohol withdrawal, stimulants, meningitis, encephalitis, intercranial hemorrhage, intracranial tumor, stroke, eclampsia, thyrotoxicosis, hypocalcemia, hyponatremia, hypernatremia, hypomagnesemia, psychogenic, this is not meant to be an all-inclusive list. EKG interpreted by me (3pts min.). @ -As above X-rays interpreted by me (1pt min.). @ -X-ray show no acute fracture in the cervical region CT interpreted by me (1pt min.). @ -CT shows no acute findings U/S interpreted by me (1pt. min.). @ -None done What testing was considered but not performed or refused? (CT, X-rays, U/S, labs)? Why? @ -None What meds were considered but not given or refused? Why? @ -None Did you discuss the management of the patient with other professionals (professionals i.e. [facility]oe, [facility], lab, RT, psych nurse, social staff worker, remelt pan tank operator, teacher, defence force senior officer, sample case porter)? Give summary @ -No Was smoking cessation discussed for >3mins.? @ -No Was critical care preformed (if so, how long)? @ -No Were there social determinants of health that impacted care today? How? (Homelessness, low income, unemployed, alcoholism, drug addiction, transportation, low edu. Level, literacy, decrease access to med. care, fpc, rehab)? @ -No Was there de-escalation of care discussed even if they declined (Discuss DNR or withdrawal of care, Hospice)? DNR status @ -No What co-morbidities impacted this encounter? (DM, HTN, Smoking, COPD, CAD, Cancer, CVA, ARF, Chemo, Hep., AIDS, mental health diagnosis, sleep apnea, morbid obesity)? @ -None Was patient admitted / discharged? Hospital course, mention meds given and r oute, prescriptions, significant lab abnormalities, going to OR and other pertinent info. @ - Discharged. Urgent studies as above. Laboratory studies unremarkable. She has not had a seizure while in the department. Undiagnosed new problem with uncertain prognosis? @ -No Drug Therapy requiring intensive monitoring for toxicity (Heparin, Nitro, Insulin, Cardizem)? @ -No Were any procedures done? @ -No Diagnosis/symptom? @ -Pseudoseizure Acute, or Chronic, or Acute on Chronic? @ -Acute Uncomplicated (without systemic symptoms) or Complicated (systemic symptoms)? @ -Uncomplicated Side effects of treatment? @ -No Exacerbation, Progression, or Severe Exacerbation? @ -No Poses a threat to life or bodily function? How? (Chest pain, [place], [place], pneumonia, PE, COPD, DKA, ARF, appy, cholecystitis, CVA, Diverticulitis, Homicidal, Suicidal, threat to staff... and all critical care pts) @ -No - Lab Data Result diagrams: 01/08/23 16:33 01/08/23 16:33 Lab Results 01/08/23 01/08/23 01/08/23 Range/Units 16:33 16:33 16:33 WBC 10.1 (3.8-10.6) k/uL RBC 4.55 (3.80-5.40) m/uL Hgb 13.2 (11.4-16.0) gm/dL Hct 40.4 (34.0-46.0) % MCV 88.9 (80.0-100.0) fL MCH 29.0 (25.0-35.0) pg MCHC 32.6 (31.0-37.0) g/dL RDW 13.5 (11.5-15.5) % Plt Count 395 (150-450) k/uL MPV 6.7 Neutrophils % 63 % Lymphocytes % 30 % Monocytes % 4 % Eosinophils % 2 % Basophils % 0 % Neutrophils # 6.4 (1.3-7.7) k/uL Lymphocytes # 3.0 (1.0-4.8) k/uL Monocytes # 0.4 (0-1.0) k/uL Eosinophils # 0.2 (0-0.7) k/uL Basophils # 0.0 (0-0.2) k/uL Sodium 138 (137-145) mmol/L Potassium 4.4 (3.5-5.1) mmol/L Chloride 103 (98-107) mmol/L Carbon Dioxide 25 (22-30) mmol/L Anion Gap 10 mmol/L BUN 10 (7-17) mg/dL Creatinine 0.90 (0.52-1.04) mg/dL Est GFR (CKD-EPI)AfAm >90 (>60 ml/min/1.73 sqM) Est GFR (CKD-EPI)NonAf >90 (>60 ml/min/1.73 sqM) Glucose 84 (74-99) mg/dL Calcium 9.7 (8.4-10.2) mg/dL Magnesium 1.7 (1.6-2.3) mg/dL Total Bilirubin 0.2 (0.2-1.3) mg/dL AST 28 (14-36) U/L ALT 33 (4-34) U/L Alkaline Phosphatase 97 (38-126) U/L Total Protein 7.0 (6.3-8.2) g/dL Albumin 4.1 (3.5-5.0) g/dL Urine Color Yellow Urine Appearance Clear (Clear) Urine pH 6.0 (5.0-8.0) Ur Specific [place] 1.014 (1.001-1.035) Urine Protein Negative (Negative) Urine Glucose (UA) Negative (Negative) Urine Ketones Negative (Negative) Urine Blood Large H (Negative) Urine Nitrite Negative (Negative) Urine Bilirubin Negative (Negative) Urine Urobilinogen <2.0 (<2.0) mg/dL Ur Leukocyte Esterase Negative (Negative) Urine RBC 49 H (0-5) /hpf Urine WBC <1 (0-5) /hpf Ur Squamous Epith Cells 3 (0-4) /hpf Urine Mucus Rare H (None) /hpf Urine Opiates Screen Not Detected (NotDetected) Ur Oxycodone Screen Not Detected (NotDetected) Urine Methadone Screen Not Detected (NotDetected) Ur Propoxyphene Screen Not Detected (NotDetected) Ur Barbiturates Screen Not Detected (NotDetected) U Tricyclic Antidepress Not Detected (NotDetected) Ur Phencyclidine Scrn Not Detected (NotDetected) Ur Amphetamines Screen Not Detected (NotDetected) U Methamphetamines Scrn Not Detected (NotDetected) U Benzodiazepines Scrn Not Detected (NotDetected) Urine Cocaine Screen Not Detected (NotDetected) U Marijuana (THC) Screen Not Detected (NotDetected) - EKG Data EKG Comments: AG shows a sinus bradycardia at [address] bpm without any acute ST or T-wave changes, P-R 145, QRS 81, QT/QTC 424/424. Disposition Clinical Impression: Seizure disorder Disposition: HOME SELF-CARE Additional Instructions: Please return to the Emergency Department if symptoms worsen or any other concerns. Is patient prescribed a controlled substance at d/c from ED?: No Referrals: None,Stated [REFERRING] - 1-2 days Time of Disposition: 18:20
[2023-01-08 17:10] LABS: Basophils % (A) 0 %; Eosinophils # (A) 0.2 k/uL (0-0.7); Eosinophils % (A) 2 %; HCT 40.4 % (34.0-46.0); HGB 13.2 gm/dL (11.4-16.0); Lymphocytes % (A) 30 %; MCHC 32.6 g/dL (31.0-37.0); MCV 88.9 fL (80.0-100.0); Mean Platelet Volume 6.7; Monocytes # (A) 0.4 k/uL (0-1.0); Monocytes % (A) 4 %; Neutrophils # (A) 6.4 k/uL (1.3-7.7); Neutrophils % (A) 63 %; Platelet Count 395 k/uL (150-450); RBC 4.55 m/uL (3.80-5.40); RDW 13.5 % (11.5-15.5); WBC 10.1 k/uL (3.8-10.6)
[2023-01-08 17:23] LABS: ALT 33 U/L (4-34); AST 28 U/L (14-36); African American GFR (CKD) >90 (>60 ml/min/1.73 sqM); Albumin 4.1 g/dL (3.5-5.0); Alkaline Phosphatase 97 U/L (38-126); Anion Gap 10 mmol/L; Blood Urea Nitrogen 10 mg/dL (7-17); Calcium 9.7 mg/dL (8.4-10.2); Carbon Dioxide 25 mmol/L (22-30); Chloride 103 mmol/L (98-107); Glucose 84 mg/dL (74-99); Magnesium 1.7 mg/dL (1.6-2.3); Non-African American GFR(CKD) >90 (>60 ml/min/1.73 sqM); Potassium 4.4 mmol/L (3.5-5.1); Sodium 138 mmol/L (137-145); Total Bilirubin 0.2 mg/dL (0.2-1.3)
--- NOTE | 2023-01-08 17:35 | CT ---
EXAMINATION TYPE: CT brain wo con CT DLP: 1111.4 mGycm, Automated exposure control for dose reduction was used. DATE OF EXAM: 01/08/2023 5:09 PM COMPARISON: 07/08/2022. CLINICAL INDICATION:Female, 22 years old with history of MCDANIELS, s/p seizure, seizure TECHNIQUE: Brain: Axial CT images of the brain were obtained with coronal and sagittal reformats created and rev iewed. Contrast used: None. Oral contrast used: None. FINDINGS: Brain: Extra-axial spaces: No abnormal extra-axial fluid collections. Ventricular system: Within normal limits Cerebral parenchyma: No acute intraparenchymal hemorrhage or mass effect. The oliva-white junction is well differentiated. Cerebellum: Unremarkable. Mass effect: No evidence of midline shift. Intracranial vasculature: unremarkable Soft tissues: Normal. Calvarium/osseous structures: No depressed skull fracture. Paranasal sinuses and mastoid air cells: Mild scattered paranasal sinus disease. Visualized orbits: Orbital contents are intact. IMPRESSION: No acute intracranial process.
--- NOTE | 2023-01-08 17:36 | XR ---
EXAMINATION TYPE: XR cervical spine comp DATE OF EXAM: 01/08/2023 5:15 PM INDICATION: Patient age:Female; 22 years old; Reason for study: neck pain s/p seizure; COMPARISON: None TECHNIQUE: The cervical spine was imaged in frontal, lateral, odontoid and bilateral oblique. FINDINGS: The osseous structures show normal alignment without evidence of an acute fracture. No significant ve rtebral body osteophytes or facet joint arthropathy. The intervertebral disk spaces are preserved. Pe dicles are intact. Soft tissues are within normal limits. The odontoid appears intact. IMPRESSION: No fracture or dislocation.
[2023-01-08 18:03] LABS: Appearance,Urine Clear (Clear); Bilirubin,Urine Negative (Negative); Blood,Urine Large (Negative); Color,Urine Yellow; Glucose,Urine (UA) Negative (Negative); Ketones,Urine Negative (Negative); Leukocyte Esterase,Urine Negative (Negative); Mucus,Urine Rare /hpf; Nitrite,Urine Negative (Negative); Protein,Urine Negative (Negative); RBC,Urine 49 /hpf (0-5); Specific Gravity,Urine 1.014 (1.001-1.035); Squamous Epithelial Cell,Urine 3 /hpf (0-4); Urobilinogen,Urine <2.0 mg/dL (<2.0); WBC,Urine <1 /hpf (0-5)
[2023-01-08 18:11] LABS: Amphetamine Screen,Urine Not Detected (NotDetected); Barbiturate Screen,Urine Not Detected (NotDetected); Benzodiazepines Screen,Urine Not Detected (NotDetected); Cocaine Screen,Urine Not Detected (NotDetected); Methadone Screen, Urine Not Detected (NotDetected); Opiate Screen,Urine Not Detected (NotDetected); Oxycodone Screen, Urine Not Detected (NotDetected); Phencyclidine Screen,Urine Not Detected (NotDetected); Tricyclic Antidepressant,Urine Not Detected (NotDetected); Urn Cannabinoid Scrn Not Detected (NotDetected)
[2023-01-08 18:31] VITALS: BP 115/65; PULSE 66; RESP 18
== END 2023-01-08 18:52 | disposition home or self-care (01) ==
LOC: EC 15:41
DX: R56.9 Unspecified convulsions (principal); F41.9 Anxiety disorder, unspecified; F31.9 Bipolar disorder, unspecified; F12.90 Cannabis use, unspecified, uncomplicated; F17.200 Nicotine dependence, unspecified, uncomplicated; Z79.899 Other long term (current) drug therapy; Z88.8 Allergy status to other drugs, medicaments and biological substances
CPT/HCPCS: 36415; 70450; 72050; 80053; 80306; 81001; 83735; 85025; 93005; 96374; 99285

== ENCOUNTER 2023-02-07 00:03 | Emergency (ER) | payer MEDICARE, OTHER ==
[2023-02-07] MEDS ORDERED: SODIUM CHLORIDE 0.9% 1,000 ML IV STA (00:19)
[2023-02-07] MEDS ORDERED: HYDROmorphone 1 MG/ML 1 ML SYRINGE IVP STA (00:36)
[2023-02-07 01:27] LABS: Basophils % (A) 0 %; Eosinophils # (A) 0.3 k/uL (0-0.7); Eosinophils % (A) 1 %; HCT 37.1 % (34.0-46.0); HGB 12.2 gm/dL (11.4-16.0); Lymphocytes # (A) 3.3 k/uL (1.0-4.8); Lymphocytes % (A) 17 %; MCH 29.9 pg (25.0-35.0); MCV 90.4 fL (80.0-100.0); Mean Platelet Volume 7.1; Monocytes # (A) 0.9 k/uL (0-1.0); Monocytes % (A) 5 %; Neutrophils # (A) 15.1 k/uL (1.3-7.7); Neutrophils % (A) 77 %; Platelet Count 375 k/uL (150-450); RDW 13.6 % (11.5-15.5); WBC 19.6 k/uL (3.8-10.6)
[2023-02-07 01:43] LABS: ALT 25 U/L (4-34); AST 30 U/L (14-36); African American GFR (CKD) 79 (>60 ml/min/1.73 sqM); Alcohol <10 mg/dL; Alkaline Phosphatase 106 U/L (38-126); Anion Gap 11 mmol/L; Blood Urea Nitrogen 12 mg/dL (7-17); Calcium 9.2 mg/dL (8.4-10.2); Carbon Dioxide 22 mmol/L (22-30); Chloride 102 mmol/L (98-107); Glucose 114 mg/dL (74-99); Non-African American GFR(CKD) 69 (>60 ml/min/1.73 sqM); Potassium 3.8 mmol/L (3.5-5.1); Sodium 135 mmol/L (137-145); Total Bilirubin 0.3 mg/dL (0.2-1.3); Total Protein 6.9 g/dL (6.3-8.2)
--- NOTE | 2023-02-07 02:05 | CT ---
EXAM: CT Head Without Intravenous Contrast CLINICAL HISTORY: CT Reason: peds vs auto TECHNIQUE: Axial computed tomography images of the head/brain without intravenous contrast. CTDI is 45.2 mGy and DLP is 1090 mGy-cm. This CT exam was performed using one or more of the following dose reduction techniques: automated exposure control, adjustment of the mA and/or kV according to patient size, and/or use of iterative reconstruction technique. COMPARISON: January 08, 2023 FINDINGS: Brain: Unremarkable. No hemorrhage. No significant white matter disease. No edema. Ventricles: Unremarkable. No ventriculomegaly. Bones/joints: Unremarkable. No acute fracture. Soft tissues: Small subcutaneous contusion over the left axilla. No skull or facial fracture is identified. Sinuses: Unremarkable as visualized. No acute sinusitis. Mastoid air cells: Unremarkable as visualized. No mastoid effusion. IMPRESSION: Small subcutaneous contusion over the left axilla. No skull or facial fracture is identified. Unremarkable appearance of the brain. No intracranial hemorrhage or infarct is seen. EXAM: CT Cervical Spine Without Intravenous Contrast CLINICAL HISTORY: CT Reason: peds vs auto TECHNIQUE: Axial computed tomography images of the cervical spine without intravenous contrast. CTDI is 20.8 mGy and DLP is 573.2 mGy-cm. This CT exam was performed using one or more of the following dose reduction techniques: automated exposure control, adjustment of the mA and/or kV according to patient size, and/or use of iterative reconstruction technique. COMPARISON: No relevant prior studies available. FINDINGS: Vertebrae: Unremarkable. No acute fracture. Soft tissues: Unremarkable. DISCS/SPINAL CANAL/NEURAL FORAMINA: C2-C3: Unremarkable. No significant disc disease. No stenosis. C3-C4: Unremarkable. No significant disc disease. No stenosis. C4-C5: Unremarkable. No significant disc disease. No stenosis. C5-C6: Unremarkable. No significant disc disease. No stenosis. C6-C7: Unremarkable. No significant disc disease. No stenosis. C7-T1: Unremarkable. No significant disc disease. No stenosis. IMPRESSION: Normal cervical spine CT.
--- NOTE | 2023-02-07 02:07 | CT ---
ADDENDUM - Added by Avi Mora MD on 02/07/2023 2:10 AM (-05:00) Corrected CT L spine: EXAM: CT Lumbar Spine Without Intravenous Contrast CLINICAL HISTORY: CT Reason: trauma TECHNIQUE: Axial computed tomography images of the lumbar spine without intravenous contrast. CTDI is 5.365 mGy and DLP is 379.98 mGy-cm. This CT exam was performed using one or more of the following dose reduction techniques: automated exposure control, adjustment of the mA and/or kV according to patient size, and/or use of iterative reconstruction technique. COMPARISON: No relevant prior studies available. FINDINGS: Vertebrae: The lumbar spine vertebral body heights are normally maintained. No compression fracture or burst fracture is seen. There are fractures of the left transverse processes of L2 and L3. No subluxation or spinal stenosis is seen. Discs/spinal canal/neural foramina: No acute findings. No spinal canal stenosis. Soft tissues: Unremarkable. IMPRESSION: The lumbar spine vertebral body heights are normally maintained. No compression fracture or burst fracture is seen. There are fractures of the left transverse processes of L2 and L3. No subluxation or spinal stenosis is seen. EXAM: CT Thoracic Spine Without Intravenous Contrast CLINICAL HISTORY: CT Reason: trauma TECHNIQUE: Axial computed tomography images of the thoracic spine without intravenous contrast. CTDI is 5.65 mGy and DLP is 379.98 mGy-cm. This CT exam was performed using one or more of the following dose reduction techniques: automated exposure control, adjustment of the mA and/or kV according to patient size, and/or use of iterative reconstruction technique. COMPARISON: No relevant prior studies available. FINDINGS: Vertebrae: The thoracic spine vertebral body heights are within normal limits. No compression fracture or burst fracture is seen. Discs/spinal canal/neural foramina: Mild degenerative disc disease in the mid to lower thoracic spine. No acute fracture or subluxation is seen. No spinal canal stenosis. Soft tissues: Unremarkable. IMPRESSION: 1. The thoracic spine vertebral body heights are within normal limits. No compression fracture or burst fracture is seen. 2. Mild degenerative disc disease in the mid to lower thoracic spine. No acute fracture or subluxation is seen. EXAM: CT Lumbar Spine Without Intravenous Contrast CLINICAL HISTORY: CT Reason: trauma TECHNIQUE: Axial computed tomography images of the lumbar spine without intravenous contrast. CTDI is 5.365 mGy and DLP is 379.98 mGy-cm. This CT exam was performed using one or more of the following dose reduction techniques: automated exposure control, adjustment of the mA and/or kV according to patient size, and/or use of iterative reconstruction technique. COMPARISON: No relevant prior studies available. FINDINGS: Vertebrae: The lumbar spine vertebral body heights are normally maintained. No compression fracture or burst fracture is seen. Discs/spinal canal/neural foramina: No acute findings. No spinal canal stenosis. Soft tissues: Unremarkable.
--- NOTE | 2023-02-07 02:09 | CT ---
EXAM: CT Chest With Intravenous Contrast CLINICAL HISTORY: CT Reason: peds vs auto TECHNIQUE: Axial computed tomography images of the chest with intravenous contrast. CTDI is 11.3 mGy and DLP is 759.9 mGy-cm. This CT exam was performed using one or more of the following dose reduction techniques: automated exposure control, adjustment of the mA and/or kV according to patient size, and/or use of iterative reconstruction technique. COMPARISON: No relevant prior studies available. FINDINGS: Lungs: There is a trace amount of subsegmental atelectasis in the dependent portions of the lung bases. Pleural space: Unremarkable. No pneumothorax. No significant effusion. Heart: Unremarkable. No cardiomegaly. No significant pericardial effusion. No significant coronary artery calcifications. Bones/joints: Unremarkable. No acute fracture. No dislocation. Soft tissues: Unremarkable. Vasculature: Unremarkable. No thoracic aortic aneurysm. Lymph nodes: Unremarkable. No enlarged lymph nodes. IMPRESSION: No acute findings in the chest. EXAM: CT Abdomen and Pelvis With Intravenous Contrast CLINICAL HISTORY: CT Reason: peds vs auto TECHNIQUE: Axial computed tomography images of the abdomen and pelvis with intravenous contrast. CTDI is 11.3 mGy and DLP is 759.9 mGy-cm. This CT exam was performed using one or more of the following dose reduction techniques: automated exposure control, adjustment of the mA and/or kV according to patient size, and/or use of iterative reconstruction technique. COMPARISON: No relevant prior studies available. FINDINGS: Lung bases: Unremarkable. No mass. No consolidation. ABDOMEN: Liver: Unremarkable. No mass. Gallbladder and bile ducts: Unremarkable. No calcified stones. No ductal dilation. Pancreas: Unremarkable. No mass. No ductal dilation. Spleen: Unremarkable. No splenomegaly. Adrenals: Unremarkable. No mass. Kidneys and ureters: Delayed images show normal renal contrast excretion bilaterally. No hydronephrosis. Stomach and bowel: Unremarkable. No obstruction. No mucosal thickening. PELVIS: Appendix: No findings to suggest acute appendicitis. Bladder: Unremarkable. No mass. 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 ABDOMEN and PELVIS: Intraperitoneal space: Unremarkable. No free air. No significant fluid collection. Bones/joints: There are acute fractures of the left transverse processes of L2 and L3. No dislocation. Soft tissues: Unremarkable. Vasculature: Unremarkable. No abdominal aortic aneurysm. Lymph nodes: Unremarkable. No enlarged lymph nodes. IMPRESSION: 1. 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 2. There are acute fractures of the left transverse processes of L2 and L3. 3. No solid organ injury or acute intraperitoneal traumatic findings are identified.
[2023-02-07 03:02] LABS: Appearance,Urine Clear (Clear); Bacteria,Urine Few /hpf; Bilirubin,Urine Negative (Negative); Blood,Urine Moderate (Negative); Color,Urine Yellow; Glucose,Urine (UA) Negative (Negative); Ketones,Urine Negative (Negative); Leukocyte Esterase,Urine Moderate (Negative); Mucus,Urine Rare /hpf; Nitrite,Urine Positive (Negative); PH, Urine 5.5 (5.0-8.0); Protein,Urine Trace (Negative); RBC,Urine 8 /hpf (0-5); Specific Gravity,Urine 1.033 (1.001-1.035); Squamous Epithelial Cell,Urine 2 /hpf (0-4); Urobilinogen,Urine <2.0 mg/dL (<2.0); WBC,Urine 24 /hpf (0-5)
[2023-02-07 03:05] LABS: Amphetamine Screen,Urine Not Detected (NotDetected); Barbiturate Screen,Urine Not Detected (NotDetected); Benzodiazepines Screen,Urine Not Detected (NotDetected); Cocaine Screen,Urine Not Detected (NotDetected); Methadone Screen, Urine Not Detected (NotDetected); Opiate Screen,Urine Detected (NotDetected); Oxycodone Screen, Urine Not Detected (NotDetected); Phencyclidine Screen,Urine Not Detected (NotDetected); Tricyclic Antidepressant,Urine Not Detected (NotDetected); Urn Cannabinoid Scrn Detected (NotDetected)
--- NOTE | 2023-02-07 03:24 | XR ---
EXAM: XR Left Shoulder Complete, 2 or More Views CLINICAL HISTORY: XR Reason: trauma TECHNIQUE: Two or more views of the left shoulder. COMPARISON: No relevant prior studies available. FINDINGS: Bones/joints: Unremarkable. No acute fracture. No dislocation. Soft tissues: Unremarkable. IMPRESSION: Normal left shoulder x-rays.
[2023-02-07] MEDS ORDERED: cefTRIAXone IN SWFI 1,000 MG/10 ML SYRINGE IVP STA (03:52)
[2023-02-07] MEDS ORDERED: KETOROLAC 15 MG/ML 1 ML VIAL IVP STA (03:52)
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
[2023-02-07 04:07] VITALS: BP 111/68; PULSE 96; RESP 16; TEMP 98.2
== END 2023-02-07 04:29 | disposition home or self-care (01) ==
LOC: EC 00:03
DX: S32.028A Other fracture of second lumbar vertebra, initial encounter for closed fracture (principal); S32.038A Other fracture of third lumbar vertebra, initial encounter for closed fracture; M25.512 Pain in left shoulder; F41.9 Anxiety disorder, unspecified; F31.9 Bipolar disorder, unspecified; F17.200 Nicotine dependence, unspecified, uncomplicated; F12.90 Cannabis use, unspecified, uncomplicated; Z79.899 Other long term (current) drug therapy; V23.49XA Other motorcycle driver injured in collision with car, pick-up truck or van in traffic accident, initial encounter; Y92.410 Unspecified street and highway as the place of occurrence of the external cause
CPT/HCPCS: 36415; 93005; 80053; 83605; 84484; 85025; 81001; 80306; 73030; 72129; 72125; 72132; 70450; 71260; 74177; 99285; 96374; 96375 ×2; 96361; L0120; G0480; J0696; J1170; J1885; Q9967; 80320

== ENCOUNTER 2023-03-06 21:14 | Emergency (ER) | payer MEDICARE, OTHER ==
[2023-03-06] MEDS ORDERED: ACETAMINOPHEN TAB 500 MG TAB PO STA (21:31)
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
[2023-03-06 22:29] VITALS: BP 115/87; PULSE 96; RESP 18; TEMP 98.6
== END 2023-03-06 22:34 | disposition home or self-care (01) ==
LOC: EC 21:14
DX: S00.03XA Contusion of scalp, initial encounter (principal); F41.9 Anxiety disorder, unspecified; F31.9 Bipolar disorder, unspecified; F90.9 Attention-deficit hyperactivity disorder, unspecified type; F17.200 Nicotine dependence, unspecified, uncomplicated; F12.90 Cannabis use, unspecified, uncomplicated; Z79.899 Other long term (current) drug therapy; Z88.8 Allergy status to other drugs, medicaments and biological substances; Y04.8XXA Assault by other bodily force, initial encounter
CPT/HCPCS: 99284

== ENCOUNTER 2023-05-14 20:32 | Inpatient (IN) | payer MEDICARE, MEDICAID ==
--- NOTE | 2023-05-14 21:47 | ED ---
General Adult HPI - General Source: patient, EMS Mode of arrival: EMS Limitations: no limitations <Jak Shelby - Last Filed: 05/15/23 06:21> <Lavell Chung - Last Filed: 05/15/23 13:20> - General Chief complaint: Psychiatric Symptoms Stated complaint: Mental Health Time Seen by Provider: 05/14/23 21:05 - History of Present Illness Initial comments: Dictation was produced using [employer] dictation software. please excuse any grammatical, word or spelling errors. Chief Complaint: 22-year-old female past medical history of psychiatric disease presents with suicidal attempt History of Present Illness: Patient 22-year-old female strike herself earlier today using a shoelace. Was able to call police while attempting to hang herself. She did not pass out. Patient is not sure exactly what time she attempted this would've sometime today. She was at home in her bedroom. The ROS documented in this emergency department record has been reviewed and confirmed by me. Those systems with pertinent positive or negative responses have been documented in the HPI. All other systems are other negative and/or noncontributory. (Jak Shelby) - Related Data Home Medications Medication Instructions Recorded Confirmed Cholecalciferol (Vitamin D3) 125 mcg PO DAILY@0800 08/21/20 05/15/23 [Vitamin D3 (5000 Iu)] Isibloom 1 tab PO DAILY@0800 09/27/20 05/15/23 Calcium Carbonate [Calcium] 600 mg PO DAILY@0800 12/09/21 05/15/23 busPIRone HCL [Buspar] 30 mg PO BID@0800,209912/09/21 05/15/23 Ibuprofen [Motrin] 600 mg PO BID PRN 12/10/22 05/15/23 Zinc Oxide 20% Oint 1 applic TOPICAL BID PRN 12/10/22 05/15/23 lamoTRIgine [LaMICtal] 75 mg PO BID@0800,209912/10/22 05/15/23 traZODone HCL [Desyrel] 100 mg PO HS PRN 12/10/22 05/15/23 Acetaminophen Tab [Tylenol Tab] 1,000 mg PO Q4H PRN 05/15/23 05/15/23 Lidocaine/Menthol 1 patch TOPICAL Q12H PRN 05/15/23 05/15/23 [Lidocaine-Menthol 4%-1% Patch] Omeprazole 20 mg PO BID@0800,2100 05/15/23 05/15/23 Previous Rx's Medication Instructions Recorded ARIPiprazole [Abilify] 20 mg PO DAILY@0800 30 Days tab 11/23/21 Citalopram Hydrobromide [CeleXA] 40 mg PO DAILY@0800 30 Days tab 11/23/21 Prazosin HCl 4 mg PO HS@1999 30 Days cap 11/23/21 Allergies Allergy/AdvReac Type Severity Reaction Status Date / Time amphetamine [From Adderall] Allergy Unknown Verified 05/15/23 08:53 dextroamphetamine Allergy Unknown Verified 05/15/23 08:53 [From Adderall] Review of Systems ROS Other: All systems not noted in ROS Statement are negative. <Jak Shelby - Last Filed: 05/15/23 06:21> ROS Other: All systems not noted in ROS Statement are negative. <Lavell Chung - Last Filed: 05/15/23 13:20> ROS Statement: Those systems with pertinent positive or pertinent negative responses have been documented in the HPI. Past Medical History Past Medical History: No Reported History Additional Past Medical History / Comment(s): psuedoseizures History of Any Multi-Drug Resistant Organisms: None Reported Past Surgical History: No Surgical Hx Reported Past Anesthesia/Blood Transfusion Reactions: No Reported Reaction Past Psychological History: ADD/ADHD, Anxiety, Bipolar, Depression, PTSD Smoking Status: Current every day smoker Past Alcohol Use History: None Reported Past Drug Use History: Marijuana, Methamphetamine <Jak Shelby - Last Filed: 05/15/23 06:21> General Exam Limitations: no limitations <Jak Shelby - Last Filed: 05/15/23 06:21> - General Exam Comments Initial Comments: PHYSICAL EXAM: General Impression: Alert and oriented x3, not in acute distress HEENT: Normocephalic atraumatic, extra-ocular movements intact, pupils equal and reactive to light bilaterally, mucous membranes moist. Cardiovascular: Heart regular rate and rhythm Chest: Able to complete full sentences, no retractions, no tachypnea Abdomen: abdomen soft, non-tender, non-distended, no organomegaly Musculoskeletal: Pulses present and equal in all extremities, no peripheral edema Motor: no focal deficits noted Neurological: CN II-XII grossly intact, no focal motor or sensory deficits noted Skin: Ligature manuel to the neck Psych: Normal affect and mood (Jak Shelby) Course Vital Signs 05/14/23 05/15/23 21:09 06:17 Temperature 98.1 F 98.3 F Pulse Rate 88 74 Respiratory 18 18 Rate Blood Pressure 117/68 110/80 O2 Sat by Pulse 98 98 Oximetry Medical Decision Making - Lab Data Result diagrams: 05/14/23 22:17 05/14/23 22:17 <Jak Shelby - Last Filed: 05/15/23 06:21> - Lab Data Result diagrams: 05/14/23 22:17 05/14/23 22:17 <Lavell Chung - Last Filed: 05/15/23 13:20> - Medical Decision Making Was pt. sent in by a medical professional or institution (JOHANNA Poe, MINI BAR ATTENDANT, urgent care, hospital, or usp...) When possible be specific @ -No Did you speak to anyone other than the patient for history (EMS, parent, family, police, friend...)? What history was obtained from this source @ -No Did you review nursing and triage notes (agree or disagree)? Why? @ -I reviewed and agree with nursing and triage notes Were old charts reviewed (outside hosp., previous admission, EMS record, old EKG, old radiological studies, urgent care reports/EKG's, usp records)? Report findings @ -No old charts were reviewed Differential Diagnosis (chest pain, altered mental status, abdominal pain women, abdominal pain men, vaginal bleeding, musculoskeletal, weakness, fever, dyspnea, syncope, headache, dizziness, GI bleed, back pain, seizure, CVA, palpatations, mental health)? @ -Differential Mental Health: Depression, anxiety, bipolar, psychosis, schizophrenia, borderline personality, situational depression, adjustment disorder, behavioral disorder, brain tumor, malingering, substance abuse, encephalopathy, medication reaction, dementia, hypothyroidism, degenerative neurologic disorder, lupus.... This is not meant to be all-inclusive list EKG interpreted by me (3pts min.). @ -None done X-rays interpreted by me (1pt min.). @ -None done CT interpreted by me (1pt min.). @ -Petition neck CT with contrast shows no acute processes. U/S interpreted by me (1pt. min.). @ -None done What testing was considered but not performed or refused? (CT, X-rays, U/S, labs)? Why? @ -None What meds were considered but not given or refused? Why? @ -None Did you discuss the management of the patient with other professionals (viviana noe i.e. , PA, MINI BAR ATTENDANT, lab, RT, psych nurse, 7th grade social studies teacher, welder repair, teacher, chief sustainability officer, casework specialist)? Give summary @ -No Was smoking cessation discussed for >3mins.? @ -No Was critical care preformed (if so, how long)? @ -No Were there social determinants of health that impacted care today? How? (Homelessness, low income, unemployed, alcoholism, drug addiction, transportation, low edu. Level, literacy, decrease access to med. care, fdc, rehab)? @ -No Was there de-escalation of care discussed even if they declined (Discuss DNR or withdrawal of care, Hospice)? DNR status @ -No What co-morbidities impacted this encounter? (DM, HTN, Smoking, COPD, CAD, Cancer, CVA, ARF, Chemo, Hep., AIDS, mental health diagnosis, sleep apnea, morbid obesity)? @ -None Was patient admitted / discharged? Hospital course, mention meds given and route, prescriptions, significant lab abnormalities, going to OR and other pertinent info. @ -22-year-old female presents to the emergency department after attempted suicide. She reports that she tried to hang herself. She does have mild ligature manuel around the neck. Vital signs are stable. Imaging studies negative. Labs negative. Patient observed emergency department for several hours. Patient medically cleared for EPS evaluation. Patient care signed out to oncoming physician for follow-up of EPS recommendations. Undiagnosed new problem with uncertain prognosis? @ -No Drug Therapy requiring intensive monitoring for toxicity (Heparin, Nitro, Insulin, Cardizem)? @ -No Were any procedures done? @ -No Diagnosis/symptom? Acute, or Chronic, or Acute on Chronic? Uncomplicated (without systemic symptoms) or Complicated (systemic symptoms)? @ -Suicidal attempt Side effects of treatment? @ -No Exacerbation, Progression, or Severe Exacerbation? @ -No Poses a threat to life or bodily function? How? (Chest pain, [place], [place], pneumonia, PE, COPD, DKA, ARF, appy, cholecystitis, CVA, Diverticulitis, Homicidal, Suicidal, threat to staff... and all critical care pts) @ -Yes (Jak Shelby) I interviewed this patient and filled out a clinical certification for the patient to be admitted (Lavell Chung) - Lab Data Lab Results 05/14/23 05/14/23 Range/Units 22:17 22:17 WBC 15.9 H (3.8-10.6) k/uL RBC 4.29 (3.80-5.40) m/uL Hgb 12.6 (11.4-16.0) gm/dL Hct 37.5 (34.0-46.0) % MCV 87.5 (80.0-100.0) fL MCH 29.4 (25.0-35.0) pg MCHC 33.6 (31.0-37.0) g/dL RDW 13.9 (11.5-15.5) % Plt Count 420 (150-450) k/uL MPV 7.0 Neutrophils % 63 % Lymphocytes % 30 % Monocytes % 3 % Eosinophils % 2 % Basophils % 0 % Neutrophils # 10.0 H (1.3-7.7) k/uL Lymphocytes # 4.8 (1.0-4.8) k/uL Monocytes # 0.5 (0-1.0) k/uL Eosinophils # 0.3 (0-0.7) k/uL Basophils # 0.0 (0-0.2) k/uL Sodium 135 L (137-145) mmol/L Potassium 4.2 (3.5-5.1) mmol/L Chloride 103 (98-107) mmol/L Carbon Dioxide 23 (22-30) mmol/L Anion Gap 9 mmol/L BUN 12 (7-17) mg/dL Creatinine 0.88 (0.52-1.04) mg/dL Est GFR (CKD-EPI)AfAm >90 (>60 ml/min/1.73 sqM) Est GFR (CKD-EPI)NonAf >90 (>60 ml/min/1.73 sqM) Glucose 119 H (74-99) mg/dL Calcium 9.6 (8.4-10.2) mg/dL HCG, Quant <2.4 mIU/mL Disposition <Jak Shelby - Last Filed: 05/15/23 06:21> Time of Disposition: 13:20 <Lavell Chung - Last Filed: 05/15/23 13:20> Clinical Impression: Depression, Attempted suicide Disposition: ADMITTED IP TO THIS HOSP Referrals: Suzy Hamilton MD [Primary Care Provider] - 1-2 days
[2023-05-14 22:31] LABS: Basophils % (A) 0 %; Eosinophils # (A) 0.3 k/uL (0-0.7); Eosinophils % (A) 2 %; HCT 37.5 % (34.0-46.0); HGB 12.6 gm/dL (11.4-16.0); Lymphocytes # (A) 4.8 k/uL (1.0-4.8); Lymphocytes % (A) 30 %; MCH 29.4 pg (25.0-35.0); MCHC 33.6 g/dL (31.0-37.0); MCV 87.5 fL (80.0-100.0); Monocytes # (A) 0.5 k/uL (0-1.0); Monocytes % (A) 3 %; Neutrophils % (A) 63 %; Platelet Count 420 k/uL (150-450); RBC 4.29 m/uL (3.80-5.40); RDW 13.9 % (11.5-15.5); WBC 15.9 k/uL (3.8-10.6)
[2023-05-14 22:37] LABS: African American GFR (CKD) >90 (>60 ml/min/1.73 sqM); Anion Gap 9 mmol/L; Blood Urea Nitrogen 12 mg/dL (7-17); Calcium 9.6 mg/dL (8.4-10.2); Carbon Dioxide 23 mmol/L (22-30); Chloride 103 mmol/L (98-107); Glucose 119 mg/dL (74-99); Non-African American GFR(CKD) >90 (>60 ml/min/1.73 sqM); Potassium 4.2 mmol/L (3.5-5.1); Sodium 135 mmol/L (137-145)
[2023-05-14 22:53] LABS: HCG,Quantitative Serum <2.4 mIU/mL
--- NOTE | 2023-05-15 06:04 | CT ---
EXAM: CT Neck With Intravenous Contrast CLINICAL HISTORY: tried hanging herself with shoelace around neck TECHNIQUE: Axial computed tomography images of the neck with intravenous contrast. CTDI is 6.9 mGy and DLP is 248.6 mGy-cm. This CT exam was performed using one or more of the following dose reduction techniques: automated exposure control, adjustment of the mA and/or kV according to patient size, and/or use of iterative reconstruction technique. COMPARISON: Neck CT 12/09/21 FINDINGS: Oropharynx: Unremarkable. No significant tonsillar enlargement. No peritonsillar abscess. Hypopharynx: Unremarkable. Larynx: Unremarkable. Normal epiglottis. Trachea: Unremarkable. Retropharyngeal space: Unremarkable. Submandibular/parotid glands: Unremarkable. Glands are normal in size. Thyroid: Unremarkable. No enlarged or calcified nodules. Bones/joints: No acute fracture. Soft tissues: Unremarkable. No soft tissue edema, hematoma, or contrast extravasation. Vasculature: No acute findings. Lymph nodes: Small, scattered, nonenlarged, nonspecific cervical lymph nodes, stable. No lymphadenopathy. Lung apices: Unremarkable as visualized. IMPRESSION: 1. No soft tissue hematoma, cervical spine fracture or airway compromise. 2. Normal, stable exam.
[2023-05-15] MEDS ORDERED: MAGNESIUM HYDROXIDE 2,400 MG/30 ML CUP PO PRN (14:41)
[2023-05-15] MEDS ORDERED: MAG HYDROX/AL HYDROX/SIMETH 30 ML CUP PO PRN (14:41)
[2023-05-15] MEDS ORDERED: ACETAMINOPHEN TAB 325 MG TAB PO PRN (14:41)
[2023-05-15] MEDS ORDERED: LORazepam 1 MG TAB PO PRN (14:48)
[2023-05-15] MEDS ORDERED: haloperidoL 5 MG TAB PO PRN (14:48)
[2023-05-15] MEDS ORDERED: HALOPERIDOL LACTATE 5 MG/ML 1 ML VIAL IM PRN (14:48)
[2023-05-15] MEDS ORDERED: LORazepam 2 MG/ML INJ IM PRN (14:48)
[2023-05-15] MEDS ORDERED: PRAZOSIN 1 MG CAP PO SCH (20:00)
[2023-05-15] MEDS: busPIRone HCl 10 MG TAB PO SCH (20:45)
[2023-05-15] MEDS: PANTOPRAZOLE 40 MG TABLET PO SCH (20:45)
[2023-05-15] MEDS: lamoTRIgine 25 MG TAB PO SCH (20:47)
[2023-05-16] MEDS ORDERED: CITALOPRAM HYDROBROMIDE 20 MG TAB PO SCH (08:00)
[2023-05-16] MEDS: PANTOPRAZOLE 40 MG TABLET PO SCH (09:06)
[2023-05-16] MEDS: CALCIUM CARBONATE 500 MG CHEWABLE PO SCH (09:06)
[2023-05-16] MEDS: CHOLECALCIFEROL 125 MCG (5000 IU) TABLET PO SCH (09:07)
[2023-05-16] MEDS: busPIRone HCl 10 MG TAB PO SCH ×2 (09:07→20:06)
[2023-05-16] MEDS: lamoTRIgine 25 MG TAB PO SCH ×2 (09:07→20:06)
[2023-05-16 11:30] LABS: Basophils % (A) 0 %; Eosinophils # (A) 0.2 k/uL (0-0.7); Eosinophils % (A) 2 %; HCT 40.3 % (34.0-46.0); HGB 13.5 gm/dL (11.4-16.0); Lymphocytes # (A) 2.5 k/uL (1.0-4.8); Lymphocytes % (A) 28 %; MCH 29.3 pg (25.0-35.0); MCHC 33.5 g/dL (31.0-37.0); MCV 87.7 fL (80.0-100.0); Mean Platelet Volume 7.2; Monocytes # (A) 0.4 k/uL (0-1.0); Monocytes % (A) 5 %; Neutrophils # (A) 5.6 k/uL (1.3-7.7); Neutrophils % (A) 63 %; Platelet Count 362 k/uL (150-450); RDW 13.7 % (11.5-15.5); WBC 8.9 k/uL (3.8-10.6)
[2023-05-16 11:41] LABS: ALT 18 U/L (4-34); AST 20 U/L (14-36); African American GFR (CKD) >90 (>60 ml/min/1.73 sqM); Albumin 4.5 g/dL (3.5-5.0); Alkaline Phosphatase 103 U/L (38-126); Anion Gap 13 mmol/L; Bilirubin, Delta 0.1 mg/dL (0.0-0.2); Bilirubin,Unconjugated 0.2 mg/dL (0.0-1.1); Blood Urea Nitrogen 14 mg/dL (7-17); Calcium 10.3 mg/dL (8.4-10.2); Carbon Dioxide 20 mmol/L (22-30); Chloride 105 mmol/L (98-107); Glucose 98 mg/dL (74-99); Non-African American GFR(CKD) >90 (>60 ml/min/1.73 sqM); Potassium 4.5 mmol/L (3.5-5.1); Sodium 138 mmol/L (137-145); Total Bilirubin 0.3 mg/dL (0.2-1.3); Total Protein 7.8 g/dL (6.3-8.2)
[2023-05-16] MEDS: NICOTINE 14MG/24HR PATCH TRANSDERM SCH (12:54)
[2023-05-16] MEDS: IBUPROFEN 600 MG TAB PO PRN (13:30)
--- NOTE | 2023-05-16 13:36 | P.HP ---
Psychiatric H&P - . H&P Date: 05/16/23 History & Physical: Allergies Allergy/AdvReac Type Severity Reaction Status Date / Time amphetamine [From Adderall] Allergy Unknown Verified 05/15/23 08:53 dextroamphetamine Allergy Unknown Verified 05/15/23 08:53 [From Adderall] Vital Signs Temp 97.6 F 05/16/23 06:41 Pulse 94 05/16/23 06:41 Resp 16 05/16/23 06:41 BP 139/60 05/16/23 06:41 Pulse Ox 99 05/16/23 06:41 FiO2 Intake & Output 05/15/23 05/16/23 05/16/23 18:59 06:59 18:59 Weight 95.339 kg Laboratory Last Values WBC 8.9 k/uL (3.8-10.6) 05/16/23 10:42 RBC 4.60 m/uL (3.80-5.40) 05/16/23 10:42 Hgb 13.5 gm/dL (11.4-16.0) 05/16/23 10:42 Hct 40.3 % (34.0-46.0) 05/16/23 10:42 MCV 87.7 fL (80.0-100.0) 05/16/23 10:42 MCH 29.3 pg (25.0-35.0) 05/16/23 10:42 MCHC 33.5 g/dL (31.0-37.0) 05/16/23 10:42 RDW 13.7 % (11.5-15.5) 05/16/23 10:42 Plt Count 362 k/uL (150-450) 05/16/23 10:42 MPV 7.2 05/16/23 10:42 Neutrophils % 63 % 05/16/23 10:42 Lymphocytes % 28 % 05/16/23 10:42 Monocytes % 5 % 05/16/23 10:42 Eosinophils % 2 % 05/16/23 10:42 Basophils % 0 % 05/16/23 10:42 Neutrophils # 5.6 k/uL (1.3-7.7) 05/16/23 10:42 Lymphocytes # 2.5 k/uL (1.0-4.8) 05/16/23 10:42 Monocytes # 0.4 k/uL (0-1.0) 05/16/23 10:42 Eosinophils # 0.2 k/uL (0-0.7) 05/16/23 10:42 Basophils # 0.0 k/uL (0-0.2) 05/16/23 10:42 Sodium 138 mmol/L (137-145) 05/16/23 10:42 Potassium 4.5 mmol/L (3.5-5.1) 05/16/23 10:42 Chloride 105 mmol/L (98-107) 05/16/23 10:42 Carbon Dioxide 20 mmol/L (22-30) L 05/16/23 10:42 Anion Gap 13 mmol/L 05/16/23 10:42 BUN 14 mg/dL (7-17) 05/16/23 10:42 Creatinine 0.88 mg/dL (0.52-1.04) 05/16/23 10:42 Est GFR (CKD-EPI)AfAm >90 (>60 ml/min/1.73 sqM) 05/16/23 10:42 Est GFR (CKD-EPI)NonAf >90 (>60 ml/min/1.73 sqM) 05/16/23 10:42 Glucose 98 mg/dL (74-99) 05/16/23 10:42 Calcium 10.3 mg/dL (8.4-10.2) H 05/16/23 10:42 Total Bilirubin 0.3 mg/dL (0.2-1.3) 05/16/23 10:42 Conjugated Bilirubin 0.0 mg/dL (0.0-0.3) 05/16/23 10:42 Unconjugated Bilirubin 0.2 mg/dL (0.0-1.1) 05/16/23 10:42 Delta Bilirubin 0.1 mg/dL (0.0-0.2) 05/16/23 10:42 AST 20 U/L (14-36) 05/16/23 10:42 ALT 18 U/L (4-34) 05/16/23 10:42 Alkaline Phosphatase 103 U/L (38-126) 05/16/23 10:42 Total Protein 7.8 g/dL (6.3-8.2) 05/16/23 10:42 Albumin 4.5 g/dL (3.5-5.0) 05/16/23 10:42 TSH 0.893 mIU/L (0.465-4.680) 05/16/23 10:42 HCG, Quant <2.4 mIU/mL 05/14/23 22:17 Coronavirus (PCR) Not Detected (Not Detectd) 05/15/23 13:23 05/16/23 12:21 IDENTIFYING DATA: Patient is a 22-year-old single female who has a developmental disability, has a public gaurdian, single unmarried, lives in a skilled nursing. HISTORY OF PRESENT ILLNESS: Patient has a history of depression, intellectual disability and PTSD. Patient presented to the hospital after an apparent suicide attempt. Patient was petitioned by sustainability officer stating the patient was planning to hang herself with a shoelace. Patient was admitted to the mental health unit on the petition and certificate. 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 She claims that she was feeling depressed and having mood swings. She claims she feels her medications is not helping her. She states that she called the police as she was trying to hang herself with a shoelace. She states that she was a cry for help however also wanted to . She claims that she found out through her phone and her boyfriend cheated on her. She states that "it hurt really badly". She is endorsing feeling "sad" mood swings, anxiety. Patient has fairly concrete, she states that her sleep has been on and off, appetite has been fair. She is denying any current suicidal ideations intent or plan and denying any auditory hallucinations or visual hallucinations today. She claims that she does smoke cigarettes and also marijuana frequently. PAST PSYCHIATRIC HISTORY: She was last admitted to the mental health unit in October 2021. Patient has been on several medications included Lamictal, BuSpar, Lamictal, Celexa, Abilify, Minipress trazodone and Vistaril. According to record she has a history of ADHD, depressive disorder and PTSD. She currently follows up at [facility] with Dr. Hamilton. PAST MEDICAL HISTORY: As per ER note ALLERGIES: Amphetamine, dextroamphetamine SUBSTANCE USE HISTORY: As per HPI FAMILY PSYCHIATRIC/SUBSTANCE USE HISTORY: She was unaware of family history of mental health or substance use problems. SOCIAL HISTORY: She is born and raised in [facility]. She has 1 biological brother and sister. She moved to [place] with her father when she was "15 or 16 years old" after he obtained custody. She alleged that her father abandoned her when she was "17 or 18" when he moved to [place]. She has since lived in group homes and currently lives [facility]. 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 He is denying any legal history. MENTAL STATUS EXAM: General Appearance: Patient appears to be overweight, has short hair, stated age is alert, attempts to cooperate. Evasive and guarded at times Behavior: Patient is calmly seated without any agitated behavior. Evasive and guarded. Speech: Patient's speech is fluent and nonpressured. [place]. Mood/Affect: Mood is "depressed and sad", affect is congruent and affect is constricted Suicidality/Homicidality: Patient denies having any suicidal or homicidal ideation intent or plan. Perceptions: Patient denies any visual hallucinations and denies any auditory hallucinations Though content/process: [place], positive content. Vague and evasive. Memory and concentration: AOX3, grossly intact for the purposes of this session Judgment and insight: Chronically limited STRENGTHS: Physical health, stable income, stable housing, comprehensive supportive services WEAKNESSES: Interpersonal problems, poor problem-solving skills IMPRESSIONS: Adjustment disorder with disturbance in conduct and emotions Mood disorder NOS PTSD Intellectual disability cannabis use disorder Nicotine dependence PLAN: -Patient is admitted under voluntary status to MHU for stabilization of psychiatric symptoms and safety. Patient has signed adult voluntary form and medication consent and is placed in patient's chart. -Medications : increase Abilify 25 mg daily for mood stabilization/depression adjunct. d/c Celexa and replace with zoloft 50 mg daily for mood/anxiety. increase Minipress 5 mg daily at bedtime for nightmares, Trazodone 100 mg daily at bedtime prn for insomnia/mood. lamictal 75 mg bid for mood stabilization. buspar 30 mg bid for anxiety. -Ativan and Haldol PRN for agitation/aggression -Patient was informed of the risks, benefits and side effects of the medication and patient verbally consented to taking the medications. Patient signed med consent form and was placed in chart. -Internal Medicine consult to perform medical evaluation and physical. -NRT - nicotine patch -SW on board for discharge planning. Encourage patient to participate in groups to work on coping skills.
--- NOTE | 2023-05-16 16:34 | P.MDCNMH ---
History of Present Illness H&P Date: 05/16/23 This is a pleasant 22-year-old female who presented to the emergency department via EMS as she called the police while attempting suicide by hanging herself with a shoelace. Patient reports she was feeling increasingly depressed and suicidal and wanted to end her life. Patient reports she has seen Dr. Camacho in the outpatient setting although mostly follows with [facility] and mental health with a past medical history of pseudoseizures, ADD/ADHD, anxiety with bipolar depression, PTSD and reports she smokes marijuana as well as cigarettes, will occasionally drink alcohol and denies any other illicit drug use. Patient reports she currently lives in a prison and her mother lives out in [place] and her father lives in [place]. Patient reports to feeling increasingly depressed and unable to control her emotions. On exam patient is afebrile with no reports of chest pain or shortness of breath. Patient reports 2 eating well and tolerating diet and denies any nausea or vomiting. Patient reports she had some mild throat discomfort although denies any difficulty in breathing or feels of throat swelling and oral exam appears normal with no redness or swelling noted in multiple dental caries and uncared for teeth. Patient did have a soft tissue neck CT done in the ER which showed no soft tissue hematoma, cervical spine fracture, or airway compromise and normal stable exam. Labs initially showed a WBC of 15.9 and hemoglobin was stable although repeats today show WBC is normal at 8.9, sodium was 135 with a potassium of 4.2 and creatinine is 0.88 and Covid was negative. TSH is 0.893. Patient was admitted voluntarily to [facility] for further psychiatric evaluation. Review Of Systems: Constitutional: No fever, no chills, no night sweats. No weight change. No weakness, fatigue or lethargy. No daytime sleepiness. EENT: No headache. No blurred vision or double vision, no loss of vision. No loss of Hearing, no ringing in the ears, no dizziness. No nasal drainage or congestion. No epistaxis. Reports mild sore throat but no difficulty in swallowing and no throat swelling. Lungs: No shortness of breath, cough, no sputum production. No wheezing. Cardiovascular: No chest pain, no lower extremity edema. No palpitations. No paroxysmal nocturnal dyspnea. No orthopnea. No lightheadedness or dizziness. No syncopal episodes. Abdominal: No abdominal pain. No nausea, vomiting. No diarrhea. No constipation. No bloody or tarry stools.. No loss of appetite. Genitourinary: No dysuria, increased frequency, urgency. No urinary retention. Musculoskeletal: No myalgias. No muscle weakness, no gait dysfunction, no frequent falls. No back pain. No neck pain. Integumentary: No wounds, no lesions. No rash or pruritus. No unusual bruising. No change in hair or nails. Neurologic: No aphasia. No facial droop. No change in mentation. No head injury. No headache. No paralysis. No paresthesia. Psychiatric: No depression. No anxiety. No mood swings. Endocrine: No abnormal blood sugars. No weight change. No excessive sweating or thirst. No cold intolerance. PHYSICAL EXAMINATION: GENERAL: The patient is alert and oriented x4, Well developed, well nourished. Obese HEENT: Pupils are round and equally reacting to light. EOMI. no scleral icterus. No conjunctival pallor. Normocephalic, atraumatic. No pharyngeal erythema. No thyromegaly. CARDIOVASCULAR: S1 and S2 muffled PULMONARY: Breath sounds clear to auscultation with no wheezing or rhonchi noted. ABDOMEN: soft. Nontender on exam. obese. non-distended, normoactive bowel soun ds. No palpable organomegaly. MUSCULOSKELETAL: No joint swelling or deformity. EXTREMITIES: No cyanosis, clubbing, or pedal edema. NEUROLOGICAL: Gross neurological examination did not reveal any focal deficits. Steady gait on exam SKIN: No rashes. Assessment: Depression with suicidal ideation and suicide attempt History of pseudoseizures ADD/ADHD history Anxiety/bipolar depression/PTSD Continued ongoing nicotine dependence Marijuana use History of methamphetamine use Obesity with a BMI of 36.1 Full code Plan: Patient was voluntarily admitted to [facility] for further psyc hiatric evaluation Patient had soft tissue neck CT done which was normal Patient is tolerating diet with no reports of throat swelling or difficulty in swallowing Patient encouraged to attend group therapy sessions and compliance with medications Patient currently lives in a prison and reports she wants to go home to her mom in [place] and asked her to discuss with social work as she currently has a legal guardian Thank you kindly for this consultation The impression and plan of care has been dictated by Kristina Campos, nurse practitioner as directed. Dr. Kasey MD I have performed a history and examination and MDM of this patient, discussed the same with the dictator, and agree with the dictator's assessment and plan as written ,documented as a scribe. Based on total visit time, I have performed more than 50% of the visit. Any additional findings or plans will be noted. Past Medical History Past Medical History: No Reported History Additional Past Medical History / Comment(s): psuedoseizures History of Any Multi-Drug Resistant Organisms: None Reported Past Surgical History: No Surgical Hx Reported Past Anesthesia/Blood Transfusion Reactions: No Reported Reaction Past Psychological History: ADD/ADHD, Anxiety, Bipolar, Depression, PTSD Smoking Status: Current every day smoker Past Alcohol Use History: None Reported Additional Past Alcohol Use History / Comment(s): Pt denies alcohol use at this time Past Drug Use History: Marijuana, Methamphetamine Additional Drug Use History / Comment(s): Pt denies marijuana use at this time Medications and Allergies Home Medications Medication Instructions Recorded Confirmed Type Cholecalciferol (Vitamin D3) 125 mcg PO DAILY@0800 08/21/20 05/15/23 History [Vitamin D3 (5000 Iu)] Isibloom 1 tab PO DAILY@0800 09/27/20 05/15/23 History ARIPiprazole [Abilify] 20 mg PO DAILY@0800 30 Days tab 11/23/21 05/15/23 Rx Citalopram Hydrobromide [CeleXA] 40 mg PO DAILY@0800 30 Days tab 11/23/21 05/15/23 Rx Prazosin HCl 4 mg PO HS@1999 30 Days cap 11/23/21 05/15/23 Rx Calcium Carbonate [Calcium] 600 mg PO DAILY@0800 12/09/21 05/15/23 History busPIRone HCL [Buspar] 30 mg PO BID@0800,209912/09/21 05/15/23 History Ibuprofen [Motrin] 600 mg PO BID PRN 12/10/22 05/15/23 History Zinc Oxide 20% Oint 1 applic TOPICAL BID PRN 12/10/22 05/15/23 History lamoTRIgine [LaMICtal] 75 mg PO BID@0800,2100 12/10/22 05/15/23 History traZODone HCL [Desyrel] 100 mg PO HS PRN 12/10/22 05/15/23 History Acetaminophen Tab [Tylenol Tab] 1,000 mg PO Q4H PRN 05/15/23 05/15/23 History Lidocaine/Menthol 1 patch TOPICAL Q12H PRN 05/15/23 05/15/23 History [Lidocaine-Menthol 4%-1% Patch] Omeprazole 20 mg PO BID@0800,2100 05/15/23 05/15/23 History Allergies Allergy/AdvReac Type Severity Reaction Status Date / Time amphetamine [From Adderall] Allergy Unknown Verified 05/15/23 08:53 dextroamphetamine Allergy Unknown Verified 05/15/23 08:53 [From Adderall] Physical Exam Vitals: Vital Signs Temp Pulse Pulse Resp BP BP BP 05/16/23 06:41 97.6 F 94 16 139/60 05/15/23 15:54 97.7 F 80 16 133/77 05/15/23 15:46 97.7 F 80 20 133/77 05/15/23 14:53 68 16 145/68 05/15/23 13:23 86 16 118/66 Pulse Ox 05/16/23 06:41 99 05/15/23 15:54 05/15/23 15:46 05/15/23 14:53 98 05/15/23 13:23 98 Intake and Output 05/15/23 05/16/23 05/16/23 22:59 06:59 14:59 Other: Weight 95.339 kg Cranial Nerve Examination - Cranial Nerves Cranial Nerve I- Olfactory: Intact Cranial Nerve II- Optic: Intact Cranial Nerve III- Oculomotor: Intact Cranial Nerve IV- Trochlear: Intact Cranial Nerve V- Trigeminal: Intact Cranial Nerve - Abducens: Intact Cranial Nerve VII- Facial: Intact Cranial Nerve VIII- Auditory: Intact Cranial Nerve IX- Glossopharyngeal: Intact Cranial Nerve X- Vagus: Intact Cranial Nerve XI- Accessory: Intact Cranial Nerve XII- Hypoglossal: Intact Results CBC & Chem 7: 05/16/23 10:42 05/16/23 10:42 Assessment and Plan Time with Patient: Less than 30
[2023-05-16] MEDS: PRAZOSIN 1 MG CAP PO SCH (20:05)
[2023-05-16] MEDS: traZODone HCL 100 MG TAB PO PRN (20:35)
[2023-05-17] MEDS: ARIPiprazole 10 MG TAB PO SCH (08:55)
[2023-05-17] MEDS: PANTOPRAZOLE 40 MG TABLET PO SCH (08:55)
[2023-05-17] MEDS: busPIRone HCl 10 MG TAB PO SCH ×2 (08:56→21:37)
[2023-05-17] MEDS: CALCIUM CARBONATE 500 MG CHEWABLE PO SCH (08:56)
[2023-05-17] MEDS: lamoTRIgine 25 MG TAB PO SCH (08:56)
[2023-05-17] MEDS: NICOTINE 14MG/24HR PATCH TRANSDERM SCH (08:56)
[2023-05-17] MEDS ORDERED: SERTRALINE 50 MG TAB PO SCH (09:00)
[2023-05-17] MEDS: CHOLECALCIFEROL 125 MCG (5000 IU) TABLET PO SCH (09:27)
--- NOTE | 2023-05-17 10:40 | P.PN ---
Progress Note - Text Progress Note Date: 05/17/23 Interval history: Patient was seen sitting in the lounge today and was directable and agreeable to speak with conventional underwriter. Patient appeared to be upset and was crying as well. She states that she wrote a letter to her father and read it to conventional underwriter. In the letter she made several negative comments about her father in abandoning her and her going into "the system". She claims that "he messed up my life". She claims that she wants to give him the letter. She states that she is feeling irritable and upset this morning. Continues to be endorsing depression and anxiety. States that she slept fairly last night with the trazodone. At this time patient denies any suicidal or homicidal ideations intent or plan. Denies any Auditory or visual hallucinations. Patient denies any side effects from the medications and has been compliant with meds. Mental status exam: General Appearance: Patient appears to be mildly overweight, short hair, stated age is alert, directable, and cooperative. Behavior: No agitated behavior. Patient is calm and directable. Appears to be upset and tearful Speech: Patient's speech is fluent and nonpressured. Mood/Affect: Mood is depressed and anxious, affect is congruent and constricted. Suicidality/Homicidality: Patient denies having any suicidal or homicidal ideation intent or plan. Perceptions: Patient denies any auditory or visual hallucinations. Though content/process: There is no evidence of any delusional thought content and thought process is linear and goal-directed. Focused on the letter and her father negatively. Memory and concentration: AOX3, grossly intact for the purposes of this session Judgment and insight: Chronically limited Assessment/Plan: Continue with current diagnosis. Patient continues to meet criteria for inpatient psychiatric admission for symptom stabilization and safety.Patient will be maintained on current psychotropic medication regimen, with the exception of increasing Zoloft to 100 mg daily tomorrow, Lamictal increased to 100 mg twice a day for mood stabilization. Monitor for medication compliance and for any psychotropic medication side effects. Will continue to monitor ongoing response to treatment. Encouraged participation in milieu.
[2023-05-17] MEDS: PRAZOSIN 1 MG CAP PO SCH (21:37)
[2023-05-17] MEDS: lamoTRIgine 100 MG TAB PO SCH (21:38)
[2023-05-17] MEDS: traZODone HCL 100 MG TAB PO PRN (21:39)
[2023-05-18 07:34] VITALS: RESP 14
[2023-05-18] MEDS: NICOTINE 14MG/24HR PATCH TRANSDERM SCH (10:07)
[2023-05-18] MEDS: ARIPiprazole 10 MG TAB PO SCH (10:07)
[2023-05-18] MEDS: CALCIUM CARBONATE 500 MG CHEWABLE PO SCH (10:08)
[2023-05-18] MEDS: busPIRone HCl 10 MG TAB PO SCH ×2 (10:08→21:06)
[2023-05-18] MEDS: CHOLECALCIFEROL 125 MCG (5000 IU) TABLET PO SCH (10:08)
[2023-05-18] MEDS: SERTRALINE 100 MG TAB PO SCH (10:08)
[2023-05-18] MEDS: lamoTRIgine 100 MG TAB PO SCH ×2 (10:08→21:06)
[2023-05-18] MEDS: PANTOPRAZOLE 40 MG TABLET PO SCH (10:08)
--- NOTE | 2023-05-18 10:49 | P.PN ---
Progress Note - Text Progress Note Date: 05/18/23 Interval history: Patient was seen sitting at the side of her bed and was agreeable to talk to keno writer / runner. Patient appeared to be less upset today. She claims that she is still having negative thoughts about her father. She states that she is feeling irritable and upset this morning. Continues to be endorsing depression and anxiety, however this is improving. States that she slept fairly last night with the trazodone. At this time patient denies any suicidal or homicidal ideations intent or plan. Denies any Auditory or visual hallucinations. Patient denies any side effects from the medications and has been compliant with meds. Mental status exam: General Appearance: Patient appears to be mildly overweight, short hair, stated age is alert, directable, and cooperative. Behavior: No agitated behavior. Patient is calm and directable. Appears to be less upset today. Speech: Patient's speech is fluent and nonpressured. Mood/Affect: Mood is improving mildly, affect is congruent and constricted. Suicidality/Homicidality: Patient denies having any suicidal or homicidal ideation intent or plan. Perceptions: Patient denies any auditory or visual hallucinations. Though content/process: There is no evidence of any delusional thought content and thought process is linear and goal-directed. Memory and concentration: AOX3, grossly intact for the purposes of this session Judgment and insight: Chronically limited Assessment/Plan: Continue with current diagnosis. Patient continues to meet criteria for inpatient psychiatric admission for symptom stabilization and safety.Patient will be maintained on current psychotropic medication regimen. Will continue to monitor ongoing response to treatment. Encouraged participation in milieu.
[2023-05-18] MEDS: traZODone HCL 100 MG TAB PO PRN (21:06)
[2023-05-18] MEDS: PRAZOSIN 1 MG CAP PO SCH (21:06)
[2023-05-19] MEDS: NICOTINE 14MG/24HR PATCH TRANSDERM SCH (08:47)
[2023-05-19] MEDS: busPIRone HCl 10 MG TAB PO SCH ×2 (08:48→20:39)
[2023-05-19] MEDS: lamoTRIgine 100 MG TAB PO SCH ×2 (08:48→20:39)
[2023-05-19] MEDS: PANTOPRAZOLE 40 MG TABLET PO SCH (08:48)
[2023-05-19] MEDS: CHOLECALCIFEROL 125 MCG (5000 IU) TABLET PO SCH (08:48)
[2023-05-19] MEDS: ARIPiprazole 10 MG TAB PO SCH (08:48)
[2023-05-19] MEDS: CALCIUM CARBONATE 500 MG CHEWABLE PO SCH (08:48)
[2023-05-19] MEDS: SERTRALINE 100 MG TAB PO SCH (08:48)
--- NOTE | 2023-05-19 11:54 | P.PN ---
Progress Note - Text Progress Note Date: 05/19/23 Interval history: Patient was seen wandering the hallways today. She claims that she was feeling a bit anxious earlier today as another patient was loud and aggressive and she was hiding out in the lounge. She states that she has been trying to go to groups and participate as best as she can. Claims that she is improving in terms of her mood and anxiety today. States that she is relieved from getting better sleep. Patient appeared to be less upset today and less focused on her father. At this time patient denies any suicidal or homicidal ideations intent or plan. Denies any Auditory or visual hallucinations. Patient denies any side effects from the medications and has been compliant with meds. Mental status exam: General Appearance: Patient appears to be mildly overweight, short hair, stated age is alert, directable, and cooperative. Behavior: No agitated behavior. Patient is calm and directable. Appears to be less upset today. Speech: Patient's speech is fluent and nonpressured. Mood/Affect: Mood is improving mildly, affect is congruent and constricted. Suicidality/Homicidality: Patient denies having any suicidal or homicidal ideation intent or plan. Perceptions: Patient denies any auditory or visual hallucinations. Though content/process: There is no evidence of any delusional thought content and thought process is linear and goal-directed. Memory and concentration: AOX3, grossly intact for the purposes of this session Judgment and insight: Chronically limited Assessment/Plan: Continue with current diagnosis. Patient continues to meet criteria for inpatient psychiatric admission for symptom stabilization and safety. Patient will be maintained on current psychotropic medication regimen. Will continue to monitor ongoing response to treatment. Encouraged participation in milieu. likely discharge back to [facility].
[2023-05-19] MEDS: PRAZOSIN 1 MG CAP PO SCH (20:39)
[2023-05-19] MEDS: traZODone HCL 100 MG TAB PO SCH (20:39)
[2023-05-20] MEDS: lamoTRIgine 100 MG TAB PO SCH ×2 (08:55→21:06)
[2023-05-20] MEDS: ARIPiprazole 15 MG TAB PO SCH (08:55)
[2023-05-20] MEDS: PANTOPRAZOLE 40 MG TABLET PO SCH (08:55)
[2023-05-20] MEDS: CHOLECALCIFEROL 125 MCG (5000 IU) TABLET PO SCH (08:56)
[2023-05-20] MEDS: CALCIUM CARBONATE 500 MG CHEWABLE PO SCH (08:56)
[2023-05-20] MEDS: busPIRone HCl 10 MG TAB PO SCH ×2 (08:56→21:06)
[2023-05-20] MEDS: NICOTINE 14MG/24HR PATCH TRANSDERM SCH (08:56)
[2023-05-20] MEDS: SERTRALINE 100 MG TAB PO SCH (08:56)
--- NOTE | 2023-05-20 11:20 | P.PN ---
Progress Note - Text Progress Note Date: 05/20/23 Interval history: Patient was seen lying in her bed this morning. She claims that she has been doing a bit better with regards or medications. She states that her mood and anxiety but improving. She is fairly concrete. She was asking about potential discharge. She states that she is trying to go to groups and participate as best as she can. She did not report any problems overnight, states that she slept throughout the night. Patient appeared to be less upset today and less focused on her father. At this time patient denies any suicidal or homicidal ideations intent or plan. Denies any Auditory or visual hallucinations. Patient denies any side effects from the medications and has been compliant with meds. Mental status exam: General Appearance: Patient appears to be mildly overweight, short hair, stated age is alert, directable, and cooperative. Behavior: No agitated behavior. Patient is calm and directable. Appears to be more cooperative. Speech: Patient's speech is fluent and nonpressured. Mood/Affect: Mood is improving mildly, affect is congruent and constricted. Suicidality/Homicidality: Patient denies having any suicidal or homicidal ideation intent or plan. Perceptions: Patient denies any auditory or visual hallucinations. Though content/process: There is no evidence of any delusional thought content and thought process is linear and goal-directed. Memory and concentration: AOX3, grossly intact for the purposes of this session Judgment and insight: Chronically limited Assessment/Plan: Continue with current diagnosis. Patient continues to meet criteria for inpatient psychiatric admission for symptom stabilization and safety. Patient will be maintained on current psychotropic medication regimen. Will continue to monitor ongoing response to treatment. Encouraged participation in milieu. likely discharge back to residential tomorrow.
[2023-05-20] MEDS: PRAZOSIN 1 MG CAP PO SCH (21:05)
[2023-05-20] MEDS: traZODone HCL 100 MG TAB PO SCH (21:06)
[2023-05-21 07:25] VITALS: BP 111/60; PULSE 66; TEMP 97.4
[2023-05-21] MEDS: IBUPROFEN 600 MG TAB PO PRN (09:08)
[2023-05-21] MEDS: ARIPiprazole 15 MG TAB PO SCH (09:09)
[2023-05-21] MEDS: CALCIUM CARBONATE 500 MG CHEWABLE PO SCH (09:10)
[2023-05-21] MEDS: NICOTINE 14MG/24HR PATCH TRANSDERM SCH (09:10)
[2023-05-21] MEDS: busPIRone HCl 10 MG TAB PO SCH (09:10)
[2023-05-21] MEDS: lamoTRIgine 100 MG TAB PO SCH (09:10)
[2023-05-21] MEDS: SERTRALINE 100 MG TAB PO SCH (09:10)
[2023-05-21] MEDS: PANTOPRAZOLE 40 MG TABLET PO SCH (09:10)
[2023-05-21] MEDS: CHOLECALCIFEROL 125 MCG (5000 IU) TABLET PO SCH (09:10)
--- NOTE | 2023-05-21 11:11 | P.DS ---
Providers Date of admission: 05/15/23 14:25 Expected date of discharge: 05/21/23 Attending physician: Devon Borges MD Consults: 05/15/23 14:41 Consult Physician Routine Consulting Provider: [facility] Hospitalists Consult Reason/Comments: H&P Do you want consulting provider notified?: Yes Primary care physician: Suzy Alfonso - Discharge Diagnosis(es) (1) Adjustment disorder with mixed disturbance of emotions and conduct Current Visit: Yes Status: Acute Priority: High (2) Mood disorder Current Visit: Yes Status: Acute Priority: High (3) PTSD (post-traumatic stress disorder) Current Visit: Yes Status: Acute Priority: Medium (4) Intellectual disability Current Visit: Yes Status: Acute Priority: Medium (5) Borderline personality disorder Current Visit: Yes Status: Acute Priority: High (6) Cannabis use disorder Current Visit: Yes Status: Acute Priority: Medium (7) Nicotine dependence Current Visit: Yes Status: Acute Priority: Low Hospital Course: Admission HPI: Admission note was completed by scientific writer "Patient is a 22-year-old single female who has a developmental disability, has a public gaurdian, single unmarried, lives in a fci. Patient has a history of depression, intellectual disability and PTSD. Patient presented to the hospital after an apparent suicide attempt. Patient was petitioned by gift officer stating the patient was planning to hang herself with a shoelace. Patient was admitted to the mental health unit on the petition and certificate. Patient was agreeable field underwriter today. She claims that she was feeling depressed and having mood swings. She claims she feels her medications is not helping her. She states that she called the police as she was trying to hang herself with a shoelace. She states that she was a cry for help however also wanted to . She claims that she found out through her phone and her boyfriend cheated on her. She states that "it hurt really badly". She is endorsing feeling "sad" mood swings, anxiety. Patient has fairly concrete, she states that her sleep has been on and off, appetite has been fair. She is denying any current suicidal ideations intent or plan and denying any auditory hallucinations or visual hallucinations today. She claims that she does smoke cigarettes and also marijuana frequently." Hospital course: Upon admission to the unit patient was directable and agreeable to commence treatment and signed adult voluntary form . Patient got along well with other patients on the unit and followed unit protocol. Patient was compliant with the medications and denied any side effects throughout hospital course. Patient was started on Abilify and increased her dose of 30 mg daily for mood stabilization/depression adjunct, Celexa was discontinued and replaced with Zoloft 100 mg daily for mood/anxiety, prazosin 5 mg daily at bedtime for nightmares, trazodone 100 mg daily at bedtime for insomnia/mood, Lamictal increased to dose of 100 mg twice a day for mood stabilization/depression, BuSpar 30 mg twice a day for anxiety. Patient spoke of her stressors and engaged in therapy both group and individual. Patient was also seen by medical team for history and physical exam. Throughout the course of the hospitalization patient gradually improved with regards to mood, anxiety, mood stabilization, suicidal thoughts, sleep and returned back to their baseline level of functioning. On the day of discharge patient denied any suicidal or homicidal ideations intent or plan denied any auditory or visual hallucinations. Patient endorsed wanting to live for her future and her health. The patient denied any access to guns or weapons. Patient denied any paranoia and did not endorse any delusions. Patient does have a significant history of substance abuse and was counseled on abstaining from all substances including alcohol and marijuana. Patient was also counseled on the medications and need for regular compliance and was encouraged to follow-up with their outpatient appointment for mental health and also for primary care. Prior to discharge, social group worker maite ovalle oordinate patient's discharge and follow-up appointments with [facility]. Patient will also be given resources and information for groups, therapy and other resources at [facility] which may be beneficial for her. Today patient will be discharged back to [facility]. Mental status exam: General Appearance: Patient appears to be mildly overweight, short hair, stated age is alert, pleasant, and cooperative. Patient is in no acute distress and has improved hygiene and grooming Behavior: Patient is calmly seated without any agitated behavior. Speech: Patient's speech is fluent and nonpressured. Mood/Affect: Patient reports their mood is "better", affect is congruent and euthymic. Suicidality/Homicidality: Patient denies having any suicidal or homicidal ideation intent or plan. Perceptions: Patient denies any auditory or visual hallucinations. Though content/process: There is no evidence of any delusional thought content and thought process is linear and goal-directed. Memory and concentration: AOX3, grossly intact for the purposes of this session. Can spell "WORLD" backwards correctly. Judgment and insight: Chronically limited, improved with guarded prognosis Impression: Adjustment disorder with disturbance in conduct and emotions Mood disorder unspecified PTSD Intellectual disability Cannabis use disorder Borderline personality disorder Nicotine dependence Plan: -Continue with discharge today as patient has improved and stabilized psychiatrically and is not currently an imminent threat to herself and/or others. Patient will remain at chronically elevated risk for harm to self and/or others due to her impulsivity. -Continue medications: Abilify 30 mg daily for mood stabilization/depression, Zoloft 100 mg daily for mood/anxiety, prazosin 5 mg daily at bedtime for night escalera, trazodone 100 mg daily at bedtime for insomnia/mood, Lamictal 100 mg twice a day for mood stabilization/depression, BuSpar 30 mg twice a day for anxiety. -Patient was counseled on the need for medication compliance and appropriate follow-up at mental health and also primary care for medical issues. Patient verbalized understanding and agreed. -Social work to coordinate patient's discharge today back to her fci and services at [facility]. Social work also to arrange for patients follow up appointments with [facility] for psychiatric care along with follow up with primary care provider. -Patient counseled on abstaining from recreational drugs and marijuana and alcohol. Was informed/educated on the adverse effects on their physical and mental health. Patient verbally agreed and understood. Patient was offered substance abuse treatment however declined at this time. -Patient was instructed to return to the hospital or seek immediate medical care if their psychiatric or medical symptoms do worsen or reoccur. Allergies Allergy/AdvReac Type Severity Reaction Status Date / Time amphetamine [From Adderall] Allergy Unknown Verified 05/15/23 08:53 dextroamphetamine Allergy Unknown Verified 05/15/23 08:53 [From Adderall] Laboratory Results WBC 8.9 k/uL (3.8-10.6) 05/16/23 10:42 RBC 4.60 m/uL (3.80-5.40) 05/16/23 10:42 Hgb 13.5 gm/dL (11.4-16.0) 05/16/23 10:42 Hct 40.3 % (34.0-46.0) 05/16/23 10:42 MCV 87.7 fL (80.0-100.0) 05/16/23 10:42 MCH 29.3 pg (25.0-35.0) 05/16/23 10:42 MCHC 33.5 g/dL (31.0-37.0) 05/16/23 10:42 RDW 13.7 % (11.5-15.5) 05/16/23 10:42 Plt Count 362 k/uL (150-450) 05/16/23 10:42 MPV 7.2 05/16/23 10:42 Neutrophils % 63 % 05/16/23 10:42 Lymphocytes % 28 % 05/16/23 10:42 Monocytes % 5 % 05/16/23 10:42 Eosinophils % 2 % 05/16/23 10:42 Basophils % 0 % 05/16/23 10:42 Neutrophils # 5.6 k/uL (1.3-7.7) 05/16/23 10:42 Lymphocytes # 2.5 k/uL (1.0-4.8) 05/16/23 10:42 Monocytes # 0.4 k/uL (0-1.0) 05/16/23 10:42 Eosinophils # 0.2 k/uL (0-0.7) 05/16/23 10:42 Basophils # 0.0 k/uL (0-0.2) 05/16/23 10:42 Sodium 138 mmol/L (137-145) 05/16/23 10:42 Potassium 4.5 mmol/L (3.5-5.1) 05/16/23 10:42 Chloride 105 mmol/L (98-107) 05/16/23 10:42 Carbon Dioxide 20 mmol/L (22-30) L 05/16/23 10:42 Anion Gap 13 mmol/L 05/16/23 10:42 BUN 14 mg/dL (7-17) 05/16/23 10:42 Creatinine 0.88 mg/dL (0.52-1.04) 05/16/23 10:42 Est GFR (CKD-EPI)AfAm >90 (>60 ml/min/1.73 sqM) 05/16/23 10:42 Est GFR (CKD-EPI)NonAf >90 (>60 ml/min/1.73 sqM) 05/16/23 10:42 Glucose 98 mg/dL (74-99) 05/16/23 10:[address] Glu mg/dL 114 mg/dL 05/16/23 10:42 Hemoglobin A1c 5.6 % (<=6.0) 05/16/23 10:42 Calcium 10.3 mg/dL (8.4-10.2) H 05/16/23 10:42 Total Bilirubin 0.3 mg/dL (0.2-1.3) 05/16/23 10:42 Conjugated Bilirubin 0.0 mg/dL (0.0-0.3) 05/16/23 10:42 Unconjugated Bilirubin 0.2 mg/dL (0.0-1.1) 05/16/23 10:42 Delta Bilirubin 0.1 mg/dL (0.0-0.2) 05/16/23 10:42 AST 20 U/L (14-36) 05/16/23 10:42 ALT 18 U/L (4-34) 05/16/23 10:42 Alkaline Phosphatase 103 U/L (38-126) 05/16/23 10:42 Total Protein 7.8 g/dL (6.3-8.2) 05/16/23 10:42 Albumin 4.5 g/dL (3.5-5.0) 05/16/23 10:42 TSH 0.893 mIU/L (0.465-4.680) 05/16/23 10:42 HCG, Quant <2.4 mIU/mL 05/14/23 22:17 Lamotrigine 1.1 ug/mL (2.0-15.0) L 05/16/23 10:42 Coronavirus (PCR) Not Detected (Not Detectd) 05/15/23 13:23 Vital Signs Temp 97.4 F L 05/21/23 06:58 Pulse 66 05/21/23 06:58 Resp 14 05/21/23 06:58 BP 111/60 05/21/23 06:58 Pulse Ox 99 05/21/23 06:58 FiO2 Patient Condition at Discharge: Stable Plan - Discharge Summary New Discharge Prescriptions: New ARIPiprazole [Abilify] 30 mg PO DAILY 30 Days #60 tab busPIRone HCl [Buspar] 30 mg PO BID@799,2099 30 Days #180 tab lamoTRIgine [LaMICtal] 100 mg PO BID 30 Days #60 tab Prazosin [Minipress] 5 mg PO 1999 30 Days #150 cap Sertraline [Zoloft] 100 mg PO DAILY 30 Days #30 tab traZODone HCL [Desyrel] 100 mg PO HS 30 Days #30 tab Nicotine 14Mg/24Hr Patch [Habitrol] 1 patch TRANSDERM DAILY 14 Days #14 patch Acetaminophen Tab [Tylenol] 650 mg PO Q4HR PRN tab PRN Reason: Mild Pain (Scale 1 To 3) Continue Cholecalciferol (Vitamin D3) [Vitamin D3 (5000 Iu)] 125 mcg PO DAILY@0800 Zinc Oxide 20% Oint 1 applic TOPICAL BID PRN PRN Reason: irritation Ibuprofen [Motrin] 600 mg PO BID PRN PRN Reason: back pain Calcium Carbonate [Calcium] 600 mg PO DAILY@0800 Lidocaine/Menthol [Lidocaine-Menthol 4%-1% Patch] 1 patch TOPICAL Q12H PRN PRN Reason: Pain Omeprazole 20 mg PO BID@799,2099 Discontinued Isibloom 1 tab PO DAILY@799 Prazosin HCl 4 mg PO HS@1999 30 Days cap Acetaminophen Tab [Tylenol Tab] 1,000 mg PO Q4H PRN PRN Reason: Fever And/ Or Pain ARIPiprazole [Abilify] 20 mg PO DAILY@00 30 Days tab Citalopram Hydrobromide [CeleXA] 40 mg PO DAILY@799 30 Days tab busPIRone HCL [Buspar] 30 mg PO BID@799,2099 traZODone HCL [Desyrel] 100 mg PO HS PRN PRN Reason: sleep lamoTRIgine [LaMICtal] 75 mg PO BID@799,2099 Discharge Medication List Cholecalciferol (Vitamin D3) [Vitamin D3 (5000 Iu)] 125 mcg PO DAILY@0800 08/21/20 [History] Calcium Carbonate [Calcium] 600 mg PO DAILY@0800 12/09/21 [History] Ibuprofen [Motrin] 600 mg PO BID PRN 12/10/22 [History] Zinc Oxide 20% Oint 1 applic TOPICAL BID PRN 12/10/22 [History] Lidocaine/Menthol [Lidocaine-Menthol 4%-1% Patch] 1 patch TOPICAL Q12H PRN 05/15/23 [History] Omeprazole 20 mg PO BID@0800,2100 05/15/23 [History] ARIPiprazole [Abilify] 30 mg PO DAILY 30 Days #60 tab 05/21/23 [Rx] Acetaminophen Tab [Tylenol] 650 mg PO Q4HR PRN tab 05/21/23 [Rx] Nicotine 14Mg/24Hr Patch [Habitrol] 1 patch TRANSDERM DAILY 14 Days #14 patch 05/21/23 [Rx] Prazosin [Minipress] 5 mg PO 1999 30 Days #150 cap 05/21/23 [Rx] Sertraline [Zoloft] 100 mg PO DAILY 30 Days #30 tab 05/21/23 [Rx] busPIRone HCl [Buspar] 30 mg PO BID@0800,2099 30 Days #180 tab 05/21/23 [Rx] lamoTRIgine [LaMICtal] 100 mg PO BID 30 Days #60 tab 05/21/23 [Rx] traZODone HCL [Desyrel] 100 mg PO HS 30 Days #30 tab 05/21/23 [Rx] Follow up Appointment(s)/Referral(s): [facility] [Outside] - 05/22/23 12:30 pm (05/22/2023 12:30PM - 1:30PM TY GOODMAN 05/28/2023 2:00PM - 2:30PM SUZY HAMILTON ) Suzy Hamilton MD [Primary Care Provider] - 1-2 days Patient Instructions/Handouts: How to Stop Smoking (DC), Mood Disorders (DC), Post Traumatic Stress Disorder (DC) Activity/Diet/Wound Care/Special Instructions: Avoid the use of street drugs and alcohol. Take all medications as prescribed. When you are in need of refills on your medications, please contact your medical provider and/or outpatient psychiatrist/provider to have this done. Please go to your scheduled outpatient appointment for aftercare treatment. If symptoms return or become worse, call the crisis line at and/or go to the nearest emergency room for evaluation. National Suicide Hotline 988. Discharge Disposition: HOME SELF-CARE
== END 2023-05-21 11:55 | disposition home or self-care (01) | DRG 882 ==
LOC: EC 20:32 → 3MHU 05-15 14:25
PROVIDERS: ADMIT Psychiatry & Neurology Psychiatry; ATTEND Psychiatry & Neurology Psychiatry
DX: F43.25 Adjustment disorder with mixed disturbance of emotions and conduct (principal); F43.10 Post-traumatic stress disorder, unspecified; F90.9 Attention-deficit hyperactivity disorder, unspecified type; Z11.52 Encounter for screening for COVID-19; E66.9 Obesity, unspecified; Z68.36 Body mass index [BMI] 36.0-36.9, adult; F60.3 Borderline personality disorder; F12.10 Cannabis abuse, uncomplicated; F17.210 Nicotine dependence, cigarettes, uncomplicated; F20.9 Schizophrenia, unspecified; F79 Unspecified intellectual disabilities; G47.00 Insomnia, unspecified; T14.91XA Suicide attempt, initial encounter; X83.8XXA Intentional self-harm by other specified means, initial encounter; Z79.899 Other long term (current) drug therapy; R56.9 Unspecified convulsions; Z88.8 Allergy status to other drugs, medicaments and biological substances; Z28.311 Partially vaccinated for COVID-19; Z28.21 Immunization not carried out because of patient refusal; Z71.51 Drug abuse counseling and surveillance of drug abuser; Z71.89 Other specified counseling
CPT/HCPCS: 36415; 70491; 80048; 80053; 80175; 82075; 82248; 83036; 84443; 84702; 85025; 87635; 99285

== ENCOUNTER 2023-09-29 15:06 | Emergency (ER) | payer MEDICARE, OTHER ==
--- NOTE | 2023-09-29 15:25 | ED ---
Abdominal Pain HPI - General Chief Complaint: Abdominal Pain Stated Complaint: ABD PAIN Time Seen by Provider: 09/29/23 15:20 Source: patient, RN notes reviewed Mode of arrival: ambulatory Limitations: no limitations - History of Present Illness Initial Comments: This is a 22-year-old female who presents to the emergency department for abdominal pain. States that this is in the right lower quadrant. Believes that this may be from an ovarian cyst. States that she was diagnosed with an ovarian cyst a couple of weeks ago. However, denies having an ultrasound and is not quite sure how this diagnosis was made. Patient does seem to be a rather poor h istorian. Denies any vaginal bleeding. States that today she feels dizzy and the pain is worse. Also reports nausea associated with the pain. MD Complaint: abdominal pain - Related Data Home Medications Medication Instructions Recorded Confirmed Cholecalciferol (Vitamin D3) 125 mcg PO DAILY@0800 08/21/20 05/15/23 [Vitamin D3 (5000 Iu)] Calcium Carbonate [Calcium] 600 mg PO DAILY@0800 12/09/21 05/15/23 Ibuprofen [Motrin] 600 mg PO BID PRN 12/10/22 05/15/23 Zinc Oxide 20% Oint 1 applic TOPICAL BID PRN 12/10/22 05/15/23 Lidocaine/Menthol 1 patch TOPICAL Q12H PRN 05/15/23 05/15/23 [Lidocaine-Menthol 4%-1% Patch] Omeprazole 20 mg PO BID@0800,2100 05/15/23 05/15/23 Previous Rx's Medication Instructions Recorded ARIPiprazole [Abilify] 30 mg PO DAILY 30 Days #60 tab 05/21/23 Acetaminophen Tab [Tylenol] 650 mg PO Q4HR PRN tab 05/21/23 Nicotine 14Mg/24Hr Patch [Habitrol] 1 patch TRANSDERM DAILY 14 Days 05/21/23 #14 patch Prazosin [Minipress] 5 mg PO 1999 30 Days #150 cap 05/21/23 Sertraline [Zoloft] 100 mg PO DAILY 30 Days #30 tab 05/21/23 busPIRone HCl [Buspar] 30 mg PO BID@0800,2100 30 Days 05/21/23 #180 tab lamoTRIgine [LaMICtal] 100 mg PO BID 30 Days #60 tab 05/21/23 traZODone HCL [Desyrel] 100 mg PO HS 30 Days #30 tab 05/21/23 Ibuprofen [Motrin] 800 mg PO Q8H PRN #30 tab 09/29/23 Ondansetron Odt [Zofran Odt] 4 mg PO Q8HR PRN #20 tab 09/29/23 Allergies Allergy/AdvReac Type Severity Reaction Status Date / Time amphetamine [From Adderall] Allergy Unknown Verified 09/29/23 15:24 citalopram [From Celexa] Allergy Unknown Verified 09/29/23 15:24 dextroamphetamine Allergy Unknown Verified 09/29/23 15:24 [From Adderall] Review of Systems ROS Statement: Those systems with pertinent positive or pertinent negative responses have been documented in the HPI. ROS Other: All systems not noted in ROS Statement are negative. Past Medical History Past Medical History: No Reported History Additional Past Medical History / Comment(s): psuedoseizures History of Any Multi-Drug Resistant Organisms: None Reported Past Surgical History: No Surgical Hx Reported Past Anesthesia/Blood Transfusion Reactions: No Reported Reaction Past Psychological History: ADD/ADHD, Anxiety, Bipolar, Depression, PTSD Smoking Status: Current every day smoker Past Alcohol Use History: None Reported Additional Past Alcohol Use History / Comment(s): Pt denies alcohol use at this time Past Drug Use History: Marijuana, Methamphetamine Additional Drug Use History / Comment(s): Pt denies marijuana use at this time General Exam Limitations: no limitations General appearance: alert, in no apparent distress Head exam: Present: atraumatic, normocephalic, normal inspection Respiratory exam: Present: normal lung sounds bilaterally. Absent: respiratory distress, wheezes, rales, rhonchi, stridor Cardiovascular Exam: Present: regular rate, normal rhythm, normal heart sounds. Absent: systolic murmur, diastolic murmur, rubs, gallop, clicks GI/Abdominal exam: Present: soft, tenderness (RLQ), normal bowel sounds. Absent: distended Neurological exam: Present: alert, oriented X3, CN II-XII intact Psychiatric exam: Present: normal affect, normal mood Skin exam: Present: warm, dry, intact, normal color. Absent: rash Course Vital Signs 09/29/23 09/29/23 09/29/23 15:21 16:49 18:53 Temperature 97.8 F 98.0 F Pulse Rate 103 H 77 95 Respiratory 18 16 18 Rate Blood Pressure 120/80 107/74 137/80 O2 Sat by Pulse 98 96 95 Oximetry 09/29/23 19:51 Temperature Pulse Rate 80 Respiratory 16 Rate Blood Pressure 104/75 O2 Sat by Pulse 96 Oximetry Medical Decision Making - Medical Decision Making This is a 22 year old female who presents to the emergency department for abdominal pain. Was pt. sent in by a medical professional or institution? @ -No Did you speak to anyone other than the patient for history? @ -No Did you review nursing and triage notes? @ -Yes, and I agree, it is accurate with regards to the patient's symptoms. Were old charts reviewed? @ -No Differential Diagnosis? @ -Differential Abdominal Pain Women: Appendicitis, Cholecystitis, diverticulosis, ischemic bowel, pancreatitis, hepatitis, UTI, gastroenteritis, AAA, incarcerated hernia, bowel obstruction, constipation, inflammatory bowel, hepatitis, peptic ulcer disease, splenic infarction, perforated viscus, vulvitis, ovarian torsion, PID, kidney stone, placenta abruption, this is not meant to be an all-inclusive list EKG interpreted by me (3pts min.)? @ -Not obtained X-rays interpreted by me (1pt min.)? @ -Chest x-ray obtained, my interpretation identifies no localized consolidations or infiltrates. CT interpreted by me (1pt min.)? @ -CT scan of the abdomen and pelvis obtained. My interpretation identifies no dilation of the appendix. U/S interpreted by me (1pt. min.)? @ -Not obtained What testing was considered but not performed? (CT, X-rays, U/S, labs)? Why? @ -None What meds were considered but not given? Why? @ -None Did you discuss the management of the patient with other professionals? @ -No Did you reconcile home meds? @ -No Was smoking cessation discussed for >3mins.? @ -I discussed smoking cessation for greater than 3 minutes. The risk of smoking were discussed with the patient including but not limited to risks of cancer, stroke, coronary artery disease and COPD. Also discussed with patient were multiple methods of quitting smoking. Lastly we discussed the financial cost of smoking. Was critical care preformed (if so, how long)? @ -No Were there social determinants of health that impacted care today? How? (Homelessness, low income, unemployed, alcoholism, drug addiction, transportation, low edu. Level, literacy, decrease access to med. care, detention, rehab)? @ -No Was there de-escalation of care discussed even if they declined? (Discuss DNR or withdrawal of care, Hospice)? @ -No What co-morbidities impacted this encounter? (DM, HTN, Smoking, COPD, CAD, Cancer, CVA, Hep., AIDS, mental health diagnosis, sleep apnea, morbid obesity)? @ -Smoking Was patient admitted / discharged? @ -Discharged. Lab work demonstrates leukocytosis and was otherwise unremarkable. Urinalysis negative for signs of infection. CT scan of the abdomen and pelvis obtained demonstrating a left pelvic complex mass with calcification, soft tissue, and is most compatible with a teratoma. No acute process in the right lower quadrant was identified to account for the patient's pain. Appendix is normal. Symptoms well-controlled with IV fluids, Toradol, and Zofran. Patient is a very poor historian. States that she may also have pain in the left lower quadrant, however pain is most prominent on the right side. Physical examination demonstrates no other acute process to identify a cause of her leukocytosis. We did obtain a chest x-ray as well due to the elevated white count, which also revealed no acute findings. Advised she follow-up with her primary care provider for further evaluation. Information for follow-up with [facility] provided as well regarding the ovarian teratoma. Prescription for ibuprofen and Zofran provided with dosing instructions reviewed. Patient discharged home in stable condition. Undiagnosed new problem with uncertain prognosis? @ -None Drug Therapy requiring intensive monitoring for toxicity (Heparin, Nitro, Insulin, Cardizem)? @ -None Were any procedures done? @ -None Diagnosis/symptom? @ -Abdominal pain, ovarian teratoma Acute, or Chronic, or Acute on Chronic? @ -Acute Uncomplicated (without systemic symptoms) or Complicated (systemic symptoms)? @ -Uncomplicated Side effects of treatment? @ -None Exacerbation, Progression, or Severe Exacerbation] @ -Not applicable Poses a threat to life or bodily function? @ -No Return precautions reviewed in depth, the patient is instructed to return to the emergency department with any new, worsening, or concerning symptoms. Patient verbalized understanding. This case was discussed in detail with the attending ED physician, Dr. Horner. Presentation, findings, and treatment plan discussed in detail as well. - Lab Data Result diagrams: 09/29/23 15:53 09/29/23 15:53 Lab Results 09/29/23 09/29/23 09/29/23 Range/Units 15:30 15:30 15:53 WBC 20.5 H (3.8-10.6) k/uL RBC 4.43 (3.80-5.40) m/uL Hgb 13.0 (11.4-16.0) gm/dL Hct 38.9 (34.0-46.0) % MCV 87.6 (80.0-100.0) fL MCH 29.4 (25.0-35.0) pg MCHC 33.5 (31.0-37.0) g/dL RDW 13.8 (11.5-15.5) % Plt Count 330 (150-450) k/uL MPV 6.5 Neutrophils % 72 % Lymphocytes % 23 % Monocytes % 3 % Eosinophils % 2 % Basophils % 0 % Neutrophils # 14.7 H (1.3-7.7) k/uL Lymphocytes # 4.7 (1.0-4.8) k/uL Monocytes # 0.6 (0-1.0) k/uL Eosinophils # 0.3 (0-0.7) k/uL Basophils # 0.1 (0-0.2) k/uL Sodium (137-145) mmol/L Potassium (3.5-5.1) mmol/L Chloride (98-107) mmol/L Carbon Dioxide (22-30) mmol/L Anion Gap mmol/L BUN (7-17) mg/dL Creatinine (0.52-1.04) mg/dL Est GFR (CKD-EPI)AfAm (>60 ml/min/1.73 sqM) Est GFR (CKD-EPI)NonAf (>60 ml/min/1.73 sqM) Glucose (74-99) mg/dL Plasma Lactic Acid Danny (0.7-2.0) mmol/L Calcium (8.4-10.2) mg/dL Total Bilirubin (0.2-1.3) mg/dL AST (14-36) U/L ALT (4-34) U/L Alkaline Phosphatase (38-126) U/L Total Protein (6.3-8.2) g/dL Albumin (3.5-5.0) g/dL Urine Color Yellow Urine Appearance Cloudy H (Clear) Urine pH 6.0 (5.0-8.0) Ur Specific [place] 1.033 (1.001-1.035) Urine Protein 1+ H (Negative) Urine Glucose (UA) Negative (Negative) Urine Ketones Negative (Negative) Urine Blood Negative (Negative) Urine Nitrite Negative (Negative) Urine Bilirubin Negative (Negative) Urine Urobilinogen <2.0 (<2.0) mg/dL Ur Leukocyte Esterase Trace H (Negative) Urine RBC <1 (0-5) /hpf Urine WBC 4 (0-5) /hpf Ur Squamous Epith Cells 31 H (0-4) /hpf Calcium Oxalate Crystal Occasional H (None) /hpf Urine Bacteria Rare H (None) /hpf Urine Mucus Few H (None) /hpf Urine HCG, Qual Not Detected (Not Detectd) 09/29/23 09/29/23 Range/Units 15:53 15:53 WBC (3.8-10.6) k/uL RBC (3.80-5.40) m/uL Hgb (11.4-16.0) gm/dL Hct (34.0-46.0) % MCV (80.0-100.0) fL MCH (25.0-35.0) pg MCHC (31.0-37.0) g/dL RDW (11.5-15.5) % Plt Count (150-450) k/uL MPV Neutrophils % % Lymphocytes % % Monocytes % % Eosinophils % % Basophils % % Neutrophils # (1.3-7.7) k/uL Lymphocytes # (1.0-4.8) k/uL Monocytes # (0-1.0) k/uL Eosinophils # (0-0.7) k/uL Basophils # (0-0.2) k/uL Sodium 138 (137-145) mmol/L Potassium 3.7 (3.5-5.1) mmol/L Chloride 109 H (98-107) mmol/L Carbon Dioxide 22 (22-30) mmol/L Anion Gap 7 mmol/L BUN 11 (7-17) mg/dL Creatinine 0.88 (0.52-1.04) mg/dL Est GFR (CKD-EPI)AfAm >90 (>60 ml/min/1.73 sqM) Est GFR (CKD-EPI)NonAf >90 (>60 ml/min/1.73 sqM) Glucose 78 (74-99) mg/dL Plasma Lactic Acid Danny 0.8 (0.7-2.0) mmol/L Calcium 9.1 (8.4-10.2) mg/dL Total Bilirubin 0.2 (0.2-1.3) mg/dL AST 23 (14-36) U/L ALT 22 (4-34) U/L Alkaline Phosphatase 98 (38-126) U/L Total Protein 6.1 L (6.3-8.2) g/dL Albumin 3.5 (3.5-5.0) g/dL Urine Color Urine Appearance (Clear) Urine pH (5.0-8.0) Ur Specific [place] (1.001-1.035) Urine Protein (Negative) Urine Glucose (UA) (Negative) Urine Ketones (Negative) Urine Blood (Negative) Urine Nitrite (Negative) Urine Bilirubin (Negative) Urine Urobilinogen (<2.0) mg/dL Ur Leukocyte Esterase (Negative) Urine RBC (0-5) /hpf Urine WBC (0-5) /hpf Ur Squamous Epith Cells (0-4) /hpf Calcium Oxalate Crystal (None) /hpf Urine Bacteria (None) /hpf Urine Mucus (None) /hpf Urine HCG, Qual (Not Detectd) - Radiology Data Radiology results: report reviewed, image reviewed Disposition Clinical Impression: Nicotine dependence, Abdominal pain, Ovarian teratoma Disposition: HOME SELF-CARE Instructions (If sedation given, give patient instructions): Ovarian Cyst (ED), Abdominal Pain (ED) Additional Instructions: Return to the emergency department with any new, worsening, or concerning sym ptoms. Alternate with ibuprofen and Tylenol as needed for pain relief. You can take the Zofran up to every 8 hours as needed for nausea and vomiting. Contact the [facility] office as listed below for a follow-up appointment. Let them know that you are found to have an ovarian teratoma. follow up with your primary care provider in 1-2 days. Prescriptions: Ibuprofen [Motrin] 800 mg PO Q8H PRN #30 tab PRN Reason: Pain Ondansetron Odt [Zofran Odt] 4 mg PO Q8HR PRN #20 tab PRN Reason: Nausea And Vomiting Is patient prescribed a controlled substance at d/c from ED?: No Referrals: None,Stated [Primary Care Provider] - 1-2 days Sharon Bassett MD [STAFF PHYSICIAN] - 1-2 days Abiel Brown DO [REFERRING] - 1-2 days
[2023-09-29 16:02] LABS: Basophils # (A) 0.1 k/uL (0-0.2); Basophils % (A) 0 %; Eosinophils # (A) 0.3 k/uL (0-0.7); Eosinophils % (A) 2 %; HCT 38.9 % (34.0-46.0); Lymphocytes # (A) 4.7 k/uL (1.0-4.8); Lymphocytes % (A) 23 %; MCH 29.4 pg (25.0-35.0); MCHC 33.5 g/dL (31.0-37.0); MCV 87.6 fL (80.0-100.0); Mean Platelet Volume 6.5; Monocytes # (A) 0.6 k/uL (0-1.0); Monocytes % (A) 3 %; Neutrophils # (A) 14.7 k/uL (1.3-7.7); Neutrophils % (A) 72 %; Platelet Count 330 k/uL (150-450); RBC 4.43 m/uL (3.80-5.40); RDW 13.8 % (11.5-15.5); WBC 20.5 k/uL (3.8-10.6)
[2023-09-29 16:22] LABS: ALT 22 U/L (4-34); AST 23 U/L (14-36); African American GFR (CKD) >90 (>60 ml/min/1.73 sqM); Albumin 3.5 g/dL (3.5-5.0); Alkaline Phosphatase 98 U/L (38-126); Anion Gap 7 mmol/L; Blood Urea Nitrogen 11 mg/dL (7-17); Calcium 9.1 mg/dL (8.4-10.2); Carbon Dioxide 22 mmol/L (22-30); Chloride 109 mmol/L (98-107); Glucose 78 mg/dL (74-99); Non-African American GFR(CKD) >90 (>60 ml/min/1.73 sqM); Potassium 3.7 mmol/L (3.5-5.1); Sodium 138 mmol/L (137-145); Total Bilirubin 0.2 mg/dL (0.2-1.3); Total Protein 6.1 g/dL (6.3-8.2)
[2023-09-29 17:03] VITALS: TEMP 98
[2023-09-29 17:21] LABS: Appearance,Urine Cloudy (Clear); Bacteria,Urine Rare /hpf; Bilirubin,Urine Negative (Negative); Blood,Urine Negative (Negative); Calcium Oxalate Crystals,Urine Occasional /hpf; Color,Urine Yellow; Glucose,Urine (UA) Negative (Negative); Ketones,Urine Negative (Negative); Leukocyte Esterase,Urine Trace (Negative); Mucus,Urine Few /hpf; Nitrite,Urine Negative (Negative); Protein,Urine 1+ (Negative); RBC,Urine <1 /hpf (0-5); Specific Gravity,Urine 1.033 (1.001-1.035); Squamous Epithelial Cell,Urine 31 /hpf (0-4); Urobilinogen,Urine <2.0 mg/dL (<2.0); WBC,Urine 4 /hpf (0-5)
[2023-09-29] MEDS: KETOROLAC 15 MG/ML 1 ML VIAL IVP STA ×2 (17:23→19:52)
[2023-09-29] MEDS: ONDANSETRON 4 MG/2 ML VIAL IVP STA (17:24)
--- NOTE | 2023-09-29 18:20 | CT ---
EXAMINATION TYPE: CT abdomen pelvis w con CT DLP: 1292.5 mGycm, Automated exposure control for dose reduction was used. DATE OF EXAM: 09/29/2023 5:46 PM COMPARISON: CT abdomen pelvis most recent from CLINICAL INDICATION:Female, 22 years old with history of RLQ abdominal pain; RLQ pain TECHNIQUE: Axial CT abdomen pelvis w con;Sagittal and coronal reformats were created on a separate w orkstation. Contrast used:100 ml mL of Isovue 300 with IV Contrast, (none if empty) Oral contrast used: without Oral Contrast (none if empty) FINDINGS: LOWER CHEST: Unremarkable ABDOMEN LIVER: Unremarkable GALLBLADDER AND BILE DUCTS: Unremarkable. PANCREAS: Unremarkable. SPLEEN: Unremarkable. ADRENAL GLANDS: Unremarkable. KIDNEYS AND URETERS: No evidence of hydronephrosis or renal calculus. The ureters are unremarkable. PELVIS BLADDER: Unremarkable REPRODUCTIVE: There is a mass in the left pelvis measuring 7.9 x 7.1 cm with internal fat, fat fluid levels and calcifications. ABDOMEN & PELVIS STOMACH AND BOWEL: No evidence of bowel obstruction. Appendix is normal. PERITONEUM/RETROPERITONEUM: No evidence of pneumoperitoneum or free fluid. VASCULATURE: No evidence of aortic aneurysm. MUSCULOSKELETAL: No acute osseous abnormalities LYMPH NODES: No gross evidence for lymphadenopathy. SOFT TISSUE/ABDOMINAL WALL: Unremarkable IMPRESSION: 1. No evidence for obstructive uropathy. The appendix is normal. No acute abdominal process. 2. Left pelvic complex mass with calcification, soft tissue, and is most compatible with teratoma
[2023-09-29] MEDS: SODIUM CHLORIDE 0.9% 1,000 ML IV STA (18:48)
[2023-09-29] MEDS: MORPHINE SULFATE 2 MG/ML SYRINGE IVP STA (19:52)
[2023-09-29 20:01] VITALS: BP 104/75; PULSE 80; RESP 16
[2023-09-29] MEDS: ONDANSETRON 4 MG ODT STARTER PACK 2 TAB BTL PO STA (20:05)
[2023-09-29] MEDS: IBUPROFEN 600 MG STARTER PACK 4 TAB BTL PO STA (20:05)
--- NOTE | 2023-09-29 20:09 | XR ---
EXAMINATION TYPE: XR chest 2V DATE OF EXAM: 09/29/2023 7:48 PM CLINICAL INDICATION:Female, 22 years old with history of Chest pain; [facility] COMPARISON: None TECHNIQUE: XR chest 2V. Frontal and lateral views of the chest.. FINDINGS: Lines/Tubes/Devices: No indwelling lines are seen. Heart/mediastinum: Heart size is normal. Mediastinum appears normal. Pulmonary vascularity: Not increased, Lungs/Pleura: There is no convincing evidence of pleural effusion, focal consolidation, or pneumothor ax. Hazy opacity over the left lung base is attributed likely due to soft tissue overlap, rather than mil d infiltrate or atelectasis. Musculoskeletal: No acute osseous abnormality demonstrated in the limits of the exam. Other findings: None. IMPRESSION: No acute cardiopulmonary abnormality.
== END 2023-09-29 20:11 | disposition home or self-care (01) ==
LOC: EC 15:06
DX: D27.9 Benign neoplasm of unspecified ovary (principal); R10.31 Right lower quadrant pain; F17.200 Nicotine dependence, unspecified, uncomplicated; Z86.59 Personal history of other mental and behavioral disorders; Z88.8 Allergy status to other drugs, medicaments and biological substances; Z88.1 Allergy status to other antibiotic agents
CPT/HCPCS: 99285; 96374; 96375 ×2; 96376; 96361; 36415; 80053; 83605; 85025; 81001; 81025; 71046; 74177; 99406; J2405; J2270; J1885; S0119; Q9967

== ENCOUNTER → 2023-10-09 | Outpatient (CLI) | payer MEDICARE, OTHER | END | disposition home or self-care (01) | LOC: LABWHC1 11:45 | PROVIDERS: ATTEND Obstetrics & Gynecology Obstetrics | DX: N84.8 Polyp of other parts of female genital tract (principal) | CPT/HCPCS: 36415; 84702 ==

== ENCOUNTER 2023-10-11 00:05 | Emergency (ER) | payer MEDICARE, OTHER ==
[2023-10-11 00:46] VITALS: TEMP 98.4
[2023-10-11 00:55] LABS: Appearance,Urine Cloudy (Clear); Bacteria,Urine Rare /hpf; Bilirubin,Urine Negative (Negative); Blood,Urine Negative (Negative); Color,Urine Light Yellow; Glucose,Urine (UA) Negative (Negative); Ketones,Urine Negative (Negative); Leukocyte Esterase,Urine Negative (Negative); Mucus,Urine Rare /hpf; Nitrite,Urine Negative (Negative); Protein,Urine Negative (Negative); RBC,Urine 1 /hpf (0-5); Specific Gravity,Urine 1.021 (1.001-1.035); Squamous Epithelial Cell,Urine 22 /hpf (0-4); Urobilinogen,Urine <2.0 mg/dL (<2.0); WBC,Urine <1 /hpf (0-5)
[2023-10-11] MEDS: SODIUM CHLORIDE 0.9% 1,000 ML IV ONE (00:59)
[2023-10-11 01:17] LABS: Basophils # (A) 0.1 k/uL (0-0.2); Basophils % (A) 0 %; Eosinophils # (A) 0.3 k/uL (0-0.7); Eosinophils % (A) 2 %; HCT 36.4 % (34.0-46.0); Lymphocytes # (A) 5.5 k/uL (1.0-4.8); Lymphocytes % (A) 38 %; MCH 28.6 pg (25.0-35.0); MCHC 33.1 g/dL (31.0-37.0); MCV 86.3 fL (80.0-100.0); Monocytes # (A) 0.6 k/uL (0-1.0); Monocytes % (A) 4 %; Neutrophils # (A) 7.9 k/uL (1.3-7.7); Neutrophils % (A) 54 %; Platelet Count 399 k/uL (150-450); RBC 4.22 m/uL (3.80-5.40); RDW 14.2 % (11.5-15.5); WBC 14.6 k/uL (3.8-10.6)
[2023-10-11 01:39] LABS: ALT 26 U/L (4-34); AST 28 U/L (14-36); African American GFR (CKD) 77 (>60 ml/min/1.73 sqM); Albumin 3.7 g/dL (3.5-5.0); Alkaline Phosphatase 94 U/L (38-126); Anion Gap 5 mmol/L; Blood Urea Nitrogen 12 mg/dL (7-17); Calcium 9.2 mg/dL (8.4-10.2); Carbon Dioxide 23 mmol/L (22-30); Chloride 109 mmol/L (98-107); Glucose 85 mg/dL (74-99); Non-African American GFR(CKD) 67 (>60 ml/min/1.73 sqM); Sodium 137 mmol/L (137-145); Total Bilirubin 0.2 mg/dL (0.2-1.3); Total Protein 6.3 g/dL (6.3-8.2)
--- NOTE | 2023-10-11 01:42 | ED ---
Abdominal Pain HPI <Lewis Interiano - Last Filed: 10/11/23 05:55> - General Source: patient, EMS Mode of arrival: EMS <Jocelyn Prajapati - Last Filed: 10/11/23 17:10> - General Chief Complaint: Abdominal Pain Stated Complaint: Ovarian pain Time Seen by Provider: 10/11/23 00:19 - History of Present Illness Initial Comments: 22-year-old female presenting with chief complaint of left-sided pelvic pain. Patient has history of left-sided ovarian cyst. She states that she was told not to have intercourse until the cyst has been removed, however today she did have intercourse and is concerned because of this increasing pain. She is having no vaginal bleeding or abnormal vaginal discharge. Admits to some nausea, no vomiting. She does not know when her last menstrual cycle was, denies . (Jocelyn Prajapati) - Related Data Home Medications Medication Instructions Recorded Confirmed Cholecalciferol (Vitamin D3) 125 mcg PO DAILY@0800 08/21/20 05/15/23 [Vitamin D3 (5000 Iu)] Calcium Carbonate [Calcium] 600 mg PO DAILY@0800 12/09/21 05/15/23 Ibuprofen [Motrin] 600 mg PO BID PRN 12/10/22 05/15/23 Zinc Oxide 20% Oint 1 applic TOPICAL BID PRN 12/10/22 05/15/23 Lidocaine/Menthol 1 patch TOPICAL Q12H PRN 05/15/23 05/15/23 [Lidocaine-Menthol 4%-1% Patch] Omeprazole 20 mg PO BID@0800,2100 05/15/23 05/15/23 Previous Rx's Medication Instructions Recorded ARIPiprazole [Abilify] 30 mg PO DAILY 30 Days #60 tab 05/21/23 Acetaminophen Tab [Tylenol] 650 mg PO Q4HR PRN tab 05/21/23 Nicotine 14Mg/24Hr Patch [Habitrol] 1 patch TRANSDERM DAILY 14 Days 05/21/23 #14 patch Prazosin [Minipress] 5 mg PO 1999 30 Days #150 cap 05/21/23 Sertraline [Zoloft] 100 mg PO DAILY 30 Days #30 tab 05/21/23 busPIRone HCl [Buspar] 30 mg PO BID@0800,2099 30 Days 05/21/23 #180 tab lamoTRIgine [LaMICtal] 100 mg PO BID 30 Days #60 tab 05/21/23 traZODone HCL [Desyrel] 100 mg PO HS 30 Days #30 tab 05/21/23 Ibuprofen [Motrin] 800 mg PO Q8H PRN #30 tab 09/29/23 Ondansetron Odt [Zofran Odt] 4 mg PO Q8HR PRN #20 tab 09/29/23 Allergies Allergy/AdvReac Type Severity Reaction Status Date / Time amphetamine [From Adderall] Allergy Unknown Verified 10/11/23 00:16 citalopram [From Celexa] Allergy Unknown Verified 10/11/23 00:16 dextroamphetamine Allergy Unknown Verified 10/11/23 00:16 [From Adderall] Review of Systems ROS Other: All systems not noted in ROS Statement are negative. <Lewis Interiano - Last Filed: 10/11/23 05:55> ROS Other: All systems not noted in ROS Statement are negative. <Jocelyn Prajapati - Last Filed: 10/11/23 17:10> ROS Statement: Those systems with pertinent positive or pertinent negative responses have been documented in the HPI. Past Medical History Past Medical History: No Reported History Additional Past Medical History / Comment(s): psuedoseizures History of Any Multi-Drug Resistant Organisms: None Reported Past Surgical History: No Surgical Hx Reported Past Anesthesia/Blood Transfusion Reactions: No Reported Reaction Past Psychological History: ADD/ADHD, Anxiety, Bipolar, Depression, PTSD Smoking Status: Current every day smoker Past Alcohol Use History: None Reported Past Drug Use History: Marijuana, Methamphetamine <Jocelyn Prajapati - Last Filed: 10/11/23 17:10> General Exam General appearance: alert, in no apparent distress Head exam: Present: atraumatic, normocephalic Eye exam: Present: normal appearance Neck exam: Present: normal inspection Respiratory exam: Present: normal lung sounds bilaterally. Absent: respiratory distress, wheezes, rales, rhonchi, stridor Cardiovascular Exam: Present: regular rate, normal rhythm, normal heart sounds. Absent: systolic murmur, diastolic murmur, rubs, gallop, clicks GI/Abdominal exam: Present: soft, tenderness (Left-sided). Absent: distended, guarding, rebound, rigid Neurological exam: Present: alert, oriented X3 Psychiatric exam: Present: normal affect, normal mood Skin exam: Present: warm, dry <Jocelyn Prajapati - Last Filed: 10/11/23 17:10> Course Vital Signs 10/11/23 10/11/23 10/11/23 00:08 02:27 04:55 Temperature 98.4 F Pulse Rate 84 78 74 Respiratory 17 16 17 Rate Blood Pressure 115/72 124/82 105/77 O2 Sat by Pulse 94 L 96 97 Oximetry Medical Decision Making - Lab Data Result diagrams: 10/11/23 01:11 10/11/23 01:11 <Lewis Interiano - Last Filed: 10/11/23 05:55> - Lab Data Result diagrams: 10/11/23 01:11 10/11/23 01:11 <Jocelyn Prajapati - Last Filed: 10/11/23 17:10> - Medical Decision Making Was pt. sent in by a medical professional or institution (, PA, REGIONAL CLIMATE CHANGE ANALYST, urgent care, hospital, or longterm...) When possible be specific @ -No Did you speak to anyone other than the patient for history (EMS, parent, family, police, friend...)? What history was obtained from this source @ -No Did you review nursing and triage notes (agree or disagree)? Why? @ -I reviewed and agree with nursing and triage notes Were old charts reviewed (outside hosp., previous admission, EMS record, old EKG, old radiological studies, urgent care reports/EKG's, longterm records)? Report findings @ -No old charts were reviewed Differential Diagnosis (chest pain, altered mental status, abdominal pain women, abdominal pain men, vaginal bleeding, weakness, fever, dyspnea, syncope, headache, dizziness, GI bleed, back pain, seizure, CVA, palpatations, mental health, musculoskeletal)? @ -MDM Differential Abdominal Pain Women: Appendicitis, Cholecystitis, diverticulosis, ischemic bowel, pancreatitis, hepatitis, UTI, gastroenteritis, AAA, incarcerated hernia, bowel obstruction, constipation, inflammatory bowel, hepatitis, peptic ulcer disease, splenic infarction, perforated viscus, vulvitis, ovarian torsion, PID, kidney stone, placenta abruption... This is not meant to be an all-inclusive list EKG interpreted by me (3pts min.). @ -As above X-rays interpreted by me (1pt min.). @ -None done CT interpreted by me (1pt min.). @ -None done U/S interpreted by me (1pt. min.). @ -Ultrasound was performed, report is pending What testing was considered but not performed or refused? (CT, X-rays, U/S, labs)? Why? @ -None What meds were considered but not given or refused? Why? @ -None Did you discuss the management of the patient with other professionals (professionals i.e. DrPhani, PA, REGIONAL CLIMATE CHANGE ANALYST, lab, RT, psych nurse, delinquency prevention social worker, revenue field auditor, teacher, court registry officer, caser shoe parts)? Give summary @ -No Was smoking cessation discussed for >3mins.? @ -No Was critical care preformed (if so, how long)? @ -No Were there social determinants of health that impacted care today? How? (Homelessness, low income, unemployed, alcoholism, drug addiction, transportation, low edu. Level, literacy, decrease access to med. care, longterm, rehab)? @ -No Was there de-escalation of care discussed even if they declined (Discuss DNR or withdrawal of care, Hospice)? DNR status @ -No What co-morbidities impacted this encounter? (DM, HTN, Smoking, COPD, CAD, Cancer, CVA, ARF, Chemo, Hep., AIDS, mental health diagnosis, sleep apnea, morbid obesity)? @ -None Was patient admitted / discharged? Hospital course, mention meds given and route, prescriptions, significant lab abnormalities, going to OR and other pertinent info. @ -22-year-old female presenting with chief complaint of left-sided pelvic pain. She has a known ovarian cyst. States the pain was worse after having intercourse tonight. No vaginal bleeding. History and physical exam are conducted. WBC 14.6, improved from her most recent of 20.5. Negative hCG. U ltrasound was obtained and report is pending. Patient is signed out to my attending Dr. Interiano for further management and disposition (Jocelyn Prajapati) - Lab Data Lab Results 10/11/23 10/11/23 10/11/23 Range/Units 00:40 01:11 01:11 WBC 14.6 H (3.8-10.6) k/uL RBC 4.22 (3.80-5.40) m/uL Hgb 12.0 (11.4-16.0) gm/dL Hct 36.4 (34.0-46.0) % MCV 86.3 (80.0-100.0) fL MCH 28.6 (25.0-35.0) pg MCHC 33.1 (31.0-37.0) g/dL RDW 14.2 (11.5-15.5) % Plt Count 399 (150-450) k/uL MPV 7.0 Neutrophils % 54 % Lymphocytes % 38 % Monocytes % 4 % Eosinophils % 2 % Basophils % 0 % Neutrophils # 7.9 H (1.3-7.7) k/uL Lymphocytes # 5.5 H (1.0-4.8) k/uL Monocytes # 0.6 (0-1.0) k/uL Eosinophils # 0.3 (0-0.7) k/uL Basophils # 0.1 (0-0.2) k/uL Sodium 137 (137-145) mmol/L Potassium 4.0 (3.5-5.1) mmol/L Chloride 109 H (98-107) mmol/L Carbon Dioxide 23 (22-30) mmol/L Anion Gap 5 mmol/L BUN 12 (7-17) mg/dL Creatinine 1.16 H (0.52-1.04) mg/dL Est GFR (CKD-EPI)AfAm 77 (>60 ml/min/1.73 sqM) Est GFR (CKD-EPI)NonAf 67 (>60 ml/min/1.73 sqM) Glucose 85 (74-99) mg/dL Calcium 9.2 (8.4-10.2) mg/dL Total Bilirubin 0.2 (0.2-1.3) mg/dL AST 28 (14-36) U/L ALT 26 (4-34) U/L Alkaline Phosphatase 94 (38-126) U/L Total Protein 6.3 (6.3-8.2) g/dL Albumin 3.7 (3.5-5.0) g/dL HCG, Quant <2.4 mIU/mL Urine Color Light Yellow Urine Appearance Cloudy H (Clear) Urine pH 6.0 (5.0-8.0) Ur Specific Bennett 1.021 (1.001-1.035) Urine Protein Negative (Negative) Urine Glucose (UA) Negative (Negative) Urine Ketones Negative (Negative) Urine Blood Negative (Negative) Urine Nitrite Negative (Negative) Urine Bilirubin Negative (Negative) Urine Urobilinogen <2.0 (<2.0) mg/dL Ur Leukocyte Esterase Negative (Negative) Urine RBC 1 (0-5) /hpf Urine WBC <1 (0-5) /hpf Ur Squamous Epith Cells 22 H (0-4) /hpf Urine Bacteria Rare H (None) /hpf Urine Mucus Rare H (None) /hpf Disposition Is patient prescribed a controlled substance at d/c from ED?: No <Lewis Interiano - Last Filed: 10/11/23 05:55> <Jocelyn Prajapati - Last Filed: 10/11/23 17:10> Clinical Impression: Cystic teratoma of left ovary, Pelvic pain Disposition: HOME SELF-CARE Condition: Good Referrals: Patrica Camacho MD [Primary Care Provider] - 1-2 days Meghan Chandler DO [Doctor of Osteopathic Medicine] - 1-2 days
[2023-10-11 01:55] LABS: HCG,Quantitative Serum <2.4 mIU/mL
--- NOTE | 2023-10-11 05:43 | US ---
EXAM: US Pelvis Transabdominal, Complete and US Duplex Arterial/Venous of the Pelvis, Complete CLINICAL HISTORY: ITS.REASON US Reason: pelvic pain, hx cyst TECHNIQUE: Real-time complete transabdominal pelvic ultrasound with image documentation. Real-time duplex ultrasound scan of the arterial and venous flow of the pelvis with color Doppler flow and spectral waveform analysis. COMPARISON: CT 09/29/2023 FINDINGS: Uterus/cervix: Uterus 86 x 30 x 26 mm. 7 mm endometrial stripe. Anteverted uterus. No myometrial mass. Right ovary: Right ovary not visualized, likely obscured by bowel gas. Left ovary: 57 x 54 x 67 mm complex left adnexal-ovarian mass, with acoustic shadowing. Blood flow to the left ovary visualized with color Doppler and spectral analysis. Left ovary 8 16 x 22 x 32 mm. Free fluid: No pathologic fluid collection seen. Bladder: Unremarkable as visualized. Wall is normal thickness for degree of distention. IMPRESSION: 1. Left ovarian teratoma again seen. 2. No evidence of ovarian torsion. 3. Uterus unremarkable.
[2023-10-11 05:45] VITALS: BP 105/77; PULSE 74; RESP 17
== END 2023-10-11 06:17 | disposition home or self-care (01) ==
LOC: EC 00:05
DX: D27.1 Benign neoplasm of left ovary (principal); F17.200 Nicotine dependence, unspecified, uncomplicated; F12.90 Cannabis use, unspecified, uncomplicated; F15.90 Other stimulant use, unspecified, uncomplicated; Z88.8 Allergy status to other drugs, medicaments and biological substances
CPT/HCPCS: 36415; 76830; 80053; 81001; 84702; 85025; 93976; 96360; 99285

== ENCOUNTER 2023-10-11 12:44 | Inpatient (IN) | payer MEDICARE, MEDICAID ==
--- NOTE | 2023-10-11 13:01 | ED ---
General Adult HPI - General Chief complaint: Psychiatric Symptoms Stated complaint: Sucidial Ideations Time Seen by Provider: 10/11/23 12:49 Source: patient, EMS, RN notes reviewed, old records reviewed (Previous ultrasound and CT as well as recommendation for follow up) Mode of arrival: EMS Limitations: no limitations - History of Present Illness Initial comments: Patient is a 22-year-old female presenting to the emergency department depression and suicidal thoughts. Patient has plan of walking in front of traffic. No homicidal thoughts. No hallucinations. No new physical complaints. Patient is on her medications. Patient states she has had these thoughts for years however have gotten worse recently secondary to problems with her guardian. No alcohol or street drug use other than marijuana - Related Data Home Medications Medication Instructions Recorded Confirmed Cholecalciferol (Vitamin D3) 125 mcg PO DAILY@0800 08/21/20 05/15/23 [Vitamin D3 (5000 Iu)] Calcium Carbonate [Calcium] 600 mg PO DAILY@0800 12/09/21 05/15/23 Ibuprofen [Motrin] 600 mg PO BID PRN 12/10/22 05/15/23 Zinc Oxide 20% Oint 1 applic TOPICAL BID PRN 12/10/22 05/15/23 Lidocaine/Menthol 1 patch TOPICAL Q12H PRN 05/15/23 05/15/23 [Lidocaine-Menthol 4%-1% Patch] Omeprazole 20 mg PO BID@0800,209905/15/23 05/15/23 Previous Rx's Medication Instructions Recorded ARIPiprazole [Abilify] 30 mg PO DAILY 30 Days #60 tab 05/21/23 Acetaminophen Tab [Tylenol] 650 mg PO Q4HR PRN tab 05/21/23 Nicotine 14Mg/24Hr Patch [Habitrol] 1 patch TRANSDERM DAILY 14 Days 05/21/23 #14 patch Prazosin [Minipress] 5 mg PO 1999 30 Days #150 cap 05/21/23 Sertraline [Zoloft] 100 mg PO DAILY 30 Days #30 tab 05/21/23 busPIRone HCl [Buspar] 30 mg PO BID@0800,2099 30 Days 05/21/23 #180 tab lamoTRIgine [LaMICtal] 100 mg PO BID 30 Days #60 tab 05/21/23 traZODone HCL [Desyrel] 100 mg PO HS 30 Days #30 tab 05/21/23 Ibuprofen [Motrin] 800 mg PO Q8H PRN #30 tab 09/29/23 Ondansetron Odt [Zofran Odt] 4 mg PO Q8HR PRN #20 tab 09/29/23 Allergies Allergy/AdvReac Type Severity Reaction Status Date / Time amphetamine [From Adderall] Allergy Unknown Verified 10/11/23 00:16 citalopram [From Celexa] Allergy Unknown Verified 10/11/23 00:16 dextroamphetamine Allergy Unknown Verified 10/11/23 00:16 [From Adderall] Review of Systems ROS Statement: Those systems with pertinent positive or pertinent negative responses have been documented in the HPI. ROS Other: All systems not noted in ROS Statement are negative. Constitutional: Denies: fever Eyes: Denies: eye pain ENT: Denies: ear pain Respiratory: Denies: cough Cardiovascular: Denies: chest pain Endocrine: Denies: fatigue Gastrointestinal: Denies: vomiting Psychiatric: Reports: as per HPI, depression Past Medical History Past Medical History: No Reported History Additional Past Medical History / Comment(s): psuedoseizures History of Any Multi-Drug Resistant Organisms: None Reported Past Surgical History: No Surgical Hx Reported Past Anesthesia/Blood Transfusion Reactions: No Reported Reaction Past Psychological History: ADD/ADHD, Anxiety, Bipolar, Depression, PTSD Smoking Status: Current every day smoker Past Alcohol Use History: None Reported Past Drug Use History: Marijuana, Methamphetamine General Exam Limitations: no limitations General appearance: alert, in no apparent distress Head exam: Present: normocephalic Eye exam: Present: normal appearance Neck exam: Present: normal inspection Respiratory exam: Present: normal lung sounds bilaterally Cardiovascular Exam: Present: regular rate, normal rhythm GI/Abdominal exam: Present: soft. Absent: tenderness Extremities exam: Present: normal inspection Neurological exam: Present: alert Psychiatric exam: Present: normal affect, normal mood Skin exam: Present: normal color Course Vital Signs 10/11/23 12:51 Temperature 98.2 F Pulse Rate 104 H Respiratory 18 Rate Blood Pressure 140/92 O2 Sat by Pulse 97 Oximetry Medical Decision Making - Medical Decision Making Was pt. sent in by a medical professional or institution (, PA, MAINTENANCE APPRENTICE, urgent care, hospital, or group home...) When possible be specific @ -No Did you speak to anyone other than the patient for history (EMS, parent, family, police, friend...)? What history was obtained from this source @ -No Did you review nursing and triage notes (agree or disagree)? Why? @ -I reviewed and agree with nursing and triage notes Were old charts reviewed (outside hosp., previous admission, EMS record, old EKG, old radiological studies, urgent care reports/EKG's, group home records)? Report findings @ -Previous imaging and recommendations reviewed Differential Diagnosis (chest pain, altered mental status, abdominal pain women, abdominal pain men, vaginal bleeding, weakness, fever, dyspnea, syncope, headache, dizziness, GI bleed, back pain, seizure, CVA, palpatations, mental health, musculoskeletal)? @ -Differential Mental Health Depression, anxiety, bipolar, psychosis, schizophrenia, borderline personality, situational depression, adjustment disorder, behavioral disorder, brain tumor, malingering, substance abuse, encephalopathy, medication reaction, dementia, hypothyroidism, degenerative neurologic disorder, lupus.... This is not meant to be all-inclusive list EKG interpreted by me (3pts min.). @ -As above X-rays interpreted by me (1pt min.). @ -None done CT interpreted by me (1pt min.). @ -None done U/S interpreted by me (1pt. min.). @ -None done What testing was considered but not performed or refused? (CT, X-rays, U/S, labs)? Why? @ -Psychiatric nurse does request adding on urine What meds were considered but not given or refused? Why? @ -None Did you discuss the management of the patient with other professionals (professionals i.e. , PA, MAINTENANCE APPRENTICE, lab, RT, psych nurse, social work supervisor, wet pour supervisor, teacher, armoured corps officer, caseworker)? Give summary @ -Case was discussed with psychiatric nurse with plans for psychiatric admission Was smoking cessation discussed for >3mins.? @ -No Was critical care preformed (if so, how long)? @ -No Were there social determinants of health that impacted care today? How? (Homelessness, low income, unemployed, alcoholism, drug addiction, transportation, low edu. Level, literacy, decrease access to med. care, retirement, rehab)? @ -No Was there de-escalation of care discussed even if they declined (Discuss DNR or withdrawal of care, Hospice)? DNR status @ -No What co-morbidities impacted this encounter? (DM, HTN, Smoking, COPD, CAD, Cancer, CVA, ARF, Chemo, Hep., AIDS, mental health diagnosis, sleep apnea, morbid obesity)? @ -None Was patient admitted / discharged? Hospital course, mention meds given and route, prescriptions, significant lab abnormalities, going to OR and other pertinent info. @ -Patient will be admitted for psychiatric care. Undiagnosed new problem with uncertain prognosis? @ -No Drug Therapy requiring intensive monitoring for toxicity (Heparin, Nitro, Insulin, Cardizem)? @ -No Were any procedures done? @ -No Diagnosis/symptom? @ -Depression, suicidal ideation Acute, or Chronic, or Acute on Chronic? @ -Acute on chronic, acute on chronic Uncomplicated (without systemic symptoms) or Complicated (systemic symptoms)? @ -Default Side effects of treatment? @ -No Exacerbation, Progression, or Severe Exacerbation? @ -No Poses a threat to life or bodily function? How? (Chest pain, [place], DC, pneumonia, PE, COPD, DKA, ARF, appy, cholecystitis, CVA, Diverticulitis, Homicidal, Suicidal, threat to staff... and all critical care pts) @ -No Disposition Clinical Impression: Suicidal ideation, Depression Disposition: TRANSFER TO PSYCH HOSP/UNIT Is patient prescribed a controlled substance at d/c from ED?: No Referrals: Patrica Camacho MD [Primary Care Provider] - 1-2 days Time of Disposition: 15:26
[2023-10-11 15:58] LABS: Amphetamine Screen,Urine Not Detected (NotDetected); Barbiturate Screen,Urine Not Detected (NotDetected); Benzodiazepines Screen,Urine Not Detected (NotDetected); Cocaine Screen,Urine Not Detected (NotDetected); Methadone Screen, Urine Not Detected (NotDetected); Opiate Screen,Urine Not Detected (NotDetected); Oxycodone Screen, Urine Not Detected (NotDetected); Phencyclidine Screen,Urine Not Detected (NotDetected); Tricyclic Antidepressant,Urine Not Detected (NotDetected); Urn Cannabinoid Scrn Detected (NotDetected)
[2023-10-11] MEDS ORDERED: MAG HYDROX/AL HYDROX/SIMETH 355 ML BOTTLE PO PRN (17:50)
[2023-10-11] MEDS ORDERED: haloperidoL 5 MG TAB PO PRN (17:50)
[2023-10-11] MEDS ORDERED: LORazepam 1 MG TAB PO PRN (17:50)
[2023-10-11] MEDS ORDERED: ACETAMINOPHEN TAB 325 MG TAB PO PRN (17:50)
[2023-10-11] MEDS ORDERED: HALOPERIDOL LACTATE 5 MG/ML 1 ML VIAL IM PRN (17:50)
[2023-10-11] MEDS ORDERED: LORazepam 2 MG/ML INJ IM PRN (17:50)
[2023-10-11] MEDS ORDERED: BENZOCAINE 20 % GEL 11.9 GM TUBE MM PRN (18:34)
[2023-10-11 19:57] LABS: Appearance,Urine Clear (Clear); Bilirubin,Urine Negative (Negative); Blood,Urine Negative (Negative); Color,Urine Colorless; Glucose,Urine (UA) Negative (Negative); Ketones,Urine Negative (Negative); Leukocyte Esterase,Urine Negative (Negative); Nitrite,Urine Negative (Negative); PH, Urine 6.5 (5.0-8.0); Protein,Urine Negative (Negative); Specific Gravity,Urine 1.013 (1.001-1.035); Urobilinogen,Urine <2.0 mg/dL (<2.0)
[2023-10-11] MEDS: PRAZOSIN 1 MG CAP PO SCH (21:00)
[2023-10-11] MEDS: traZODone HCL 100 MG TAB PO SCH (21:00)
[2023-10-11] MEDS: busPIRone HCl 10 MG TAB PO SCH (21:00)
[2023-10-11] MEDS: PANTOPRAZOLE 40 MG TABLET PO SCH (21:00)
[2023-10-11] MEDS: FAMOTIDINE 20 MG TAB PO SCH (21:00)
[2023-10-12 06:58] LABS: Basophils # (A) 0.1 k/uL (0-0.2); Basophils % (A) 1 %; Eosinophils # (A) 0.3 k/uL (0-0.7); Eosinophils % (A) 3 %; HCT 36.1 % (34.0-46.0); Lymphocytes # (A) 4.4 k/uL (1.0-4.8); Lymphocytes % (A) 47 %; MCH 29.2 pg (25.0-35.0); MCHC 33.2 g/dL (31.0-37.0); Mean Platelet Volume 6.6; Monocytes # (A) 0.4 k/uL (0-1.0); Monocytes % (A) 4 %; Neutrophils % (A) 44 %; Platelet Count 424 k/uL (150-450); WBC 9.2 k/uL (3.8-10.6)
[2023-10-12 07:07] LABS: ALT 22 U/L (4-34); AST 19 U/L (14-36); African American GFR (CKD) >90 (>60 ml/min/1.73 sqM); Albumin 3.3 g/dL (3.5-5.0); Alkaline Phosphatase 88 U/L (38-126); Anion Gap 6 mmol/L; Blood Urea Nitrogen 9 mg/dL (7-17); Carbon Dioxide 21 mmol/L (22-30); Chloride 110 mmol/L (98-107); Glucose 83 mg/dL (74-99); Non-African American GFR(CKD) >90 (>60 ml/min/1.73 sqM); Potassium 4.3 mmol/L (3.5-5.1); Sodium 137 mmol/L (137-145); Total Bilirubin 0.3 mg/dL (0.2-1.3); Total Protein 5.9 g/dL (6.3-8.2)
[2023-10-12] MEDS: LORATADINE 10 MG TAB PO SCH (08:59)
[2023-10-12] MEDS: CALCIUM CARBONATE 500 MG CHEWABLE PO SCH (08:59)
[2023-10-12] MEDS: CHOLECALCIFEROL 125 MCG (5000 IU) TABLET PO SCH (09:00)
[2023-10-12] MEDS: ARIPiprazole 10 MG TAB PO SCH (09:00)
[2023-10-12] MEDS: NICOTINE 14MG/24HR PATCH TRANSDERM SCH (09:00)
[2023-10-12] MEDS: SERTRALINE 100 MG TAB PO SCH (09:00)
--- NOTE | 2023-10-12 12:06 | P.MDCNMH ---
History of Present Illness H&P Date: 10/12/23 Chief Complaint: Depression * 22-year-old patient with past medical history significant for ADHD, anxiety, PTSD, bipolar disorder, depression, pseudoseizures, obesity with BMI of 36 is admitted to behavioral health unit with depression and suicidal ideation and thoughts. Patient has been plan of walking in front of traffic, denies homicidal thoughts or hallucination. Patient states she has been having these thoughts for years and recently symptoms escalated after she was having problems with her guardian workup in ER included CBC which were essentially negative, serum chemistry showed * Sodium 137 potassium 4.3 carbon dioxide 21 BUN 9 creatinine 0.90 * Urinalysis was essentially negative urine drug screen positive for marijuana, urine test negative * Vitals obtained while in behavioral health unit showed heart rate of 104, blood pressure 08/21/1986 saturation on room air * Patient denies of any acute medical issues except for mood disorder REVIEW OF SYSTEMS: Depressed mood CONSTITUTIONAL: No fever, no malaise, no fatigue. HEENT: No recent visual problems or hearing problems. Denied any sore throat. CARDIOVASCULAR: No chest pain, orthopnea, PND, no palpitations, no syncope. PULMONARY: No shortness of breath, no cough, no hemoptysis. GASTROINTESTINAL: No diarrhea, no nausea, no vomiting, no abdominal pain. NEUROLOGICAL: No headaches, no weakness, no numbness. HEMATOLOGICAL: Denies any bleeding or petechiae. GENITOURINARY: Denies any burning micturition, frequency, or urgency. MUSCULOSKELETAL/RHEUMATOLOGICAL: Denies any joint pain, swelling, or any muscle pain. ENDOCRINE: Denies any polyuria or polydipsia. PHYSICAL EXAMINATION: GENERAL: The patient is alert and oriented x 3 HEENT: Pupils are round and equally reacting to light. EOMI. CARDIOVASCULAR: S1 and S2 present. No murmurs, rubs, or gallops. PULMONARY: Chest is clear to auscultation, no wheezing or crackles. Tachycardia ABDOMEN: Soft, nontender, nondistended, normoactive bowel sounds. No palpable organomegaly. MUSCULOSKELETAL: No joint swelling or deformity. EXTREMITIES: No cyanosis, clubbing, or pedal edema. NEUROLOGICAL: Gross neurological examination did not reveal any focal deficits. SKIN: No rashes. Assessment and plan Depression with suicidal ideation History of bipolar disorder History of ADHD Tachycardia * Continue management and behavioral health unit, continue to maintain maximum safety precautions * In regards to tachycardia EKG ordered, TSH within normal limits basic metabolic panel reviewed electrolytes within normal limits * Courage ambulation for DVT prophylaxis * Maintain maximum safety precautions while in behavioral health unit Past Medical History Past Medical History: No Reported History Additional Past Medical History / Comment(s): psuedoseizures History of Any Multi-Drug Resistant Organisms: None Reported Past Surgical History: No Surgical Hx Reported Past Anesthesia/Blood Transfusion Reactions: No Reported Reaction Smoking Status: Current every day smoker - Past Family History Mother Additional Family Medical History / Comment(s): States mother when she was being born and was brought back Medications and Allergies Home Medications Medication Instructions Recorded Confirmed Type Cholecalciferol (Vitamin D3) 125 mcg PO DAILY@0800 08/21/20 10/11/23 History [Vitamin D3 (5000 Iu)] Calcium Carbonate [Calcium] 600 mg PO DAILY@0800 12/09/21 10/11/23 History Zinc Oxide 20% Oint 1 applic TOPICAL BID PRN 12/10/22 10/11/23 History Lidocaine/Menthol 1 patch TRANSDERM Q12H PRN 05/15/23 10/11/23 History [Lidocaine-Menthol 4%-1% Patch] Omeprazole 20 mg PO BID@0800,2100 05/15/23 10/11/23 History traZODone HCL [Desyrel] 100 mg PO HS 30 Days #30 tab 05/21/23 10/11/23 Rx Ibuprofen [Motrin] 800 mg PO Q8H PRN #30 tab 09/29/23 10/11/23 Rx Ondansetron Odt [Zofran Odt] 4 mg PO Q8HR PRN #20 tab 09/29/23 10/11/23 Rx ARIPiprazole [Abilify] 30 mg PO DAILY@0800 10/11/23 10/11/23 History Benzocaine 20 % Gel [Orajel] 1 applic DENTAL DIRECTED PRN 10/11/23 10/11/23 History Cetirizine HCl 10 mg PO DAILY@0800 10/11/23 10/11/23 History Famotidine [Pepcid] 20 mg PO HS 10/11/23 10/11/23 History Isibloom 1 tab PO DAILY@0800 10/11/23 10/11/23 History Prazosin [Minipress] 5 mg PO HS 10/11/23 10/11/23 History Sertraline [Zoloft] 100 mg PO DAILY@0800 10/11/23 10/11/23 History Triamcinolone 0.5% Ointment 1 applic TOPICAL BID PRN 10/11/23 10/11/23 History busPIRone HCL [Buspar] 30 mg PO BID@0800,2100 10/11/23 10/11/23 History Allergies Allergy/AdvReac Type Severity Reaction Status Date / Time amphetamine [From Adderall] Allergy Unknown Verified 10/11/23 18:06 citalopram [From Celexa] Allergy Unknown Verified 10/11/23 18:06 dextroamphetamine Allergy Unknown Verified 10/11/23 18:06 [From Adderall] Physical Exam Vitals: Vital Signs Temp Pulse Pulse Resp BP BP Pulse Ox 10/12/23 09:27 97.5 F L 106 H 16 139/87 98 10/12/23 09:02 97.5 F L 106 H 20 139/87 10/11/23 19:14 97.4 F L 104 H 16 125/87 10/11/23 12:51 98.2 F 104 H 18 140/92 97 Intake and Output 10/11/23 10/12/23 10/12/23 22:59 06:59 14:59 Other: Weight 96.757 kg Cranial Nerve Examination - Cranial Nerves Cranial Nerve II- Optic: Intact Cranial Nerve III- Oculomotor: Intact Cranial Nerve IV- Trochlear: Intact Cranial Nerve V- Trigeminal: Intact Cranial Nerve - Abducens: Intact Cranial Nerve VII- Facial: Intact Cranial Nerve VIII- Auditory: Intact Cranial Nerve IX- Glossopharyngeal: Intact Cranial Nerve X- Vagus: Intact Cranial Nerve XI- Accessory: Intact Cranial Nerve XII- Hypoglossal: Intact Results CBC & Chem 7: 10/12/23 06:39 10/12/23 06:39 Labs: Abnormal Lab Results - Last 24 Hours (Table) 10/11/23 10/12/23 Range/Units 15:35 06:39 Chloride 110 H (98-107) mmol/L Carbon Dioxide 21 L (22-30) mmol/L Total Protein 5.9 L (6.3-8.2) g/dL Albumin 3.3 L (3.5-5.0) g/dL U Marijuana (THC) Screen Detected H (NotDetected)
[2023-10-12 13:41] LABS: Chol/HDL Ratio 3.48 Ratio; LDL Cholesterol,Calculated 79.2 mg/dL (0.0-131.0)
--- NOTE | 2023-10-12 19:02 | P.HP ---
Psychiatric H&P - . H&P Date: 10/12/23 History & Physical: IDENTIFYING DATA: Patient is a 22 year old female with guardian who lives at [facility]. HPI: Per EPS note, "Pt was brought to ER by EMS after having a fight with her [facility] workers and guardian and voiced suicidal ideation with a plan to "run into traffic" to EMS and ER. Pt currently has her free time priviledges restricted and tried to leave, and became upset when [facility] workers stopped her. Aligning Checker spoke with guardian at the [facility] [place] who informed singer songwriter that pt has a cyst that requires surgery and was informed by the doctor that it is at risk of bursting, especially if she has sexual intercourse. [place] reports that pt met an older male and informed [facility] workers that she was having sexual intercourse with him and did not care that it was unsafe for her, so [place] restricted her free time priviledges for the weekend and she is not allowed to leave the [facility]. Pt reports this is what triggered her, as she feels she has no control over her life. Upon assessment pt is tearful and histrionic, yelling she "can't live like this anymore" and that "no one is supporting her". Pt reports she would not be able to keep herself safe if she was discharged, and states she is still suicidal with a plan to run into traffic. Aligning Checker attempted several times to safety plan with pt but pt very emotionally dysregulated and states that she feels hopeless and helpless and has nothing to live for. Pt reports she has been taking her medications as prescribed but "they aren't helping" and states she has felt hopeless, depressed and having difficulty sleeping "for a couple months now". Pt reports she "wants help"." On my assessment, patient was found sitting in the louge with peers and is agreeable to speak with this singer songwriter. She is childlike on assessment. She reports her mood has been up and down. She denies depressed mood currently. Review of her [facility] medication records indicates her Lamictal 100 mg BID was discontinued on 09/24/23 because she had a rash. She states she still has the rash and it is healing. With a ham rolling machine operator present she showed me the rash and it looks like a cluster of healing bug bites on her left hip. She states she had an itchy spot on her back but this healed as well. She denies a rash anywhere else. She reports these where "itchy" but not painful. She states she told the staff at her group about the itchiness and they took her for an appointment her primary care doctor who stopped the Lamictal. She did not see her psychiatrist Dr. Hamilton to confirm if this is a rash from Lamictal. Staff reports she has been making comments about sex since arriving on the unit. Patient states she has a "sex addiction" and had her free time taken away because she of having sex. She states she is so sex-obsessed that she doesn't know how to stop it. Patient denies any suicidal or homicidal ideations intent or plan at this time, but did yesterday. At this time patient denies any auditory or visual hallucinations. Patient denies any flight of ideas racing thoughts and increased in goal directed behavior. Patient admits to using THC everyday, UDS is positive for THC, reports her boyfriend gives it to her. She smokes 2-3 cigarettes per day that she rolls herself. She denies alcohol use. She denies any other drug use. Urine is negative. PAST PSYCHIATRIC HISTORY: Patient has been diagnosed with PTSD, Borderline personality, intellectual disability Current psychiatric medications: Compliant since these are given by [facility] staff: Buspar 30 mg BID, Prazosin 5 mg QHS, Trazodone 100 mg QHS, Abilify 30 mg daily, Zoloft 100 mg daily. She was on Lamictal 100 mg BID until 09/24/23 when it was discontinued at [facility] due to a rash. Previous psychiatric hospitalizations: Multiple, most recently in 04/2023 at this [facility] Psychiatric outpatient follow-up: [facility] Dr. Hamilton. Patient denies any history of suicide attempts in the past. PMH: Past Medical History: No Reported History Additional Past Medical History / Comment(s): psuedoseizures History of Any Multi-Drug Resistant Organisms: None Reported Past Surgical History: No Surgical Hx Reported Past Anesthesia/Blood Transfusion Reactions: No Reported Reaction Smoking Status: Current every day smoker ALLERGIES: as per EMR CHEMICAL DEPENDENCY HISTORY: as per HPI FAMILY PSYCHIATRIC/SUBSTANCE USE HISTORY: She does not know family psychiatric history. SOCIAL HISTORY: She was born and raised in [facility]. She moved to [place] with her father, who she reports has since moved to [place]. Mother still lives in [place]..She lives in [facility] currently at [facility]. No known legal history. MENTAL STATUS EXAM: General Appearance: Patient appears to be younger than stated age, obese, showered today, dressed in hospital gown. Patient appears to have fair hygiene and grooming. Behavior: Patient is seated without any agitated behavior. Speech: Patient's speech is fluent and non-pressured. Mood/Affect: Patient reports their mood is up and down, affect is euthymic currently. Suicidality/Homicidality: Patient denies having any homicidal ideation intent or plan. Denies any suicidal ideation, intent or plan. Perceptions: Patient denies any visual hallucinations and denies any auditory hallucinations. Though content/process: There is no evidence of any delusional thought content and thought process is linear and goal-directed. Memory and concentration: AOX3, grossly intact for the purposes of this session. Judgment and insight: poor, hence guardian STRENGTHS/WEAKNESSES: Strength is that patient has stable housing and guardian. Weakness is that patient has poor judgment and is impulsive. INTELLECT: Below average IMPRESSIONS: Mood disorder, unspecified PTSD Intellectual disability Cannabis use disorder Borderline personality disorder Nicotine dependence PLAN: -Patient is admitted under voluntary status to MHU for stabilization of psychiatric symptoms and safety. Patient has signed adult voluntary form. Guardian has consented to restarting Lamictal tonight. -Medications: --Will restart Lamictal 25 mg QHS for mood stabilization. Monitor closely for rash. -- Continue Abilify 30 mg daily, Buspar 30 mg BID, Prazosin 5 mg QHS, Zoloft 100 mg daily, and Trazodone 100 mg QHS. -Ativan and Haldol PRN for agitation/aggression -Patient was counselled on substance abuse and desired to cut back on use. -Patient was informed of the risks, benefits and side effects of the medication and patient verbally consented to taking the medications. Patient signed med consent form and was placed in chart. -Internal Medicine consult to perform medical evaluation and physical. -NRT - does not need because smokes very little -SW on board for discharge planning. Encourage patient to participate in groups to work on coping skills. Allergies Allergy/AdvReac Type Severity Reaction Status Date / Time amphetamine [From Adderall] Allergy Unknown Verified 10/11/23 18:06 citalopram [From Celexa] Allergy Unknown Verified 10/11/23 18:06 dextroamphetamine Allergy Unknown Verified 10/11/23 18:06 [From Adderall] Vital Signs Temp 97.5 F L 10/12/23 09:27 Pulse 106 H 10/12/23 09:27 Resp 16 10/12/23 09:27 BP 139/87 10/12/23 09:27 Pulse Ox 98 10/12/23 09:27 FiO2 Intake & Output 10/11/23 10/12/23 10/12/23 18:59 06:59 18:59 Weight 102.058 kg 96.757 kg Laboratory Last Values WBC 9.2 k/uL (3.8-10.6) 10/12/23 06:39 RBC 4.10 m/uL (3.80-5.40) 10/12/23 06:39 Hgb 12.0 gm/dL (11.4-16.0) 10/12/23 06:39 Hct 36.1 % (34.0-46.0) 10/12/23 06:39 MCV 88.0 fL (80.0-100.0) 10/12/23 06:39 MCH 29.2 pg (25.0-35.0) 10/12/23 06:39 MCHC 33.2 g/dL (31.0-37.0) 10/12/23 06:39 RDW 14.0 % (11.5-15.5) 10/12/23 06:39 Plt Count 424 k/uL (150-450) 10/12/23 06:39 MPV 6.6 10/12/23 06:39 Neutrophils % 44 % 10/12/23 06:39 Lymphocytes % 47 % 10/12/23 06:39 Monocytes % 4 % 10/12/23 06:39 Eosinophils % 3 % 10/12/23 06:39 Basophils % 1 % 10/12/23 06:39 Neutrophils # 4.0 k/uL (1.3-7.7) 10/12/23 06:39 Lymphocytes # 4.4 k/uL (1.0-4.8) 10/12/23 06:39 Monocytes # 0.4 k/uL (0-1.0) 10/12/23 06:39 Eosinophils # 0.3 k/uL (0-0.7) 10/12/23 06:39 Basophils # 0.1 k/uL (0-0.2) 10/12/23 06:39 Sodium 137 mmol/L (137-145) 10/12/23 06:39 Potassium 4.3 mmol/L (3.5-5.1) 10/12/23 06:39 Chloride 110 mmol/L (98-107) H 10/12/23 06:39 Carbon Dioxide 21 mmol/L (22-30) L 10/12/23 06:39 Anion Gap 6 mmol/L 10/12/23 06:39 BUN 9 mg/dL (7-17) 10/12/23 06:39 Creatinine 0.90 mg/dL (0.52-1.04) 10/12/23 06:39 Est GFR (CKD-EPI)AfAm >90 (>60 ml/min/1.73 sqM) 10/12/23 06:39 Est GFR (CKD-EPI)NonAf >90 (>60 ml/min/1.73 sqM) 10/12/23 06:39 Glucose 83 mg/dL (74-99) 10/12/23 06:[address] Glu mg/dL 117 mg/dL 10/12/23 06:39 Hemoglobin A1c 5.7 % (<=6.0) 10/12/23 06:39 Calcium 9.0 mg/dL (8.4-10.2) 10/12/23 06:39 Total Bilirubin 0.3 mg/dL (0.2-1.3) 10/12/23 06:39 AST 19 U/L (14-36) 10/12/23 06:39 ALT 22 U/L (4-34) 10/12/23 06:39 Alkaline Phosphatase 88 U/L (38-126) 10/12/23 06:39 Total Protein 5.9 g/dL (6.3-8.2) L 10/12/23 06:39 Albumin 3.3 g/dL (3.5-5.0) L 10/12/23 06:39 TSH 1.690 mIU/L (0.465-4.680) 10/12/23 06:39 Urine Color Colorless 10/11/23 19:00 Urine Appearance Clear (Clear) 10/11/23 19:00 Urine pH 6.5 (5.0-8.0) 10/11/23 19:00 Ur Specific [place] 1.013 (1.001-1.035) 10/11/23 19:00 Urine Protein Negative (Negative) 10/11/23 19:00 Urine Glucose (UA) Negative (Negative) 10/11/23 19:00 Urine Ketones Negative (Negative) 10/11/23 19:00 Urine Blood Negative (Negative) 10/11/23 19:00 Urine Nitrite Negative (Negative) 10/11/23 19:00 Urine Bilirubin Negative (Negative) 10/11/23 19:00 Urine Urobilinogen <2.0 mg/dL (<2.0) 10/11/23 19:00 Ur Leukocyte Esterase Negative (Negative) 10/11/23 19:00 Urine HCG, Qual Not Detected (Not Detectd) 10/11/23 15:35 Urine Opiates Screen Not Detected (NotDetected) 10/11/23 15:35 Ur Oxycodone Screen Not Detected (NotDetected) 10/11/23 15:35 Urine Methadone Screen Not Detected (NotDetected) 10/11/23 15:35 Ur Barbiturates Screen Not Detected (NotDetected) 10/11/23 15:35 U Tricyclic Antidepress Not Detected (NotDetected) 10/11/23 15:35 Ur Phencyclidine Scrn Not Detected (NotDetected) 10/11/23 15:35 Ur Amphetamines Screen Not Detected (NotDetected) 10/11/23 15:35 U Methamphetamines Scrn Not Detected (NotDetected) 10/11/23 15:35 U Benzodiazepines Scrn Not Detected (NotDetected) 10/11/23 15:35 Urine Cocaine Screen Not Detected (NotDetected) 10/11/23 15:35 U Marijuana (THC) Screen Detected (NotDetected) H 10/11/23 15:35 SARS-CoV-2 (PCR) Not Detected (Not Detectd) 10/11/23 16:44
[2023-10-12] MEDS: lamoTRIgine 25 MG TAB PO SCH (21:49)
--- NOTE | 2023-10-13 12:36 | P.PN ---
Progress Note - Text Progress Note Date: 10/13/23 Interval History: [facility] and was directable and agreeable to speak with typewriter assembler in her room. Patient claims her mood is slightly improving, and she just misses her grandmother who 5 years ago. She claims to be upset because her mother never answers the phone, and she wants to talk to her. States her stomach is nauseous, typewriter assembler talked to patient about Zofran, patient agreeable . At this time patient denies any suicidal or homicidal ideations, intent or plan. Patient denies any auditory, visual hallucinations and denies any paranoia or delusions. Patient denies any side effects from the medications and has been compliant with meds. MENTAL STATUS EXAM: General Appearance: Patient appears to be younger than stated age, obese, dressed in street clothes. poor dentition. Patient appears to have fair hygiene and grooming. Behavior: Patient is seated without any agitated behavior. fairly expansive. Speech: Patient's speech is fluent and non-pressured. Mood/Affect: Patient reports their mood is getting better, affect is dramatic Suicidality/Homicidality: Patient denies having any homicidal ideation intent or plan. Denies any suicidal ideation, intent or plan. Perceptions: Patient denies any visual hallucinations and denies any auditory hallucinations. Though content/process: There is no evidence of any delusional thought content and thought process is linear and goal-directed. rambnling, exaggerating. Memory and concentration: AOX3, grossly intact for the purposes of this session. Judgment and insight: chronically poor IMPRESSIONS: Mood disorder, unspecified PTSD Intellectual disability Cannabis use disorder Borderline personality disorder Nicotine dependence PLAN: -Patient is admitted under voluntary status to MHU for stabilization of psychiatric symptoms and safety. Patient has signed adult voluntary form. Guardian has consented to restarting Lamictal . -Medications: change Lamictal 25 mg daily for mood stabilization. Monitor closely for rash. Abilify 30 mg daily, Buspar 30 mg BID, Prazosin 5 mg QHS, change Zoloft 100 mg qhs, Trazodone 100 mg QHS. added Zofran prn for nausea -Ativan and Haldol PRN for agitation/aggression -NRT - does not need because smokes very little -SW on board for discharge planning. Encourage patient to participate in groups to work on coping skills. patient is currently at [facility] and will be allowed back upon discharge.
[2023-10-13] MEDS: ONDANSETRON 4 MG TAB PO PRN (12:38)
[2023-10-13] MEDS: lamoTRIgine 25 MG TAB PO SCH (12:39)
[2023-10-13] MEDS: SERTRALINE 100 MG TAB PO SCH (21:06)
--- NOTE | 2023-10-14 11:31 | P.PN ---
Progress Note - Text Progress Note Date: 10/14/23 Interval History: Patient was seen resting in her room, and was directable and agreeable to speak with travel writer at the bedside. Patient claims her mood is improving. Claims that the nausea and dizzy feeling she was having yesterday has subsided. Patient claims her sleep was on and off last night, and that she is tired today. Patient has been going to some groups. Patient states that her appetite is improving. At this time patient denies any suicidal or homicidal ideations, intent or plan. Patient denies any auditory, visual hallucinations and denies any paranoia or delusions. Patient denies any side effects from the medications and has been compliant with meds. MENTAL STATUS EXAM: General Appearance: Patient appears to be younger than stated age, obese, dressed in street clothes. poor dentition. Patient appears to have poor hygiene and grooming. Malodorous Behavior: Patient is seated without any agitated behavior. fairly expansive.mildly improving Speech: Patient's speech is fluent and non-pressured. Mood/Affect: Patient reports their mood is getting better, affect is dramatic ,mildly improving Suicidality/Homicidality: Patient denies having any homicidal ideation intent or plan. Denies any suicidal ideation, intent or plan. Perceptions: Patient denies any visual hallucinations and denies any auditory hallucinations. Though content/process: There is no evidence of any delusional thought content and thought process is linear and goal-directed. rambling, exaggerating.mildly improving Memory and concentration: AOX3, grossly intact for the purposes of this session. Judgment and insight: chronically poor IMPRESSIONS: Mood disorder, unspecified PTSD Intellectual disability Cannabis use disorder Borderline personality disorder Nicotine dependence PLAN: -Patient is admitted under voluntary status to MHU for stabilization of psychiatric symptoms and safety. Patient has signed adult voluntary form. Guardian has consented to restarting Lamictal . -Medications: increase Lamictal 25 mg bid daily for mood stabilization. Monitor closely for rash. Abilify 30 mg daily, Buspar 30 mg BID, Prazosin 5 mg QHS, Zoloft 100 mg qhs, Trazodone 100 mg QHS. Zofran prn for nausea -Ativan and Haldol PRN for agitation/aggression -NRT - does not need because smokes very little -SW on board for discharge planning. Encourage patient to participate in groups to work on coping skills. patient likely discharge Friday, to [facility], if she continues to improve.
[2023-10-14] MEDS: MAGNESIUM HYDROXIDE 2,400 MG/30 ML CUP PO PRN (17:11)
[2023-10-14] MEDS: lamoTRIgine 25 MG TAB PO SCH (20:48)
[2023-10-15 06:31] VITALS: RESP 18
--- NOTE | 2023-10-15 11:38 | P.PN ---
Progress Note - Text Progress Note Date: 10/15/23 Interval History: Patient was seen resting in her room, and was directable and agreeable to speak with ticket writer at the bedside. Patient claims she is feeling pretty good. Patient has been going to some groups. Patient states that her appetite good. Patient states she slept well last night. Ship Erector talked to the patient about discharging tomorrow if she is still doing well, patient agreeable. Patient appears to be in brighter spirits today, affect improving. Did not report any overnight problems. At this time patient denies any suicidal or homicidal ideations, intent or plan. Patient denies any auditory, visual hallucinations and denies any paranoia or delusions. Patient denies any side effects from the medications and has been compliant with meds. MENTAL STATUS EXAM: General Appearance: Patient appears to be younger than stated age, obese, dressed in street clothes. poor dentition. Patient appears to have oddly improving hygiene and grooming Behavior: Patient is seated without any agitated behavior. Childlike behavior, at baseline Speech: Patient's speech is fluent and non-pressured. Mood/Affect: Patient reports their mood is pretty good, affect is congruent Suicidality/Homicidality: Patient denies having any homicidal ideation intent or plan. Denies any suicidal ideation, intent or plan. Perceptions: Patient denies any visual hallucinations and denies any auditory hallucinations. Though content/process: There is no evidence of any delusional thought content and thought process is linear and goal-directed. Memory and concentration: AOX3, grossly intact for the purposes of this session. Judgment and insight: chronically limited, improving IMPRESSIONS: Mood disorder, unspecified PTSD Intellectual disability Cannabis use disorder Borderline personality disorder Nicotine dependence PLAN: -Patient is admitted under voluntary status to [facility]HU for stabilization of psychiatric symptoms and safety. Patient has signed adult voluntary form. Guardian has consented to restarting Lamictal . -Medications:Lamictal 25 mg bid daily for mood stabilization. Monitor closely for rash. Abilify 30 mg daily, Buspar 30 mg BID, Prazosin 5 mg QHS, Zoloft 100 mg qhs, Trazodone 100 mg QHS. Zofran prn for nausea -Ativan and Haldol PRN for agitation/aggression -NRT - does not need because smokes very little -SW on board for discharge planning. Encourage patient to participate in groups to work on coping skills. patient likely discharge tomorrow, to [facility], if she continues to improve.
[2023-10-15] MEDS: IBUPROFEN 600 MG TAB PO PRN (19:06)
[2023-10-16 06:47] VITALS: BP 108/73; PULSE 86; TEMP 97.6
--- NOTE | 2023-10-16 10:07 | P.DS ---
Providers Date of admission: 10/11/23 17:45 Expected date of discharge: 10/16/23 Attending physician: Devon Borges MD Consults: 10/11/23 18:02 Consult Physician Routine Consulting Provider: Yousif Stafford Consult Reason/Comments: History and physical Do you want consulting provider notified?: Yes Primary care physician: Patrica Doug - Discharge Diagnosis(es) (1) Unspecified mood [affective] disorder Current Visit: Yes Status: Acute Priority: High (2) Borderline personality disorder Current Visit: No Status: Acute Priority: High (3) Cannabis use disorder Current Visit: No Status: Acute Priority: Medium (4) Nicotine dependence Current Visit: No Status: Acute Priority: Low (5) PTSD (post-traumatic stress disorder) Current Visit: No Status: Acute Priority: Medium (6) Developmental disability Current Visit: No Status: Chronic Priority: Medium Hospital Course: Admission HPI: Admission note was completed by Dr Perez "Per EPS note, "Pt was brought to ER by EMS after having a fight with her long term workers and guardian and voiced suicidal ideation with a plan to "run into traffic" to EMS and ER. Pt currently has her free time priviledges restricted and tried to leave, and became upset when long term workers stopped her. Insect Control Aide spoke with guardian at the [facility] [place] who informed literary writer that pt has a cyst that requires surgery and was informed by the doctor that it is at risk of bursting, especially if she has sexual intercourse. [place] reports that pt met an older male and informed long term workers that she was having sexual intercourse with him and did not care that it was unsafe for her, so [place] restricted her free time priviledges for the weekend and she is not allowed to leave the long term. Pt reports this is what triggered her, as she feels she has no control over her life. Upon assessment pt is tearful and histrionic, yelling she "can't live like this anymore" and that "no one is supporting her". Pt reports she would not be able to keep herself safe if she was discharged, and states she is still suicidal with a plan to run into traffic. Insect Control Aide attempted several times to safety plan with pt but pt very emotionally dysregulated and states that she feels hopeless and helpless and has nothing to live for. Pt reports she has been taking her medications as prescribed but "they aren't helping" and states she has felt hopeless, depressed and having difficulty sleeping "for a couple months now". Pt reports she "wants help"." On my assessment, patient was found sitting in the louge with peers and is agreeable to speak with this literary writer. She is childlike on assessment. She reports her mood has been up and down. She denies depressed mood currently. Review of her [facility] medication records indicates her Lamictal 100 mg BID was discontinued on 09/24/23 because she had a rash. She states she still has the rash and it is healing. With a pier master assistant present she showed me the rash and it looks like a cluster of healing bug bites on her left hip. She states she had an itchy spot on her back but this healed as well. She denies a rash anywhere else. She reports these where "itchy" but not painful. She states she told the staff at her group about the itchiness and they took her for an appointment her primary care doctor who stopped the Lamictal. She did not see her psychiatrist Dr. Hamilton to confirm if this is a rash from Lamictal. Staff reports she has been making comments about sex since arriving on the unit. Patient states she has a "sex addiction" and had her free time taken away because she of having sex. She states she is so sex-obsessed that she doesn't know how to stop it. Patient denies any suicidal or homicidal ideations intent or plan at this time, but did yesterday. At this time patient denies any auditory or visual hallucinations. Patient denies any flight of ideas racing thoughts and increased in goal directed behavior. Patient admits to using THC everyday, UDS is positive for THC, reports her boyfriend gives it to her. She smokes 2-3 cigarettes per day that she rolls herself. She denies alcohol use. She denies any other drug use. Urine is negative. " Hospital course: Upon admission to the unit patient was directable and agreeable to commence treatment and signed adult voluntary form. Patient got along well with other patients on the unit and followed unit protocol. Patient was compliant with the medications and denied any side effects throughout hospital course. Patient was started on Lamictal and increased to dose of 50 mg nightly for mood stabilization/depression, patient denied any rash during hospitalization and was advised to keep on monitoring her skin. Abilify 30 mg nightly for mood stabilization. BuSpar 30 mg twice daily for anxiety, prazosin 5 mg nightly for nightmares, Zoloft 100 mg nightly for mood/anxiety, trazodone 100 mg nightly as needed for sleep.. Patient spoke of her stressors and engaged in therapy both group and individual. Patient was also seen by medical team for history and physical exam. Throughout the course of the hospitalization patient gradually improved with regards to mood, anxiety, impulsivity, sleep and returned back to their baseline level of functioning. On the day of discharge patient denied any suicidal or homicidal ideations intent or plan denied any auditory or visual hallucinations. Patient endorsed wanting to live for her health and her future. The patient denied any access to guns or weapons. Patient denied any paranoia and did not endorse any delusions. Patient does have a significant history of substance abuse and was counseled on abstaining from all substances including alcohol and marijuana. Patient elected to do outpatient substance use treatment program through [facility]. Patient was also counseled on the medications and need for regular compliance and was encouraged to follow-up with their outpatient appointment for mental health and also for primary care. stock house worker to coordinate patient's discharge today back to long term with close [facility] follow- up. Mental status exam: General Appearance: Patient appears to be overweight, poor dentition, stated age is alert, pleasant, and cooperative. Patient is in no acute distress and has improved hygiene and grooming Behavior: Patient is calmly seated without any agitated behavior. Speech: Patient's speech is fluent and nonpressured. Mood/Affect: Patient reports their mood is "better", affect is congruent and euthymic. Suicidality/Homicidality: Patient denies having any suicidal or homicidal ideation intent or plan. Perceptions: Patient denies any auditory or visual hallucinations. Though content/process: There is no evidence of any delusional thought content and thought process is linear and goal-directed. More future oriented Memory and concentration: AOX3, grossly intact for the purposes of this session. Can spell "WORLD" backwards correctly. Judgment and insight: Chronically poor/limited, however has improved with guarded prognosis Impression: Mood disorder, unspecified PTSD Intellectual disability Cannabis use disorder Borderline personality disorder Nicotine dependence Plan: -Continue with discharge today as patient has improved and stabilized psychiatrically and is not currently an imminent threat to herself and/or others. Patient will remain at chronically elevated risk for harm to self and/or others due to her impulsivity. -Continue medications: Lamictal 50 mg nightly for mood stabilization/depression, Abilify p.o. 30 mg daily for mood stabilization, BuSpar 30 mg twice daily for anxiety, prazosin 5 mg nightly for nightmares, Zoloft 100 mg nightly for mood/anxiety, trazodone 100 mg qhs prn for insomnia/mood. -Patient was counseled on the need for medication compliance and appropriate follow-up at mental health and also primary care for medical issues. Patient verbalized understanding and agreed. -Social work to help coordinate patient's discharge today back to long term. Social work also to arrange for patients follow up appointments with [facility] for psychiatric care along with follow up with primary care provider. -Patient counseled on abstaining from recreational drugs and marijuana and alcohol. Was informed/educated on the adverse effects on their physical and mental health. Patient verbally agreed and understood. -Patient was instructed to return to the hospital or seek immediate medical care if their psychiatric or medical symptoms do worsen or reoccur. Allergies Allergy/AdvReac Type Severity Reaction Status Date / Time amphetamine from Adderall Allergy Unknown Verified 10/11/23 18:06 citalopram from Celexa Allergy Unknown Verified 10/11/23 18:06 dextroamphetamine Allergy Unknown Verified 10/11/23 18:06 From Adderall Laboratory Results WBC 9.2 k/uL (3.8-10.6) 10/12/23 06:39 RBC 4.10 m/uL (3.80-5.40) 10/12/23 06:39 Hgb 12.0 gm/dL (11.4-16.0) 10/12/23 06:39 Hct 36.1 % (34.0-46.0) 10/12/23 06:39 MCV 88.0 fL (80.0-100.0) 10/12/23 06:39 MCH 29.2 pg (25.0-35.0) 10/12/23 06:39 MCHC 33.2 g/dL (31.0-37.0) 10/12/23 06:39 RDW 14.0 % (11.5-15.5) 10/12/23 06:39 Plt Count 424 k/uL (150-450) 10/12/23 06:39 MPV 6.6 10/12/23 06:39 Neutrophils % 44 % 10/12/23 06:39 Lymphocytes % 47 % 10/12/23 06:39 Monocytes % 4 % 10/12/23 06:39 Eosinophils % 3 % 10/12/23 06:39 Basophils % 1 % 10/12/23 06:39 Neutrophils # 4.0 k/uL (1.3-7.7) 10/12/23 06:39 Lymphocytes # 4.4 k/uL (1.0-4.8) 10/12/23 06:39 Monocytes # 0.4 k/uL (0-1.0) 10/12/23 06:39 Eosinophils # 0.3 k/uL (0-0.7) 10/12/23 06:39 Basophils # 0.1 k/uL (0-0.2) 10/12/23 06:39 Sodium 137 mmol/L (137-145) 10/12/23 06:39 Potassium 4.3 mmol/L (3.5-5.1) 10/12/23 06:39 Chloride 110 mmol/L (98-107) H 10/12/23 06:39 Carbon Dioxide 21 mmol/L (22-30) L 10/12/23 06:39 Anion Gap 6 mmol/L 10/12/23 06:39 BUN 9 mg/dL (7-17) 10/12/23 06:39 Creatinine 0.90 mg/dL (0.52-1.04) 10/12/23 06:39 Est GFR (CKD-EPI)AfAm >90 (>60 ml/min/1.73 sqM) 10/12/23 06:39 Est GFR (CKD-EPI)NonAf >90 (>60 ml/min/1.73 sqM) 10/12/23 06:39 Glucose 83 mg/dL (74-99) 10/12/23 06:[address] Glu mg/dL 117 mg/dL 10/12/23 06:39 Hemoglobin A1c 5.7 % (<=6.0) 10/12/23 06:39 Calcium 9.0 mg/dL (8.4-10.2) 10/12/23 06:39 Total Bilirubin 0.3 mg/dL (0.2-1.3) 10/12/23 06:39 AST 19 U/L (14-36) 10/12/23 06:39 ALT 22 U/L (4-34) 10/12/23 06:39 Alkaline Phosphatase 88 U/L (38-126) 10/12/23 06:39 Total Protein 5.9 g/dL (6.3-8.2) L 10/12/23 06:39 Albumin 3.3 g/dL (3.5-5.0) L 10/12/23 06:39 Triglycerides 167.00 mg/dL (0.00-149.00) H 10/12/23 06:39 Cholesterol 158.00 mg/dL (0.00-200.00) 10/12/23 06:39 LDL Cholesterol, Calc 79.2 mg/dL (0.0-131.0) 10/12/23 06:39 VLDL Cholesterol, Calc 33.40 mg/dL (5.00-40.00) 10/12/23 06:39 HDL Cholesterol 45.40 mg/dL (40.00-60.00) 10/12/23 06:39 Cholesterol/HDL Ratio 3.48 Ratio 10/12/23 06:39 TSH 1.690 mIU/L (0.465-4.680) 10/12/23 06:39 Urine Color Colorless 10/11/23 19:00 Urine Appearance Clear (Clear) 10/11/23 19:00 Urine pH 6.5 (5.0-8.0) 10/11/23 19:00 Ur Specific [place] 1.013 (1.001-1.035) 10/11/23 19:00 Urine Protein Negative (Negative) 10/11/23 19:00 Urine Glucose (UA) Negative (Negative) 10/11/23 19:00 Urine Ketones Negative (Negative) 10/11/23 19:00 Urine Blood Negative (Negative) 10/11/23 19:00 Urine Nitrite Negative (Negative) 10/11/23 19:00 Urine Bilirubin Negative (Negative) 10/11/23 19:00 Urine Urobilinogen <2.0 mg/dL (<2.0) 10/11/23 19:00 Ur Leukocyte Esterase Negative (Negative) 10/11/23 19:00 Urine HCG, Qual Not Detected (Not Detectd) 10/11/23 15:35 Urine Opiates Screen Not Detected (NotDetected) 10/11/23 15:35 Ur Oxycodone Screen Not Detected (NotDetected) 10/11/23 15:35 Urine Methadone Screen Not Detected (NotDetected) 10/11/23 15:35 Ur Barbiturates Screen Not Detected (NotDetected) 10/11/23 15:35 U Tricyclic Antidepress Not Detected (NotDetected) 10/11/23 15:35 Ur Phencyclidine Scrn Not Detected (NotDetected) 10/11/23 15:35 Ur Amphetamines Screen Not Detected (NotDetected) 10/11/23 15:35 U Methamphetamines Scrn Not Detected (NotDetected) 10/11/23 15:35 U Benzodiazepines Scrn Not Detected (NotDetected) 10/11/23 15:35 Urine Cocaine Screen Not Detected (NotDetected) 10/11/23 15:35 U Marijuana (THC) Screen Detected (NotDetected) H 10/11/23 15:35 SARS-CoV-2 (PCR) Not Detected (Not Detectd) 10/11/23 16:44 Vital Signs Temp 97.6 F 10/16/23 06:15 Pulse 86 10/16/23 06:15 Resp 18 10/16/23 06:15 BP 108/73 10/16/23 06:15 Pulse Ox 99 10/16/23 06:15 FiO2 Patient Condition at Discharge: Stable Plan - Discharge Summary New Discharge Prescriptions: New lamoTRIgine [LaMICtal] 50 mg PO HS 30 Days #60 tab Sertraline [Zoloft] 100 mg PO HS 30 Days #30 tab Continue Cholecalciferol (Vitamin D3) [Vitamin D3 (5000 Iu)] 125 mcg PO DAILY@0800 Zinc Oxide 20% Oint 1 applic TOPICAL BID PRN PRN Reason: groin Isibloom 1 tab PO DAILY@0800 Benzocaine 20 % Gel [Orajel] 1 applic DENTAL DIRECTED PRN PRN Reason: tooth & mouth pain busPIRone HCL [Buspar] 30 mg PO BID@0800,2100 30 Days #60 tab Cetirizine HCl 10 mg PO DAILY@0800 30 Days #30 tab Prazosin [Minipress] 5 mg PO HS 30 Days #30 cap Famotidine [Pepcid] 20 mg PO HS 30 Days #30 tab Calcium Carbonate [Calcium] 600 mg PO DAILY@0800 Lidocaine/Menthol [Lidocaine-Menthol 4%-1% Patch] 1 patch TRANSDERM Q12H PRN PRN Reason: Pain Triamcinolone 0.5% Ointment 1 applic TOPICAL BID PRN PRN Reason: Rash Omeprazole 20 mg PO BID@0800,2100 30 Days #60 cap Changed ARIPiprazole [Abilify] 30 mg PO HS 30 Days #30 tab traZODone HCL [Desyrel] 100 mg PO HS PRN 30 Days #30 tab PRN Reason: Insomnia Discontinued Ondansetron Odt [Zofran Odt] 4 mg PO Q8HR PRN #20 tab PRN Reason: Nausea And Vomiting Sertraline [Zoloft] 100 mg PO DAILY@0800 Ibuprofen [Motrin] 800 mg PO Q8H PRN #30 tab PRN Reason: Pain Discharge Medication List Cholecalciferol (Vitamin D3) [Vitamin D3 (5000 Iu)] 125 mcg PO DAILY@0800 08/21/20 [History] Calcium Carbonate [Calcium] 600 mg PO DAILY@0800 12/09/21 [History] Zinc Oxide 20% Oint 1 applic TOPICAL BID PRN 12/10/22 [History] Lidocaine/Menthol [Lidocaine-Menthol 4%-1% Patch] 1 patch TRANSDERM Q12H PRN 05/15/23 [History] Benzocaine 20 % Gel [Orajel] 1 applic DENTAL DIRECTED PRN 10/11/23 [History] Isibloom 1 tab PO DAILY@0800 10/11/23 [History] Triamcinolone 0.5% Ointment 1 applic TOPICAL BID PRN 10/11/23 [History] ARIPiprazole [Abilify] 30 mg PO HS 30 Days #30 tab 10/16/23 [Rx] Cetirizine HCl 10 mg PO DAILY@0800 30 Days #30 tab 10/16/23 [Rx] Famotidine [Pepcid] 20 mg PO HS 30 Days #30 tab 10/16/23 [Rx] Omeprazole 20 mg PO BID@0800,2100 30 Days #60 cap 03/21/24 [Rx] Prazosin [Minipress] 5 mg PO HS 30 Days #30 cap 10/16/23 [Rx] Sertraline [Zoloft] 100 mg PO HS 30 Days #30 tab 10/16/23 [Rx] busPIRone HCL [Buspar] 30 mg PO BID@0800,2100 30 Days #60 tab 10/16/23 [Rx] lamoTRIgine [LaMICtal] 50 mg PO HS 30 Days #60 tab 10/16/23 [Rx] traZODone HCL [Desyrel] 100 mg PO HS PRN 30 Days #30 tab 10/16/23 [Rx] Follow up Appointment(s)/Referral(s): Patrica Camacho MD [Primary Care Provider] - 1-2 days Patient Instructions/Handouts: Depression (DC), Post Traumatic Stress Disorder (DC) Activity/Diet/Wound Care/Special Instructions: Avoid the use of street drugs and alcohol. Take all medications as prescribed. When you are in need of refills on your medications, please contact your medical provider and/or outpatient psychiatrist/provider to have this done. Please go to your scheduled outpatient appointment for aftercare treatment. If symptoms return or become worse, call the crisis line at and/or go to the nearest emergency room for evaluation. National Suicide Hotline 568. Discharge Disposition: OTHER INSTITUTION NOT DEFINED
== END 2023-10-16 13:14 | disposition home or self-care (01) | DRG 885 ==
LOC: EC 12:44 → 3MHU 17:45
PROVIDERS: ADMIT Psychiatry & Neurology Psychiatry; ATTEND Psychiatry & Neurology Psychiatry
DX: F39 Unspecified mood [affective] disorder (principal); R45.851 Suicidal ideations; F79 Unspecified intellectual disabilities; F12.10 Cannabis abuse, uncomplicated; E66.9 Obesity, unspecified; Z68.36 Body mass index [BMI] 36.0-36.9, adult; F60.3 Borderline personality disorder; Z11.52 Encounter for screening for COVID-19; F43.10 Post-traumatic stress disorder, unspecified; F90.9 Attention-deficit hyperactivity disorder, unspecified type; S70.262A Insect bite (nonvenomous), left hip, initial encounter; F17.210 Nicotine dependence, cigarettes, uncomplicated; Z71.6 Tobacco abuse counseling; Z79.899 Other long term (current) drug therapy; W57.XXXA Bitten or stung by nonvenomous insect and other nonvenomous arthropods, initial encounter; Z88.8 Allergy status to other drugs, medicaments and biological substances; Z71.41 Alcohol abuse counseling and surveillance of alcoholic; Z71.51 Drug abuse counseling and surveillance of drug abuser
CPT/HCPCS: 80053; 80061; 80306; 81003; 81025; 82075; 83036; 84443; 85025; 87635; 93005; 99285

== ENCOUNTER 2023-11-18 17:46 | Emergency (ER) | payer MEDICARE, MEDICAID ==
--- NOTE | 2023-11-18 20:08 | ED ---
General Adult HPI - General Chief complaint: Psychiatric Symptoms Stated complaint: Mental health Time Seen by Provider: 11/18/23 17:48 Source: patient, EMS, RN notes reviewed Mode of arrival: EMS Limitations: no limitations - History of Present Illness Initial comments: 23-year-old female presents to the emergency department for foreign body in vagina. Patient states that she has a history of an ovarian cyst. She states that this is painful for her. She notes that she put the handle of a fork in her vagina in attempts to stop the pain from the cyst. Patient states that she is supposed to have this removed by Dr. Rodriges in November. She does have an extensive psychiatric history. She is taking her medications as prescribed. - Related Data Home Medications Medication Instructions Recorded Confirmed Cholecalciferol (Vitamin D3) 125 mcg PO DAILY@0800 08/21/20 11/18/23 [Vitamin D3 (5000 Iu)] Calcium Carbonate [Calcium] 600 mg PO DAILY@0800 12/09/21 11/18/23 Lidocaine/Menthol 1 patch TRANSDERM Q12H PRN 05/15/23 11/18/23 [Lidocaine-Menthol 4%-1% Patch] Benzocaine 20 % Gel [Orajel] 1 applic DENTAL DIRECTED PRN 10/11/23 11/18/23 Isibloom 1 tab PO DAILY@79910/11/23 11/18/23 Ibuprofen 800 mg PO Q8H PRN 11/11/23 11/18/23 ARIPiprazole [Abilify] 30 mg PO HS@209911/18/23 11/18/23 Famotidine [Pepcid] 20 mg PO HS@209911/18/23 11/18/23 Ondansetron Odt [Zofran Odt] 4 mg PO Q8H PRN 11/18/23 11/18/23 Prazosin [Minipress] 5 mg PO HS@209911/18/23 11/18/23 Sertraline [Zoloft] 100 mg PO HS@209911/18/23 11/18/23 lamoTRIgine [LaMICtal] 50 mg PO HS@209911/18/23 11/18/23 Previous Rx's Medication Instructions Recorded Cetirizine HCl 10 mg PO DAILY@0800 30 Days #30 tab 10/16/23 Omeprazole 20 mg PO BID@0800,2100 30 Days #60 10/16/23 cap busPIRone HCL [Buspar] 30 mg PO BID@0800,2100 30 Days #60 10/16/23 tab traZODone HCL [Desyrel] 100 mg PO HS PRN 30 Days #30 tab 10/16/23 Allergies Allergy/AdvReac Type Severity Reaction Status Date / Time amphetamine [From Adderall] Allergy Unknown Verified 11/18/23 21:07 citalopram [From Celexa] Allergy Unknown Verified 11/18/23 21:07 dextroamphetamine Allergy Unknown Verified 11/18/23 21:07 [From Adderall] Review of Systems ROS Statement: Those systems with pertinent positive or pertinent negative responses have been documented in the HPI. ROS Other: All systems not noted in ROS Statement are negative. Past Medical History Past Medical History: No Reported History Additional Past Medical History / Comment(s): cyst left ovary and abdominal pain, psuedoseizures,prediabetes,urinary incontinence,vit d def, vulvarian cyst,foot fungus in past,bedwetting History of Any Multi-Drug Resistant Organisms: None Reported Past Surgical History: No Surgical Hx Reported Past Anesthesia/Blood Transfusion Reactions: No Reported Reaction Additional Past Anesthesia/Blood Transfusion Reaction / Comment(s): no known hx blood transfusion Past Psychological History: ADD/ADHD, Anxiety, Bipolar, Depression, PTSD Smoking Status: Current every day smoker - Past Family History Mother History Unknown: Yes Additional Family Medical History / Comment(s): States mother when she was being born and was brought back General Exam Limitations: no limitations General appearance: alert, in no apparent distress Head exam: Present: atraumatic, normocephalic, normal inspection Eye exam: Present: normal appearance, PERRL, EOMI. Absent: scleral icterus, conjunctival injection, periorbital swelling ENT exam: Present: normal exam, mucous membranes moist Neck exam: Present: normal inspection. Absent: tenderness, meningismus, lymphadenopathy Respiratory exam: Present: normal lung sounds bilaterally. Absent: respiratory distress, wheezes, rales, rhonchi, stridor Cardiovascular Exam: Present: regular rate, normal rhythm, normal heart sounds. Absent: systolic murmur, diastolic murmur, rubs, gallop, clicks GI/Abdominal exam: Present: soft, normal bowel sounds. Absent: distended, tenderness, guarding, rebound, rigid External exam: Present: other (foreign body removed) Speculum exam: Present: normal speculum exam. Absent: vaginal bleeding Extremities exam: Present: normal inspection, full ROM, normal capillary refill. Absent: tenderness, pedal edema, joint swelling, calf tenderness Neurological exam: Present: alert, oriented X3 Psychiatric exam: Present: normal affect, normal mood Skin exam: Present: warm, dry, intact, normal color. Absent: rash Course Vital Signs 11/18/23 11/18/23 11/19/23 17:52 20:32 00:58 Temperature 98.2 F 98.8 F 98.2 F Pulse Rate 99 75 71 Respiratory 18 17 18 Rate Blood Pressure 130/78 102/70 112/76 O2 Sat by Pulse 98 98 97 Oximetry Procedures - Forgein Body Removal Soft Tissue Consent Obtained: verbal consent Site: vulva/vagina Foreign Body Suspected: Other (fork handle) Foreign Body Removed: yes Patient Tolerated Procedure: well, no complications Medical Decision Making - Medical Decision Making Was pt. sent in by a medical professional or institution (, PA, TIRE CENTER MANAGER, urgent care, hospital, or retirement...) When possible be specific @ -No Did you speak to anyone other than the patient for history (EMS, parent, family, police, friend...)? What history was obtained from this source @ -No Did you review nursing and triage notes (agree or disagree)? Why? @ -I reviewed and agree with nursing and triage notes Were old charts reviewed (outside hosp., previous admission, EMS record, old EKG, old radiological studies, urgent care reports/EKG's, retirement records)? Report findings @ -No old charts were reviewed Differential Diagnosis (chest pain, altered mental status, abdominal pain women, abdominal pain men, vaginal bleeding, weakness, fever, dyspnea, syncope, headache, dizziness, GI bleed, back pain, seizure, CVA, palpatations, mental health, musculoskeletal)? @ -Differential Mental Health Depression, anxiety, bipolar, psychosis, schizophrenia, borderline personality, situational depression, adjustment disorder, behavioral disorder, brain tumor, malingering, substance abuse, encephalopathy, medication reaction, dementia, hypothyroidism, degenerative neurologic disorder, lupus.... This is not meant to be all-inclusive list EKG interpreted by me (3pts min.). @ -None X-rays interpreted by me (1pt min.). @ -None done CT interpreted by me (1pt min.). @ -None done U/S interpreted by me (1pt. min.). 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 (CT, X-rays, U/S, labs)? Why? @ -None What meds were considered but not given or refused? Why? @ -None Did you discuss the management of the patient with other professionals (professionals i.e. , PA, TIRE CENTER MANAGER, lab, RT, psych nurse, social media specialist, engineering program analyst, teacher, operations officer afloat, patient case coordinator)? Give summary @ -EPS evaluated patient patient stable for discharge with care plan. Was smoking cessation discussed for >3mins.? @ -No Was critical care preformed (if so, how long)? @ -No Were there social determinants of health that impacted care today? How? (Homelessness, low income, unemployed, alcoholism, drug addiction, transportation, low edu. Level, literacy, decrease access to med. care, long term, rehab)? @ -No Was there de-escalation of care discussed even if they declined (Discuss DNR or withdrawal of care, Hospice)? DNR status @ -No What co-morbidities impacted this encounter? (DM, HTN, Smoking, COPD, CAD, Cancer, CVA, ARF, Chemo, Hep., AIDS, mental health diagnosis, sleep apnea, morbid obesity)? @ -None Was patient admitted / discharged? Hospital course, mention meds given and route, prescriptions, significant lab abnormalities, going to OR and other pertinent info. @ -Patient presented to the emergency department for suicidal ideation and vagi nal foreign body. Patient put a handle to a fork in her vagina in an attempt to stop the pain from her ovarian cyst. On examination, a dinner fork is present with the handle inserted into the vagina. This was easily removed with direct manipulation, it was not embedded in vaginal tissue. Visual examination shows no abrasion or bleeding. Pelvic ultrasound was obtained which shows a large complex area in the region of the left ovary likely the known teratoma. UA negative for markers of infection including nitrate, leukocyte esterase. Following this results, patient was medically cleared and patient was evaluated by EPS. Patient found to be stable for discharge with a care plan. Patient provided a Tylenol 3 starter pack to be given to php website developer to dispense. Patient lives in facility and medication is dispensed by employees. Patient will follow-up with Dr. Rodriges for her surgery. Patient stable at time of discharge. Case discussed Dr. Rodriguez. Undiagnosed new problem with uncertain prognosis? @ -No Drug Therapy requiring intensive monitoring for toxicity (Heparin, Nitro, Insulin, Cardizem)? @ -No Were any procedures done? @ -Foreign body removal Diagnosis/symptom? @ -Vaginal foreign body. Acute, or Chronic, or Acute on Chronic? @ -Acute Uncomplicated (without systemic symptoms) or Complicated (systemic symptoms)? @ -Uncomplicated t Side effects of treatment? @ -No Exacerbation, Progression, or Severe Exacerbation? @ -No Poses a threat to life or bodily function? How? (Chest pain, USA, ME, pneumonia, PE, COPD, DKA, ARF, appy, cholecystitis, CVA, Diverticulitis, Homicidal, Suicidal, threat to staff... and all critical care pts) @ -No - Lab Data Lab Results 11/18/23 11/18/23 11/18/23 Range/Units 20:27 20:27 20:27 Urine Color Yellow Urine Appearance Cloudy H (Clear) Urine pH 6.0 (5.0-8.0) Ur Specific [place] 1.035 (1.001-1.035) Urine Protein Trace H (Negative) Urine Glucose (UA) Negative (Negative) Urine Ketones Negative (Negative) Urine Blood Small H (Negative) Urine Nitrite Negative (Negative) Urine Bilirubin Negative (Negative) Urine Urobilinogen 2.0 (<2.0) mg/dL Ur Leukocyte Esterase Negative (Negative) Urine RBC 4 (0-5) /hpf Urine WBC 4 (0-5) /hpf Ur Squamous Epith Cells 11 H (0-4) /hpf Calcium Oxalate Crystal Moderate H (None) /hpf Urine Bacteria Rare H (None) /hpf Hyaline Casts 1 (0-2) /lpf Urine Mucus Occasional H (None) /hpf Urine HCG, Qual Not Detected (Not Detectd) Urine Opiates Screen Not Detected (NotDetected) Ur Oxycodone Screen Not Detected (NotDetected) Urine Methadone Screen Not Detected (NotDetected) Ur Barbiturates Screen Not Detected (NotDetected) U Tricyclic Antidepress Not Detected (NotDetected) Ur Phencyclidine Scrn Not Detected (NotDetected) Ur Amphetamines Screen Not Detected (NotDetected) U Methamphetamines Scrn Not Detected (NotDetected) U Benzodiazepines Scrn Not Detected (NotDetected) Urine Cocaine Screen Not Detected (NotDetected) U Marijuana (THC) Screen Detected H (NotDetected) Chlamydia DNA (PCR) (Negative) N.gonorrhoeae DNA Probe (Negative) 11/18/23 Range/Units 22:44 Urine Color Urine Appearance (Clear) Urine pH (5.0-8.0) Ur Specific [place] (1.001-1.035) Urine Protein (Negative) Urine Glucose (UA) (Negative) Urine Ketones (Negative) Urine Blood (Negative) Urine Nitrite (Negative) Urine Bilirubin (Negative) Urine Urobilinogen (<2.0) mg/dL Ur Leukocyte Esterase (Negative) Urine RBC (0-5) /hpf Urine WBC (0-5) /hpf Ur Squamous Epith Cells (0-4) /hpf Calcium Oxalate Crystal (None) /hpf Urine Bacteria (None) /hpf Hyaline Casts (0-2) /lpf Urine Mucus (None) /hpf Urine HCG, Qual (Not Detectd) Urine Opiates Screen (NotDetected) Ur Oxycodone Screen (NotDetected) Urine Methadone Screen (NotDetected) Ur Barbiturates Screen (NotDetected) U Tricyclic Antidepress (NotDetected) Ur Phencyclidine Scrn (NotDetected) Ur Amphetamines Screen (NotDetected) U Methamphetamines Scrn (NotDetected) U Benzodiazepines Scrn (NotDetected) Urine Cocaine Screen (NotDetected) U Marijuana (THC) Screen (NotDetected) Chlamydia DNA (PCR) Negative (Negative) N.gonorrhoeae DNA Probe Negative (Negative) Disposition Clinical Impression: Vaginal foreign body Disposition: HOME SELF-CARE Condition: Stable Additional Instructions: Please follow up with your physical therapy attendant as scheduled. Return to the emergency department for new or worsening symptoms. Is patient prescribed a controlled substance at d/c from ED?: No Referrals: Patrica Camacho MD [Primary Care Provider] - 1-2 days
[2023-11-18 21:17] LABS: Appearance,Urine Cloudy (Clear); Bacteria,Urine Rare /hpf; Bilirubin,Urine Negative (Negative); Blood,Urine Small (Negative); Calcium Oxalate Crystals,Urine Moderate /hpf; Color,Urine Yellow; Glucose,Urine (UA) Negative (Negative); Hyaline Casts,Urine 1 /lpf (0-2); Ketones,Urine Negative (Negative); Leukocyte Esterase,Urine Negative (Negative); Mucus,Urine Occasional /hpf; Nitrite,Urine Negative (Negative); Protein,Urine Trace (Negative); RBC,Urine 4 /hpf (0-5); Specific Gravity,Urine 1.035 (1.001-1.035); Squamous Epithelial Cell,Urine 11 /hpf (0-4); WBC,Urine 4 /hpf (0-5)
[2023-11-18 21:26] LABS: Amphetamine Screen,Urine Not Detected (NotDetected); Barbiturate Screen,Urine Not Detected (NotDetected); Benzodiazepines Screen,Urine Not Detected (NotDetected); Cocaine Screen,Urine Not Detected (NotDetected); Methadone Screen, Urine Not Detected (NotDetected); Opiate Screen,Urine Not Detected (NotDetected); Oxycodone Screen, Urine Not Detected (NotDetected); Phencyclidine Screen,Urine Not Detected (NotDetected); Tricyclic Antidepressant,Urine Not Detected (NotDetected); Urn Cannabinoid Scrn Detected (NotDetected)
--- NOTE | 2023-11-18 22:47 | US ---
EXAMINATION TYPE: US pelvic complete DATE OF EXAM: 11/18/2023 COMPARISON: 10/11/23, CT: 09/29/23 CLINICAL INDICATION: Female, 23 years old with history of cyst, pain; Left sided pain. 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 Pt states she has surgery scheduled for 11/28/23. TECHNIQUE: . Transabdominal sonographic images of the pelvis were acquired. Pt refused transvaginal exam Date of LMP: Unknown EXAM MEASUREMENTS: Uterus: 7.4 x 4.6 x 2.9 cm Endometrial Stripe: Not well visualized Right Ovary: 2.2 x 1.5 x 1.1 cm Left Ovary: 7.6 x 7.1 x 5.8 cm 1. Uterus: Anteverted wnl 2. Endometrium: wnl 3. Right Ovary: wnl 4. Left Ovary: Large complex area seen taking up most of the ovary. Ovarian tissue is not well visua lized --- on correlation with the prior CT this may represent the known teratoma Spectral, color and waveform doppler imaging shows good arterial and venous flow within the ovaries ; there is no evidence for ovarian torsion. 5. Bilateral Adnexa: wnl 6. Posterior cul-de-sac: wnl Incidental: debris seen in bladder IMPRESSION: 1. Large complex area seen occupying a majority of the left ovary. Could relate to known teratoma. 2. Preserved color flow with vascular waveforms demonstrated to both ovaries, no evidence of torsion at the time of the exam. 3. Incidental debris seen in the bladder. Could correlate with UA.
[2023-11-18] MEDS: ACETAMINOPHEN TAB 500 MG TAB PO STA (23:00)
[2023-11-19] MEDS: ACET/COD 300 MG/30 MG STARTER PACK 6 TAB BTL PO STA (00:57)
[2023-11-19 01:26] VITALS: BP 112/76; PULSE 71; RESP 18; TEMP 98.2
[2023-11-19 15:27] LABS: C. trachomatis,PCR Negative (Negative); N. gonorrhoeae,PCR Negative (Negative)
== END 2023-11-19 01:05 | disposition home or self-care (01) ==
LOC: EC 17:46
DX: T19.2XXA Foreign body in vulva and vagina, initial encounter (principal); F17.200 Nicotine dependence, unspecified, uncomplicated; Z88.8 Allergy status to other drugs, medicaments and biological substances; W44.8XXA Other foreign body entering into or through a natural orifice, initial encounter
CPT/HCPCS: 76856; 80306; 81001; 81025; 82075; 87491; 87591; 93975; 99285

== ENCOUNTER → 2023-11-21 | Outpatient (CLI) | payer MEDICARE, MEDICAID ==
[2023-11-21 18:47] LABS: Basophils # (A) 0.05 X 10*3/uL (0.00-0.10); Basophils % (A) 0.7 %; Eosinophils # (A) 0.18 X 10*3/uL (0.04-0.35); Eosinophils % (A) 2.3 %; HCT 39.8 % (37.2-46.3); HGB 12.8 g/dL (12.0-15.0); Lymphocytes # (A) 3.06 X 10*3/uL (0.90-5.00); Lymphocytes % (A) 39.9 %; MCH 27.7 pg (27.0-32.0); MCHC 32.2 g/dL (32.0-37.0); MCV 86.1 FL (80.0-97.0); Mean Platelet Volume 8.7 FL (9.5-12.2); Monocytes # (A) 0.45 X 10*3/uL (0.20-1.00); Monocytes % (A) 5.9 %; NRBC Per 100 WBC 0 X 10*3/uL (0.00-0.01); Neutrophils % (A) 50.9 %; Platelet Count 403 X 10*3/uL (140-440); RBC 4.62 X 10*6/uL (4.10-5.20); RDW 14.6 % (11.5-14.5); WBC 7.66 X 10*3/uL (4.50-10.00)
[2023-11-21 18:58] LABS: Blood Urea Nitrogen 10.5 mg/dL (9.0-27.0); Carbon Dioxide 22.1 mmol/L (21.6-31.8); Chloride 104 mmol/L (96-109); Potassium 3.9 mmol/L (3.5-5.5); Sodium 138 mmol/L (135-145)
== END | disposition home or self-care (01) ==
LOC: LABPAT 14:27
PROVIDERS: ATTEND Obstetrics & Gynecology Obstetrics
DX: Z01.812 Encounter for preprocedural laboratory examination (principal); D27.1 Benign neoplasm of left ovary
CPT/HCPCS: 80051; 82565; 84520; 85025; 86850; 86900; 86901; 87086

== ENCOUNTER 2023-11-28 05:47 | Inpatient (IN) | payer MEDICARE, OTHER ==
[2023-11-11 15:23] VITALS: BMI 39.9
[2023-11-28] MEDS ORDERED: LIDOCAINE 1% (10MG/ML) FOR IV START INTRADERMA PRN (05:52)
[2023-11-28] MEDS ORDERED: NORFLURANE/PENTAFLUOROPROPANE 103.5 ML SPRAY (PAIN EASE) TOPICAL ONE (06:44)
[2023-11-28] MEDS ORDERED: MIDAZOLAM 2 MG/2 ML VIAL IV PRN (07:00)
[2023-11-28] MEDS: SCOPOLAMINE 1 MG/72 HR PATCH TRANSDERM ONE (07:18)
[2023-11-28 07:19] LABS: Glucose,Whole Blood 94 mg/dL (70-110)
[2023-11-28] MEDS: LACTATED RINGERS 1,000 ML IV SCH (08:19)
[2023-11-28] MEDS: DEXAMETHASONE SOD PHOSPHATE 4 MG/ML 1 ML VIAL IV ONE (08:19)
[2023-11-28] MEDS ORDERED: NEOSTIGMINE 1 MG/ML 10 ML VIAL ONE (08:30)
[2023-11-28] MEDS ORDERED: ACETAMINOPHEN IV (For NPO) 1,000 MG/100 ML VIAL ONE (08:30)
[2023-11-28] MEDS ORDERED: ROCURONIUM 10 MG/ML (5 ML VIAL) IV ONE (08:30)
[2023-11-28] MEDS ORDERED: fentaNYL (PF) 50 MCG/ML 2 ML AMP ONE (08:30)
[2023-11-28] MEDS ORDERED: LIDOCAINE 1% INJ 10MG/ML (20 ML MDV) ONE (08:30)
[2023-11-28] MEDS ORDERED: MIDAZOLAM 2 MG/2 ML VIAL ONE (08:30)
[2023-11-28] MEDS ORDERED: GLYCOPYRROLATE 0.2 MG/ML 2 ML VIAL ONE (08:30)
[2023-11-28] MEDS ORDERED: SUCCINYLCHOLINE CHLORIDE 200 MG/10 ML VIAL IV ONE (08:30)
[2023-11-28] MEDS ORDERED: PROPOFOL 10 MG/ML 20 ML VIAL IV ONE (08:30)
[2023-11-28] MEDS: SODIUM CHLORIDE 0.9% 100 ML with ceFAZolin 2,000 MG IV ONE (08:34)
--- NOTE | 2023-11-28 08:45 | P.ANPRN ---
Procedure Note - Anesthesia - Invasive Line Right Central Line Time Out Performed: Yes Date of Procedure: 11/28/23 Time of Procedure: 07:45 Location of Patient: PreOp Preparation: Sterile Prep Central Line Location: Internal Jugular Ultrasound Used: Yes Purpose - Visualization and Identification of Vasculature: Yes Image Stored and Saved: Yes Narrative: Invasive line placement per sterile protocol utilized.AttemptX1. CXR checked
--- NOTE | 2023-11-28 09:36 | XR ---
EXAMINATION TYPE: XR chest 1V portable DATE OF EXAM: 11/28/2023 8:35 AM CLINICAL INDICATION:Female, 23 years old with history of COMFIRM CENTRAL LINE PLACEMENT; [facility] COMPARISON: Chest radiographs from 424 TECHNIQUE: XR chest 1V portable Frontal view of the chest. FINDINGS: Lungs/Pleura: There is no evidence of pleural effusion, focal consolidation, or pneumothorax. Pulmonary vascularity: Unremarkable. Heart/mediastinum: Cardiomediastinal silhouette is unremarkable. Musculoskeletal: No acute osseous pathology. Other findings: None Lines/Tubes: Right internal jugular central venous catheter with distal tip at the cavoatrial junction. IMPRESSION: No acute cardiopulmonary disease/process.
[2023-11-28 09:43] LABS: Glucose,Whole Blood 96 mg/dL (70-110)
[2023-11-28] MEDS ORDERED: SIMETHICONE 80 MG CHEWABLE PO PRN (09:43)
[2023-11-28] MEDS ORDERED: ONDANSETRON 4 MG/2 ML VIAL IVP PRN (09:43)
--- NOTE | 2023-11-28 09:43 | P.OP ---
Date of Procedure: 11/28/23 Preoperative Diagnosis: Left ovarian dermoid cyst Postoperative Diagnosis: Same Procedure(s) Performed: Exploratory laparotomy with left salpingo-oophorectomy Anesthesia: MAGDALENOA Surgeon: Daria Rodriges Straight Cutter #1: Froilan Gramajo Estimated Blood Loss (ml): 5 Urine output (ml): 50 Pathology: other (Left ovary and fallopian tube) Condition: stable Disposition: PACU Indications for Procedure: Enlarged left ovary with approximately 9 cm dermoid cyst Operative Findings: Enlarged left ovary with dermoid cyst Description of Procedure: Patient was taken back to the operating suite and general anesthesia was obtained without difficulty by the anesthesia department. Anesthesia did have difficulty with IV access therefore central line was placed. Patient was prepped and draped in the normal sterile fashion in the dorsal supine position. Gibbons catheter was placed under sterile technique. A Pfannenstiel skin incision was made with a scalpel and carried through the underlying layer of fascia. The fascia was incised in the midline and extended laterally. The superior aspect of the fascial incision was grasped with Haseeb clamps, elevated and the underlying rectus muscles dissected off sharply. The inferior aspect of the fascial incision was then grasped with Haseeb clamps, elevated and the underlying rectus muscle was dissected off sharply. The rectus muscles were in the midline the peritoneum was identified and entered. Pelvic washings were then obtained. The left ovary was noted to be enlarged smooth capsule and elevated out of the incision. A Beth clamp was placed along the utero-ovarian ligament and infundibulopelvic ligament. The ovary was sharply transected and the pedicles were suture-ligated. Hemostasis was appreciated. The ovary was noted to be small and infantile, normal right ovary was appreciated. No bleeding was noted from the pedicle sites all instruments were then removed from the patient's abdomen. The rectus muscles were loosely reapproximated and found to be hemostatic. The fascia was closed with 0 Vicryl in a running fashion from 1 lateral edge to the other. The subcutaneous tissue was irrigated found to be hemostatic and closed with 3-0 Vicryl in a running fashion. The skin was closed with 4-0 Vicryl in a subcuticular fashion. Steri- Strips and sterile dressings were applied. All counts were to be correct x 2 and the patient tolerated procedure well. She was taken to the recovery room awake in stable condition.
[2023-11-28] MEDS: HYDROmorphone 0.5 MG/0.5 ML SYRINGE IVP PRN (09:46)
[2023-11-28] MEDS ORDERED: NON FORMULARY DRUG (Lidocaine/Menthol [Lidocaine-Menthol 4%-1% Patch] 1 EACH Patch) TRANSDERM PRN (11:39)
[2023-11-28] MEDS ORDERED: HYDROmorphone 0.5 MG/0.5 ML SYRINGE IVP PRN (12:03)
[2023-11-28] MEDS: Pre Op ABX Message 1 EACH MISC MISCELLANE ONE (12:33)
[2023-11-28] MEDS: ONDANSETRON 4 MG/2 ML VIAL IVP ONE (12:33)
[2023-11-28] MEDS: ACETAMINOPHEN IV (For NPO) 1,000 MG in EMPTY BAG 1 BAG IVPB ONE (13:12)
[2023-11-28] MEDS: NICOTINE 21MG/24HR PATCH TRANSDERM SCH (13:12)
[2023-11-28] MEDS: IBUPROFEN IV 800 MG in SODIUM CHLORIDE 0.9% 250 ML IV ONE (14:12)
[2023-11-28] MEDS: Acetaminophen-Codeine 300-30mg TAB PO PRN (17:49)
[2023-11-28] MEDS: IBUPROFEN 600 MG TAB PO PRN (20:23)
[2023-11-28] MEDS: SERTRALINE 100 MG TAB PO SCH (20:23)
[2023-11-28] MEDS: busPIRone HCl 10 MG TAB PO SCH (20:23)
[2023-11-28] MEDS: SENNOSIDES-DOCUSATE SODIUM 1 EACH TAB PO SCH (20:24)
[2023-11-28] MEDS: FAMOTIDINE 20 MG TAB PO SCH (20:24)
[2023-11-28] MEDS: ARIPiprazole 15 MG TAB PO SCH (20:24)
[2023-11-28] MEDS: lamoTRIgine 25 MG TAB PO SCH (20:24)
[2023-11-28] MEDS: traZODone HCL 100 MG TAB PO PRN (20:24)
[2023-11-28] MEDS: PRAZOSIN 1 MG CAP PO SCH (20:26)
[2023-11-29] MEDS: PANTOPRAZOLE 40 MG TABLET PO SCH (06:47)
--- NOTE | 2023-11-29 08:17 | P.PN ---
Subjective Progress Note Date: 11/29/23 Principal diagnosis: POD#1 s/p Exploratory laparotomy with left salpingo-oophorectomy The patient is doing well this morning and had no acute events overnight. She has no complaints this morning. She has yet to ambulate or void. Catheter was removed this morning. She is tolerating PO without nausea or vomiting. Pain is controlled. She denies chest pain, shortness of breathing, fevers, or chills overnight. She denies pain or swelling in the legs. Objective - Vital Signs Vital signs: Vital Signs Temp 97.5 F L 11/29/23 06:50 Pulse 84 11/29/23 06:50 Resp 16 11/29/23 06:50 BP 108/71 11/29/23 06:50 Pulse Ox 93 L 11/29/23 06:50 FiO2 Intake & Output 11/28/23 11/29/23 11/29/23 18:59 06:59 18:59 Intake Total 1000 Output Total 55 1450 Balance 945 -1450 Weight 100.2 kg Intake: IV 1000 Output: Urine 50 1450 Estimated Blood Loss 5 Other: Voiding Method Indwelling Catheter # Voids 460 - Exam Focused physical exam was performed. This is a healthy-appearing female. Breathing is nonlabored. Abdomen is soft and appropriately tender. Incision is clean dry and intact. Extremities are nonedematous and nontender. Assessment and Plan Assessment: 23 year old G0 POD#1 s/p Exploratory laparotomy with left salpingo-oophorectomy Plan: 1. Postoperative. Meeting all postoperative milestones appropriately. Continue to monitor for void and encourage ambulation. Dispo: Anticipate discharge home on POD#3 Time with Patient: Less than 30
[2023-11-29] MEDS: LORATADINE 10 MG TAB PO SCH (09:20)
[2023-11-29] MEDS: ISIBLOOM PO SCH (09:22)
[2023-11-29] MEDS ORDERED: ACETAMINOPHEN TAB 325 MG TAB PO PRN (09:44)
[2023-11-29] MEDS: Acetaminophen-Codeine 300-30mg TAB PO PRN (22:19)
--- NOTE | 2023-11-30 08:46 | P.PN ---
Subjective Progress Note Date: 11/30/23 Principal diagnosis: POD#1 s/p Exploratory laparotomy with left salpingo-oophorectomy The patient is doing well this morning and had no acute events overnight. She has no complaints this morning. She is ambulating and voiding spontaenously. She is passing flatus and having BMs. She is tolerating PO without nausea or vomiting. Pain is controlled. She denies chest pain, shortness of breathing, fevers, or chills overnight. She denies pain or swelling in the legs. Objective - Vital Signs Vital signs: Vital Signs Temp 98.0 F 11/30/23 07:20 Pulse 75 11/30/23 07:20 Resp 16 11/30/23 07:20 BP 100/70 11/30/23 07:20 Pulse Ox 100 11/30/23 07:20 FiO2 Intake & Output 11/29/23 11/30/23 11/30/23 18:59 06:59 18:59 Intake Total 300 Balance 300 Intake: Oral 300 Other: Voiding Method Indwelling Catheter Toilet # Voids 1 1 - Exam Focused physical exam was performed. This is a healthy-appearing female. Breathing is nonlabored. Abdomen is soft and appropriately tender. Incision is clean dry and intact. Extremities are nonedematous and nontender. Assessment and Plan Assessment: 23 year old G0 POD#2 s/p Exploratory laparotomy with left salpingo-oophorectomy Plan: 1. Postoperative. Meeting all postoperative milestones appropriately. Dispo: Anticipate discharge home on POD#3 Time with Patient: Less than 30
[2023-12-01 08:16] VITALS: RESP 15
--- NOTE | 2023-12-01 11:58 | P.DS ---
Providers Date of admission: 11/28/23 05:47 Expected date of discharge: 12/01/23 Attending physician: Daria Rodriges Primary care physician: Patrica Camacho - Yomaira Diagnosis(es) (1) Dermoid cyst of left ovary Current Visit: Yes Status: Acute (2) S/P exploratory laparotomy Current Visit: Yes Status: Acute Hospital Course: 23-year-old female that presented to the hospital on 11/27 for scheduled exploratory laparotomy with left salpingo-oophorectomy. Patient had noted 9 cm dermoid cyst. Patient lives in a custodial currently, and has multiple mood disorders. Patient underwent exploratory laparotomy without difficulty dermoid cyst was removed intact and sent to pathology for analysis. Patient's postoperative course has been uneventful. We are awaiting rehab facility for continued postoperative care. Patient is feeling well on this postoperative day #3 she is ambulating and voiding without difficulty. She is tolerating a regular diet and denies concerns. She states she would like to be discharged home. Awaiting guidance from social work given need for rehab facility versus going home to her custodial. Patient Condition at Discharge: Good Plan - Discharge Summary Discharge Rx Participant: Yes New Discharge Prescriptions: No Action Cholecalciferol (Vitamin D3) [Vitamin D3 (5000 Iu)] 125 mcg PO DAILY@0800 Isibloom 1 tab PO DAILY@0800 Benzocaine 20 % Gel [Orajel] 1 applic DENTAL DIRECTED PRN PRN Reason: tooth & mouth pain busPIRone HCL [Buspar] 30 mg PO BID@0800,2100 30 Days #60 tab Cetirizine HCl 10 mg PO DAILY@0800 30 Days #30 tab Ibuprofen 800 mg PO Q8H PRN PRN Reason: Pain ARIPiprazole [Abilify] 30 mg PO HS@2100 Famotidine [Pepcid] 20 mg PO HS@2100 lamoTRIgine [LaMICtal] 50 mg PO HS@2100 Ondansetron Odt [Zofran Odt] 4 mg PO Q8H PRN PRN Reason: Nausea Prazosin [Minipress] 5 mg PO HS@2100 Sertraline [Zoloft] 100 mg PO HS@2100 Calcium Carbonate [Calcium] 600 mg PO DAILY@0800 Lidocaine/Menthol [Lidocaine-Menthol 4%-1% Patch] 1 patch TRANSDERM Q12H PRN PRN Reason: Pain traZODone HCL [Desyrel] 100 mg PO HS PRN 30 Days #30 tab PRN Reason: Insomnia Omeprazole 20 mg PO BID@00,2099 30 Days #60 cap Discharge Medication List Cholecalciferol (Vitamin D3) [Vitamin D3 (5000 Iu)] 125 mcg PO DAILY@0800 08/21/20 [History] Calcium Carbonate [Calcium] 600 mg PO DAILY@0800 12/09/21 [History] Lidocaine/Menthol [Lidocaine-Menthol 4%-1% Patch] 1 patch TRANSDERM Q12H PRN 05/15/23 [History] Benzocaine 20 % Gel [Orajel] 1 applic DENTAL DIRECTED PRN 10/11/23 [History] Isibloom 1 tab PO DAILY@0810/11/23 [History] Cetirizine HCl 10 mg PO DAILY@0800 30 Days #30 tab 10/16/23 [Rx] Omeprazole 20 mg PO BID@0800,2099 30 Days #60 cap 10/16/23 [Rx] busPIRone HCL [Buspar] 30 mg PO BID@799,2099 30 Days #60 tab 10/16/23 [Rx] traZODone HCL [Desyrel] 100 mg PO HS PRN 30 Days #30 tab 10/16/23 [Rx] Ibuprofen 800 mg PO Q8H PRN 11/11/23 [History] ARIPiprazole [Abilify] 30 mg PO HS@209911/18/23 [History] Famotidine [Pepcid] 20 mg PO HS@209911/18/23 [History] Ondansetron Odt [Zofran Odt] 4 mg PO Q8H PRN 11/18/23 [History] Prazosin [Minipress] 5 mg PO HS@209911/18/23 [History] Sertraline [Zoloft] 100 mg PO HS@209911/18/23 [History] lamoTRIgine [LaMICtal] 50 mg PO HS@209911/18/23 [History] Follow up Appointment(s)/Referral(s): [facility], [NON-STAFF] - As Needed Patient Instructions/Handouts: Exploratory Laparotomy (DC), Exploratory Laparotomy (GEN) Activity/Diet/Wound Care/Special Instructions: No intercourse, tampons. No heavy lifting greater than a gallon of milk. No driving for two weeks. Call with any fever, shakes or chills, with any pain not alleviated by over the counter meds, or with any quesions or concerns. Discharge Disposition: HOME SELF-CARE
[2023-12-01 14:31] VITALS: BP 107/71; PULSE 71
[2023-12-01 14:32] VITALS: TEMP 98
== END 2023-12-01 16:31 | disposition home or self-care (01) | DRG 743 ==
LOC: 2ORMAIN 05:47 → 4SSUR 11:53
PROVIDERS: ADMIT Obstetrics & Gynecology Obstetrics; ATTEND Obstetrics & Gynecology Obstetrics
PROC: 0UT10ZZ Resection of Left Ovary, Open Approach (ICD-10-PCS; 2023-11-28)
PROC: 02HV33Z Insertion of Infusion Device into Superior Vena Cava, Percutaneous Approach (ICD-10-PCS; 2023-11-28)
PROC: B548ZZA Ultrasonography of Superior Vena Cava, Guidance (ICD-10-PCS; 2023-11-28)
PROC: B5181ZA Fluoroscopy of Superior Vena Cava using Low Osmolar Contrast, Guidance (ICD-10-PCS; 2023-11-28)
PROC: 0UT60ZZ Resection of Left Fallopian Tube, Open Approach (ICD-10-PCS; principal; 2023-11-28 07:30)
DX: D27.1 Benign neoplasm of left ovary (principal); F90.9 Attention-deficit hyperactivity disorder, unspecified type; F41.9 Anxiety disorder, unspecified; F32.9 Major depressive disorder, single episode, unspecified; E55.9 Vitamin D deficiency, unspecified
CPT/HCPCS: 71045; 81025; 88108; 88305

== ENCOUNTER 2024-03-20 12:18 | Emergency (ER) | payer MEDICARE, MEDICAID ==
[2024-03-20] MEDS ORDERED: ACETAMINOPHEN TAB 500 MG TAB ONE (12:45)
[2024-03-20] MEDS ORDERED: KETOROLAC 15 MG/ML 1 ML VIAL ONE (14:06)
== END 2024-03-20 14:15 | disposition home or self-care (01) ==
LOC: EC 12:18
DX: N94.6 Dysmenorrhea, unspecified (principal)
CPT/HCPCS: 99283

== ENCOUNTER 2024-05-17 00:44 | Emergency (ER) | payer MEDICARE, OTHER ==
[2024-05-17 00:50] VITALS: TEMP 98.1
--- NOTE | 2024-05-17 01:03 | ED ---
ENT HPI - General Chief complaint: Dental/Oral Stated complaint: dental pain Time Seen by Provider: 05/17/24 00:53 Source: patient Mode of arrival: ambulatory Limitations: no limitations - History of Present Illness Initial comments: 23-year-old female presenting chief complaint of dental pain. Patient has a pre-existing broken tooth on the right lower side that is causing her pain today. She has been taking ibuprofen at home. She does follow-up with a dentist. No fevers or chills. No difficulty breathing or swallowing. No drooling or trismus. - Related Data Home Medications Medication Instructions Recorded Confirmed Cholecalciferol (Vitamin D3) 125 mcg PO DAILY@0800 08/21/20 11/28/23 [Vitamin D3 (5000 Iu)] Calcium Carbonate [Calcium] 600 mg PO DAILY@0800 12/09/21 11/28/23 Lidocaine/Menthol 1 patch TRANSDERM Q12H PRN 05/15/23 11/28/23 [Lidocaine-Menthol 4%-1% Patch] Benzocaine 20 % Gel [Orajel] 1 applic DENTAL DIRECTED PRN 10/11/23 11/28/23 Isibloom 1 tab PO DAILY@79910/11/23 11/28/23 Ibuprofen 800 mg PO Q8H PRN 11/11/23 11/28/23 ARIPiprazole [Abilify] 30 mg PO HS@209911/18/23 11/28/23 Famotidine [Pepcid] 20 mg PO HS@209911/18/23 11/28/23 Ondansetron Odt [Zofran Odt] 4 mg PO Q8H PRN 11/18/23 11/28/23 Prazosin [Minipress] 5 mg PO HS@209911/18/23 11/28/23 Sertraline [Zoloft] 100 mg PO HS@209911/18/23 11/28/23 lamoTRIgine [LaMICtal] 50 mg PO HS@209911/18/23 11/28/23 Previous Rx's Medication Instructions Recorded Cetirizine HCl 10 mg PO DAILY@0800 30 Days #30 tab 10/16/23 Omeprazole 20 mg PO BID@0800,2099 30 Days #60 10/16/23 cap busPIRone HCL [Buspar] 30 mg PO BID@0800,2099 30 Days #60 10/16/23 tab traZODone HCL [Desyrel] 100 mg PO HS PRN 30 Days #30 tab 10/16/23 Amoxic-Pot Clav 875-125Mg 1 tab PO Q12HR 7 Days #14 tab 05/17/24 [Augmentin 875-125] Allergies Allergy/AdvReac Type Severity Reaction Status Date / Time amphetamine [From Adderall] Allergy Unknown Verified 05/17/24 00:50 citalopram [From Celexa] Allergy Unknown Verified 05/17/24 00:50 dextroamphetamine Allergy Unknown Verified 05/17/24 00:50 [From Adderall] Review of Systems ROS Statement: Those systems with pertinent positive or pertinent negative responses have been documented in the HPI. ROS Other: All systems not noted in ROS Statement are negative. Past Medical History Past Medical History: No Reported History Additional Past Medical History / Comment(s): cyst left ovary and abdominal pain, psuedoseizures,prediabetes,urinary incontinence,vit d def, vulvarian cyst,foot fungus in past,bedwetting History of Any Multi-Drug Resistant Organisms: None Reported Past Surgical History: No Surgical Hx Reported Past Anesthesia/Blood Transfusion Reactions: No Reported Reaction Additional Past Anesthesia/Blood Transfusion Reaction / Comment(s): no known hx blood transfusion Past Psychological History: ADD/ADHD, Anxiety, Bipolar, Depression, PTSD Smoking Status: Current every day smoker Past Alcohol Use History: Occasional Past Drug Use History: Marijuana - Past Family History Mother History Unknown: Yes Additional Family Medical History / Comment(s): States mother when she was being born and was brought back General Exam Limitations: no limitations General appearance: alert Head exam: Present: atraumatic, normocephalic, normal inspection Eye exam: Present: normal appearance, EOMI Expanded Mouth exam: Present: tongue normal. Absent: drooling, trismus, muffled voice Teeth exam: Present: dental caries, fractured tooth # Throat exam: normal inspection Neck exam: Present: normal inspection. Absent: meningismus Respiratory exam: Absent: respiratory distress, stridor Cardiovascular Exam: Present: regular rate Neurological exam: Present: alert, oriented X3 Psychiatric exam: Present: normal affect, normal mood Skin exam: Present: warm, dry Course Vital Signs 05/17/24 05/17/24 00:47 01:39 Temperature 98.1 F 98.1 F Pulse Rate 93 88 Respiratory 18 19 Rate Blood Pressure 123/84 124/82 O2 Sat by Pulse 98 97 Oximetry Medical Decision Making - Medical Decision Making Was pt. sent in by a medical professional or institution (, JOHANNA, MANDATE RETAIL SERVICE MERCHANDISER, urgent care, hospital, or care home...) When possible be specific @ -No Did you speak to anyone other than the patient for history (EMS, parent, family, police, friend...)? What history was obtained from this source @ -No Did you review nursing and triage notes (agree or disagree)? Why? @ -I reviewed and agree with nursing and triage notes Were old charts reviewed (outside hosp., previous admission, EMS record, old EKG, old radiological studies, urgent care reports/EKG's, care home records)? Report findings @ -No old charts were reviewed Differential Diagnosis (chest pain, altered mental status, abdominal pain women, abdominal pain men, vaginal bleeding, weakness, fever, dyspnea, syncope, headache, dizziness, GI bleed, back pain, seizure, CVA, palpatations, mental health, musculoskeletal)? @ -Differential includes toothache, dental abscess, Carlos's angina, this is not an all-inclusive list EKG interpreted by me (3pts min.). @ -As above X-rays interpreted by me (1pt min.). @ -None done CT interpreted by me (1pt min.). @ -None done U/S interpreted by me (1pt. min.). @ -None done What testing was considered but not performed or refused? (CT, X-rays, U/S, labs)? Why? @ -None What meds were considered but not given or refused? Why? @ -None Did you discuss the management of the patient with other professionals (professionals i.e. JOHANNA Poe, MANDATE RETAIL SERVICE MERCHANDISER, lab, RT, psych nurse, social service technician, cyber transport systems specialist, teacher, mortgage loan officer originator, transplant case manager)? Give summary @ -No Was smoking cessation discussed for >3mins.? @ -No Was critical care preformed (if so, how long)? @ -No Were there social determinants of health that impacted care today? How? (Homelessness, low income, unemployed, alcoholism, drug addiction, transportation, low edu. Level, literacy, decrease access to med. care, group home, rehab)? @ -No Was there de-escalation of care discussed even if they declined (Discuss DNR or withdrawal of care, Hospice)? DNR status @ -No What co-morbidities impacted this encounter? (DM, HTN, Smoking, COPD, CAD, Cancer, CVA, ARF, Chemo, Hep., AIDS, mental health diagnosis, sleep apnea, morbid obesity)? @ -None Was patient admitted / discharged? Hospital course, mention meds given and route, prescriptions, significant lab abnormalities, going to OR and other pertinent info. @ -23-year-old female with dental pain. On exam she does have a fractured tooth on the right lower side that is causing her pain. No red flag symptoms. Patient will be treated with Toradol and Augmentin. Instructed to follow-up with her dentist. Follow-up with PCP. Report back to ER with any new or worsening symptoms. Discussed return parameters and answered all questions. Patient conveyed verbal understanding and agreed to the plan. I discussed this case in detail with my attending Dr. Interiano Undiagnosed new problem with uncertain prognosis? @ -No Drug Therapy requiring intensive monitoring for toxicity (Heparin, Nitro, Insulin, Cardizem)? @ -No Were any procedures done? @ -No Diagnosis/symptom? @ -Toothache, dental abscess Acute, or Chronic, or Acute on Chronic? @ -Acute Uncomplicated (without systemic symptoms) or Complicated (systemic symptoms)? @ -Uncomplicated Side effects of treatment? @ -No Exacerbation, Progression, or Severe Exacerbation? @ -No Poses a threat to life or bodily function? How? (Chest pain, USA, [place], pneumonia, PE, COPD, DKA, ARF, appy, cholecystitis, CVA, Diverticulitis, Homicidal, Suici miguelina, threat to staff... and all critical care pts) @ -Unlikely Disposition Clinical Impression: Toothache, Dental abscess Disposition: HOME SELF-CARE Condition: Good Instructions (If sedation given, give patient instructions): Dental Abscess (ED), Toothache (ED) Additional Instructions: Please follow up with the [facility]. [facility] [place] [address]. Phone number for new patients or [phone] for existing patients. Prescriptions: Amoxic-Pot Clav 875-125Mg [Augmentin 875-125] 1 tab PO Q12HR 7 Days #14 tab Is patient prescribed a controlled substance at d/c from ED?: No Referrals: Patrica Camacho MD [Primary Care Provider] - 1-2 days Time of Disposition: 01:03
[2024-05-17] MEDS: KETOROLAC 15 MG/ML 1 ML VIAL IM STA (01:32)
[2024-05-17] MEDS: AMOXIC-POT CLAV 875MG STARTER PACK 2 TAB BTL PO STA (01:33)
[2024-05-17 01:41] VITALS: BP 124/82; PULSE 88; RESP 19
== END 2024-05-17 01:39 | disposition home or self-care (01) ==
LOC: EC 00:44
CPT/HCPCS: 96372; 99282

== ENCOUNTER 2024-06-11 00:42 | Emergency (ER) | payer MEDICARE, OTHER ==
[2024-06-11 00:48] VITALS: BP 127/91; PULSE 81; RESP 18; TEMP 97.4
[2024-06-11] MEDS: IBUPROFEN 800 MG TAB PO STA (01:12)
[2024-06-11] MEDS: ACETAMINOPHEN TAB 500 MG TAB PO STA (01:12)
--- NOTE | 2024-06-11 01:16 | ED ---
General Adult HPI - General Chief complaint: Back Pain/Injury Stated complaint: Back Pain Time Seen by Provider: 06/11/24 00:57 Source: patient, RN notes reviewed Mode of arrival: ambulatory - History of Present Illness Initial comments: 23-year-old female presents to the emergency department for evaluation of low back pain. Patient states that she has been sleeping on the floor because her bed is very uncomfortable. She states that since then she has had some discomfort in her low back. She denies any radiation of the pain. She reports that pain is worse after she sleeps on the floor. She denies any urinary symptoms. Denies recent fever, chills. She denies any loss of bowel or bladder function, saddle anesthesia, urinary retention. Denies any new trauma to the area. Patient is requesting ibuprofen. - Related Data Home Medications Medication Instructions Recorded Confirmed Cholecalciferol (Vitamin D3) 125 mcg PO DAILY@0800 08/21/20 11/28/23 [Vitamin D3 (5000 Iu)] Calcium Carbonate [Calcium] 600 mg PO DAILY@0812/09/21 11/28/23 Lidocaine/Menthol 1 patch TRANSDERM Q12H PRN 05/15/23 11/28/23 [Lidocaine-Menthol 4%-1% Patch] Benzocaine 20 % Gel [Orajel] 1 applic DENTAL DIRECTED PRN 10/11/23 11/28/23 Isibloom 1 tab PO DAILY@79910/11/23 11/28/23 Ibuprofen 800 mg PO Q8H PRN 11/11/23 11/28/23 ARIPiprazole [Abilify] 30 mg PO HS@209911/18/23 11/28/23 Famotidine [Pepcid] 20 mg PO HS@209911/18/23 11/28/23 Ondansetron Odt [Zofran Odt] 4 mg PO Q8H PRN 11/18/23 11/28/23 Prazosin [Minipress] 5 mg PO HS@209911/18/23 11/28/23 Sertraline [Zoloft] 100 mg PO HS@209911/18/23 11/28/23 lamoTRIgine [LaMICtal] 50 mg PO HS@209911/18/23 11/28/23 Previous Rx's Medication Instructions Recorded Cetirizine HCl 10 mg PO DAILY@0800 30 Days #30 tab 10/16/23 Omeprazole 20 mg PO BID@0800,2099 30 Days #60 10/16/23 cap busPIRone HCL [Buspar] 30 mg PO BID@0800,2099 30 Days #60 10/16/23 tab traZODone HCL [Desyrel] 100 mg PO HS PRN 30 Days #30 tab 10/16/23 Amoxic-Pot Clav 875-125Mg 1 tab PO Q12HR 7 Days #14 tab 05/17/24 [Augmentin 875-125] Allergies Allergy/AdvReac Type Severity Reaction Status Date / Time amphetamine [From Adderall] Allergy Unknown Verified 06/11/24 00:49 citalopram [From Celexa] Allergy Unknown Verified 06/11/24 00:49 dextroamphetamine Allergy Unknown Verified 06/11/24 00:49 [From Adderall] Review of Systems ROS Statement: Those systems with pertinent positive or pertinent negative responses have been documented in the HPI. ROS Other: All systems not noted in ROS Statement are negative. Past Medical History Past Medical History: No Reported History Additional Past Medical History / Comment(s): cyst left ovary and abdominal pain, psuedoseizures,prediabetes,urinary incontinence,vit d def, vulvarian cyst,foot fungus in past,bedwetting History of Any Multi-Drug Resistant Organisms: None Reported Past Surgical History: No Surgical Hx Reported Past Anesthesia/Blood Transfusion Reactions: No Reported Reaction Additional Past Anesthesia/Blood Transfusion Reaction / Comment(s): no known hx blood transfusion Past Psychological History: ADD/ADHD, Anxiety, Bipolar, Depression, PTSD Smoking Status: Current every day smoker, Vaper Past Alcohol Use History: Occasional Past Drug Use History: Marijuana - Past Family History Mother History Unknown: Yes Additional Family Medical History / Comment(s): States mother when she was being born and was brought back General Exam Limitations: no limitations General appearance: alert, in no apparent distress Head exam: Present: atraumatic, normocephalic, normal inspection Eye exam: Present: normal appearance, PERRL, EOMI. Absent: scleral icterus, conjunctival injection, periorbital swelling ENT exam: Present: normal exam, mucous membranes moist Neck exam: Present: normal inspection. Absent: tenderness, meningismus, lymphadenopathy Respiratory exam: Present: normal lung sounds bilaterally. Absent: respiratory distress, wheezes, rales, rhonchi, stridor Cardiovascular Exam: Present: regular rate, normal rhythm, normal heart sounds. Absent: systolic murmur, diastolic murmur, rubs, gallop, clicks GI/Abdominal exam: Present: soft. Absent: distended, tenderness, guarding, rebound, rigid Extremities exam: Present: normal inspection, full ROM, normal capillary refill. Absent: tenderness, pedal edema, joint swelling, calf tenderness Neurological exam: Present: alert, oriented X3 Psychiatric exam: Present: normal affect, normal mood Skin exam: Present: warm, dry, intact, normal color. Absent: rash Course Vital Signs 06/11/24 00:45 Temperature 97.4 F L Pulse Rate 81 Respiratory 18 Rate Blood Pressure 127/91 O2 Sat by Pulse 100 Oximetry Medical Decision Making - Medical Decision Making Was pt. sent in by a medical professional or institution (, PA, REGISTERED MAIL CLERK, urgent care, hospital, or assisted...) When possible be specific @ -No Did you speak to anyone other than the patient for history (EMS, parent, family, police, friend...)? What history was obtained from this source @ -No Did you review nursing and triage notes (agree or disagree)? Why? @ -I reviewed and agree with nursing and triage notes Were old charts reviewed (outside hosp., previous admission, EMS record, old EKG, old radiological studies, urgent care reports/EKG's, assisted records)? Report findings @ -No old charts were reviewed Differential Diagnosis (chest pain, altered mental status, abdominal pain women, abdominal pain men, vaginal bleeding, weakness, fever, dyspnea, syncope, headache, dizziness, GI bleed, back pain, seizure, CVA, palpatations, mental health, musculoskeletal)? @ -Differential Back Pain: Strain, zoster, cauda equina syndrome, epidural abscess, vertebral osteomyelitis, discitis, fracture, subluxation, disc herniation, DJD, spinal stenosis, dissection, AAA, pancreatitis, peptic ulcer disease, pyelonephritis, kidney stone, this is not meant to be an all-inclusive list. EKG interpreted by me (3pts min.). @ -None X-rays interpreted by me (1pt min.). @ -None done CT interpreted by me (1pt min.). @ -None done U/S interpreted by me (1pt. min.). @ -None done What testing was considered but not performed or refused? (CT, X-rays, U/S, labs)? Why? @ -X-rays considered patient has had no new trauma, no red flag symptoms What meds were considered but not given or refused? Why? @ -None Did you discuss the management of the patient with other professionals (professionals i.e. Dr., PA, REGISTERED MAIL CLERK, lab, RT, psych nurse, psychologist social, parts product analyst, teacher, security officer, gearcase assembler)? Give summary @ -No Was smoking cessation discussed for >3mins.? @ -No Was critical care preformed (if so, how long)? @ -No Were there social determinants of health that impacted care today? How? (Homelessness, low income, unemployed, alcoholism, drug addiction, transportation, low edu. Level, literacy, decrease access to med. care, skilled nursing, rehab)? @ -No Was there de-escalation of care discussed even if they declined (Discuss DNR or withdrawal of care, Hospice)? DNR status @ -No What co-morbidities impacted this encounter? (DM, HTN, Smoking, COPD, CAD, Cancer, CVA, ARF, Chemo, Hep., AIDS, mental health diagnosis, sleep apnea, mor bid obesity)? @ -None Was patient admitted / discharged? Hospital course, mention meds given and route, prescriptions, significant lab abnormalities, going to OR and other pertinent info. @ -Discharged. Patient presented to the emergency department for evaluation of low back pain. She does not have any red flag symptoms at this time, no trauma.. Patient will be provided ibuprofen and Tylenol at the patient's request. She will be discharged home. Patient understanding agreeable to plan. Discussed with Dr. Horner Undiagnosed new problem with uncertain prognosis? @ -No Drug Therapy requiring intensive monitoring for toxicity (Heparin, Nitro, Insulin, Cardizem)? @ -No Were any procedures done? @ -No Diagnosis/symptom? @ -Low back pain Acute, or Chronic, or Acute on Chronic? @ -Acute Uncomplicated (without systemic symptoms) or Complicated (systemic symptoms)? @ -Uncomplicated Side effects of treatment? @ -No Exacerbation, Progression, or Severe Exacerbation? @ -No Poses a threat to life or bodily function? How? (Chest pain, [place], [place], pneumonia, PE, COPD, DKA, ARF, appy, cholecystitis, CVA, Diverticulitis, Homicidal, Suicidal, threat to staff... and all critical care pts) @ -No Disposition Clinical Impression: Strain of lumbar region Disposition: HOME SELF-CARE Condition: Stable Instructions (If sedation given, give patient instructions): Acute Low Back Pain (ED) Additional Instructions: Please follow up with your primary care provider. Return to the emergency department for new or worsening symptoms. Is patient prescribed a controlled substance at d/c from ED?: No Referrals: Patrica Camacho MD [Primary Care Provider] - 1-2 days
== END 2024-06-11 01:21 | disposition home or self-care (01) ==
LOC: EC 00:42
DX: S39.012A Strain of muscle, fascia and tendon of lower back, initial encounter (principal); F17.290 Nicotine dependence, other tobacco product, uncomplicated; Z88.8 Allergy status to other drugs, medicaments and biological substances; X58.XXXA Exposure to other specified factors, initial encounter
CPT/HCPCS: 99283

== ENCOUNTER 2024-07-24 09:53 | Emergency (ER) | payer MEDICARE, OTHER ==
[2024-07-24 10:02] VITALS: BP 130/78; PULSE 96; RESP 20; TEMP 97.5
--- NOTE | 2024-07-24 10:13 | ED ---
General Adult HPI - General Chief complaint: Shortness of Breath Stated complaint: JOHN Time Seen by Provider: 07/24/24 10:12 Source: patient, RN notes reviewed Mode of arrival: ambulatory - History of Present Illness Initial comments: Quick note: 23-year-old female presents to the emergency department for evaluation of difficulty breathing. She states it is worse when she is lying on her side. Admits to cough. - Related Data Home Medications Medication Instructions Recorded Confirmed Cholecalciferol (Vitamin D3) 125 mcg PO DAILY@0800 08/21/20 11/28/23 [Vitamin D3 (5000 Iu)] Calcium Carbonate [Calcium] 600 mg PO DAILY@0812/09/21 11/28/23 Lidocaine/Menthol 1 patch TRANSDERM Q12H PRN 05/15/23 11/28/23 [Lidocaine-Menthol 4%-1% Patch] Benzocaine 20 % Gel [Orajel] 1 applic DENTAL DIRECTED PRN 10/11/23 11/28/23 Isibloom 1 tab PO DAILY@79910/11/23 11/28/23 Ibuprofen 800 mg PO Q8H PRN 11/11/23 11/28/23 ARIPiprazole [Abilify] 30 mg PO HS@209911/18/23 11/28/23 Famotidine [Pepcid] 20 mg PO HS@209911/18/23 11/28/23 Ondansetron Odt [Zofran Odt] 4 mg PO Q8H PRN 11/18/23 11/28/23 Prazosin [Minipress] 5 mg PO HS@209911/18/23 11/28/23 Sertraline [Zoloft] 100 mg PO HS@209911/18/23 11/28/23 lamoTRIgine [LaMICtal] 50 mg PO HS@209911/18/23 11/28/23 Previous Rx's Medication Instructions Recorded Cetirizine HCl 10 mg PO DAILY@0800 30 Days #30 tab 10/16/23 Omeprazole 20 mg PO BID@0800,2099 30 Days #60 10/16/23 cap busPIRone HCL [Buspar] 30 mg PO BID@0800,2099 30 Days #60 10/16/23 tab traZODone HCL [Desyrel] 100 mg PO HS PRN 30 Days #30 tab 10/16/23 Amoxic-Pot Clav 875-125Mg 1 tab PO Q12HR 7 Days #14 tab 05/17/24 [Augmentin 875-125] Allergies Allergy/AdvReac Type Severity Reaction Status Date / Time amphetamine [From Adderall] Allergy Unknown Verified 07/24/24 10:02 citalopram [From Celexa] Allergy Unknown Verified 07/24/24 10:02 dextroamphetamine Allergy Unknown Verified 07/24/24 10:02 [From Adderall] Review of Systems ROS Statement: Those systems with pertinent positive or pertinent negative responses have been documented in the HPI. ROS Other: All systems not noted in ROS Statement are negative. Past Medical History Past Medical History: No Reported History Additional Past Medical History / Comment(s): cyst left ovary and abdominal pain, psuedoseizures,prediabetes,urinary incontinence,vit d def, vulvarian cyst,foot fungus in past,bedwetting History of Any Multi-Drug Resistant Organisms: None Reported Past Surgical History: No Surgical Hx Reported Past Anesthesia/Blood Transfusion Reactions: No Reported Reaction Additional Past Anesthesia/Blood Transfusion Reaction / Comment(s): no known hx blood transfusion Past Psychological History: ADD/ADHD, Anxiety, Bipolar, Depression, PTSD Smoking Status: Current every day smoker, Vaper Past Alcohol Use History: None Reported, Occasional Past Drug Use History: Marijuana - Past Family History Mother History Unknown: Yes Additional Family Medical History / Comment(s): States mother when she was being born and was brought back General Exam - General Exam Comments Initial Comments: Visual Physical Exam Vital signs reviewed General: Well-appearing, nontoxic, no acute distress. Head: Normocephalic, atraumatic Eyes: PERRLA, EOMI ENT: Airway patent Chest: Nonlabored breathing Skin: No visual rash, normal skin tone Neuro: Alert and oriented 3 Musculoskeletal: No gross abnormalities Course Vital Signs 07/24/24 09:59 Temperature 97.5 F L Pulse Rate 96 Respiratory 20 Rate Blood Pressure 130/78 O2 Sat by Pulse 99 Oximetry Medical Decision Making - Medical Decision Making Quick note preformed and electronically signed by Chacha Dowling PA-C - Lab Data Lab Results 07/24/24 Range/Units 10:13 Influenza Type A (PCR) Not Detected (Not Detectd) Influenza Type B (PCR) Not Detected (Not Detectd) RSV (PCR) Not Detected (Not Detectd) SARS-CoV-2 (PCR) Not Detected (Not Detectd) Disposition Clinical Impression: Left against medical advice Disposition: LEFT AGAINST MEDICAL ADVICE Is patient prescribed a controlled substance at d/c from ED?: No Referrals: None,Stated [Primary Care Provider] - 1-2 days
== END 2024-07-24 11:30 | disposition left against medical advice (07) ==
LOC: EC 09:53
DX: R06.02 Shortness of breath (principal); F17.290 Nicotine dependence, other tobacco product, uncomplicated; Z88.8 Allergy status to other drugs, medicaments and biological substances; Z53.29 Procedure and treatment not carried out because of patient's decision for other reasons
CPT/HCPCS: 87636; 93005; 99285

== ENCOUNTER 2024-11-29 06:15 | Day surgery (SDC) | payer MEDICARE, OTHER ==
[~2024-11-29 06:15] MED LIST: SODIUM CHLORIDE 0.9% 1,000 ML IV SCH
[2024-11-29 07:05] VITALS: BP 131/78; PULSE 82; RESP 18; TEMP 97.8
[2024-11-29] MEDS: SODIUM CHLORIDE 0.9% 500 ML 500 ML IV ONE (08:58)
--- NOTE | 2024-11-29 18:21 | P.EPPROC ---
- EP Procedure Note Electrophysiology Procedure Note: Diagnosis Recurrent syncope Twelve-lead EKG shows sinus rhythm normal WA narrow QRS normal ST segments no delta waves Tilt table test per protocol Baseline blood pressure 120/56 mmHg, baseline heart rate 71 beats a minute Patient was tilted upright from angle of 70 degrees per protocol Immediate increase in heart rate to 110 beats a minute. Heart rates remain elevated persistently throughout the tilt Blood pressure remained normal Patient complained of shortness of breath, heaviness in the chest since presyncope and weakness Impression postural tachycardia Without any evidence for secondary neurocardiogenic phenomena Normal twelve-lead EKG
== END 2024-11-29 09:12 | disposition home or self-care (01) ==
LOC: CATHEP 06:15
PROVIDERS: ATTEND Internal Medicine Clinical Cardiac Electrophysiology
DX: G90.A Postural orthostatic tachycardia syndrome [POTS] (principal); R55 Syncope and collapse
CPT/HCPCS: 81025; 93660

== ENCOUNTER 2024-12-28 21:31 | Emergency (ER) | payer MEDICARE, OTHER ==
--- NOTE | 2024-12-28 22:01 | ED ---
General Adult HPI - General Chief complaint: Dizziness Stated complaint: Dizzy Time Seen by Provider: 12/28/24 21:38 Source: patient, EMS Mode of arrival: EMS Limitations: no limitations - History of Present Illness Initial comments: This patient is a 24-year-old woman who states she was feeling faint and thought she would pass out. Patient states she had been outside all day, had been drinking a lot of soda and eating which she describes as junk food. She was concerned that her blood sugar was very high. She has had hyperglycemia previously. She denies chest pain or dyspnea. She did feel like her heart was racing. She felt lightheaded. She states that since she has been in the bed the symptoms are resolving. -: hour(s) Severity scale (1-10): 0 Consistency: now resolved Improves with: none Worsens with: none Associated Symptoms: other Treatments Prior to Arrival: none - Related Data Home Medications Medication Instructions Recorded Confirmed Calcium Carbonate [Calcium] 600 mg PO DAILY@0800 12/09/21 11/29/24 ARIPiprazole [Abilify] 30 mg PO DAILY 11/18/23 11/29/24 Prazosin [Minipress] 5 mg PO HS@2100 11/18/23 11/29/24 Sertraline [Zoloft] 150 mg PO DAILY 11/18/23 11/29/24 lamoTRIgine [LaMICtal] 50 mg PO HS@209911/18/23 11/29/24 Cholecalciferol (Vitamin D3) 50 mcg PO DAILY 11/26/24 11/29/24 [Vitamin D3 (50 Mcg = 2000 Iu)] Divalproex ER [Depakote ER] 500 mg PO HS 11/26/24 11/29/24 Omeprazole 20 mg PO BID@0800,199911/26/24 11/29/24 traZODone HCL [Desyrel] 150 mg PO HS 11/26/24 11/29/24 Previous Rx's Medication Instructions Recorded busPIRone HCL [Buspar] 30 mg PO BID@0800,2099 30 Days #60 10/16/23 tab Allergies Allergy/AdvReac Type Severity Reaction Status Date / Time amphetamine [From Adderall] Allergy Unknown Verified 01/06/25 18:16 citalopram [From Celexa] Allergy Unknown Verified 01/06/25 18:16 dextroamphetamine Allergy Unknown Verified 01/06/25 18:16 [From Adderall] Review of Systems ROS Statement: Those systems with pertinent positive or pertinent negative responses have been documented in the HPI. ROS Other: All systems not noted in ROS Statement are negative. Constitutional: Reports: weakness. Denies: fever, chills Eyes: Denies: vision change Respiratory: Denies: cough, dyspnea Cardiovascular: Reports: palpitations, syncope (Near syncope). Denies: chest pain, orthopnea, edema Gastrointestinal: Denies: abdominal pain, nausea, vomiting, diarrhea, constipation Genitourinary: Denies: dysuria, hematuria Musculoskeletal: Denies: back pain Skin: Denies: rash Neurological: Denies: headache, weakness, numbness Past Medical History Past Medical History: No Reported History Additional Past Medical History / Comment(s): cyst left ovary and abdominal pain, psuedoseizures,prediabetes,urinary incontinence,vit d def, vulvarian cyst ,foot fungus in past,bedwetting History of Any Multi-Drug Resistant Organisms: None Reported Past Surgical History: No Surgical Hx Reported Past Anesthesia/Blood Transfusion Reactions: No Reported Reaction Additional Past Anesthesia/Blood Transfusion Reaction / Comment(s): no known hx blood transfusion Past Psychological History: ADD/ADHD, Anxiety, Bipolar, Depression, PTSD Smoking Status: Current every day smoker, Vaper Past Alcohol Use History: None Reported, Occasional Past Drug Use History: Marijuana - Past Family History Mother History Unknown: Yes Additional Family Medical History / Comment(s): States mother when she was being born and was brought back General Exam Limitations: no limitations General appearance: alert, in no apparent distress Head exam: Present: atraumatic, normocephalic Eye exam: Present: normal appearance. Absent: scleral icterus, conjunctival injection ENT exam: Present: normal oropharynx Neck exam: Present: normal inspection Respiratory exam: Present: normal lung sounds bilaterally. Absent: respiratory distress, wheezes, rales, rhonchi, stridor, accessory muscle use Cardiovascular Exam: Present: regular rate, normal rhythm, normal heart sounds. Absent: systolic murmur, diastolic murmur, rubs, gallop GI/Abdominal exam: Present: soft. Absent: distended, tenderness, guarding, rebound, rigid, mass Extremities exam: Present: normal inspection, normal capillary refill. Absent: pedal edema, calf tenderness Back exam: Present: normal inspection. Absent: CVA tenderness (R), CVA tenderness (L) Neurological exam: Present: alert Skin exam: Present: warm, dry, intact, normal color. Absent: rash Course Vital Signs 12/28/24 12/29/24 12/29/24 21:35 00:00 00:08 Temperature 98.6 F 98.3 F Pulse Rate 84 72 Respiratory 18 16 Rate Blood Pressure 115/77 91/56 O2 Sat by Pulse 96 98 Oximetry Medical Decision Making - Medical Decision Making Was pt. sent in by a medical professional or institution (, JOHANNA, DBA MANAGER, urgent care, hospital, or longterm...) When possible be specific @ -[No] Did you speak to anyone other than the patient for history (EMS, parent, family, police, friend...)? What history was obtained from this source @ -[No] Did you review nursing and triage notes (agree or disagree)? Why? @ -[I reviewed and agree with nursing and triage notes] Were old charts reviewed (outside hosp., previous admission, EMS record, old EKG, old radiological studies, urgent care reports/EKG's, longterm records)? Report findings @ -[No old charts were reviewed] Differential Diagnosis (chest pain, altered mental status, abdominal pain women, abdominal pain men, vaginal bleeding, weakness, fever, dyspnea, syncope, headache, dizziness, GI bleed, back pain, seizure, CVA, palpatations, mental health, musculoskeletal)? @ -[not applicable] EKG interpreted by me (3pts min.). @ -[I interpreted this as above as above] X-rays interpreted by me (1pt min.). @ -[None done] CT interpreted by me (1pt min.). @ -[None done] U/S interpreted by me (1pt. min.). @ -[None done] What testing was considered but not performed or refused? (CT, X-rays, U/S, labs)? Why? @ -[None] What meds were considered but not given or refused? Why? @ -[None] Did you discuss the management of the patient with other professionals (professionals i.e. , JOHANNA, DBA MANAGER, lab, RT, psych nurse, director social service, dependency counselor, teacher, deputy juvenile officer, caseworker intake)? Give summary @ -[No] Was smoking cessation discussed for >3mins.? @ -[No] Was critical care preformed (if so, how long)? @ -[No] Were there social determinants of health that impacted care today? How? (Homelessness, low income, unemployed, alcoholism, drug addiction, transportation, low edu. Level, literacy, decrease access to med. care, penitentiary, rehab)? @ -[No] Was there de-escalation of care discussed even if they declined (Discuss DNR or withdrawal of care, Hospice)? DNR status @ -[No] What co-morbidities impacted this encounter? (DM, HTN, Smoking, COPD, CAD, Cancer, CVA, ARF, Chemo, Hep., AIDS, mental health diagnosis, sleep apnea, morbid obesity)? @ -[None] Was patient admitted / discharged? Hospital course, mention meds given and route, prescriptions, significant lab abnormalities, going to OR and other pertinent info. @ -[hospital course] Undiagnosed new problem with uncertain prognosis? @ -[No] Drug Therapy requiring intensive monitoring for toxicity (Heparin, Nitro, Insulin, Cardizem)? @ -[No] Were any procedures done? @ -[No] Diagnosis/symptom? @ -[Acute sunburn Acute dizziness Acute, or Chronic, or Acute on Chronic? @ -[default] Uncomplicated (without systemic symptoms) or Complicated (systemic symptoms)? @ -[default] Side effects of treatment? @ -[No] Exacerbation, Progression, or Severe Exacerbation? @ -[No] Poses a threat to life or bodily function? How? (Chest pain, [place], HI, pneumonia, PE, COPD, DKA, ARF, appy, cholecystitis, CVA, Diverticulitis, Homicidal, Suicidal, threat to staff... and all critical care pts) @ -[No] All treatments are based on ideal body weight as in ED triage - Lab Data Result diagrams: 12/28/24 22:00 12/28/24 22:00 Lab Results 12/28/24 12/28/24 Range/Units 22:00 22:00 WBC 10.58 H (4.50-10.00) 10*3/uL RBC 4.34 (4.10-5.20) 10*6/uL Hgb 12.4 (12.0-15.0) g/dL Hct 37.2 (37.2-46.3) % MCV 85.7 (80.0-97.0) fL MCH 28.6 (27.0-32.0) pg MCHC 33.3 (32.0-37.0) g/dL Plt Count 361 (140-440) 10*3/uL MPV 8.4 L (9.5-12.2) fL Immature Gran % (Auto) 0.4 % Neutrophils % 50.6 % Lymphocytes % 41.6 % Monocytes % 5.7 % Eosinophils % 1.1 % Basophils % 0.6 % Immature Gran # 0.04 (0.00-0.04) 10*3/uL Neutrophils # 5.36 (1.80-7.70) 10*3/uL Lymphocytes # 4.40 (0.90-5.00) 10*3/uL Monocytes # 0.60 (0.20-1.00) 10*3/uL Eosinophils # 0.12 (0.04-0.35) 10*3/uL Basophils # 0.06 (0.00-0.10) 10*3/uL Sodium 138 (137-145) mmol/L Potassium 3.6 (3.5-5.1) mmol/L Chloride 102 (98-107) mmol/L Carbon Dioxide 25 (22-30) mmol/L Anion Gap 11 mmol/L BUN 12 (7-17) mg/dL Creatinine 0.92 (0.52-1.04) mg/dL Est GFR (CKD-EPI)AfAm >90 (>60 ml/min/1.73 sqM) Est GFR (CKD-EPI)NonAf 87 (>60 ml/min/1.73 sqM) Glucose 103 H (74-99) mg/dL Calcium 10.0 (8.4-10.2) mg/dL Acetone, Qual Negative (Negative) Disposition Clinical Impression: Sunburn, Dizziness Disposition: HOME SELF-CARE Condition: Good Instructions (If sedation given, give patient instructions): Sunburn (ED), Dizziness (ED) Is patient prescribed a controlled substance at d/c from ED?: No Referrals: Patrica Camacho MD [Primary Care Provider] - 1-2 days
[2024-12-28 22:11] LABS: Basophils # (A) 0.06 10*3/uL (0.00-0.10); Basophils % (A) 0.6 %; Eosinophils # (A) 0.12 10*3/uL (0.04-0.35); Eosinophils % (A) 1.1 %; HCT 37.2 % (37.2-46.3); HGB 12.4 g/dL (12.0-15.0); Lymphocytes % (A) 41.6 %; MCH 28.6 pg (27.0-32.0); MCHC 33.3 g/dL (32.0-37.0); MCV 85.7 fL (80.0-97.0); Mean Platelet Volume 8.4 fL (9.5-12.2); Monocytes % (A) 5.7 %; Neutrophils # (A) 5.36 10*3/uL (1.80-7.70); Neutrophils % (A) 50.6 %; Platelet Count 361 10*3/uL (140-440); RBC 4.34 10*6/uL (4.10-5.20); RDW 15.1 % (11.5-14.5); WBC 10.58 10*3/uL (4.50-10.00)
[2024-12-28] MEDS: SODIUM CHLORIDE 0.9% 1,000 ML IV ONE (22:26)
[2024-12-28 22:35] LABS: African American GFR (CKD) >90 (>60 ml/min/1.73 sqM); Anion Gap 11 mmol/L; Blood Urea Nitrogen 12 mg/dL (7-17); Carbon Dioxide 25 mmol/L (22-30); Chloride 102 mmol/L (98-107); Glucose 103 mg/dL (74-99); Non-African American GFR(CKD) 87 (>60 ml/min/1.73 sqM); Potassium 3.6 mmol/L (3.5-5.1); Sodium 138 mmol/L (137-145)
[2024-12-29 00:01] VITALS: BP 91/56; PULSE 72; RESP 16
[2024-12-29 00:14] VITALS: TEMP 98.3
== END 2024-12-29 00:14 | disposition home or self-care (01) ==
LOC: EC 21:31
DX: R42 Dizziness and giddiness (principal); L55.9 Sunburn, unspecified; F17.290 Nicotine dependence, other tobacco product, uncomplicated; Z88.6 Allergy status to analgesic agent; Z88.8 Allergy status to other drugs, medicaments and biological substances
CPT/HCPCS: 36415; 80048; 82009; 85025; 96360; 99284

== ENCOUNTER 2025-01-06 18:14 | Emergency (ER) | payer MEDICARE, OTHER ==
[2025-01-06] MEDS: ACETAMINOPHEN TAB 500 MG TAB PO STA (21:03)
[2025-01-06 21:18] VITALS: RESP 18
[2025-01-06 21:21] LABS: Appearance,Urine Cloudy (Clear); Bilirubin,Urine Negative (Negative); Blood,Urine Negative (Negative); Color,Urine Yellow; Glucose,Urine (UA) Negative (Negative); Ketones,Urine Negative (Negative); Leukocyte Esterase,Urine Negative (Negative); Mucus,Urine Few /hpf; Nitrite,Urine Negative (Negative); Protein,Urine Trace (Negative); RBC,Urine 67 /hpf (0-5); Specific Gravity,Urine 1.036 (1.001-1.035); Squamous Epithelial Cell,Urine 6 /hpf (0-4); WBC,Urine 2 /hpf (0-5)
--- NOTE | 2025-01-06 21:42 | US ---
EXAMINATION TYPE: US pelvic complete DATE OF EXAM: 01/06/2025 COMPARISON: 11/18/2023. CLINICAL INDICATION: Female, 24 years old with history of lower abd pain, hx ovarian cysts with resec tion; patient states lower abd pain during intercourse. denies TV US at this time TECHNIQUE: Transvaginal (TV). Transabdominal grayscale sonographic images of the pelvis were acquired. Transvaginal sonographic im ages were medically necessary to better assess the following anatomy: Ovaries Doppler imaging: Color Doppler Images were obtained. Spectral doppler images were obtained. FINDINGS: Date of LMP: Unknown LMP EXAM MEASUREMENTS: Uterus: 6.7 x 2.7 x 2.8 cm Endometrial Stripe: 0.9 cm Right Ovary: 3.4 x 3.0 x 2.4 cm Left Ovary: obscured by gas pt denies TV. limited due to gas and body habitus 1. Uterus: Anteverted wnl 2. Endometrium: wnl 3. Right Ovary: possible 2.1 x 2.0 x 1.8 anechoic area within 4. Left Ovary: obscured by gas Spectral, color and waveform doppler imaging shows good arterial and venous flow within the ovaries ; there is no evidence for ovarian torsion. 5. Bilateral Adnexa: wnl as best seen 6. Posterior cul-de-sac: wnl IMPRESSION: 1. No evidence for acute process. 2. Appropriate arterial and venous spectral waveforms to the right ovary. 3. The left ovary is not visualized. 4. Right ovarian cyst measuring up to follicle measuring up to 2.1 cm. [facility], , 01/06/2025 9:40 PM
--- NOTE | 2025-01-06 21:55 | ED ---
Abdominal Pain HPI - General Chief Complaint: Abdominal Pain Stated Complaint: Abd Pain Source: patient Mode of arrival: ambulatory Limitations: no limitations - History of Present Illness Initial Comments: 24-year-old female presents emergency department reporting abdominal discomfort. States that this afternoon she had sexual intercourse and afterwards developed suprapubic pain. Patient continues to have pain. Denies dysuria, hematuria or difficulty voiding. No vaginal bleeding or discharge. No concern for sexually transmitted infections. Patient is concerned that she "may be ". She denies diarrhea, constipation, black or bloody stools. She has had history of oophorectomy in the past due to a cyst. No other alleviating, precipitating modifying factors - Related Data Home Medications Medication Instructions Recorded Confirmed Calcium Carbonate [Calcium] 600 mg PO DAILY@0800 12/09/21 11/29/24 ARIPiprazole [Abilify] 30 mg PO DAILY 11/18/23 11/29/24 Prazosin [Minipress] 5 mg PO HS@2100 11/18/23 11/29/24 Sertraline [Zoloft] 150 mg PO DAILY 11/18/23 11/29/24 lamoTRIgine [LaMICtal] 50 mg PO HS@2100 11/18/23 11/29/24 Cholecalciferol (Vitamin D3) 50 mcg PO DAILY 11/26/24 11/29/24 [Vitamin D3 (50 Mcg = 2000 Iu)] Divalproex ER [Depakote ER] 500 mg PO HS 11/26/24 11/29/24 Omeprazole 20 mg PO BID@0800,2000 11/26/24 11/29/24 traZODone HCL [Desyrel] 150 mg PO HS 11/26/24 11/29/24 Previous Rx's Medication Instructions Recorded busPIRone HCL [Buspar] 30 mg PO BID@0800,2100 30 Days #60 10/16/23 tab Allergies Allergy/AdvReac Type Severity Reaction Status Date / Time amphetamine [From Adderall] Allergy Unknown Verified 01/06/25 18:16 citalopram [From Celexa] Allergy Unknown Verified 01/06/25 18:16 dextroamphetamine Allergy Unknown Verified 01/06/25 18:16 [From Adderall] Review of Systems ROS Statement: Those systems with pertinent positive or pertinent negative responses have been documented in the HPI. ROS Other: All systems not noted in ROS Statement are negative. Past Medical History Past Medical History: No Reported History Additional Past Medical History / Comment(s): cyst left ovary and abdominal pain, psuedoseizures,prediabetes,urinary incontinence,vit d def, vulvarian cyst,foot fungus in past,bedwetting History of Any Multi-Drug Resistant Organisms: None Reported Past Surgical History: No Surgical Hx Reported Additional Past Surgical History / Comment(s): oophorectomy Past Anesthesia/Blood Transfusion Reactions: No Reported Reaction Additional Past Anesthesia/Blood Transfusion Reaction / Comment(s): no known hx blood transfusion Past Psychological History: ADD/ADHD, Anxiety, Bipolar, Depression, PTSD Smoking Status: Current every day smoker, Vaper Past Alcohol Use History: None Reported, Occasional Past Drug Use History: Marijuana - Past Family History Mother History Unknown: Yes Additional Family Medical History / Comment(s): States mother when she was being born and was brought back General Exam Limitations: no limitations General appearance: alert, in no apparent distress Head exam: Present: atraumatic, normocephalic, normal inspection Eye exam: Present: normal appearance, PERRL, EOMI. Absent: scleral icterus, conjunctival injection, periorbital swelling ENT exam: Present: normal exam, mucous membranes moist Neck exam: Present: normal inspection. Absent: tenderness, meningismus, lymphadenopathy Respiratory exam: Present: normal lung sounds bilaterally. Absent: respiratory distress, wheezes, rales, rhonchi, stridor Cardiovascular Exam: Present: regular rate, normal rhythm, normal heart sounds. Absent: systolic murmur, diastolic murmur, rubs, gallop, clicks GI/Abdominal exam: Present: soft, tenderness (Suprapubic), normal bowel sounds. Absent: distended, guarding, rebound, rigid Extremities exam: Present: normal inspection, full ROM, normal capillary refill. Absent: tenderness, pedal edema, joint swelling, calf tenderness Back exam: Present: normal inspection Neurological exam: Present: alert, oriented X3, CN II-XII intact Psychiatric exam: Present: normal affect, normal mood Skin exam: Present: warm, dry, intact, normal color. Absent: rash Course Vital Signs 01/06/25 01/06/25 01/06/25 18:16 18:55 18:57 Temperature 97.5 F L Pulse Rate 91 84 Respiratory 16 16 Rate Blood Pressure 110/72 116/59 O2 Sat by Pulse 98 95 Oximetry 01/06/25 01/06/25 21:15 22:09 Temperature 97.7 F 97.8 F Pulse Rate 78 71 Respiratory 18 18 Rate Blood Pressure 117/70 115/70 O2 Sat by Pulse 98 99 Oximetry Medical Decision Making - Medical Decision Making Was pt. sent in by a medical professional or institution (, JOHANNA, OCCUPATIONAL SAFETY AND HEALTH MANAGER, urgent care, hospital, or snf...) When possible be specific @ -No Did you speak to anyone other than the patient for history (EMS, parent, family, police, friend...)? What history was obtained from this source @ -I spoke with the boyfriend for history Did you review nursing and triage notes (agree or disagree)? Why? @ -I reviewed and agree with nursing and triage notes Were old charts reviewed (outside hosp., previous admission, EMS record, old EKG, old radiological studies, urgent care reports/EKG's, snf records)? Report findings @ -No old charts were reviewed Differential Diagnosis (chest pain, altered mental status, abdominal pain women, abdominal pain men, vaginal bleeding, weakness, fever, dyspnea, syncope, headache, dizziness, GI bleed, back pain, seizure, CVA, palpatations, mental health, musculoskeletal)? @ -Differential Abdominal Pain Women: Appendicitis, Cholecystitis, diverticulosis, ischemic bowel, pancreatitis, hepatitis, UTI, gastroenteritis, AAA, incarcerated hernia, bowel obstruction, constipation, inflammatory bowel, hepatitis, peptic ulcer disease, splenic infarction, perforated viscus, vulvitis, ovarian torsion, PID, kidney stone, placenta abruption, this is not meant to be an all-inclusive list EKG interpreted by me (3pts min.). @ -Not done X-rays interpreted by me (1pt min.). @ -None done CT interpreted by me (1pt min.). @ -None done U/S interpreted by me (1pt. min.). @ -Yes which demonstrates no acute process What testing was considered but not performed or refused? (CT, X-rays, U/S, labs)? Why? @ -None What meds were considered but not given or refused? Why? @ -None Did you discuss the management of the patient with other professionals (professionals i.e. JOHANNA Poe, OCCUPATIONAL SAFETY AND HEALTH MANAGER, lab, RT, psych nurse, social welfare clerk, home improvement contractor, teacher, guest relation officer, case management rn)? Give summary @ -No Was smoking cessation discussed for >3mins.? @ -No Was critical care preformed (if so, how long)? @ -No Were there social determinants of health that impacted care today? How? (Homelessness, low income, unemployed, alcoholism, drug addiction, transportation, low edu. Level, literacy, decrease access to med. care, care home, rehab)? @ -No Was there de-escalation of care discussed even if they declined (Discuss DNR or withdrawal of care, Hospice)? DNR status @ -No What co-morbidities impacted this encounter? (DM, HTN, Smoking, COPD, CAD, Cancer, CVA, ARF, Chemo, Hep., AIDS, mental health diagnosis, sleep apnea, morbid obesity)? @ -None Was patient admitted / discharged? Hospital course, mention meds given and route, prescriptions, significant lab abnormalities, going to OR and other pert inent info. @ -Upon arrival patient seen and evaluated in bed 31. Thorough history and physical exam was performed. Patient was given a dose of Tylenol. Urinalysis and ultrasound were performed. Results are discussed with patient. Patient is satisfied with the workup. Should be discharged home. Instructed to follow-up with her CUSTOMER SALES REPRESENTATIVE. She is to remain on pelvic rest at this time until pain resolves and return for any new worsening symptoms. Patient agreed and she was discharged in stable condition Undiagnosed new problem with uncertain prognosis? @ -No Drug Therapy requiring intensive monitoring for toxicity (Heparin, Nitro, Insulin, Cardizem)? @ -No Were any procedures done? @ -No Diagnosis/symptom? @ -Acute pelvic pain status post vaginal intercourse Acute, or Chronic, or Acute on Chronic? @ -Acute Uncomplicated (without systemic symptoms) or Complicated (systemic symptoms)? @ -Complicated Side effects of treatment? @ -No Exacerbation, Progression, or Severe Exacerbation? @ -No Poses a threat to life or bodily function? How? (Chest pain, [place], [place], pneumonia, PE, COPD, DKA, ARF, appy, cholecystitis, CVA, Diverticulitis, Homicidal, Suicidal, threat to staff... and all critical care pts) @ -No - Lab Data Lab Results 01/06/25 01/06/25 Range/Units 21:10 21:10 Urine Color Yellow Urine Appearance Cloudy H (Clear) Urine pH 6.0 (5.0-8.0) Ur Specific [place] 1.036 H (1.001-1.035) Urine Protein Trace H (Negative) Urine Glucose (UA) Negative (Negative) Urine Ketones Negative (Negative) Urine Blood Negative (Negative) Urine Nitrite Negative (Negative) Urine Bilirubin Negative (Negative) Urine Urobilinogen 2.0 (<2.0) mg/dL Ur Leukocyte Esterase Negative (Negative) Urine RBC 67 H (0-5) /hpf Urine WBC 2 (0-5) /hpf Ur Squamous Epith Cells 6 H (0-4) /hpf Urine Mucus Few H (None) /hpf Urine HCG, Qual Not Detected (Not Detectd) Disposition Clinical Impression: Abdominal pain Disposition: HOME SELF-CARE Condition: Stable Instructions (If sedation given, give patient instructions): Abdominal Pain (ED) Additional Instructions: Your labs and imaging was normal today. Please follow-up with your primary care doctor and return for any new or worsening symptoms Is patient prescribed a controlled substance at d/c from ED?: No Referrals: Patrica Camacho MD [Primary Care Provider] - 1-2 days Time of Disposition: 21:55
[2025-01-06 22:10] VITALS: BP 115/70; PULSE 71; TEMP 97.8
== END 2025-01-06 22:11 | disposition home or self-care (01) ==
LOC: EC 18:14
DX: R10.9 Unspecified abdominal pain (principal); Z90.721 Acquired absence of ovaries, unilateral; F17.290 Nicotine dependence, other tobacco product, uncomplicated; Z88.8 Allergy status to other drugs, medicaments and biological substances
CPT/HCPCS: 76856; 81001; 81025; 93976; 99284

== ENCOUNTER 2025-01-30 22:49 | Emergency (ER) | payer MEDICARE, OTHER ==
[2025-01-30 23:07] VITALS: RESP 16
[2025-01-30] MEDS: LIDOCAINE 4% PATCH TOPICAL ONE (23:44)
[2025-01-30] MEDS: ORPHENADRINE 30 MG/ML 2 ML VIAL IM STA (23:45)
[2025-01-30] MEDS: KETOROLAC 15 MG/ML 1 ML VIAL IM STA (23:45)
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
[2025-01-31 01:43] VITALS: BP 103/64; PULSE 69; TEMP 98.1
== END 2025-01-31 01:35 | disposition home or self-care (01) ==
LOC: EC 22:49
DX: S39.012A Strain of muscle, fascia and tendon of lower back, initial encounter (principal); F17.290 Nicotine dependence, other tobacco product, uncomplicated; Z88.8 Allergy status to other drugs, medicaments and biological substances; X58.XXXA Exposure to other specified factors, initial encounter; Y04.8XXA Assault by other bodily force, initial encounter
CPT/HCPCS: 99283; 96372 ×2; J2360; J1885